=== PATIENT | female | born 1945 | race Caucasian/White ===

== ENCOUNTER 2023-02-03 18:34 | Outpatient (RCR) | payer MEDICARE, SELFPAY | END 2023-02-27 23:59 | disposition home or self-care (01) | LOC: MM 18:34 | PROVIDERS: PCP Internal Medicine; Visit Provider Internal Medicine | DX: Z51.81 Encounter for therapeutic drug level monitoring (principal); Z79.01 Long term (current) use of anticoagulants ==

== ENCOUNTER 2023-02-21 11:47 | Outpatient (OUT) | payer MEDICARE, SELFPAY ==
[2023-02-21 12:21] LABS: Basophils Percent Auto 0.5 % (0.2-2.0); Eosinophils Absolute Auto 0.1 10^3/uL (0.0-0.7); Eosinophils Percent Auto 1.2 % (0.9-7.0); Hematocrit 47.6 % (36.0-48.0); Hemoglobin 15.3 g/dL (12.0-16.0); Immature Granulocytes Abs Auto 0.02 10^3/uL (0.00-0.03); Immature Granulocytes Pct Auto 0.2 % (0.0-0.5); Lymphocytes Absolute Auto 1.7 10^3/uL (1.2-3.8); Lymphocytes Percent Auto 20.4 % (20.5-60.0); Mean Corpuscular HGB Conc 32.1 g/dL (29.9-35.2); Mean Corpuscular Hemoglobin 31.5 pg (26.7-34.0); Mean Corpuscular Volume 98.1 fL (81.0-99.0); Mean Platelet Volume 11.5 fL (9.5-13.5); Monocytes Absolute Auto 0.7 10^3/uL (0.3-0.8); Monocytes Percent Auto 8.2 % (1.7-12.0); Neutrophils Absolute Auto 5.7 10^3/uL (1.4-6.5); Neutrophils Percent Auto 69.5 % (43.0-75.0); Platelet Count 244 10^3/uL (150-450); Red Blood Count 4.85 10^6/uL (4.20-5.40); Red Cell Distribution Width 13.9 % (11.0-15.0); White Blood Count 8.1 10^3/uL (4.0-11.0)
[2023-02-21 12:55] LABS: Bilirubin Urine NEGATIVE (NEGATIVE); Blood Urine TRACE-I (NEGATIVE); Clarity Urine CLEAR (CLEAR); Color Urine LT. YELLOW (YELLOW); Glucose Urine UA >=1000 mg/dL (NEGATIVE); Ketones Urine NEGATIVE (NEGATIVE); Leukocyte Esterase Urine NEGATIVE (NEGATIVE); Nitrite Urine NEGATIVE (NEGATIVE); Protein Urine 100 mg/dL (NEG/TRACE); Specific Gravity Urine 1.025 (1.005-1.025); Urobilinogen Urine 0.2 EU/dL (0.2-1.0)
[2023-02-21 13:03] LABS: Estimated Average Glucose 303 mg/dL; Glycohemoglobin A1C 12.2 % (4.5-6.2)
[2023-02-21 13:08] LABS: Alanine Aminotransferase 28 U/L (14-59); Albumin Globulin Ratio 0.7; Alkaline Phosphatase 140 U/L (46-116); Anion Gap 12.3; Aspartate Amino Transferase 17 U/L (15-37); Bilirubin Total 0.5 mg/dL (0.2-1.0); Calcium 9.5 mg/dL (8.5-10.1); Carbon Dioxide 27.7 mmol/L (21.0-32.0); Chloride 100 mmol/L (98-107); Chol HDL Ratio 3.3; Cholesterol 162 mg/dL (<=200); Estimated GFR (African America 56 (>=60); Estimated GFR (Non-African Ame 46 (>=60); Globulin 4.5 g/dL; Glucose 403 mg/dL (74-106); HDL Cholesterol 49 mg/dL (40-60); LDL Cholesterol Calculated 90.8 mg/dL; Sodium 136 mmol/L (136-145); Total Protein 7.5 g/dL (6.4-8.2); Triglycerides 111 mg/dL (<=150); VLDL CHOLESTEROL 22.2 mg/dL
[2023-02-21 13:45] LABS: Bacteria Urine NONE SEEN #/HPF (NONE SEEN); Cast Seen? NONE SEEN #/LPF (NONE SEEN); Crystals Seen? None Seen #/HPF (None Seen); Mucus Urine NONE SEEN (NONE SEEN); RBC Urine 0-2 #/HPF (0-2); Squamous Epithelial Cell Urine FEW #/LPF (NONE/RARE); Urine Culture Indicated NO; WBC Urine 0-2 #/HPF (NONE SEEN)
[2023-02-23 08:39] LABS: Microalbumin Urine Random 39.4 mg/dL (<=30.0)
== END 2023-02-21 11:48 | disposition home or self-care (01) ==
PROVIDERS: PCP Internal Medicine; Visit Provider Internal Medicine
DX: I10 Essential (primary) hypertension (principal); E11.9 Type 2 diabetes mellitus without complications; E55.9 Vitamin D deficiency, unspecified; L03.90 Cellulitis, unspecified; Z79.4 Long term (current) use of insulin
CPT/HCPCS: 36415; 80053; 80061; 81001; 82043; 82306; 83036; 85025

== ENCOUNTER 2023-03-05 09:51 | Outpatient (RCR) | payer MEDICARE, SELFPAY | END 2023-03-30 17:06 | disposition home or self-care (01) | LOC: MM 09:51 | PROVIDERS: PCP Internal Medicine; Visit Provider Internal Medicine | DX: Z51.81 Encounter for therapeutic drug level monitoring (principal); Z79.01 Long term (current) use of anticoagulants ==

== ENCOUNTER 2023-03-06 11:45 | Outpatient (OUT) | payer MEDICARE, SELFPAY ==
[2023-03-06 12:38] LABS: Chol HDL Ratio 3.1; Cholesterol 150 mg/dL (<=200); HDL Cholesterol 49 mg/dL (40-60); Triglycerides 90 mg/dL (<=150)
== END 2023-03-06 11:46 | disposition home or self-care (01) ==
LOC: LAB 11:48
PROVIDERS: PCP Nurse Practitioner; Visit Provider Internal Medicine Cardiovascular Disease
DX: I25.10 Atherosclerotic heart disease of native coronary artery without angina pectoris (principal); E78.5 Hyperlipidemia, unspecified
CPT/HCPCS: 36415; 80061

== ENCOUNTER 2023-03-31 09:34 | Outpatient (RCR) | payer MEDICARE, SELFPAY | END 2023-04-30 17:40 | disposition home or self-care (01) | LOC: MM 09:34 | PROVIDERS: PCP Nurse Practitioner; Visit Provider Internal Medicine | DX: Z51.81 Encounter for therapeutic drug level monitoring (principal); Z79.01 Long term (current) use of anticoagulants ==

== ENCOUNTER 2023-05-01 10:34 | Outpatient (RCR) | payer MEDICARE, SELFPAY | END 2023-05-29 16:59 | disposition home or self-care (01) | LOC: MM 10:34 | PROVIDERS: PCP Nurse Practitioner; Visit Provider Internal Medicine | DX: Z51.81 Encounter for therapeutic drug level monitoring (principal); Z79.01 Long term (current) use of anticoagulants ==

== ENCOUNTER 2023-06-01 02:04 | Outpatient (RCR) | payer MEDICARE, SELFPAY | END 2023-06-30 17:28 | disposition home or self-care (01) | LOC: MM 02:04 | PROVIDERS: PCP Nurse Practitioner; Visit Provider Internal Medicine | DX: Z51.81 Encounter for therapeutic drug level monitoring (principal); Z79.01 Long term (current) use of anticoagulants ==

== ENCOUNTER 2023-06-24 13:45 | Outpatient (OUT) | payer MEDICARE, SELFPAY ==
[2023-06-24 14:25] LABS: Anion Gap 10.5; BUN Creatinine Ratio 18.6; Calcium 9.1 mg/dL (8.5-10.1); Carbon Dioxide 29.4 mmol/L (21.0-32.0); Chloride 104 mmol/L (98-107); Estimated GFR (African America >60 (>=60); Estimated GFR (Non-African Ame 52 (>=60); Glucose 295 mg/dL (74-106); Potassium 3.9 mmol/L (3.5-5.1); Sodium 140 mmol/L (136-145)
[2023-06-24 14:26] LABS: Estimated Average Glucose 303 mg/dL; Glycohemoglobin A1C 12.2 % (4.5-6.2)
== END 2023-06-24 13:46 | disposition home or self-care (01) ==
LOC: LAB 13:46
PROVIDERS: PCP Nurse Practitioner; Visit Provider Nurse Practitioner
DX: E11.9 Type 2 diabetes mellitus without complications (principal)
CPT/HCPCS: 36415; 80048; 83036

== ENCOUNTER 2023-07-01 00:26 | Outpatient (RCR) | payer MEDICARE, SELFPAY | END 2023-07-30 16:42 | disposition home or self-care (01) | LOC: MM 00:26 | PROVIDERS: PCP Nurse Practitioner; Visit Provider Internal Medicine | DX: Z51.81 Encounter for therapeutic drug level monitoring (principal); Z79.01 Long term (current) use of anticoagulants ==

== ENCOUNTER 2023-08-31 02:03 | Outpatient (RCR) | payer MEDICARE, SELFPAY | END 2023-09-30 17:13 | disposition home or self-care (01) | LOC: MM 02:03 | PROVIDERS: PCP Nurse Practitioner; Visit Provider Internal Medicine | DX: Z51.81 Encounter for therapeutic drug level monitoring (principal); Z79.01 Long term (current) use of anticoagulants ==

== ENCOUNTER 2023-10-01 00:59 | Outpatient (RCR) | payer MEDICARE, SELFPAY | END 2023-10-29 17:32 | disposition home or self-care (01) | LOC: MM 00:59 | PROVIDERS: PCP Nurse Practitioner; Visit Provider Internal Medicine | DX: Z51.81 Encounter for therapeutic drug level monitoring (principal); Z79.01 Long term (current) use of anticoagulants ==

== ENCOUNTER 2023-10-30 03:39 | Outpatient (RCR) | payer MEDICARE, SELFPAY | END 2023-11-27 14:15 | disposition home or self-care (01) | LOC: MM 03:39 | PROVIDERS: PCP Nurse Practitioner; Visit Provider Internal Medicine | DX: Z51.81 Encounter for therapeutic drug level monitoring (principal); Z79.01 Long term (current) use of anticoagulants ==

== ENCOUNTER 2023-11-12 08:05 | Outpatient (OUT) | payer MEDICARE, SELFPAY ==
--- OUTSIDE RECORDS SUMMARY | 2023-11-12 08:08 | XMS_ITS | CCD ---
Author Name Unknown Address [address] [place] [address] Organization [facility] Care Team Providers Care Tool Crib Supervisor Name Role Phone PROVIDER, UNKNOWN Admitting Unavailable PROVIDER, UNKNOWN Attending Unavailable PROVIDER, UNKNOWN Admitting Unavailable PROVIDER, UNKNOWN Attending Unavailable PROVIDER, UNKNOWN Attending Unavailable PROVIDER, UNKNOWN Admitting Unavailable PROVIDER, UNKNOWN Attending Unavailable PROVIDER, UNKNOWN Admitting Unavailable PROVIDER, UNKNOWN Admitting Unavailable PATIENT, SELF Referring Unavailable PROVIDER, UNKNOWN Attending Unavailable PROVIDER, UNKNOWN Admitting Unavailable PATIENT, SELF Referring Unavailable PROVIDER, UNKNOWN Attending Unavailable KAMILLA PHOENIX Attending Unavailable REQUEST, IP PHYSICAL THERAPY SERVICE Consulting Unavailable MIGUEL SAEED Referring Unavailable PRITI, RAKATY Admitting Unavailable REQUEST, IP OCCUPATIONAL THERAPY SERVICE Consult ing Unavailable REQUEST, IP LABORER [employer] Consul ting Unavailable CONSULT, IP ENDOCRINOLOGY Consulting Unavai lable PROVIDER, UNKNOWN Admitting Unavailable KAMILLA PHOENIX Referring Unavailable PROVIDER, UNKNOWN Attending Unavailable PROVIDER, UNKNOWN Admitting Unavailable PROVIDER, UNKNOWN Attending Unavailable KAMILLA PHOENIX Referring Unavailable PROVIDER, UNKNOWN Attending Unavailable PRITI, RAHI Admitting Unavailable KAMILLA PHOENIX Referring Unavailable PROVIDER, UNKNOWN Attending Unavailable MIGUEL SAEED Referring Unavailable PRITI, RAHI Admitting Unavailable Aichholz, Mima Soraya Unavailable Unavailable Unavailable Unavailable Unavailable DR SELWYN PALMER Attending Unavailable DR SELWYN PALMER Consulting Unavailable DR SELWYN PALMER Admitting Unavailable AICHHOLZ, INFUSION PHARMACIST MIMA Primary Care Unavailable AICHHOLZ, INFUSION PHARMACIST MIMA Primary Care Unavailable AICHHOLZ, INFUSION PHARMACIST MIMA Admitting Unavailable AICHHOLZ, INFUSION PHARMACIST MIMA Attending Unavailable AICHHOLZ, INFUSION PHARMACIST MIMA Consulting Unavailable AICHHOLZ, INFUSION PHARMACIST MIMA Primary Care Unavailable AICHHOLZ, INFUSION PHARMACIST MIMA Admitting Unavailable AICHHOLZ, INFUSION PHARMACIST MIMA Attending Unavailable AICHHOLZ, INFUSION PHARMACIST MIMA Consulting Unavailable AICHHOLZ, INFUSION PHARMACIST MIMA Admitting Unavailable AICHHOLZ, INFUSION PHARMACIST MIMA Attending Unavailable AICHHOLZ, INFUSION PHARMACIST MIMA Consulting Unavailable AICHHOLZ, INFUSION PHARMACIST MIMA Primary Care Unavailable AICHHOLZ, INFUSION PHARMACIST MIMA Admitting Unavailable AICHHOLZ, INFUSION PHARMACIST MIMA Attending Unavailable AICHHOLZ, INFUSION PHARMACIST MIMA Consulting Unavailable AICHHOLZ, INFUSION PHARMACIST MIMA Primary Care Unavailable AICHHOLZ, INFUSION PHARMACIST MIMA Primary Care Unavailable FAWWAD, CHAN H Admitting Unavailable FAWWAD, CHAN H Attending Unavailable AICHHOLZ, INFUSION PHARMACIST MIMA Primary Care Unavailable FAWWAD, CHAN H Admitting Unavailable FAWWAD, CHAN H Attending Unavailable AICHHOLZ, INFUSION PHARMACIST MIMA Primary Care Unavailable FAWWAD, CHAN H Attending Unavailable FAWWAD, CHAN H Admitting Unavailable Yulissa Barnhart [facility]available [facility] Mrs[facility] Guillermo Soraya Primary Care Unavailab le Annika, Dr. Rowan Aranda Attending Valeria vailable Yanez, Dr. Rowan Aranda Referring Valeria vailable Aichholmarlen, Mrs. Mima Lira Primary Care Unavailab renetta Yanez, Dr. Rowan Aranda Attending Valeria vailable Yanez, Dr. Rowan Aranda Referring Valeria vailable AICHHOLZ, MIMA Attending Unavailable AICHHOLZ, MIMA Attending Unavailable Medications Current Medications Medication Drug Class(es) Dates Sig (Normalized) Sig (Original) 3 ml insulin isophane, human 70 unt/ml / insulin, regular, human 30 unt/ml pen injector (1 source) Insulin NovoLIN 70/30 Fl exPen (70-30) 100 UNIT/ML as directed Subcutaneous Active Potassium (1 source) Potassium Active Completed/Discontinued Medications Medication Drug Class(es) Dates Sig (Normalized) Sig (Original) apixaban 5 mg oral tablet (3 sources) Factor Xa Inhibitor take 1 tablet by mouth twice daily Eliquis 5 MG Oral Tablet Take 1 tablet twice daily Quantity: 90 Refills: 3 Ordered: 25-Feb-2023 DO Active aspirin 81 mg delayed release oral tablet (3 sources) Platelet Aggregation Inhibitor, Nonsteroidal Anti-inflammatory Drug take 1 tablet by mouth two times weekly Aspirin EC Low Dose 81 MG Oral Tablet Delayed Release 1 tablet twice weekly Quantity: 0 Refills: 0 Ordered: 01-Nov-2021 DO Active atorvastatin 40 mg oral tablet (7 sources) HMG-CoA Reductase Inhibitor Start: 11-01-2021 take 1 tablet by mouth at bedtime Atorvastatin Calcium 40 MG Oral Tablet take 1 tablet by mouth at bedtime Quantity: 90 Refills: 3 Ordered: 15-Oct-2022 Rowan Yanez MD Start : 01-Nov-2021 Active Atorvastatin Will cium Active clopidogrel 75 mg oral tablet (7 sources) P2Y12 Platelet Inhibitor Start: 11-08-2020 take 1 tablet by mouth once daily Clopidogrel Bisulfate 75 MG Oral Tablet take 1 tablet by mouth once daily Quantity: 90 Refills: 0 Ordered: 10-Oct-2021 DO Start : 09-Oct-2021 Active 0.5 ml dulaglutide 3 mg/ml auto-injector (1 source) GLP-1 Receptor Agonist Trulicity 1.5 MG/0.5ML as directed Subcutaneous Not-Taking ergocalciferol 1.25 mg oral capsule (4 sources) Provitamin D2 Compound Start: 08-02-2021 take 1 capsule by mouth every week Vitamin D (Ergocalciferol) 1.25 MG (02074 UT) Oral Capsule take 1 capsule by mouth every week Quantity: 4 Refills: 0 Ordered: 12-Oct-2021 DO Start : 02-Aug-2021 Active formoterol / glycopyrronium (1 source) beta2-Adrenergic Agonist Bevespi Not-Taking furosemide 40 mg oral tablet (7 sources) Loop Diuretic Start: 05-20-2022 take 1 tablet by mouth once daily Furosemide 40 MG Oral Tablet take 1 tablet by mouth once daily Quantity: 90 Refills: 3 Ordered: 28-May-2023 Rowan Yanez MD Start : 20-May-2022 Active Start: 10-23-2021 take 1 tablet by deann th once daily Furosemide 20 MG Oral Tablet TAKE 1 TABLET DAILY DIRECTED. Quantity: 0 Refills: 0 Ordered: 23-Oct-2021 DO Start : 23-Oct-2021 Active Lasix Active 3 ml insulin aspart, human 100 unt/ml pen injector (3 sources) Insulin Analog Start: 05-07-2021 NovoLOG FlexPe n 100 UNIT/ML Subcutaneous Solution Pen-injector INJECT 12 UNITS AT LUCH AND SLIDING SCALE, 14 UNITS FOR DINNER AN... (REFER TO PRESCRIPTION NOTES). Quantity: 15 Refills: 0 Ordered: 12-Oct-2021 DO Start : 07-May-2021 Active 3 ml insulin glargine 100 unt/ml pen injector (4 sources) Insulin Analog Start: 07-29-2021 Lantus SoloSta r 100 UNIT/ML Subcutaneous Solution Pen-injector INJECT 22 UNITS SUBCUTANEOUSLY ONCE DAILY Quantity: 9 Refills: 0 Ordered: 12-Oct-2021 DO Start : 29-Jul-2021 Active Lantus SoloStar 100 UNIT/ML as directed Subcutaneous Not-Taking lisinopril 10 mg oral tablet (7 sources) Angiotensin Converting Enzyme Inhibitor Start: 11-01-2021 take 1 tablet by mouth once daily Lisinopril 10 MG Oral Tablet take 1 tablet by mouth once daily Quantity: 90 Refills: 3 Ordered: 15-Oct-2022 Rowan Yanez MD Start : 01-Nov-2021 Active NovoLIN 70/30 PenFill SUSP (2 sources) NovoLIN 70/30 PenFill SUSP USE DIRECTED. Quantity: 0 Refills: 0 Ordered: 25-Feb-2023 DO Active potassium chloride 20 meq extended release oral tablet (6 sources) Start: 10-23-2021 take 1 tablet by mouth once daily Potassium Chloride ER 20 MEQ Oral Tablet Extended Release Take 1 tablet daily Quantity: 0 Refills: 0 Ordered: 23-Oct-2021 DO Start : 23-Oct-2021 Active simvastatin 20 mg oral tablet (2 sources) HMG-CoA Reductase Inhibitor take 1 tablet by mouth every twenty-four hours Simvastatin 20 MG 1 tablet in the evening Orally Once a day Not-Taking terbinafine hydrochloride 10 mg/ml topical cream (1 source) Allylamine Antifungal Terbinafine HCl 1 % 1 application Externally Once a day Not-Taking warfarin sodium 4 mg oral tablet (4 sources) Vitamin K Antagonist Start: 10-09-2021 Warfarin Sodium 4 MG Oral Tablet warfarin is managed by [facility] . Quantity: 0 Refills: 0 Ordered: 10-Oct-2021 DO Start : 09-Oct-2021 Active Problems Active Problems Problem Classification Problem Date Documented Da te Episodic/Chronic Aortic and peripheral arterial embolism or thrombosis (1 source) Embolism and thrombosis of an arm or leg artery; Translations: [Embolism and thrombosis of arteries of the lower extremities] Chronic Chronic obstructive pulmonary disease and bronchiectasis (6 sources) Chronic obstructive lung disease; Translations: [Chronic airway obstruction, not elsewhere classified] Chronic Coronary atherosclerosis and other heart disease (6 sources) Coronary arteriosclerosis; Translations: [Coronary atherosclerosis of unspecified type of vessel, holy cross or graft] Chronic Diabetes mellitus without complication (11 sources) Diabetes mellitus; Translations: [Diabetes mellitus without mention of complication, type II or unspecified type, not stated as uncontrolled] Onset: 06-03-2022 Chronic Disorders of lipid metabolism (3 sources) Hyperlipidemia; Translations: [Other and unspecified hyperlipidemia] Chronic Essential hypertension (6 sources) Benign essential hypertension; Translations: [Benign essential hypertension] Chronic Occlusion or stenosis of precerebral arteries (3 sources) Bilateral stenosis of carotid arteries; Translations: [Occlusion and stenosis of bilateral carotid arteries] Chronic Other aftercare (6 sources) Drug therapy finding; Translations: [Long-term (current) use of other medications] Episodic Other aftercare (5 sources) penitentiary (current) use of anticoagulants; Translations: [SNF CURRNT USE ANTICOAGULANTS] Onset: 11-11-2022 Episodic Other aftercare (4 sources) Encounter for therapeutic drug level monitoring; Translations: [ENC THERAPEUTC DRUG LEVL MONITORING] Onset: 12-29-2022 Episodic Other injuries and conditions due to external causes (2 sources) At risk for falls ; Translations: [History of fall] Episodic Other nutritional; endocrine; and metabolic disorders (6 sources) Obesity; Translations: [Obesity, unspecified] Chronic Other screening for suspected conditions (not mental disorders or infectious disease) (6 sources) Echocardiogram abnormal; Translations: [Nonspecific (abnormal) findings on radiological and other examination of other intrathoracic organs] Episodic Peripheral and visceral atherosclerosis (8 sources) Peripheral vascular disease; Translations: [Peripheral vascular disease, unspecified] Chronic Phlebitis; thrombophlebitis and thromboembolism (6 sources) Deep venous thrombosis; Translations: [Acute venous embolism and thrombosis of unspecified deep vessels of lower extremity] Episodic Skin and subcutaneous tissue infections (13 sources) Cellulitis of lower limb; Translations: [Cellulitis and abscess of leg, except foot] Onset: 06-03-2022 Episodic Substance-related disorders (9 sources) Smoker; Translations: [Tobacco use disorder] Onset: 06-03-2022 Chronic Comment on above: 1 pack to 1/2 pack d aily; Past or Other Problems Problem Classification Problem Date Documented Da te Episodic/Chronic E Codes: Natural/environment (1 source) Bitten by cat, initial encounter; Translations: [BITTEN BY CAT INITIAL ENCOUNTER] Onset: 06-03-2022 Episodic Open wounds of extremities (8 sources) Open bite of left index finger without damage to nail, initial encounter; Translations: [Unspecified open wound, left lower leg, initial encounter] Onset: 04-22-2022 Episodic Other aftercare (1 source) penitentiary (current) use of insulin; Translations: [OPERATING ROOM COORDINATOR CURRENT USE OF INSULIN] Onset: 06-03-2022 Episodic Other aftercare (1 source) Other ad terminal makeup operator (current) drug therapy; Translations: [OTH SNF CURRENT DRUG THERAPY] Onset: 06-03-2022 Episodic Results Test Name Value Interpretation Reference Range Facility Office Visit (Cardiology)on 02-25-2023 Follow-up visit Diagnoses/Problems Assessed ASHD (arteriosclerotic heart disease) (414.00) (I25.10) History of coronary artery bypass graft (V45.81) (Z95.1) Essential hypertension, benign (401.1) (I10) PVD (peripheral vascular disease) (443.9) (I73.9) Hyperlipidemia (272.4) (E78.5) Diabetes mellitus (250.00) (E11.9) DVT (deep venous thrombosis) (453.40) (I82.409) COPD (chronic obstructive pulmonary disease) (496) (J44.9) High risk medications (not anticoagulants) long-term use (V58.69) (Z79.899) Class 1 obesity with body mass index (BMI) of 31.0 to 31.9 in adult (278.00,V85.31) (E66.9,Z68.31) Current smoker (305.1) (F17.200) 1 pack to 1/2 pack daily At risk for falls (V15.88) (Z91.81) Cellulitis of left lower extremity (682.6) (L03.116) Cellulitis of right lower extremity (682.6) (L03.115) Orders ASHD (arteriosclerotic heart disease), Hyperlipidemia Lipid Panel; Status:Active - Retrospective Authorization; Requested for:25Feb2023; Class 1 obesity with body mass index (BMI) of 31.0 to 31.9 in adult Healthy Weight Tips; Status:Complete - Retrospective Authorization; Done: 25Feb2023 Some eating tips that can help you lose weight.; Status:Complete - Retrospective Authorization; Done: 25Feb2023 SocHx: Current smoker You need to stop smoking. Though it is not easy, more than half of all adult smokers have quit. We encourage you to write down all the reasons you should quit smoking and set a quit date for yourself. Ask us how we can help. You may also call 5-577-EQRXNOW for free resources and assistance.; Status:Complete - Retrospective Authorization; Done: 25Feb2023 Tobacco Use Screening; Status:Complete; Done: 25Feb2023 Patient Instructions Please bring all medicines, vitamins, and herbal supplements with you when you come to the office. Prescriptions will not be filled unless you are compliant with your follow up appointments or have a follow up appointment scheduled as per instruction of your physician. Refills should be requested at the time of your visit. Fall prevention education given Lab work Follow up in 6 months Chief Complaint CHARLES COREAS is being seen for a 6 month follow-up of. Patient is in the office with her daughter for follow-up for the problems noted below. She has not had any cardiac events since her last visit. I did receive lab data on this patient since her last visit which demonstrated uncontrolled diabetes with A1c over 11. She follows with vascular surgery Dr. Blackburn and she saw him this morning. She is scheduled to have carotid scan in his office in in the near future. She reports no angina TIA dyspnea orthopnea PND, she does have cellulitis involving lower extremities and she has started antibiotic by her PCP recently. She continues to smoke and has no desire to quit smoking. She had no anginal symptoms. She does have bilateral carotid bruit. Assessment/recommendatio ns: 1?history of coronary bypass surgery 20 years ago in [place]. Nuclear stress test 2021 was normal, address risk factor for CAD and emphasized need to quit smoking and controlled hypertension diabetes and hyperlipidemia.. Patient remains at very high risk for recurrent cardiovascular disease including morbidity and mortality due to uncontrolled diabetes and active tobacco abuse. 2?cellulitis involving both lower extremities currently on antibiotics. 3?hypertension, currently controlled. Low-salt diet was recommended 4?hyperlipidemia currently lipid profile is ordered. 5?longstanding diabetes managed by PCP. Currently not controlled, PCP is addressing, she is on insulin 6?active tobacco abuse with no desire to quit smoking. She knows the risks and she is willing to take them. 7?history of deep vein thrombosis on Coumadin therapy. Aspirin will be discontinued since patient is on Plavix 8?history of severe PAD with femorofemoral bypass surgery by Dr. Davis, statin and antiplatelet therapy to continue. 9?obesity. Encouraged the patient to cut back on calorie consumption 10?at risk for fall, education to prevent future falls was discussed with the patient Surgical History Problems History of Arterial stent placement History of Bypass History of Complete colonoscopy History of Thrombectomy 3 Current Meds Medication NameInstruction Atorvastatin Calcium 40 MG Oral Tablettake 1 tablet by mouth at bedtime Clopidogrel Bisulfate 75 MG Oral Tablettake 1 tablet by mouth once daily Eliquis 5 MG Oral TabletTake 1 tablet twice daily Furosemide 40 MG Oral TabletTAKE 1 TABLET DAILY. Lisinopril 10 MG Oral Tablettake 1 tablet by mouth once daily NovoLIN 70/30 PenFill SUSPUSE DIRECTED. Potassium Chloride ER 20 MEQ Oral Tablet Extended ReleaseTake 1 tablet daily Allergies NoKnown No Known Allergies Recorded By: Mehnaz Espana; 11/01/2021 9:14:01 AM Social History Problems Current smoker (305.1) (F17.200) 1 pack to 1/2 pack daily Daily caffeine consumption 1 cup of coffee daily No alcoho (more content not included)... Normal [employer] Tobacco Screening.on 023 Adult depression screening assessment No [facility]-Revistronicusk y 250 DO Work Phone: Fall risk assessment b) One or more fall s in the last year [facility] HeartRealeyes 3D y 250 DO Work Phone: Tobacco use status [facility] a) Yes [facility] Triptease y 250 DO Work Phone: Tobacco Screening. Yes [facility] y 250 DO Work Phone: PROTIMEon 11-11-2022 INR Coag (PPP) [Relative time] 1.05 {INR} Normal [facility] Comment on above: Performed By: #### P T #### [facility] [address] [place] [address] Dr. Sadia Toth INR GUIDELINES SEE BELOW Normal [facility] Comment on above: Result Comment: GAMAL RED INR: 2.0 - 3.0 CONDITIONS NOT LISTED BELOW 2.5 - 3.5 FOR PROSTHETIC HEART VALVE REPLACEMENT 2.5 - 3.5 RECURRENT THROMBOSIS Performed By: #### P T #### [facility] [address] [address] [address] Sadia Toth PT Coag (PPP) [Time] 11.1 s Normal 9.0-11.6 [facility] Comment on above: Performed By: #### P T #### [facility] [address] [place] [address] Dr. Sadia Toth GLYCOHEMOGLOBIN A1Con 2021 ADA RECOMMENDATION SEE BELOW Normal [facility] Comment on above: Result Comment: ADA RECOMMENDED LIMIT 4.0 - 6.0 ADA THERAPEUTIC TARGET < 7.0 ACTION SUGGESTED > 7.0 Performed By: #### A 1C #### [facility] [address] [place] [address] Dr. Sadia Toth Glucose [Mass/Vol] 272 mg/dL Normal [facility] Comment on above: Performed By: #### A 1C #### [facility] [address] [place] [address] Dr. Sadia Toth HbA1c (Bld) [Mass fraction] 11.1 % Critically high 4.5-6.2 [facility] Comment on above: Performed By: #### A 1C #### [facility] [address] [place] [address] Dr. Sadia Toth PROF CHEM 8 (BAS METB)on Anion gap [Moles/Vol] 12.4 mmol/L Normal [facility] Comment on above: Performed By: #### B MP #### [facility] [address] [place] [address] Dr. Sadia Toth Calcium [Mass/Vol] 9.5 mg/dL Normal 8.5-10.1 [facility] Comment on above: Performed By: #### B MP #### [facility] [address] [address] [address] Sadia Toth Chloride [Moles/Vol] 105 mmol/L Normal 98-107 [facility] Comment on above: Performed By: #### B MP #### [facility] [address] [address] [address] Sadia Toth CO2 [Moles/Vol] 29.7 mmol/L Normal 21.0-32.0 [facility] Comment on above: Performed By: #### B MP #### [facility] [address] [address] [address] Sadia Toth Creatinine [Mass/Vol] 1.00 mg/dL Normal 0.55-1.02 [facility] Comment on above: Performed By: #### B MP #### [facility] [address] [address] [address] Sadia Toth EGFR-AF KAZAKH >60 Normal >=60 [facility] Comment on above: Performed By: #### B MP #### [facility] [address] [address] [address] Sadia Toth EGFR-NON AF KAZAKH 54 mL/min/1.73m2 Critically low >=60 [facility] Comment on above: Performed By: #### B MP #### [facility] [address] [address] [address] Sadia Toth Glucose [Mass/Vol] 181 mg/dL Critically high 74-106 [facility] Comment on above: Performed By: #### B MP #### [facility] [address] [address] [address] Sadia Toth Potassium [Moles/Vol] 4.1 mmol/L Normal 3.5-5.1 [facility] Comment on above: Performed By: #### B MP #### [facility] [address] [address] [address] Sadia Toth Sodium [Moles/Vol] 143 mmol/L Normal 136-145 [facility] Comment on above: Performed By: #### B MP #### [facility] [address] [place] [address] Dr. Sadia Toth Urea nitrogen [Mass/Vol] 12.0 mg/dL Normal 7.0-18.0 [facility] Comment on above: Performed By: #### B MP #### [facility] [address] [place] [address] Dr. Sadia Toth Urea nitrogen/Creatinine [Mass ratio] 12.0 mg/mg Normal [facility] Comment on above: Performed By: #### B MP #### [facility] [address] [place] [address] Dr. Sadia Toth PROTIMEon 08-11-2022 INR Coag (PPP) [Relative time] 2.05 {INR} Normal [facility] Comment on above: Performed By: #### P T #### [facility] [address] [place] [address] Dr. Sadia Toth INR GUIDELINES SEE BELOW Normal [facility] Comment on above: Result Comment: GAMAL RED INR: 2.0 - 3.0 CONDITIONS NOT LISTED BELOW 2.5 - 3.5 FOR PROSTHETIC HEART VALVE REPLACEMENT 2.5 - 3.5 RECURRENT THROMBOSIS Performed By: #### P T #### [facility] [address] [place] [address] Dr. Sadia Toth PT Coag (PPP) [Time] 21.1 s Critically high 9.0-11.6 [facility] Comment on above: Performed By: #### P T #### [facility] [address] [place] [address] Dr. Sadia Toth PROTIMEon 06-26-2022 INR Coag (PPP) [Relative time] 1.37 {INR} Normal [facility] Comment on above: Performed By: #### P T #### [facility] [address] [place] [address] Dr. Sadia Toth INR GUIDELINES SEE BELOW Normal [facility] Comment on above: Result Comment: GAMAL RED INR: 2.0 - 3.0 CONDITIONS NOT LISTED BELOW 2.5 - 3.5 FOR PROSTHETIC HEART VALVE REPLACEMENT 2.5 - 3.5 RECURRENT THROMBOSIS Performed By: #### P T #### [facility] [address] [place], [place] [address] Dr. Sadia Toth PT Coag (PPP) [Time] 14.5 s Critically high 9.0-11.6 [facility] Comment on above: Performed By: #### P T #### [facility] [address] [place], [place] [address] Dr. Sadia Toth Office Visit (Cardiology)on 05-20-2022 Follow-up visit Diagnoses/Problems Assessed ASHD (arteriosclerotic heart disease) (414.00) (I25.10) History of coronary artery bypass graft (V45.81) (Z95.1) PVD (peripheral vascular disease) (443.9) (I73.9) DVT (deep venous thrombosis) (453.40) (I82.409) Diabetes mellitus (250.00) (E11.9) COPD (chronic obstructive pulmonary disease) (496) (J44.9) Essential hypertension, benign (401.1) (I10) Current smoker (305.1) (F17.200) 1 pack to 1/2 pack daily Class 1 obesity with body mass index (BMI) of 32.0 to 32.9 in adult (278.00,V85.32) (E66.9,Z68.32) Hyperlipidemia (272.4) (E78.5) High risk medications (not anticoagulants) long-term use (V58.69) (Z79.899) Cellulitis of left lower extremity (682.6) (L03.116) Cellulitis of right lower extremity (682.6) (L03.115) Orders ASHD (arteriosclerotic heart disease), Diabetes mellitus, Essential hypertension, benign, History of coronary artery bypass graft, PVD (peripheral vascular disease) Stop: Aspirin EC Low Dose 81 MG Oral Tablet Delayed Release ASHD (arteriosclerotic heart disease), Essential hypertension, benign, PVD (peripheral vascular disease) Start: Furosemide 40 MG Oral Tablet; TAKE 1 TABLET DAILY Class 1 obesity with body mass index (BMI) of 32.0 to 32.9 in adult Healthy Weight Tips; Status:Complete - Retrospective Authorization; Done: [id number] Some eating tips that can help you lose weight.; Status:Complete - Retrospective Authorization; Done: [id number] Essential hypertension, benign, Hyperlipidemia ALT - Alanine Aminotransferase, Serum; Status:Active - Retrospective Authorization; Requested for:10Jun2022; AST; Status:Active - Retrospective Authorization; Requested for:10Jun2022; Basic Metabolic Panel; Status:Active - Retrospective Authorization; Requested for:10Jun2022; Lipid Panel; Status:Active - Retrospective Authorization; Requested for:10Jun2022; SocHx: Current smoker You need to stop smoking. Though it is not easy, more than half of all adult smokers have quit. We encourage you to write down all the reasons you should quit smoking and set a quit date for yourself. Ask us how we can help. You may also call 4-361-CXZWVivactaNOW for free resources and assistance.; Status:Complete - Retrospective Authorization; Done: 20May2022 Tobacco Use Screening; Status:Complete; Done: 20May2022 Unlinked Stop: Furosemide 20 MG Oral Tablet Patient Instructions Please bring all medicines, vitamins, and herbal supplements with you when you come to the office. Prescriptions will not be filled unless you are compliant with your follow up appointments or have a follow up appointment scheduled as per instruction of your physician. Refills should be requested at the time of your visit. Fall prevention education given Stop Aspirin Increase Furosemide to 40 mg daily Verify what statin medication you are taking and contact office Follow up in 6 months Chief Complaint CHARLES COREAS is being seen for a 6 month follow-up of. Patient is in the office for follow-up for the problems noted below. She came with her daughter. Since her last visit we did nuclear stress test which came back normal and revealed return of ejection fraction to normal. She is still actively smoking and again I provide the patient extensive education to quit smoking. She has continued to suffer from bilateral lower extremity cellulitis, this is not medications related. She recently had an infection as well. Her pressure is under control. Her diabetes is not under control lab data from March 2022 was reviewed and discussed with the patient. She did not have any recent lipid profile. Her medications list has both simvastatin and atorvastatin, the patient will clarify that when she goes home. She has been taking very small dose of Lasix at 20 mg daily which will not help significantly with the lower extremity edema. Assessment/recommendatio ns: 1?history of coronary bypass surgery 20 years ago in [place]. Nuclear stress test 2021 was normal, address risk factor for CAD and emphasized need to quit smoking and controlled hypertension diabetes and hyperlipidemia.. 2?cellulitis involving both lower extremities with no medications on board to be the culprit, will increase Lasix up to 40 mg daily and follow basic metabolic profile 3?hypertension, currently controlled. Low-salt diet was recommended 4?hyperlipidemia currently lipid profile is ordered. Patient will clarify whether she is taking simvastatin or atorvastatin. 5?longstanding diabetes managed by PCP. Currently not controlled, PCP is addressing 6?active tobacco abuse with no desire to quit smoking. She knows the risks and she is willing to take them. 7?history of deep vein thrombosis on Coumadin therapy. Aspirin will be discontinued since patient is on Plavix 8?history of severe PAD with femorofemoral bypass surgery by Dr. Davis, statin and antiplatelet therapy to continue. 9?obesity. Encouraged the patient to cut back on calorie consumption Surgical (more content not included)... Normal [facility] WOUND CULTUREon 04-28-2022 Antimicrobial Susceptibility Comment Normal [facility] Comment on above: Result Comment: S = Susceptible; I = Intermediate; R = Resistant P = Positive; N = Negative MICS are expressed in micrograms per mL Antibiotic RSLT#1 RSLT#2 RSLT#3 RSLT#4 Amikacin S Cefepime S Ceftazidime S Ciprofloxacin S S Clindamycin S Erythromycin S Gentamicin S S Imipenem S Levofloxacin S S Linezolid S Meropenem S Moxifloxacin S Oxacillin S Penicillin R Piperacillin S Quinupristin/Dalfopristin S Rifampin S Tetracycline S Ticarcillin S Tobramycin S Trimethoprim/Sulfa S Vancomycin S Performed By: #### C XWND #### [facility] [address] [place] [address] Dr. Sadia Toth Bacteria identified Aer cx Nom (Unsp spec) Final report Abnormal [facility] Comment on above: Performed By: #### C XWND #### [facility] [address] [place] [address] Dr. Sadia Toth Result 1 Comment Abnormal [facility] Comment on above: Result Comment: Pseu domonas aeruginosa Heavy growth Performed By: #### C XWND #### [facility] [address] [place] [address] Dr. Sadia Toth Result 2 Staphylococcus aureus Abnormal [facility] Comment on above: Result Comment: Base d on susceptibility to oxacillin this isolate would be susceptible to: *Penicillinase-stable penicillins, such as: Cloxacillin, Dicloxacillin, Nafcillin *Beta-lactam combination agents, such as: Amoxicillin-clavulanic acid, Ampicillin-sulbactam, Piperacillin-tazobactam *Oral cephems, such as: Cefaclor, Cefdinir, Cefpodoxime, Cefprozil, Cefuroxime, Cephalexin, Loracarbef *Parenteral cephems, such as: Cefazolin, Cefepime, Cefotaxime, Cefotetan, Ceftaroline, Ceftizoxime, Ceftriaxone, Cefuroxime *Carbapenems, such as: Doripenem, Ertapenem, Imipenem, Meropenem Heavy growth Performed By: #### C XWND #### [facility] [address] [place] [address] Dr. Sadia Toth CBC AUTO DIFFon 04-22-2022 BASO # 0.0 103/ul Normal 0.0-0.1 [facility] Comment on above: Performed By: #### C BC #### [facility] [address] [place] [address] Dr. Sadia Toth Basophils/100 WBC (Bld) 0.5 % Normal 0.2-2.0 [facility] Comment on above: Performed By: #### C BC #### [facility] [address] [place] [address] Dr. Sadia Toth EO # 0.2 103/ul Normal 0.0-0.7 [facility] Comment on above: Performed By: #### C BC #### [facility] [address] [place] [address] Dr. Sadia Toth Eosinophils/100 WBC (Bld) 2.0 % Normal 0.9-7.0 [facility] Comment on above: Performed By: #### C BC #### [facility] [address] [place] [address] Dr. Sadia Toth Erythrocyte distribution width (RBC) [Ratio] 14.2 % Normal 11.0-15.0 [facility] Comment on above: Performed By: #### C BC #### [facility] [address] [place] [address] Dr. Sadia Toth Hematocrit (Bld) [Volume fraction] 44.2 % Normal 36.0-48.0 [facility] Comment on above: Performed By: #### C BC #### [facility] [address] [place] [address] Dr. Sadia Toth Hemoglobin (Bld) [Mass/Vol] 14.0 g/dL Normal 12.0-16.0 [facility] Comment on above: Performed By: #### C BC #### [facility] [address] [place] [address] Dr. Sadia Toth IG # 0.03 10e3/ul Normal 0.00-0.03 [facility] Comment on above: Performed By: #### C BC #### [facility] [address] [place] [address] Dr. Sadia Toth IG % 0.4 % Normal 0.0-0.5 [facility] Comment on above: Performed By: #### C BC #### [facility] [address] [place] [address] Dr. Sadia Toth LYMPH # 1.8 103/ul Normal 1.2-3.8 [facility] Comment on above: Performed By: #### C BC #### [facility] [address] [place] [address] Dr. Sadia Toth Lymphocytes/100 WBC (Bld) 21.5 % Normal 20.5-60.0 [facility] Comment on above: Performed By: #### C BC #### [facility] [address] [place] [address] Dr. Sadia Toth MANUAL DIFF REQ NO Normal [facility] Comment on above: Performed By: #### C BC #### [facility] [address] [place] [address] Dr. Sadia Toth MCH (RBC) [Entitic mass] 32.1 pg Normal 26.7-34.0 [facility] Comment on above: Performed By: #### C BC #### [facility] [address] [address] [address] Sadia Toth MCHC (RBC) [Mass/Vol] 31.7 g/dL Normal 29.9-35.2 [facility] Comment on above: Performed By: #### C BC #### [facility] [address] [address] [address] Sadia Toth MCV (RBC) [Entitic vol] 101.4 fL Critically high 81.0-99.0 [facility] Comment on above: Performed By: #### C BC #### [facility] [address] [address] [address] Sadia Toth MONO # 0.6 103/ul Normal 0.3-0.8 [facility] Comment on above: Performed By: #### C BC #### [facility] [address] [place] [address] Dr. Sadia Toth Monocytes/100 WBC (Bld) 6.9 % Normal 1.7-12.0 [facility] Comment on above: Performed By: #### C BC #### [facility] [address] [place] [address] Dr. Sadia Toth NEUT # 5.9 103/ul Normal 1.4-6.5 [facility] Comment on above: Performed By: #### C BC #### [facility] [address] [address] [address] Sadia Toth Neutrophils/100 WBC (Bld) 68.7 % Normal 43.0-75.0 [facility] Comment on above: Performed By: #### C BC #### [facility] [address] [address] [address] Sadia Toth Platelet mean volume (Bld) [Entitic vol] 11.3 fL Normal 9.5-13.5 [facility] Comment on above: Performed By: #### C BC #### [facility] [address] [address] [address] Sadia Toth PLT 187 103/ul Normal 150-450 [facility] Comment on above: Performed By: #### C BC #### [facility] [address] [place] [address] Dr. Sadia Toth RBC 4.36 106/ul Normal 4.20-5.40 [facility] Comment on above: Performed By: #### C BC #### [facility] [address] [place] [address] Dr. Sadia Toth WBC 8.6 103/ul Normal 4.0-11.0 [facility] Comment on above: Performed By: #### C BC #### [facility] [address] [place] [address] Dr. Sadia Toth GLYCOHEMOGLOBIN A1Con 2021 ADA RECOMMENDATION SEE BELOW Normal [facility] Comment on above: Result Comment: ADA RECOMMENDED LIMIT 4.0 - 6.0 ADA THERAPEUTIC TARGET < 7.0 ACTION SUGGESTED > 7.0 Performed By: #### A 1C #### [facility] [address] [place] [address] Dr. Sadia Toth Glucose [Mass/Vol] 252 mg/dL Normal [facility] Comment on above: Performed By: #### A 1C #### [facility] [address] [place] [address] Dr. Sadia Toth HbA1c (Bld) [Mass fraction] 10.4 % Critically high 4.5-6.2 [facility] Comment on above: Performed By: #### A 1C #### [facility] [address] [place] [address] Dr. Sadia Toth PROF CHEM 8 (BAS METB)on Anion gap [Moles/Vol] 12.2 mmol/L Normal [facility] Comment on above: Performed By: #### B MP #### [facility] [address] [place] [address] Dr. Sadia Toth Calcium [Mass/Vol] 9.0 mg/dL Normal 8.5-10.1 [facility] Comment on above: Performed By: #### B MP #### [facility] [address] [place] [address] Dr. Sadia Toth Chloride [Moles/Vol] 103 mmol/L Normal 98-107 [facility] Comment on above: Performed By: #### B MP #### [facility] [address] [address] [address] Sadia Toth CO2 [Moles/Vol] 27.3 mmol/L Normal 21.0-32.0 [facility] Comment on above: Performed By: #### B MP #### [facility] [address] [address] [address] Sadia Toth Creatinine [Mass/Vol] 1.16 mg/dL Critically high 0.55-1.02 [facility] Comment on above: Performed By: #### B MP #### [facility] [address] [place] [address] Dr. Sadia Toth EGFR-AF KAZAKH 55 mL/min/1.73m2 Critically low >=60 [facility] Comment on above: Performed By: #### B MP #### [facility] [address] [place] [address] Dr. Sadia Toth EGFR-NON AF KAZAKH 45 mL/min/1.73m2 Critically low >=60 [facility] Comment on above: Performed By: #### B MP #### [facility] [address] [place] [address] Dr. Sadia Toth Glucose [Mass/Vol] 356 mg/dL Critically high 74-106 [facility] Comment on above: Performed By: #### B MP #### [facility] [address] [address] [address] Sadia Toth Potassium [Moles/Vol] 4.5 mmol/L Normal 3.5-5.1 [facility] Comment on above: Performed By: #### B MP #### [facility] [address] [address] [address] Sadia Toth Sodium [Moles/Vol] 138 mmol/L Normal 136-145 [facility] Comment on above: Performed By: #### B MP #### [facility] [address] [address] [address] Sadia Toth Urea nitrogen [Mass/Vol] 23.0 mg/dL Critically high 7.0-18.0 [facility] Comment on above: Performed By: #### B MP #### [facility] [address] [address] [address] Sadia Toth Urea nitrogen/Creatinine [Mass ratio] 19.8 mg/mg Normal [facility] Comment on above: Performed By: #### B MP #### [facility] [address] [address] [address] Sadia Toth PROTIMEon 04-22-2022 INR Coag (PPP) [Relative time] 2.58 {INR} Normal [facility] Comment on above: Performed By: #### P T #### [facility] [address] [place] [address] Dr. Sadia Toth INR GUIDELINES SEE BELOW Normal [facility] Comment on above: Result Comment: GAMAL RED INR: 2.0 - 3.0 CONDITIONS NOT LISTED BELOW 2.5 - 3.5 FOR PROSTHETIC HEART VALVE REPLACEMENT 2.5 - 3.5 RECURRENT THROMBOSIS Performed By: #### P T #### [facility] [address] [address] [address] Sadia Toth PT Coag (PPP) [Time] 26.2 s Critically high 9.0-11.6 [facility] Comment on above: Performed By: #### P T #### [facility] [address] [place] [address] Dr. Sadia Toth [facility] CARDIAC STRESS/REST INJE CTIONon 11-26-2021 [facility] CARDIAC STRESS/REST INJECTION Patient Name: CHARLES COREAS STUDY: MYOCARDIAL PERFUSION STRESS TEST WITH LEXISCAN Performing facility: [facility], [address] [place] [address], [address], [place] [address] [facility] Provider: Rowan Yanez MD, FACC PCP: Dr. Alonso Mohr Supervising provider: Navneet Carrasquillo MD, FACC INDICATION: CAD; DM HTNM HISTORY: Gender: F; Age: 76 y/o ; Height: 0 cm; Weight: 0 kg. CAD; High Cholesterol; Abnormal EKG; Diabetes; HTN; COPD; Currently smoking. CABG on 20 years ago. COMPARISON: No comparison. ACCESSION NUMBER(S): [id number]; [id number]; [id number] ORDERING CLINICIAN: ROWAN YANEZ TECHNIQUE: ONE DAY protocol. Stress injection: Date:11-26-21, 34.4 mCi of Myoview IV 20 seconds after rapid injection of Lexiscan. Rest injection: Date: 11-26-21, 11.0 mCi of Myoview IV at rest. The patient had a rapid injection of 0.4 mg of Lexiscan IV over 10 seconds. Imaging was performed by gated tomographic technique. Reason for Lexiscan: Wheelchair STRESS TEST DATA: Resting heart rate was 82 BPM. Resting blood pressure was 140/72 mmHg. Peak blood pressure was 104/66 mmHg. Peak heart rate was 92 BPM. TEST TERMINATED DUE TO: Protocol completed FINDINGS: STRESS TEST RESULTS: Resting electrocardiogram revealed normal sinus rhythm with old anterior myocardial infarction. There were no significant ischemic ECG changes or dysrhythmias. The patient did not have chest pains/symptoms during procedure. There was a normal recovery phase. IMAGING RESULTS: Image quality was good. Rest and stress tomographic images were reviewed and revealed normal perfusion without evidence of ischemia, myocardial infarction, or left ventricular dilatation with stress. Overall left ventricular systolic function appeared to be normal without regional wall motion abnormalities. Ejection fraction was 59%. TID is 1.09 and is normal. There was no evidence of attenuation artifact. IMPRESSION: Normal Lexiscan Myoview cardiac perfusion stress test. No evidence of ischemia or myocardial infarction by perfusion imaging. Normal left ventricular systolic function, ejection fraction 59%. No previous studies are available for comparison. Electronically signed by: ROWAN YANEZ MD Normal [facility] No Panel Informationon 11-26 Normal [facility] Work Phone: Tobacco Screening.on 022 Adult depression screening assessment No [facility] [facility] DO Work Phone: Fall risk assessment a) No falls within the last year [facility] [facility] 250 DO Work Phone: Tobacco use status [facility] a) Yes [facility] Work Phone: Tobacco Screening. Yes [facility] 250 DO Work Phone: US carotid doppler BIon 08-2 US carotid doppler BI [facility] Main [place] [address] [place] [id number] Ultrasound Report Signed Patient: Charles Coreas MR#: [id number] 79 : 1945 Acct:[id number] Age/Sex: 76 / F ADM Date: 04/25/21 Loc: [facility] Room: Type: [facility] Attending Dr: Scar Blackburn MD Ordering Provider: Scar Blackburn MD Date of Service: 04/25/21 US/US carotid doppler BI: I65.23 Copies to: Scar Blackburn MD CAROTID DUPLEX INDICATION: Repeat study after conflicting outside duplex PROCEDURE: Color-flow duplex scanning is used to interrogate the extracranial carotid arterial system, as well as both vertebral arteries. The proximal right internal carotid artery shows a highest peak systolic velocity of 93.2 cm/s with an end-diastolic velocity of 19.3 cm/s . The mid internal carotid artery measures 90.3 cm/s peak systolic with an end-diastolic velocity of 19.3 cm/s . The distal segment measures 83.3 cm/s peak systolic with an end diastolic velocity of 22.3 cm/s . The velocities of the right common carotid artery are 96.3 cm/s peak systolic and 15.7 cm/s end- diastolic proximally and 63.3 cm/s peak systolic and 11.7 cm/s end-diastolic distally. The peak systolic velocity ratio of the internal to the common carotid artery is 0.97 . The right external carotid artery measures 141 cm/s peak systolic. The right vertebral artery is patent at 41 cm/s peak systolic and with retrograde flow. The proximal left internal carotid artery shows a highest peak systolic velocity of 111 cm/s with an end-diastolic velocity of 17 cm/s . The mid internal carotid artery measures 108 cm/s peak systolic with an end-diastolic velocity of 24 cm/s . The distal segment measures 91.5 cm/s peak systolic with an end diastolic velocity of 20.5 cm/s . The velocities of the left common carotid artery are 107 cm/s peak systolic and 15.2 cm/s end-diastolic proximally and 64.4 cm/s peak systolic and 11.8 cm/s end-diastolic distally. The peak systolic velocity ratio of the internal to the common carotid artery is 1.04 . The left external carotid artery measures 145 cm/s peak systolic. The left vertebral artery is patent at 70.7 cm/s peak systolic with antegrade flow. US/US carotid doppler BI IMPRESSION: NO HEMODYNAMICALLY SIGNIFICANT STENOSIS OF EITHER EXTRACRANIAL INTERNAL CAROTID ARTERY. Retrograde right vertebral artery blood flow identified Impression dictated by: Scar Blackburn MD04/25/2021 1:14 PM Dictation Location: [place] [address] Tech: Estelle Ford Transcribed By: KINA 04/25/211313 Dictated By: Scar Blackburn MD 04/25/211311 Signed By: 04/25/211313 Normal [facility] Telephone Encounteron 2020 [employer] Authentication Interface Message Text Spoke with Dtr Anni who stated patient is now having INR/Coumadin monitored through [facility]. Discharging pt from INR monitoring clinic d/t patient having different provider outside monitoring INR/Coumadin. Added comment to anticoag track Standing INR order(s), warfarin rx (if pt stopping med) and anticoag episode resolved. If patient switched to DOAC by [facility] FYI sent to pcp Normal [facility] Telephone Encounteron 2020 [employer] Authentication Interface Message Text Patient enrolled in Anticoagulation Clinic for warfarin monitoring and according to our records is past due for repeat INR. Left message and advised of risks of INR not being monitored as recommended and to come for INR MISHA, also advised to please call back with phone number [phone], will also send letter (and my chart message if applicable?) . Patient further warned that if not in by 12 wks will address with on file. Normal [facility] US arterial duplex LE BIon 0 03-20-2021 US arterial duplex LE BI [facility] Main [place] [id number] Ultrasound Report Signed Patient: Charles Coreas MR#: [id number] 79 : 1945 Acct:[id number] Age/Sex: 76 / F ADM Date: 03/19/21 Loc: UL Room: Type: DEP CLI Attending Dr: Scar Blackburn MD Ordering Provider: Scar Blackburn MD Date of Service: 03/19/21 US/US arterial duplex LE BI: I70.213 Copies to: Scar Blackburn MD Graft surveillance study INDICATIONS: Asked by Matt graft. FINDINGS: The axillofemoral portion of the bypass is patent without any significant raised velocities. The average graft velocity is 112 cm/s. The femorofemoral portion of the bypass is also patent without any elevated velocities. The average velocity in the graft is 51 cm/s. US/US arterial duplex LE BI Impression: Patent axillobifemoral bypass graft without any elevated velocities. Impression dictated by: Scar Blackburn MD03/20/2021 3:04 PM Dictation Location: [place] [address] Tech: Megan Smith Transcribed By: KINA 03/20/21 1504 Dictated By: Scar Blackburn MD 03/20/21 1502 Signed By: 03/20/[address] [facility] US ankle/arm indiceson 03-19 US ankle/arm indices [facility] [place] [address] Ultrasound Report Signed Patient: Charles Coreas MR#: [id number] 79 : 1945 Acct:[id number] Age/Sex: 76 / F ADM Date: 03/19/21 Loc: Room: Type: [facility] CLI Attending Dr: Scar Blackburn MD Ordering Provider: Scar Blackburn MD Date of Service: 03/19/21 US/US ankle/arm indices: I70.213 Copies to: Scar Blackburn MD LOWER EXTREMITY SEGMENTAL ARTERIAL DOPSCAN (PVR) INDICATION: Graft surveillance PROCEDURE: Right arm blood pressure is 112 , left is 168 . Pressures of the right leg are 104 at the ankle using the posterior tibial artery and 116 at the ankle using the dorsalis pedis artery with ankle-brachial index of 0.69 0.62 . Pressures of the left leg are 52 at the ankle using the posterior tibial artery and 44 at the ankle using the dorsalis pedis artery with ankle-brachial index of 0.26 0.31 . Wave forms by plethysmography are strongly biphasic in the right lower extremity and monophasic in left lower extremity. 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 THE PATIENT IS MOST LIKELY TO HAVE inflow DISEASE OF THE LEFT LOWER EXTREMITY. Impression dictated by: Scar Blackburn MD03/19/2021 3:50 PM Dictation Location: [place] [address] Tech: Megan Smith Transcribed By: KINA 03/19/21 [id number] Dictated By: Scar Blackburn MD 03/19/21 1544 Signed By: 03/19/21 7187 Normal [facility] Telephone Encounteron 2020 [employer] Authentication Interface Message Text Patient enrolled in Anticoagulation Clinic for warfarin monitoring and according to our records is past due for repeat INR. Left message and advised of risks of INR not being monitored as recommended and to come for INR MISHA and advised to please call back with phone number [phone] 2nd attempt, will send letter (and my chart message if applicable?) . Normal [facility] Telephone Encounteron 2020 [employer] Authentication Interface Message Text Patient enrolled in Anticoagulation Clinic for warfarin monitoring and according to our records is past due for repeat INR. No answer and voicemail is full 1st attempt, will postpone 1 wk and try one more time. Normal [facility] Telephone Encounteron 2020 [employer] Authentication Interface Message Text INR (no units) Date Value 12/18/2020 2.38 (H) 12/10/2020 2.1 Patient enrolled in [facility] for warfarin monitoring and according to our records is past due for repeat INR. Left message for patient and reminded to come for INR MISHA. [facility] phone # [phone] provided for any questions/concerns. Left message for dtr to call back- Please verify with dtr if patient will be going to lab outside of [facility] or if [facility] will come to draw lab. Need to know where to send order- see track for more info. Normal [facility] Progress Noteson 12-25-2020 [employer] Authentication Interface Message Text Documentation: Mode: Telephone Patient Patient Work Phone: Patient Cell Phone: Preferred phone: [phone] Consent: I confirmed patient understanding of the risks and benefits of telehealth visits and obtained consent to proceed with the telehealth visit. Location of Patient: Home of patient No answer Left VM X 2 Normal [facility] Telephone Encounteron 2020 Counsel[employer] Authentication Interface Message Text Contacted daughter on phone regarding warfarin (Coumadin) therapy. Advised of INR results of: INR Date Value Ref Range Status 12/18/2020 2.38 (H) 0.90 - 1.10 Final Confirmed patient has been taking recommended warfarin dosage of 4.5 mg every day Discussed missed/extra doses, significant diet changes, medication changes, or signs/symptoms of bleeding or bruising. Pertinent notes based on discussion: Yes, daughter states pt isn't going to have HC much longer so she doesn't think she will have them check her INR. She will call us back to let us know where to send an order. Assessment: INR is therapeutic If applicable, additional information addressed and updated from [facility] Track : Description HC Newer to warfarin -- Pt will go to outside lab in [facility], dtr will call back with fax number -- use HC or outside lab? Advised plan below: 4.5 mg every day Anticoagulation Episode Summary TTR: -- Next INR check: 01/01/2021 Message CC'd to admin to create telephone appt per protocol Normal The [employer] Interface Message Text Received INR, see new encounter. Normal The [employer] Interface Message Text Attempting to contact patient to discuss INR lab results of: INR Date Value Ref Range Status 12/18/2020 2.38 (H) 0.90 - 1.10 Final Left message with [facility]'s phone number [phone] and advised to please call back. Left message to call back since patient is new. Also need to make sure patient wants HC to draw next INR. Normal The [employer] Authentication Interface Message Text Will route to nurse pool, if we dont receive result by 3pm, will call [facility] services to get result. Normal The [facility] PROTHROMBIN TIME AND INRon 0 12-18-2020 INR Coag (PPP) [Relative time] 2.38 {INR} High 0.90-1.10 [facility] Comment on above: Performed By: #### P T ####[facility] [id number] [place], [place], PT Coag (PPP) [Time] 26.7 s High 9.7-12.9 [facility] Comment on above: Performed By: #### P T ####[facility] [id number] [place], [place], Procedureson 12-18-2020 [employer] Authentication Interface Message Text Vascular Lower Extremities Arterial Duplex [address] [place], [place] [address] Status:Under Revision Rev.1 Demographics Patient name: LYUDMILA Espinosa Gender: Female Date of : 1945 Age: 75 year(s) Procedure Information Procedure date: 12/18/2020 1:00 PM Procedure type: Vascular Proc. sub type: Extremities Arteries, Lower Extremities Arterial Duplex, PERIPHERAL ARTERY SCAN LE Accession no: [id number] Patient status: Routine Study location: Vascular Lab Technical quality: Limited visualization Limitation reason: Poor acoustical window Procedure Staff Referring Physician: LIZETT Aceves MD Interpreting physician: ESTHER TAM MD Credit Clerk: Bianka Marin T Indications Follow-up of surgical procedure. Risk Factors Hypertension, Prior UT and PAD. 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/13/2020, Left superficial thrombectomy/bovine patch repair 11/13/2020, Left superficial artery thrombectomy, Left SFA angiogram and angioplasty 11/13/2020 Page 1/2 LYUDMILA Espinosa 1945 [id number] 12/18/2020 1:00 PM Vascular Lower Extremities Arterial Duplex Grafts Prox Graft Site Dist Graft Site Implantation Date Prox Axillary, Right Prox Femoral, Right 11/13/2020 PSV EDV Stenosis Location (cm/s) (cm/s) Ratio % Inflow artery 175 10.8 Prox anastomosis 199.6 15 1.14 Prox graft 88.4 10.2 0.44 Mid graft 84.8 12.5 0.96 Dist graft 92.1 9.2 1.09 Dist anastomosis 70.1 8.2 0.76 Prox Axillary, Right Prox Femoral, Left 11/13/2020 PSV EDV Stenosis Location (cm/s) (cm/s) Ratio % Inflow artery 146.5 19.1 Prox anastomosis 64.1 7.4 0.44 Prox graft 43.8 8.7 0.68 Mid graft 51.8 12.3 1.18 Dist graft 44.7 7.8 0.86 Dist anastomosis 115 23 2.57 Outflow artery 48 0 0.42 Physician Impressions Right: axillary artery to femoral artery bypass is patent, drop off in velocities in the proximal graft c/w stenosis Left: right to left fem fem is patent, drop off velocities in proximal anastomosis c/w stenosis Physician Conclusions Summary: Simultaneous real time imaging of arterial blood flow using both pulsed and color Doppler, as well as B-mode evaluation of arterial wall characteristics, was used to evaluate the lower extremities . The study demonstrates the following finding axillary artery to femoral artery bypass is patent, drop off in velocities in the proximal graft c/w stenosis right to left fem fem is patent, drop off velocities in proximal anastomosis c/w stenosis Page 2/2 LYUDMILA Espinosa 1945 [id number] 12/18/2020 1:00 PM Normal [facility] [employer] Authentication Interface Message Text Vascular Lower Extremities Doppler Segmental Pressures [facility] [place] [address] Status:Under Revision Rev.1 Demographics Patient name: LYUDMILA Espinosa Gender: Female Date of : 1945 Age: 75 year(s) Procedure Information Procedure date: 12/18/2020 12:59 PM Procedure type: Vascular Proc. sub type: Extremities Arteries, Lower Arterial Plethysmography, DOPPLER SEGMENTAL PRESSURE Accession no: [id number] Patient status: Routine Study location: Vascular Lab Technical quality: Good visualization Procedure Staff Referring Physician: LENNY ANDRADE Credit Clerk: Bianka Marin RVT Interpreting physician: ESTHER TAM MD Indications Claudication and follow up examination. Risk Factors Hypertension, CAD, Prior UT and PAD. 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/13/2020, Left superficial thrombectomy/bovine patch repair 11/13/2020, Left superficial artery thrombectomy, Left SFA angiogram and angioplasty 11/13/2020 Page 1 LYUDMILA Espinosa 1945 [id number] 12/18/2020 12:59 PM Vascular Lower Extremities Doppler Segmental Pressures LE Pressures Right Location Pressure (mmHg) Indices Waveform description Brachial 118 Upper Thigh 137 0.74 Triphasic Lower Thigh 128 0.69 Triphasic Calf 106 0.57 Triphasic THERAPY ASSISTANT 106 0.57 Triphasic DPA 119 0.64 Triphasic Left Location Pressure (mmHg) Indices Waveform description Brachial 185 Upper Thigh 154 0.83 Biphasic Lower Thigh 146 0.79 Biphasic Calf 142 0.77 Triphasic THERAPY ASSISTANT 169 0.91 Triphasic DPA 189 1.02 Triphasic Right VIANCA: 0.64 Left VIANCA: 1.02 Physician Impressions Right: Right VIANCA is 0.64 . This is compatible with: mild to moderate peripheral arterial occlusive disease in the right lower extremity. There is no hemodynamically significant drop in pressure. There are normal triphasic waveforms throughout the entire leg. Overall study suggests mild arterial insufficiency. Left: Left VIANCA is 1.02. This is compatible with: no significant peripheral arterial occlusive disease in the left lower extremity. There is no hemodynamically significant drop in drop in pressure. There are normal triphasic waveforms throughout the entire leg. Overall study suggests no significant arterial insufficiency. Physician Conclusions Summary: Combined Doppler segmental pressures and continuous Doppler waveform analysis was used to study the arterial circulation of the lower extremities . The study demonstrates the following finding Right VIANCA is 0.64 . This is compatible with: mild to moderate peripheral arterial occlusive disease in the right lower extremity. There is no hemodynamically significant drop in pressure. There are normal triphasic waveforms throughout the entire leg. Overall study suggests mild arterial insufficiency. Left VIANCA is 1.02. This is compatible with: no significant peripheral arterial occlusive disease in the left lower extremity. There is no hemodynamically significant drop in drop in pressure. There are normal triphasic waveforms throughout the entire leg. Overall study suggests no significant arterial insufficiency. Page 2 LYUDMILA Espinosa 1945 [id number] 12/18/2020 12:59 PM Normal [facility] Progress Noteson 12-18-2020 [employer] Authentication Interface Message Text Identification was verified by patient verbalizing her name and date of . Pt INR obtained Normal [facility] Telephone Encounteron 2020 Counselor At [employer] Authentication Interface Message Text [facility] Nurse Pedro Pablo [phone] Normal [facility] Counsel[employer] Authentication Interface Message Text Spoke with patients daughter, she is taking the patient to [facility] today to have INR checked. Gave her our fax number to have results sent to us, Normal The [facility] Counsel[employer] Authentication Interface Message Text Spoke to Lab at [facility]. They have no lab results on record for this patient since last years. LM for daughter to please call back to [phone]. Also left message for HC nurse, Pedro Pablo asking for call back. Will see if Pedro Pablo can draw INR for patient while in the home this week. Also send order to [facility] for INR test. Normal [facility] Telephone Encounteron 2020 Counselor At [employer] Authentication Interface Message Text Spoke with daughter and received phone number for Dr office that patient sees in [facility] and they do have a lab there. Printed standing order for patient to go to lab at [facility]. Daughter also mentioned patient has HC. Per daughter it is with [facility] and nurses name is Pedro Pablo. Patient will only have 5 visits. Will hold off on sending order because daughter states that patient has a dr appointment on Thursday at [facility]. Patient will get INR done while at appointment and they will call us with result. Will postpone this note until 12/18 to make sure we get result. Then will print HC order for next INR. Normal [facility] Telephone Encounteron 2020 Counselor At Law Authentication Interface Message Text Kamilla Phoenix MD You 17 minutes ago (10:14 AM) I agree with the coumadin clinic managing this patients' anticoagulation Normal The [facility] Counselor At [employer] Authentication Interface Message Text Patient lives in [facility] but will have [facility] Warfarin for now since seeing vascular here. Daughter Anni will find out fax number for lab in their area and call us back with number so we can fax standing order for INR. Will postpone note for a couple days incase daughter doesn't call back with fax number. Normal [facility] [employer] Authentication Interface Message Text I spoke to patient and discussed the pharmacist consult agreement. Based on our conversation they agree with consult. Answered any questions and gave clinics phone number [phone] to call if any questions/concerns in future. Normal [facility] Counselor At [employer] Authentication Interface Message Text Patient lives in [facility] but will have [facility] monitor Warfarin for now since seeing vascular here. Daughter Anni will find out fax number for lab in their area and call us back with number so we can fax standing order for INR. Will postpone note for a couple days incase daughter doesn't call back with fax number. Normal [facility] Telephone Encounteron 2020 Counselor At Law Authentication Interface Message Text Nursing Facility would like to know when bailee should come off and can it be done in Nursing Facility ? Please call thank you Normal [facility] Telephone Encounteron 2020 Counselor At Law Authentication Interface Message Text Spoke to nurse at SNF pt currently at, per nurse will be there ~2 months, pt on warfarin, they will monitor and call us when d/c Normal The [facility] Care Plan Noteon 11-22-2020 Counsel[employer] Authentication Interface Message Text Problem: Routine Care: Goal: Patient care will be managed and maintained throughout hospital stay per unit specific routine care procedure Outcome: Adequate for Discharge Problem: Alteration in Tissue Perfusion: Peripheral: Goal: Promote adequate perfusion and limit complications for a person experiencing or is at risk for inadequate tissue perfusion in peripheral circulation Outcome: Adequate for Discharge RLE wrapped with DOMINGA Problem: Impaired Skin Integrity: Goal: Acheive wound healing without signs and symptoms of infection Outcome: Adequate for Discharge Problem: Risk for Infection: Goal: Risk for infection will be reduced Outcome: Adequate for Discharge Problem: Impaired Mobility: Goal: Ability to tolerate increased activity will improve and be maintained Outcome: Adequate for Discharge Goal: Ability to maintain or regain baseline function will be acheived Outcome: Adequate for Discharge Goal: Will be free of DVT Outcome: Adequate for Discharge Problem: VTE Prophylaxis: Goal: Will be free of DVT Outcome: Adequate for Discharge Problem: Acute Pain: Goal: Ability to identify pain intensity on a pain scale and rate it consistently will be achieved and maintained Outcome: Adequate for Discharge Goal: Acceptable level of pain which allows the patient to achieve functional outcome goals Outcome: Adequate for Discharge Problem: Safety: Goal: Patient will remain free of falls during hospital stay Outcome: Adequate for Discharge Goal: Free from injury during hospitalization Outcome: Adequate for Discharge Problem: Discharge Planning: Goal: Discharge needs of the adult patient will be met Outcome: Adequate for Discharge Normal [facility] Discharge Planning Noteon Counselor [employer] Authentication Interface Message Text Pt is set to discharge today at 2:00pm via [facility] transportation stretcher to [facility] PRIOR to discharge please ensure: ??? Medications are reconciled AND discharge summary is complete. ??? Paper prescriptions for any narcotics are included in transfer envelope. ??? Once medications are reconciled, [employer] to print Summary of Care AND Melchor Don (staple to signature page). ??? RN call report to: [phone] Maia Silverman, BEAM BUILDER Social Work,[phone] Normal The [facility] GLUCOSE, FINGERSTICK-IN OFFI CEon 11-22-2020 Glucose [Mass/Vol] 227 mg/dL High 80-116 [facility] Comment on above: Performed By: #### C R BGA, CR ICA, LACT, CR COOX, CR GLU, CR LYTES #### S PATHOLOGY LABORATORY [address] [place] [address], Glucose [Mass/Vol] 233 mg/dL High 80-116 [facility] Comment on above: Performed By: #### C R BGA, CR ICA, LACT, CR COOX, CR GLU, CR LYTES #### S [facility] LABORATORY [address] [place] [address], Glucose [Mass/Vol] 239 mg/dL High 80-116 [facility] Comment on above: Performed By: #### C R BGA, CR ICA, LACT, CR COOX, CR GLU, CR LYTES #### S [facility] LABORATORY [address] [place] [address], NOVEL CORONAVIRUS (COVID-19) on 11-22-2020 SARS-CoV-2 (COVID-19) RNA SRINI+probe Ql (Unsp spec) Not detected Normal Not Detected [facility] Comment on above: Order Comment: This test is intended for use only under Emergency Use Authorization (EUA). This test was developed, and its performance characteristics determined by [facility] which is certified under CLIA as qualified to perform high complexity clinical laboratory testing. Result Comment: This assay was performed using [employer] RTPCR technology. Performed By: #### C [id number] ####[facility] PATHOLOGY [id number] [place], [place], PROTHROMBIN TIME AND INRon 0 11-22-2020 INR Coag (PPP) [Relative time] 1.97 {INR} High 0.90-1.10 [facility] Comment on above: Performed By: #### C R BGA, CR ICA, LACT, CR COOX, CR GLU, CR LYTES #### S PATHOLOGY LABORATORY [address] [place], [place], PT Coag (PPP) [Time] 22.1 s High 9.7-12.9 [facility] Comment on above: Performed By: #### C R BGA, CR ICA, LACT, CR COOX, CR GLU, CR LYTES #### S PATHOLOGY LABORATORY [address] [place], [place], Procedureson 11-22-2020 Counsel[employer] Authentication Interface Message Text Vascular Lower Extremities Venous Duplex [address] [place], [place] [address] Status:Open Demographics Patient name: LYUDMILA Espinosa Gender: Female Date of : 1945 Age: 75 year(s) Procedure Information Procedure date: 11/22/2020 9:42 AM Procedure type: Vascular Proc. sub type: Veins, Lower Extremities DVT Study, LIMITED DUPLEX VEIN SCAN LE Accession no: [id number] Patient status: Routine Study location: Portable Technical quality: Adequate visualization Procedure Staff Referring Physician: LIZETT Aceves MD Credit Clerk: Federico Sanchez RVT Interpreting physician: MARLENE MEJIA MD Indications Pain, edema, discoloration. Risk Factors Additional comments: Rt Ax-Bifem, Lt SFA endarterectomy/thrombect dixon and patch angiogram/angioplasty 11/13/2020 Page 1/2 LYUDMILA Espinosa 1945 [id number] 11/22/2020 9:42 AM Vascular Lower Extremities Venous Duplex LE Veins DVT Findings Right Location Visualized Compression Thrombosis Signal Common Femoral Yes Yes None Phasic Left Location Visualized Compression Thrombosis Signal Dist External Iliac Yes None Phasic Common Femoral Yes Yes None Phasic Prox Femoral Yes Yes None Phasic Mid Femoral Yes Yes None Dist Femoral Yes Yes None Deep Femoral Yes Yes None Phasic Popliteal Yes Yes None Phasic PTV Yes Yes None Peroneal Yes Yes None LE Veins Superficial Findings Right Left Location Visualized Compression Thrombosis Visualized Compression Thrombosis Sapheno Femoral Junction Yes Yes None Prox GSV No SSV Yes Yes None Physician Impressions Right: Right -Patent right common femoral vein. Left: Left- Normal venous duplex study of the left lower extremity. There is no evidence of deep or superficial venous thrombosis. Physician Conclusions Summary: Simultaneous real time imaging of venous blood flow using both pulsed and color Doppler, as well as B-mode evaluation of the venous system with compression techniques, was used to evaluate the deep and superficial veins of the left lower extremity and contralateral common femoral vein. The study demonstrates the following finding Left- Normal venous duplex study of the left lower extremity. There is no evidence of deep or superficial venous thrombosis. Right -Patent right common femoral vein. Page 2/ LYUDMILA Espinosa 1945 [id number] 11/22/2020 9:42 AM Normal [facility] Progress Noteson 11-22-2020 Counsel[employer] Authentication Interface Message Text Preliminary Vascular Lab Report Duplex Left Lower Extremity Vein Scan No evidence deep vein thrombus left lower extremity, official report to follow. Marilyn Sanchez Pat Normal The [facility] Counselor [employer] Authentication Interface Message Text SW received call from Kayla at [facility] and was informed Pre-cert has been obtained. Admissions stated they will need a COVID test before pt can Admit. RABIA paged MD to place order. Once COVID results are in pt can transfer. RABIA awaiting call back from . GAVI Moralez [employer] Work,[phone] ADDENDUM 8:24am RABIA received call back from . aware and will place order. GAVI Moralez EVIIVO,[phone] ADDENDUM 12:03pm RABIA faxed COVID results to admissions. SW to complete transport form for [facility]. Once transport is confirmed RABIA will inform pt and confirm report number with admissions. GAVI Moralez EVIIVO,[phone] Normal [facility] Care Plan Noteon 11-21-2020 Counselor At Law Authentication Interface Message Text Problem: Routine Care: Goal: Patient care will be managed and maintained throughout hospital stay per unit specific routine care procedure Outcome: Progressing Problem: Alteration in Tissue Perfusion: Peripheral: Goal: Promote adequate perfusion and limit complications for a person experiencing or is at risk for inadequate tissue perfusion in peripheral circulation Outcome: Progressing Note: Pt out of the bed for meals, promoting adequate tissue perfussion Problem: Impaired Skin Integrity: Goal: Acheive wound healing without signs and symptoms of infection Outcome: Progressing Problem: Risk for Infection: Goal: Risk for infection will be reduced Outcome: Progressing Problem: Impaired Mobility: Goal: Ability to tolerate increased activity will improve and be maintained Outcome: Progressing Goal: Ability to maintain or regain baseline function will be acheived Outcome: Progressing Goal: Will be free of DVT Outcome: Progressing Problem: VTE Prophylaxis: Goal: Will be free of DVT Outcome: Progressing Problem: Acute Pain: Goal: Ability to identify pain intensity on a pain scale and rate it consistently will be achieved and maintained Outcome: Progressing Goal: Acceptable level of pain which allows the patient to achieve functional outcome goals Outcome: Progressing Problem: Safety: Goal: Patient will remain free of falls during hospital stay Outcome: Progressing Goal: Free from injury during hospitalization Outcome: Progressing Problem: Discharge Planning: Goal: Discharge needs of the adult patient will be met Outcome: Progressing Normal The [facility] GLUCOSE, FINGERSTICK-IN OFFI CEon 11-21-2020 Glucose [Mass/Vol] 312 mg/dL High 80-116 [facility] Comment on above: Performed By: #### C R BGA, CR ICA, LACT, CR COOX, CR GLU, CR LYTES #### S PATHOLOGY LABORATORY [address] [place] [address], Glucose [Mass/Vol] 262 mg/dL High 80-116 [facility] Comment on above: Performed By: #### [id number] ####NURSING GLUCOSE [id number] [place], [address] Glucose [Mass/Vol] 350 mg/dL High 80-116 [facility] Comment on above: Performed By: #### C R BGA, CR ICA, LACT, CR COOX, CR GLU, CR LYTES #### S PATHOLOGY LABORATORY [address] [place], [place], Glucose [Mass/Vol] 216 mg/dL High 80-116 [facility] Comment on above: Performed By: #### C R BGA, CR ICA, LACT, CR COOX, CR GLU, CR LYTES #### [facility] [address] [place] [address], Glucose [Mass/Vol] 216 mg/dL High 80-116 [facility] Comment on above: Performed By: #### 8 [id number] #### NURSING GLUCOSE PROGRAM [address] [place], [address] PROTHROMBIN TIME AND INRon 0 11-21-2020 INR Coag (PPP) [Relative time] 2.97 {INR} High 0.90-1.10 [facility] Comment on above: Performed By: #### C R BGA, CR ICA, LACT, CR COOX, CR GLU, CR LYTES #### [facility] [address], [place], PT Coag (PPP) [Time] 33.2 s High 9.7-12.9 [facility] Comment on above: Performed By: #### C R BGA, CR ICA, LACT, CR COOX, CR GLU, CR LYTES #### [facility] [address], [place], Progress Noteson 11-21-2020 Counselor At [employer] Authentication Interface Message Text SW following for DC to SNF. SW received VM from admissions at [facility] stating they are able to accept pt as long as pt is okay with the facility being a non smoking facility. RABIA met with pt at bedside and informed her of above. Pt stated she would like to see if [facility] is able to accept. If they are unable to then she is in agreement to [facility]. SW attempted to reach admissions at [facility]. Shell Assembler stated admissions is not in as of yet and requested SW call back at a later time. SW to call back in an hour. RABIA will continue to follow. GAVI Moralez Social Work,[phone] ADDENDUM 10:10am SW received call from the [facility] admissions. Admissions stated they would like to initiate pre-cert. SW informed Admissions pt is wanting to see if [facility] is able to accept. Admissions questioned who pt's pcp was and if she would be able to contact pt's daughter. RABIA provided contact information. SW spoke with admissions at [facility] and was informed they are able to accept and will initiate pre-cert. SW informed pt. Pt thankful. SW will continue to follow. GAVI Moralez Social Work,[phone] ADDENDUM 11:13am Hens Submitted. Maia Silverman BEAM BUILDER [employer] Work,[phone] ADDENDUM 1:20pm SW received call from [facility] admissions and was informed pt is out of network with [facility]. Admissions stated they tried to do a one time contact but was unable to. SW informed pt. Pt will to have [facility] start pre-cert. RABIA spoke with admissions. Pre-cert initiated. GAVI Moralez [employer] Work,[phone] Normal [facility] Care Plan Noteon 11-20-2020 Counselor At Law Authentication Interface Message Text Problem: Routine Care: Goal: Patient care will be managed and maintained throughout hospital stay per unit specific routine care procedure Outcome: Progressing Note: Hourly rounding performed. Problem: Alteration in Tissue Perfusion: Peripheral: Goal: Promote adequate perfusion and limit complications for a person experiencing or is at risk for inadequate tissue perfusion in peripheral circulation Outcome: Progressing Note: Vascular checks assessed Q4H. Problem: Impaired Skin Integrity: Goal: Acheive wound healing without signs and symptoms of infection Outcome: Progressing Note: Nithin scale interventions in place. Problem: Risk for Infection: Goal: Risk for infection will be reduced Outcome: Progressing Note: Groin wound pack BID. Dressing clean, dry, and intact. Problem: Impaired Mobility: Goal: Ability to tolerate increased activity will improve and be maintained Outcome: Progressing Note: PT/OT ordered. Goal: Ability to maintain or regain baseline function will be acheived Outcome: Progressing Note: Encourage OOB as tolerated. Goal: Will be free of DVT Outcome: Progressing Note: SCDs ordered. Problem: VTE Prophylaxis: Goal: Will be free of DVT Outcome: Progressing Note: SCDs ordered. Problem: Acute Pain: Goal: Ability to identify pain intensity on a pain scale and rate it consistently will be achieved and maintained Outcome: Progressing Note: Numeric pain scale in use. Goal: Acceptable level of pain which allows the patient to achieve functional outcome goals Outcome: Progressing Note: Pre/post pain assessed. Problem: Safety: Goal: Patient will remain free of falls during hospital stay Outcome: Progressing Note: High risk falls interventions in place. Goal: Free from injury during hospitalization Outcome: Progressing Note: Encourage use of call light before getting OOB. Problem: Discharge Planning: Goal: Discharge needs of the adult patient will be met Outcome: Progressing Note: SNF pending placement. Normal [facility] GLUCOSE, FINGERSTICK-IN OFFI CEon 11-20-2020 Glucose [Mass/Vol] 167 mg/dL High 80-116 [facility] Comment on above: Performed By: #### 8 2948 ####NURSING GLUCOSE [id number] [place], [address] Glucose [Mass/Vol] 87 mg/dL Normal 80-116 [facility] Comment on above: Performed By: #### 8 2948 ####NURSING GLUCOSE [id number] [place], [address] Glucose [Mass/Vol] 314 mg/dL High 80-116 [facility] Comment on above: Performed By: #### C R BGA, CR ICA, LACT, CR COOX, CR GLU, CR LYTES #### S [facility] LABORATORY [address] [place] [address], Glucose [Mass/Vol] 266 mg/dL High 80-116 [facility] Comment on above: Performed By: #### 8 2948 ####NURSING GLUCOSE [id number] [place], [address] Glucose [Mass/Vol] 268 mg/dL High 80-116 [facility] Comment on above: Performed By: #### T ROP I #### S PATHOLOGY LABORATORY [address] [place] [address], PROTHROMBIN TIME AND INRon 0 11-20-2020 INR Coag (PPP) [Relative time] 4.22 {INR} High 0.90-1.10 [facility] Comment on above: Performed By: #### C R BGA, CR ICA, LACT, CR COOX, CR GLU, CR LYTES #### S [facility] LAB[facility] [address] [place] [address], PT Coag (PPP) [Time] 47.0 s High 9.7-12.9 [facility] Comment on above: Performed By: #### C R BGA, CR ICA, LACT, CR COOX, CR GLU, CR LYTES #### S PATHOLOGY LABORATORY [address], [place], BASIC METABOLIC PANELon 10-30 Anion gap [Moles/Vol] 10 mmol/L Normal 5-13 [facility] Comment on above: Performed By: #### Tony H8, MG ####S PATHOLOGY [id number] [place], [place], Calcium [Mass/Vol] 7.8 mg/dL Low 8.4-10.4 [facility] Comment on above: Performed By: #### Tony H8, MG ####[facility] PATHOLOGY [id number] [place], [place], Chloride [Moles/Vol] 110 mmol/L Normal 97-111 [facility] Comment on above: Performed By: #### Tony H8, MG ####[facility] PATHOLOGY [id number] [place] [address], CO2 [Moles/Vol] 23 mmol/L Normal 21-30 [facility] Comment on above: Performed By: #### Tony H8, MG ####[facility] PATHOLOGY [id number] [place] [address], Creatinine [Mass/Vol] 0.62 mg/dL Normal 0.50-1.10 [facility] Comment on above: Performed By: #### Tony H8, MG ####S PATHOLOGY [id number] [place], [place], ESTIMATED GFR (CKD-EPI) 88 mL/min/1.73sqm Normal >=60 [facility] Comment on above: Performed By: #### C H8, MG ####S PATHOLOGY [id number] [place], [place], Glucose [Mass/Vol] 103 mg/dL Normal 80-116 [facility] Comment on above: Performed By: #### C H8, MG ####S PATHOLOGY [id number] [place] [address], Potassium [Moles/Vol] 4.0 mmol/L Normal 3.3-5.3 [facility] Comment on above: Result Comment: Hemo lysis present Performed By: #### C H8, MG ####[facility] [id number] [place], [place], Sodium [Moles/Vol] 139 mmol/L Normal 135-148 [facility] Comment on above: Performed By: #### Tony H8, MG ####[facility] [id number] [place], [place], Urea nitrogen [Mass/Vol] 8 mg/dL Normal 8-22 [facility] Comment on above: Performed By: #### Tony H8, MG ####[facility] [id number] [place], [place], COMPLETE BLOOD COUNTon 11-19 Erythrocyte distribution width (RBC) [Ratio] 16.8 % High 11.5-14.5 [facility] Comment on above: Performed By: #### T ROP I #### [facility] [address] [place] [address], Hematocrit (Bld) [Volume fraction] 25.2 % Low 36.0-46.0 [facility] Comment on above: Performed By: #### T ROP I #### [facility] [address] [place] [address], Hemoglobin (Bld) [Mass/Vol] 8.2 g/dL Low 12.0-15.0 [facility] Comment on above: Performed By: #### T ROP I #### [facility] [address] [place] [address], MCH (RBC) [Entitic mass] 31.6 pg Normal 26.0-34.0 [facility] Comment on above: Performed By: #### T ROP I #### [facility] [address] [place] [address], MCHC (RBC) [Mass/Vol] 32.4 g/dL Normal 32.0-35.9 [facility] Comment on above: Performed By: #### T ROP I #### [facility] [address] [place] [address], MCV (RBC) [Entitic vol] 98 fL Normal 80-100 [facility] Comment on above: Performed By: #### T ROP I #### S PATHOLOGY LABORATORY [address], [place], Platelet mean volume (Bld) [Entitic vol] 8.9 fL Normal 7.5-11.2 [facility] Comment on above: Performed By: #### T ROP I #### [facility] [address], [place], Platelets (Bld) [#/Vol] 209 10*3/uL Normal 150-400 [facility] Comment on above: Performed By: #### T ROP I #### [facility] [address], [place], RBC (Bld) [#/Vol] 2.58 10*6/uL Low 4.00-5.20 [facility] Comment on above: Performed By: #### T ROP I #### S PATHOLOGY LABORATORY [address], [place], WBC (Bld) [#/Vol] 7.8 10*3/uL Normal 4.5-11.5 [facility] Comment on above: Performed By: #### T ROP I #### S [facility]Y LABORATORY [address], [place], Care Plan Noteon 11-19-2020 Counselor At Law Authentication Interface Message Text Problem: Routine Care: Goal: Patient care will be managed and maintained throughout hospital stay per unit specific routine care procedure Outcome: Progressing Problem: Alteration in Tissue Perfusion: Peripheral: Goal: Promote adequate perfusion and limit complications for a person experiencing or is at risk for inadequate tissue perfusion in peripheral circulation Outcome: Progressing Problem: Impaired Skin Integrity: Goal: Acheive wound healing without signs and symptoms of infection Outcome: Progressing Problem: Risk for Infection: Goal: Risk for infection will be reduced Outcome: Progressing Problem: Impaired Mobility: Goal: Ability to tolerate increased activity will improve and be maintained Outcome: Progressing Goal: Ability to maintain or regain baseline function will be acheived Outcome: Progressing Goal: Will be free of DVT Outcome: Progressing Problem: VTE Prophylaxis: Goal: Will be free of DVT Outcome: Progressing Problem: Acute Pain: Goal: Ability to identify pain intensity on a pain scale and rate it consistently will be achieved and maintained Outcome: Progressing Goal: Acceptable level of pain which allows the patient to achieve functional outcome goals Outcome: Progressing Problem: Safety: Goal: Patient will remain free of falls during hospital stay Outcome: Progressing Note: Side rails in place call light within reach Goal: Free from injury during hospitalization Outcome: Progressing Problem: Discharge Planning: Goal: Discharge needs of the adult patient will be met Outcome: Progressing Problem: Routine Care: Goal: Patient care will be managed and maintained throughout hospital stay per unit specific routine care procedure Outcome: Progressing Problem: Acute Pain: Goal: Ability to identify pain intensity on a pain scale and rate it consistently will be achieved and maintained Outcome: Progressing Problem: Safety: Goal: Patient will remain free of falls during hospital stay Outcome: Progressing Problem: Discharge Planning: Goal: Discharge needs of the adult patient will be met Outcome: Progressing Normal [facility] GLUCOSE, FINGERSTICK-IN OFFI CEon 11-19-2020 Glucose [Mass/Vol] 202 mg/dL High 80-116 [facility] Comment on above: Performed By: #### 8 2948 ####NURSING GLUCOSE [id number] [place], [address] Glucose [Mass/Vol] 191 mg/dL High 80-116 [facility] Comment on above: Performed By: #### C R BGA, CR ICA, LACT, CR COOX, CR GLU, CR LYTES #### [facility] [address], [place], Glucose [Mass/Vol] 88 mg/dL Normal 80-116 [facility] Comment on above: Performed By: #### 8 2948 ####NURSING GLUCOSE [id number] [place], [address] MAGNESIUMon 11-19-2020 Magnesium [Mass/Vol] 1.9 mg/dL Normal 1.6-2.8 [facility] Comment on above: Result Comment: Hemo lysis present Performed By: #### C H8, MG ####[facility] [id number] [place], [place], PROTHROMBIN TIME AND INRon 0 11-19-2020 INR Coag (PPP) [Relative time] 2.82 {INR} High 0.90-1.10 [facility] Comment on above: Performed By: #### C R BGA, CR ICA, LACT, CR COOX, CR GLU, CR LYTES #### S PATHOLOGY LABORATORY [address], [place], PT Coag (PPP) [Time] 31.5 s High 9.7-12.9 [facility] Comment on above: Performed By: #### C R BGA, CR ICA, LACT, CR COOX, CR GLU, CR LYTES #### S PATHOLOGY LABORATORY [address], [place], Progress Noteson 11-19-2020 Counselor At [employer] Authentication Interface Message Text Patient complaining of tightness and pain/swelling of LLE. She took off the compression stocking and leg is elevated. Great toe is purple and bilateral feet/hands are cold. BLE pulses dopplered. Patient's great toe color has faded to a pink. Patient in chair with legs elevated. Patient has not slept tonight. Normal [facility] BASIC METABOLIC PANELon - Anion gap [Moles/Vol] 12 mmol/L Normal 5-13 [facility] Comment on above: Performed By: #### Tony Pham8, MG ####[facility] PATHOLOGY [id number] [place], [place], Calcium [Mass/Vol] 8.0 mg/dL Low 8.4-10.4 [facility] Comment on above: Performed By: #### Tony Craft, MG ####S PATHOLOGY [id number] [place], [place], Chloride [Moles/Vol] 109 mmol/L Normal 97-111 [facility] Comment on above: Performed By: #### Tony Pham8, MG ####S PATHOLOGY [id number] [place], CO2 [Moles/Vol] 23 mmol/L Normal 21-30 [facility] Comment on above: Performed By: #### Tony H8, MG ####S PATHOLOGY [id number] [place], Creatinine [Mass/Vol] 0.48 mg/dL Low 0.50-1.10 [facility] Comment on above: Performed By: #### Tony Pham8, MG ####[facility] PATHOLOGY [id number] [place], [place], ESTIMATED GFR (CKD-EPI) 96 mL/min/1.73sqm Normal >=60 [facility] Comment on above: Performed By: #### Tony Pham8, MG ####[facility] PATHOLOGY [id number] [place] [address], Glucose [Mass/Vol] 216 mg/dL High 80-116 [facility] Comment on above: Performed By: #### Tony Craft, MG ####[facility] PATHOLOGY [id number] [place] [address], Potassium [Moles/Vol] 3.8 mmol/L Normal 3.3-5.3 [facility] Comment on above: Performed By: #### Tony Craft, MG ####[facility] PATHOLOGY [id number] [place] [address], Sodium [Moles/Vol] 140 mmol/L Normal 135-148 [facility] Comment on above: Performed By: #### Tony Craft, MG ####[facility] PATHOLOGY [id number] [place] [address], Urea nitrogen [Mass/Vol] 8 mg/dL Normal 8-22 [facility] Comment on above: Performed By: #### Tony Pham8, MG ####[facility] PATHOLOGY [id number] [place] [address], COMPLETE BLOOD COUNTon 11-18 Erythrocyte distribution width (RBC) [Ratio] 16.4 % High 11.5-14.5 [facility] Comment on above: Performed By: #### C R BGA, CR ICA, LACT, CR COOX, CR GLU, CR LYTES #### [facility] LABORATORY [address] [place] [address], Hematocrit (Bld) [Volume fraction] 28.7 % Low 36.0-46.0 [facility] Comment on above: Performed By: #### C R BGA, CR ICA, LACT, CR COOX, CR GLU, CR LYTES #### [facility] LABORATORY [address] [place] [address], Hemoglobin (Bld) [Mass/Vol] 9.5 g/dL Low 12.0-15.0 [facility] Comment on above: Performed By: #### C R BGA, CR ICA, LACT, CR COOX, CR GLU, CR LYTES #### [facility]OR[facility]ORY [address] [place] [address], MCH (RBC) [Entitic mass] 32.4 pg Normal 26.0-34.0 [facility] Comment on above: Performed By: #### C R BGA, CR ICA, LACT, CR COOX, CR GLU, CR LYTES #### [facility] LABOR[facility]ORY [address] [place] [address], MCHC (RBC) [Mass/Vol] 33.3 g/dL Normal 32.0-35.9 [facility] Comment on above: Performed By: #### C R BGA, CR ICA, LACT, CR COOX, CR GLU, CR LYTES #### [facility]OR[facility] [address] [place] [address], MCV (RBC) [Entitic vol] 97 fL Normal 80-100 [facility] Comment on above: Performed By: #### C R BGA, CR ICA, LACT, CR COOX, CR GLU, CR LYTES #### [facility] [address] [place] [address], Platelet mean volume (Bld) [Entitic vol] 9.1 fL Normal 7.5-11.2 [facility] Comment on above: Performed By: #### C R BGA, CR ICA, LACT, CR COOX, CR GLU, CR LYTES #### [facility] [address] [place] [address], Platelets (Bld) [#/Vol] 200 10*3/uL Normal 150-400 [facility] Comment on above: Performed By: #### C R BGA, CR ICA, LACT, CR COOX, CR GLU, CR LYTES #### [facility] [address] [place] [address], RBC (Bld) [#/Vol] 2.95 10*6/uL Low 4.00-5.20 [facility] Comment on above: Performed By: #### C R BGA, CR ICA, LACT, CR COOX, CR GLU, CR LYTES #### [facility] [address], [place], WBC (Bld) [#/Vol] 8.5 10*3/uL Normal 4.5-11.5 [facility] Comment on above: Performed By: #### C R BGA, CR ICA, LACT, CR COOX, CR GLU, CR LYTES #### [facility] [address], [place], Care Plan Noteon 11-18-2020 Counselor At Law Authentication Interface Message Text Problem: Routine Care: Goal: Patient care will be managed and maintained throughout hospital stay per unit specific routine care procedure Outcome: Progressing Purposeful rounding and assessment done per protocol Problem: Alteration in Tissue Perfusion: Peripheral: Goal: Promote adequate perfusion and limit complications for a person experiencing or is at risk for inadequate tissue perfusion in peripheral circulation Outcome: Progressing [place] checks Problem: Impaired Skin Integrity: Goal: Acheive wound healing without signs and symptoms of infection Outcome: Progressing Problem: Risk for Infection: Goal: Risk for infection will be reduced Outcome: Progressing Problem: Impaired Mobility: Goal: Ability to tolerate increased activity will improve and be maintained Outcome: Progressing Goal: Ability to maintain or regain baseline function will be acheived Outcome: Progressing Goal: Will be free of DVT Outcome: Progressing Problem: VTE Prophylaxis: Goal: Will be free of DVT Outcome: Progressing PO coumadin; heparin gtt d/c Problem: Acute Pain: Goal: Ability to identify pain intensity on a pain scale and rate it consistently will be achieved and maintained Outcome: Progressing Goal: Acceptable level of pain which allows the patient to achieve functional outcome goals Outcome: Progressing Problem: Safety: Goal: Patient will remain free of falls during hospital stay Outcome: Progressing Goal: Free from injury during hospitalization Outcome: Progressing Problem: Discharge Planning: Goal: Discharge needs of the adult patient will be met Outcome: Progressing D/C planning to SNF when medically clear. Problem: Routine Care: Goal: Patient care will be managed and maintained throughout hospital stay per unit specific routine care procedure Outcome: Progressing Problem: Acute Pain: Goal: Ability to identify pain intensity on a pain scale and rate it consistently will be achieved and maintained Outcome: Progressing Problem: Safety: Goal: Patient will remain free of falls during hospital stay Outcome: Progressing Problem: Discharge Planning: Goal: Discharge needs of the adult patient will be met Outcome: Progressing Normal [facility] GLUCOSE, FINGERSTICK-IN OFFI CEon 11-18-2020 Glucose [Mass/Vol] 195 mg/dL High 80-116 [facility] Comment on above: Performed By: #### 8 2948 ####NURSING GLUCOSE [id number] [place], [address] Glucose [Mass/Vol] 109 mg/dL Normal 80-116 [facility] Comment on above: Performed By: #### C R BGA, CR ICA, LACT, CR COOX, CR GLU, CR LYTES #### [facility] [address] [place] [address], Glucose [Mass/Vol] 187 mg/dL High 80-116 [facility] Comment on above: Result Comment: Shavon collins RN, APN, MD Performed By: #### 8 2948 ####NURSING GLUCOSE [id number] [place], [address] Glucose [Mass/Vol] 218 mg/dL High 80-116 [facility] Comment on above: Result Comment: Shavon collins RN, APN, MD Performed By: #### 8 2948 ####NURSING GLUCOSE [id number] [place], [address] MAGNESIUMon 11-18-2020 Magnesium [Mass/Vol] 2.1 mg/dL Normal 1.6-2.8 [facility] Comment on above: Performed By: #### C H8, MG ####[facility] [id number] [place], [place], PARTIAL THROMBOPLASTIN TIMEo n 11-18-2020 aPTT Coag (Bld) [Time] 66 s High 25-37 [facility] Comment on above: Performed By: #### T ROP I #### [facility] [address] [place] [address], PROTHROMBIN TIME AND INRon 0 3-21-2021 INR Coag (PPP) [Relative time] 2.55 {INR} High 0.90-1.10 [facility] Comment on above: Performed By: #### P T ####[facility] PATH[facility] [id number] [place], [place], PT Coag (PPP) [Time] 28.6 s High 9.7-12.9 [facility] Comment on above: Performed By: #### P T ####[facility] PATH[facility] [id number] [place], [place], Progress Noteson 11-18-2020 Counselor At [employer] Authentication Interface Message Text Harry Pena Normal [facility] Counselor At [employer] Authentication Interface Message Text -------- Attestation signed by Sukhjinder Allen MD at 11/18/2020 10:57 AM Teaching Physician Note: I saw and evaluated the patient. I personally obtained the youngblood and critical portions of the history and physical exam. I reviewed the resident's documentation and discussed the patient with the resident. I agree with the resident's medical decision making as documented in the resident's note. Sukhjinder Allen MD -------- Vascular Surgery Progress Note Charles Coreas [phone] S: Feels well, same as yesterday. Complaining of L thigh and leg pain, weakness in L leg. Having intermittent R arm n/t but improving. Got up to chair once yesterday to eat lunch. Not walking. Vital sign ranges over the past 24 hours (retrieved 11/18/2020 at 7:16 AM): Tmax (24 hours): 99.2 ???F (37.3 ???C) Pulse Av Min: 81 Max: 95 Systolic (24hrs), Av , Min:138 , Max:149 Diastolic (24hrs), Av, Min:45, Max:68 MAP (mmHg) Av.3 mmHg Min: 69 mmHg Max: 78 mmHg Resp Av.3 Min: 16 Max: 18 SpO2 Av % Min: 92 % Max: 100 % Blood pressure 149/68, pulse 88, temperature 97.9 ???F (36.6 ???C), temperature source Oral, resp. rate 18, height 5' (1.524 m), weight 150 lb 5.7 oz (68.2 kg), SpO2 92 %. Intake/Output Summary (Last 24 hours) at 11/18/2020 0716 Last data filed at 11/18/2020 0659 Gross per 24 hour Intake 1809.67 ml Output 800 ml Net 1009.67 ml PE: Gen: NAD, AAOx3 HENT: normocephalic, atraumatic Eyes: EOMI, no scleral icterus Pulm: comfortable on RA CVS: RRR Abd: Non distended, soft, no tender, no rebound, no guarding Psych: appropriate affect and behavior MSK: sacrum mild tenderness to palpation, bilateral gluteal tenderness (both improving) Extrem: Left DP biphasic Left PT triphasic Right DP biphasic Right PT monophasic Right axilla site c/d/i B/l groin sites c/d/i L groin wound with clean wound base, bid packing with gauze CBC (last 3 years, up to 5 values) (Last 5 results in the past 3 years) WBC RBC Hgb Hct MCV RDW Plt 11/18/20 0320 8.5 2.95 9.5 28.7 97 16.4 200 11/17/20 0524 11.1 2.50 8.0 24.3 97 16.5 175 11/16/20 0335 14.8 2.55 8.1 24.6 97 16.5 148 11/15/20 0609 13.7 2.85 8.8 26.9 95 17.0 147 11/14/20 1353 15.6 2.89 9.1 27.0 93 17.8 146 Basic Metabolic Panel (Last 5 results in the past 3 years) Na K Cl CO2 Gap Glu BUN Cr Ca 11/18/20 0320 140 3.8 109 23 12 216 8 0.48 8.0 11/17/20 0524 142 3.0 107 25 13 72 9 0.73 7.9 11/16/20 0334 138 3.4 109 22 10 106 12 0.57 7.9 11/15/20 0609 139 3.4 108 23 11 247 13 0.73 7.8 11/14/20 0425 137 4.0 106 20 15 311 13 1.00 7.9 INR (no units) Date Value 11/18/2020 2.55 (H) 11/17/2020 2.04 (H) 11/16/2020 1.54 (H) 11/12/2020 1.12 (H) LFT's (last 3 years, up to 5 values) None Fingerstick Glucose (last 72 hours) (Last 10 results in the past 72 hours) Glucose 11/17/20 2135 202 11/17/20 1156 110 11/17/20 0730 102 11/16/20 2117 250 11/16/20 1653 182 11/16/20 1207 233 11/16/20 0833 143 11/15/20 2133 195 11/15/20 1702 245 11/15/20 1156 261 Assessment/Plan: 75F who presented with Sosa IIb limb ischemia POD#5 Axillary-bifemoral bypass graft (right to left) SFA endarterectomy SFA bovine patch angioplasty thrombectomy Angiogram? Neurovascular exam: Right: monophasic PT, biphasic DP Left: triphasic PT, biphasic DP Motor and sensation intact on b/l LE Warm ??? Neuro: - Tylenol q6h - Oxycodone PRN 5 and 10 mg - dilaudid PRN for breakthrough ??? CV: troponin plateaud/downtrending, EKG without acute findings, tachycardia resolved, likely from pain - continue home statin, ASA 81 mg - continue plavix Pulm: - wean supplemental O2 as able - encourage IS - RT ??? GI: - regular diet Renal: - mIVF - strict I AND Os ??? Endo: - Endo c/s for poorly controlled DM - 20u lantus at bedtime - 7u lispro ACHS - corrective mealtime lispro ???ID: - no indication for abx ??? Heme: - transfuse to goal > 8 given cardiac history - d/c heparin gtt - continue warfarin 1mg daily Ppx: - therapeutic on warfarin ??? MSK: chronic back pain, sacral pain may be from positioning in OR - PT/OT - bilateral L5 spondylolysis with grade 1-2 anterolisthesis of L5 on S1??? - padding underneath buttocks - patient must at least sit in chair for all 3 meals. Wounds: - left lower quadrant previous I AND D site with WTD kerlix bid - incisions c/d/i Dispo: pending SNF precert. Medically ready for discharge Patient discussed with attending Dr. Alejandro Connor MD General Surgery PGY-1 Vascular Surgery #[id number] [place] pager #[phone] (Weekdays 6pm-6am, and Weekends) Normal [facility] [employer] Authentication Interface Message Text Patient reporting some discomfort in right arm where IV Potassium 20 mEq is being infused. IVK being run with NS @ 70 mL/HR (increased from 45 mL/HR) for comfort. Patient took PO liquid Potassium 20 mEq, reports some nausea. Patient states she is agreeable to finish remainder of IV Potassium, however, will refuse it ongoing, as well as refuse PO liquid Potassium. She states she will only take med in pill form. Normal [facility] BASIC METABOLIC PANELon 03-2 -2020 Anion gap [Moles/Vol] 13 mmol/L Normal 5-13 [facility] Comment on above: Performed By: #### C R BGA, CR ICA, LACT, CR COOX, CR GLU, CR LYTES #### [facility] [address] [place], [address] Calcium [Mass/Vol] 7.9 mg/dL Low 8.4-10.4 [facility] Comment on above: Performed By: #### C R BGA, CR ICA, LACT, CR COOX, CR GLU, CR LYTES #### [facility] [address] [place], [address] Chloride [Moles/Vol] 107 mmol/L Normal 97-111 [facility] Comment on above: Performed By: #### C R BGA, CR ICA, LACT, CR COOX, CR GLU, CR LYTES #### [facility] [address] [place] [address], CO2 [Moles/Vol] 25 mmol/L Normal 21-30 [facility] Comment on above: Performed By: #### C R BGA, CR ICA, LACT, CR COOX, CR GLU, CR LYTES #### [facility] [address] [place] [address], Creatinine [Mass/Vol] 0.73 mg/dL Normal 0.50-1.10 [facility] Comment on above: Performed By: #### C R BGA, CR ICA, LACT, CR COOX, CR GLU, CR LYTES #### [facility] [address] [place] [address], ESTIMATED GFR (CKD-EPI) 81 mL/min/1.73sqm Normal >=60 [facility] Comment on above: Performed By: #### C R BGA, CR ICA, LACT, CR COOX, CR GLU, CR LYTES #### [facility] [address] [place] [address], Glucose [Mass/Vol] 72 mg/dL Low 80-116 [facility] Comment on above: Performed By: #### C R BGA, CR ICA, LACT, CR COOX, CR GLU, CR LYTES #### [facility] [address] [place] [address], Potassium [Moles/Vol] 3.0 mmol/L Low 3.3-5.3 [facility] Comment on above: Performed By: #### C R BGA, CR ICA, LACT, CR COOX, CR GLU, CR LYTES #### [facility] [address] [place] [address], Sodium [Moles/Vol] 142 mmol/L Normal 135-148 [facility] Comment on above: Performed By: #### C R BGA, CR ICA, LACT, CR COOX, CR GLU, CR LYTES #### [facility] [address], [place], Urea nitrogen [Mass/Vol] 9 mg/dL Normal 8-22 [facility] Comment on above: Performed By: #### C R BGA, CR ICA, LACT, CR COOX, CR GLU, CR LYTES #### [facility] [address], [place], COMPLETE BLOOD COUNTon 11-17 Erythrocyte distribution width (RBC) [Ratio] 16.5 % High 11.5-14.5 [facility] Comment on above: Performed By: #### C BC ####[facility] [id number] [place], [place], Hematocrit (Bld) [Volume fraction] 24.3 % Low 36.0-46.0 [facility] Comment on above: Performed By: #### C BC ####[facility] [id number] [place], [place], Hemoglobin (Bld) [Mass/Vol] 8.0 g/dL Low 12.0-15.0 [facility] Comment on above: Performed By: #### C BC ####[facility] [id number] [place], [place], MCH (RBC) [Entitic mass] 31.8 pg Normal 26.0-34.0 [facility] Comment on above: Performed By: #### C BC ####[facility] [id number] [place], [place], MCHC (RBC) [Mass/Vol] 32.8 g/dL Normal 32.0-35.9 [facility] Comment on above: Performed By: #### C BC ####[facility] [id number] [place], [place], MCV (RBC) [Entitic vol] 97 fL Normal 80-100 [facility] Comment on above: Performed By: #### C BC ####[facility] [id number] [place], [place], Platelet mean volume (Bld) [Entitic vol] 9.2 fL Normal 7.5-11.2 [facility] Comment on above: Performed By: #### C BC ####S PATHOLOGY [id number] [place], [place], Platelets (Bld) [#/Vol] 175 10*3/uL Normal 150-400 [facility] Comment on above: Performed By: #### C BC ####S PATHOLOGY [id number] [place], [place], RBC (Bld) [#/Vol] 2.50 10*6/uL Low 4.00-5.20 [facility] Comment on above: Performed By: #### C BC ####S PATHOLOGY [id number] [place], [place], WBC (Bld) [#/Vol] 11.1 10*3/uL Normal 4.5-11.5 [facility] Comment on above: Performed By: #### C BC ####[facility] [id number] [place], [place], Care Plan Noteon 11-17-2020 [employer] Authentication Interface Message Text Problem: Routine Care: Goal: Patient care will be managed and maintained throughout hospital stay per unit specific routine care procedure Outcome: Progressing Purposeful rounding and assessment done per protocol Problem: Alteration in Tissue Perfusion: Peripheral: Goal: Promote adequate perfusion and limit complications for a person experiencing or is at risk for inadequate tissue perfusion in peripheral circulation Outcome: Progressing DP pulses dopplerable Problem: Impaired Skin Integrity: Goal: Acheive wound healing without signs and symptoms of infection Outcome: Progressing No s/s infection Problem: Risk for Infection: Goal: Risk for infection will be reduced Outcome: Progressing Problem: Impaired Mobility: Goal: Ability to tolerate increased activity will improve and be maintained Outcome: Progressing Goal: Ability to maintain or regain baseline function will be acheived Outcome: Progressing Goal: Will be free of DVT Outcome: Progressing Problem: VTE Prophylaxis: Goal: Will be free of DVT Outcome: Progressing Problem: Acute Pain: Goal: Ability to identify pain intensity on a pain scale and rate it consistently will be achieved and maintained Outcome: Progressing Goal: Acceptable level of pain which allows the patient to achieve functional outcome goals Outcome: Progressing Pt reports pain relief with current pain regimen Problem: Safety: Goal: Patient will remain free of falls during hospital stay Outcome: Progressing Goal: Free from injury during hospitalization Outcome: Progressing Problem: Discharge Planning: Goal: Discharge needs of the adult patient will be met Outcome: Progressing D/C plan in evolution Problem: Routine Care: Goal: Patient care will be managed and maintained throughout hospital stay per unit specific routine care procedure Outcome: Progressing Problem: Acute Pain: Goal: Ability to identify pain intensity on a pain scale and rate it consistently will be achieved and maintained Outcome: Progressing Problem: Safety: Goal: Patient will remain free of falls during hospital stay Outcome: Progressing Problem: Discharge Planning: Goal: Discharge needs of the adult patient will be met Outcome: Progressing Normal [facility] GLUCOSE, FINGERSTICK-IN OFFI CEon 11-17-2020 Glucose [Mass/Vol] 202 mg/dL High 80-116 [facility] Comment on above: Performed By: #### C R BGA, CR ICA, LACT, CR COOX, CR GLU, CR LYTES #### [facility] [address] [place] [address], Glucose [Mass/Vol] 257 mg/dL High 80-116 [facility] Comment on above: Performed By: #### T ROP I #### [facility] [address] [place] [address], Glucose [Mass/Vol] 110 mg/dL Normal 80-116 [facility] Comment on above: Performed By: #### 8 [id number] ####NURSING GLUCOSE [id number] [place], [address] Glucose [Mass/Vol] 102 mg/dL Normal 80-116 [facility] Comment on above: Performed By: #### C R BGA, CR ICA, LACT, CR COOX, CR GLU, CR LYTES #### [facility] [address], [place], MAGNESIUMon 11-17-2020 Magnesium [Mass/Vol] 1.9 mg/dL Normal 1.6-2.8 [facility] Comment on above: Performed By: #### C R BGA, CR ICA, LACT, CR COOX, CR GLU, CR LYTES #### [facility] [address] [place] [address], PARTIAL THROMBOPLASTIN TIMEo n 11-17-2020 aPTT Coag (Bld) [Time] 50 s High 25-37 [facility] Comment on above: Performed By: #### C R BGA, CR ICA, LACT, CR COOX, CR GLU, CR LYTES #### [facility] [address], [place], aPTT Coag (Bld) [Time] 87 s High 25-37 [facility] Comment on above: Performed By: #### A PTT ####[facility] [id number] [place], [place], PROTHROMBIN TIME AND INRon 0 11-17-2020 INR Coag (PPP) [Relative time] 2.04 {INR} High 0.90-1.10 [facility] Comment on above: Performed By: #### P T ####[facility] [id number] [place], [place], PT Coag (PPP) [Time] 22.9 s High 9.7-12.9 [facility] Comment on above: Performed By: #### P T ####[facility] [id number] [place], [place], Progress Noteson 11-17-2020 [employer] Authentication Interface Message Text -------- Attestation signed by Sukhjinder Allen MD at 11/17/2020 9:26 PM Teaching Physician Note: I saw and evaluated the patient. I personally obtained the youngblood and critical portions of the history and physical exam. I reviewed the resident's documentation and discussed the patient with the resident. I agree with the resident's medical decision making as documented in the resident's note. Sukhjinder Allen MD -------- Vascular Surgery Progress Note Charles Coreas [id number] S: Feels well this morning, significantly better than previous few days. Still having some backside pain, but improved from before. Did not get out of bed yesterday. Reporting some intermittent R arm n/t since her operation. No weakness. Motivated to get out of bed to chair today Vital sign ranges over the past 24 hours (retrieved 11/17/2020 at 10:10 AM): Tmax (24 hours): 98.9 ???F (37.2 ???C) Pulse Av.8 Min: 76 Max: 94 Systolic (24hrs), Av , Min:126 , Max:133 Diastolic (24hrs), Av, Min:47, Max:50 MAP (mmHg) Av.5 mmHg Min: 61 mmHg Max: 68 mmHg Resp Av Min: 16 Max: 18 SpO2 Av.5 % Min: 94 % Max: 96 % Blood pressure 126/49, pulse 76, temperature 98.2 ???F (36.8 ???C), temperature source Oral, resp. rate 16, height 5' (1.524 m), weight 150 lb 5.7 oz (68.2 kg), SpO2 96 %. Intake/Output Summary (Last 24 hours) at 11/17/2020 1010 Last data filed at 11/17/2020 0916 Gross per 24 hour Intake 1460 ml Output 900 ml Net 560 ml PE: Gen: NAD, AAOx3 HENT: normocephalic, atraumatic Eyes: EOMI, no scleral icterus Pulm: comfortable on RA CVS: RRR Abd: Non distended, soft, no tender, no rebound, no guarding Psych: appropriate affect and behavior MSK: sacrum tenderness to palpation, bilateral gluteal tenderness Extrem: Left DP biphasic Left PT triphasic Right DP biphasic Right PT monophasic Right axilla site c/d/i B/l groin sites c/d/i L groin wound with clean wound base, bid packing with gauze CBC (last 3 years, up to 5 values) (Last 5 results in the past 3 years) WBC RBC Hgb Hct MCV RDW Plt 11/17/20 0524 11.1 2.50 8.0 24.3 97 16.5 175 11/16/20 0335 14.8 2.55 8.1 24.6 97 16.5 148 11/15/20 0609 13.7 2.85 8.8 26.9 95 17.0 147 11/14/20 1353 15.6 2.89 9.1 27.0 93 17.8 146 11/14/20 0825 7.5 Basic Metabolic Panel (Last 5 results in the past 3 years) Na K Cl CO2 Gap Glu BUN Cr Ca 11/17/20 0524 142 3.0 107 25 13 72 9 0.73 7.9 11/16/20 0334 138 3.4 109 22 10 106 12 0.57 7.9 11/15/20 0609 139 3.4 108 23 11 247 13 0.73 7.8 11/14/20 0425 137 4.0 106 20 15 311 13 1.00 7.9 11/13/20 1713 135 INR (no units) Date Value 11/17/2020 2.04 (H) 11/16/2020 1.54 (H) 11/12/2020 1.12 (H) LFT's (last 3 years, up to 5 values) None Fingerstick Glucose (last 72 hours) (Last 10 results in the past 72 hours) Glucose 11/17/20 0730 102 11/16/20 2117 250 11/16/20 1653 182 11/16/20 1207 233 11/16/20 0833 143 11/15/20 2133 195 11/15/20 1702 245 11/15/20 1156 261 11/15/20 0801 292 11/14/20 2247 233 Assessment/Plan: 75F who presented with Roscoe IIb limb ischemia POD#4 Axillary-bifemoral bypass graft (right to left) SFA endarterectomy SFA bovine patch angioplasty thrombectomy Angiogram? Neurovascular exam: Right: monophasic PT, biphasic DP Left: triphasic PT, biphasic DP Motor and sensation intact on b/l LE Warm ??? Neuro: - Tylenol q6h - Oxycodone PRN 5 and 10 mg - dilaudid PRN for breakthrough ??? CV: troponin plateaud/downtrending, EKG without acute findings, tachycardia resolved, likely from pain - continue home statin, ASA 81 mg - continue plavix Pulm: - wean supplemental O2 as able - encourage IS - RT ??? GI: - regular diet Renal: - mIVF - strict I AND Os ??? Endo: - Endo c/s for poorly controlled DM - 20u lantus at bedtime - 7u lispro ACHS - corrective mealtime lispro ???ID: - no indication for abx ??? Heme: - transfuse to goal > 8 given cardiac history - continue heparin gtt - continue warfarin 1mg daily Ppx: - SCDs ??? MSK: chronic back pain, sacral pain may be from positioning in OR - PT/OT - bilateral L5 spondylolysis with grade 1-2 anterolisthesis of L5 on S1??? - padding underneath buttocks Wounds: - left lower quadrant previous I AND D site with WTD kerlix bid - incisions c/d/i Dispo: pending SNF precert Patient discussed with attending Dr. Alejandro Connor MD General Surgery PGY-1 Vascular Surgery #[id number] [place] pager #[phone] (Weekdays 6pm-6am, and Weekends) Normal [facility] BASIC METABOLIC PANELon 10-29 Anion gap [Moles/Vol] 10 mmol/L Normal 5-13 [facility] Comment on above: Performed By: #### T ROP I #### [facility] [address] [place] [address], Calcium [Mass/Vol] 7.9 mg/dL Low 8.4-10.4 [facility] Comment on above: Performed By: #### T ROP I #### [facility] [address], [place], Chloride [Moles/Vol] 109 mmol/L Normal 97-111 [facility] Comment on above: Performed By: #### T ROP I #### [facility] [address] [place], [place], CO2 [Moles/Vol] 22 mmol/L Normal 21-30 [facility] Comment on above: Performed By: #### T ROP I #### [facility] [address] [place] [address], Creatinine [Mass/Vol] 0.57 mg/dL Normal 0.50-1.10 [facility] Comment on above: Performed By: #### T ROP I #### [facility] [address] [place] [address], ESTIMATED GFR (CKD-EPI) 91 mL/min/1.73sqm Normal >=60 [facility] Comment on above: Performed By: #### T ROP I #### [facility] [address] [place] [address], Glucose [Mass/Vol] 106 mg/dL Normal 80-116 [facility] Comment on above: Performed By: #### T ROP I #### [facility] [address] [place] [address], Potassium [Moles/Vol] 3.4 mmol/L Normal 3.3-5.3 [facility] Comment on above: Performed By: #### T ROP I #### [facility] [address] [place] [address], Sodium [Moles/Vol] 138 mmol/L Normal 135-148 [facility] Comment on above: Performed By: #### T ROP I #### [facility] [address] [place] [address], Urea nitrogen [Mass/Vol] 12 mg/dL Normal 8-22 [facility] Comment on above: Performed By: #### T ROP I #### [facility] [address] [place] [address], C-PEPTIDE, SERUMon CPEP 0.48 ng/mL Low 0.81-3.85 [facility] Comment on above: Performed By: #### C R BGA, CR ICA, LACT, CR COOX, CR GLU, CR LYTES #### [facility] [address] [place] [address], COMPLETE BLOOD COUNTon 11-16 Erythrocyte distribution width (RBC) [Ratio] 16.5 % High 11.5-14.5 [facility] Comment on above: Performed By: #### C R BGA, CR ICA, LACT, CR COOX, CR GLU, CR LYTES #### [facility] [address] [place] [address], Hematocrit (Bld) [Volume fraction] 24.6 % Low 36.0-46.0 [facility] Comment on above: Performed By: #### C R BGA, CR ICA, LACT, CR COOX, CR GLU, CR LYTES #### [facility] [address] [place] [address], Hemoglobin (Bld) [Mass/Vol] 8.1 g/dL Low 12.0-15.0 [facility] Comment on above: Performed By: #### C R BGA, CR ICA, LACT, CR COOX, CR GLU, CR LYTES #### [facility] [address] [place] [address], MCH (RBC) [Entitic mass] 31.8 pg Normal 26.0-34.0 [facility] Comment on above: Performed By: #### C R BGA, CR ICA, LACT, CR COOX, CR GLU, CR LYTES #### [facility] [address] [place] [address], MCHC (RBC) [Mass/Vol] 32.9 g/dL Normal 32.0-35.9 [facility] Comment on above: Performed By: #### C R BGA, CR ICA, LACT, CR COOX, CR GLU, CR LYTES #### [facility] [address] [place] [address], MCV (RBC) [Entitic vol] 97 fL Normal 80-100 [facility] Comment on above: Performed By: #### C R BGA, CR ICA, LACT, CR COOX, CR GLU, CR LYTES #### [facility] [address] [place] [address], Platelet mean volume (Bld) [Entitic vol] 9.1 fL Normal 7.5-11.2 [facility] Comment on above: Performed By: #### C R BGA, CR ICA, LACT, CR COOX, CR GLU, CR LYTES #### [facility] [address] [place] [address], Platelets (Bld) [#/Vol] 148 10*3/uL Low 150-400 [facility] Comment on above: Performed By: #### C R BGA, CR ICA, LACT, CR COOX, CR GLU, CR LYTES #### [facility] [address] [place] [address], RBC (Bld) [#/Vol] 2.55 10*6/uL Low 4.00-5.20 [facility] Comment on above: Performed By: #### C R BGA, CR ICA, LACT, CR COOX, CR GLU, CR LYTES #### [facility] [address], [place], WBC (Bld) [#/Vol] 14.8 10*3/uL High 4.5-11.5 [facility] Comment on above: Performed By: #### C R BGA, CR ICA, LACT, CR COOX, CR GLU, CR LYTES #### [facility] [address] [place] [address], Care Plan Noteon 11-16-2020 [employer] Authentication Interface Message Text Problem: Routine Care: Goal: Patient care will be managed and maintained throughout hospital stay per unit specific routine care procedure Outcome: Progressing Problem: Alteration in Tissue Perfusion: Peripheral: Goal: Promote adequate perfusion and limit complications for a person experiencing or is at risk for inadequate tissue perfusion in peripheral circulation Outcome: Progressing Problem: Impaired Skin Integrity: Goal: Acheive wound healing without signs and symptoms of infection Outcome: Progressing Problem: Risk for Infection: Goal: Risk for infection will be reduced Outcome: Progressing Problem: Impaired Mobility: Goal: Ability to tolerate increased activity will improve and be maintained Outcome: Progressing Goal: Ability to maintain or regain baseline function will be acheived Outcome: Progressing Goal: Will be free of DVT Outcome: Progressing Patient is on heparin gtt, SCD's in place Problem: VTE Prophylaxis: Goal: Will be free of DVT Outcome: Progressing Problem: Acute Pain: Goal: Ability to identify pain intensity on a pain scale and rate it consistently will be achieved and maintained Outcome: Progressing Goal: Acceptable level of pain which allows the patient to achieve functional outcome goals Outcome: Progressing Problem: Safety: Goal: Patient will remain free of falls during hospital stay Outcome: Progressing Goal: Free from injury during hospitalization Outcome: Progressing Problem: Discharge Planning: Goal: Discharge needs of the adult patient will be met Outcome: Progressing Problem: Routine Care: Goal: Patient care will be managed and maintained throughout hospital stay per unit specific routine care procedure Outcome: Progressing Problem: Acute Pain: Goal: Ability to identify pain intensity on a pain scale and rate it consistently will be achieved and maintained Outcome: Progressing Problem: Safety: Goal: Patient will remain free of falls during hospital stay Outcome: Progressing Problem: Discharge Planning: Goal: Discharge needs of the adult patient will be met Outcome: Progressing Normal [facility] [employer] Authentication Interface Message Text Problem: Alteration in Tissue Perfusion: Peripheral: Goal: Promote adequate perfusion and limit complications for a person experiencing or is at risk for inadequate tissue perfusion in peripheral circulation Outcome: Progressing Problem: Routine Care: Goal: Patient care will be managed and maintained throughout hospital stay per unit specific routine care procedure Outcome: Progressing Problem: Impaired Skin Integrity: Goal: Acheive wound healing without signs and symptoms of infection Outcome: Progressing Problem: Risk for Infection: Goal: Risk for infection will be reduced Outcome: Progressing Problem: Impaired Mobility: Goal: Ability to tolerate increased activity will improve and be maintained Outcome: Progressing Goal: Ability to maintain or regain baseline function will be acheived Outcome: Progressing Goal: Will be free of DVT Outcome: Progressing Problem: VTE Prophylaxis: Goal: Will be free of DVT Outcome: Progressing Problem: Acute Pain: Goal: Ability to identify pain intensity on a pain scale and rate it consistently will be achieved and maintained Outcome: Progressing Goal: Acceptable level of pain which allows the patient to achieve functional outcome goals Outcome: Progressing Problem: Safety: Goal: Patient will remain free of falls during hospital stay Outcome: Progressing Goal: Free from injury during hospitalization Outcome: Progressing Problem: Discharge Planning: Goal: Discharge needs of the adult patient will be met Outcome: Progressing Problem: Routine Care: Goal: Patient care will be managed and maintained throughout hospital stay per unit specific routine care procedure Outcome: Progressing Problem: Acute Pain: Goal: Ability to identify pain intensity on a pain scale and rate it consistently will be achieved and maintained Outcome: Progressing Problem: Safety: Goal: Patient will remain free of falls during hospital stay Outcome: Progressing Problem: Discharge Planning: Goal: Discharge needs of the adult patient will be met Outcome: Progressing Normal [facility] Consultson 11-16-2020 Counsel[employer] At [employer] Authentication Interface Message Text Diet Quality Assurance Supervisor Nutrition Screening Reason for visit: LOS 5 or more days Assessment Admitting Diagnosis: Pain in left leg [M79.605] Other disorder of circulatory system [I99.8] High risk nutrition diagnosis: No - no points Past Medical History: History reviewed. No pertinent past medical history. Food Allergies: NKFA Nutrition related Medications: Lipitor, ancef ivpb, lantus, humulin R, miralax, coumadin Labs: LFT's (last 3 years, up to 5 values) None Albumin: n/a - no points Skin Integrity: No pressure ulcers at this time - no points; surgical incision- 0 points Fluid Accumulation: +1 - +2 Pitting edema - 2 points Diet Order: Regular % PO Intake: Less than 50% for greater than and equal to 5 days - 4 points Intake Difficulties: Decreased appetite - 0 points 5' 0 150.87803 lbs BODY MASS INDEX 11/12/2020 11/15/2020 Kg 68.2 kg Lbs 150 lb 5.7 oz BODY MASS INDEX 29.36 BMI: 29.36 BMI Screening value: 21 or greater - 0 points % Weight Loss: Not significant Weight Loss Screening Value: Not significant - 0 points Education: Comments: Patient reports a low appetite, but is tolerating food. Taking less than 50% at most meals. Willing to drink one Marne Boost Plus at lunchtime for added nutrition. Seen by wound care 11/14 - sacrum intact. Will monitor need for further interventions. Number of Points: 6 Nutritional Plan of Care: Less than or equal to 6 points: At this time, patient is at low nutrition risk. DTR to provide routine follow up. Will continue to follow, Ann Mohan, Diet Quality Assurance Supervisor Pager [phone] Normal [facility] GLUCOSE, FINGERSTICK-IN OFFI CEon 11-16-2020 Glucose [Mass/Vol] 250 mg/dL High 80-116 [facility] Comment on above: Performed By: #### C R BGA, CR ICA, LACT, CR COOX, CR GLU, CR LYTES #### [facility] [address] [place] [address], [id number] Glucose [Mass/Vol] 182 mg/dL High 80-116 [facility] Comment on above: Performed By: #### C R BGA, CR ICA, LACT, CR COOX, CR GLU, CR LYTES #### [facility] [address] [place] [address], Glucose [Mass/Vol] 233 mg/dL High 80-116 [facility] Comment on above: Performed By: #### T ROP I #### [facility] [address], [place], Glucose [Mass/Vol] 143 mg/dL High 80-116 [facility] Comment on above: Performed By: #### C R BGA, CR ICA, LACT, CR COOX, CR GLU, CR LYTES #### [facility] [address] [place] [address], MAGNESIUMon 11-16-2020 Magnesium [Mass/Vol] 1.8 mg/dL Normal 1.6-2.8 [facility] Comment on above: Performed By: #### T ROP I #### [facility] [address], [place], PARTIAL THROMBOPLASTIN TIMEo n 11-16-2020 aPTT Coag (Bld) [Time] 84 s High 25-37 [facility] Comment on above: Performed By: #### C R BGA, CR ICA, LACT, CR COOX, CR GLU, CR LYTES #### [facility] [address] [place] [address], PROTHROMBIN TIME AND INRon 0 11-16-2020 INR Coag (PPP) [Relative time] 1.54 {INR} High 0.90-1.10 [facility] Comment on above: Performed By: #### P T ####[facility] [id number] [place], [place], PT Coag (PPP) [Time] 17.3 s High 9.7-12.9 [facility] Comment on above: Performed By: #### P T ####[facility] [id number] [place] [address], Progress Noteson 11-16-2020 Counselor At Law Authentication Interface Message Text SW following for DC to SNF. Per PT note is confused. SW left message for pt's daughter Anni [phone] requesting a return call. SW will continue to follow. GAVI Moralez [employer] Work,[phone] ADDENDUM 2:19pm SW received call back from pt's daughter Anni and was informed she has the facility list at home and plans to review it later tonight. Anni requested SW reach back out Thursday morning for facility options. SW to put pt on the PT/OT list. Pt will need a pre-cert. GAVI oMralez [employer] Work,[phone] Normal [facility] Counselor At Law Authentication Interface Message Text Lab called to report aptt lab levels from 42 at 1300 to 70 at 2130 physician updated no new orders Normal [facility] BASIC METABOLIC PANELon 10-29 Anion gap [Moles/Vol] 11 mmol/L Normal 5-13 [facility] Comment on above: Performed By: #### C R BGA, CR ICA, LACT, CR COOX, CR GLU, CR LYTES #### [facility] [address] [place] [address], Calcium [Mass/Vol] 7.8 mg/dL Low 8.4-10.4 [facility] Comment on above: Performed By: #### C R BGA, CR ICA, LACT, CR COOX, CR GLU, CR LYTES #### [facility] [address] [place] [address], Chloride [Moles/Vol] 108 mmol/L Normal 97-111 [facility] Comment on above: Performed By: #### C R BGA, CR ICA, LACT, CR COOX, CR GLU, CR LYTES #### [facility] [address] [place] [address], CO2 [Moles/Vol] 23 mmol/L Normal 21-30 [facility] Comment on above: Performed By: #### C R BGA, CR ICA, LACT, CR COOX, CR GLU, CR LYTES #### [facility] [address] [place] [address], Creatinine [Mass/Vol] 0.73 mg/dL Normal 0.50-1.10 [facility] Comment on above: Performed By: #### C R BGA, CR ICA, LACT, CR COOX, CR GLU, CR LYTES #### [facility] [address] [place] [address], ESTIMATED GFR (CKD-EPI) 81 mL/min/1.73sqm Normal >=60 [facility] Comment on above: Performed By: #### C R BGA, CR ICA, LACT, CR COOX, CR GLU, CR LYTES #### [facility] [address] [place] [address], Glucose [Mass/Vol] 247 mg/dL High 80-116 [facility] Comment on above: Performed By: #### C R BGA, CR ICA, LACT, CR COOX, CR GLU, CR LYTES #### [facility] [address] [place] [address], Potassium [Moles/Vol] 3.4 mmol/L Normal 3.3-5.3 [facility] Comment on above: Performed By: #### C R BGA, CR ICA, LACT, CR COOX, CR GLU, CR LYTES #### [facility] [address] [place] [address], Sodium [Moles/Vol] 139 mmol/L Normal 135-148 [facility] Comment on above: Performed By: #### C R BGA, CR ICA, LACT, CR COOX, CR GLU, CR LYTES #### [facility] [address] [place] [address], Urea nitrogen [Mass/Vol] 13 mg/dL Normal 8-22 [facility] Comment on above: Performed By: #### C R BGA, CR ICA, LACT, CR COOX, CR GLU, CR LYTES #### [facility] [address] [place] [address], COMPLETE BLOOD COUNTon 11-15 Erythrocyte distribution width (RBC) [Ratio] 17.0 % High 11.5-14.5 [facility] Comment on above: Performed By: #### H B A1C ####[facility] [address] [place], [place], #### CBC ####[facility] [id number] [place], [place], Hematocrit (Bld) [Volume fraction] 26.9 % Low 36.0-46.0 [facility] Comment on above: Performed By: #### H B A1C ####[facility] [address], [place], #### CBC ####[facility] [id number] [place] [address], Hemoglobin (Bld) [Mass/Vol] 8.8 g/dL Low 12.0-15.0 [facility] Comment on above: Performed By: #### H B A1C ####[facility] [address] [place] [address], #### CBC ####[facility] [id number] [place] [address], MCH (RBC) [Entitic mass] 31.0 pg Normal 26.0-34.0 [facility] Comment on above: Performed By: #### H B A1C ####[facility] [address] [place] [address], #### CBC ####[facility] [id number] [place] [address], MCHC (RBC) [Mass/Vol] 32.8 g/dL Normal 32.0-35.9 [facility] Comment on above: Performed By: #### H B A1C ####[facility] [address], [place], #### CBC ####[facility] [id number] [place] [address], MCV (RBC) [Entitic vol] 95 fL Normal 80-100 [facility] Comment on above: Performed By: #### H B A1C ####[facility] [address] [place] [address], #### CBC ####[facility] [id number] [place] [address], Platelet mean volume (Bld) [Entitic vol] 9.2 fL Normal 7.5-11.2 [facility] Comment on above: Performed By: #### H B A1C ####[facility] [address] [place], [address]#### CBC ####[facility] [id number] [place], [place], Platelets (Bld) [#/Vol] 147 10*3/uL Low 150-400 [facility] Comment on above: Performed By: #### H B A1C ####[facility] [address], [place], #### CBC ####[facility] [id number] [place], [place], RBC (Bld) [#/Vol] 2.85 10*6/uL Low 4.00-5.20 [facility] Comment on above: Performed By: #### H B A1C ####[facility] [address], [place], #### CBC ####[facility] [id number] [place], [place], WBC (Bld) [#/Vol] 13.7 10*3/uL High 4.5-11.5 [facility] Comment on above: Performed By: #### H B A1C ####[facility] [address] [place], [address]#### CBC ####[facility] [id number] [place], [place], Care Plan Noteon 11-15-2020 Counselor At Law Authentication Interface Message Text Problem: Routine Care: Goal: Patient care will be managed and maintained throughout hospital stay per unit specific routine care procedure 11/15/2020 1538 by Mehnaz Matias, RN Outcome: Progressing 11/15/2020 1049 by Mehnaz Matias, RN Outcome: Progressing Problem: Alteration in Tissue Perfusion: Peripheral: Goal: Promote adequate perfusion and limit complications for a person experiencing or is at risk for inadequate tissue perfusion in peripheral circulation 11/15/2020 1538 by Mehnaz Matias, RN Outcome: Progressing 11/15/2020 1049 by Mehnaz Matias RN Outcome: Progressing Problem: Impaired Skin Integrity: Goal: Acheive wound healing without signs and symptoms of infection 11/15/2020 1538 by Mehnaz Matias RN Outcome: Progressing 11/15/2020 1049 by Mehnaz Matias RN Outcome: Progressing Problem: Risk for Infection: Goal: Risk for infection will be reduced 11/15/2020 1538 by Mehnaz Matias RN Outcome: Progressing 11/15/2020 1049 by Mehnaz Matias RN Outcome: Progressing Problem: Impaired Mobility: Goal: Ability to tolerate increased activity will improve and be maintained 11/15/2020 1538 by Mehnaz Matias RN Outcome: Progressing 11/15/2020 1049 by Mehnaz Matias RN Outcome: Progressing Goal: Ability to maintain or regain baseline function will be acheived 11/15/2020 1538 by Mehnaz Matias RN Outcome: Progressing 11/15/2020 1049 by Mehnaz Matias RN Outcome: Progressing Goal: Will be free of DVT 11/15/2020 1538 by Mehnaz Matias RN Outcome: Progressing 11/15/2020 1049 by Mehnaz Matias RN Outcome: Progressing Problem: Impaired Mobility: Goal: Ability to maintain or regain baseline function will be acheived 11/15/2020 1538 by Mehnaz Matias RN Outcome: Progressing 11/15/2020 1049 by Mehnaz Matias RN Outcome: Progressing Problem: VTE Prophylaxis: Goal: Will be free of DVT 11/15/2020 1538 by Mehnaz Matias RN Outcome: Progressing 11/15/2020 1049 by Mehnaz Matias RN Outcome: Progressing Problem: Acute Pain: Goal: Ability to identify pain intensity on a pain scale and rate it consistently will be achieved and maintained 11/15/2020 1538 by Mehnaz Matias RN Outcome: Progressing 11/15/2020 1049 by Mehnaz Matias RN Outcome: Progressing Goal: Acceptable level of pain which allows the patient to achieve functional outcome goals 11/15/2020 1538 by Mehnaz Matias RN Outcome: Progressing 11/15/2020 1049 by Mehnaz Matias RN Outcome: Progressing Problem: Safety: Goal: Patient will remain free of falls during hospital stay 11/15/2020 1538 by Mehnaz Matias RN Outcome: Progressing 11/15/2020 1049 by Mehnaz Matias RN Outcome: Progressing Goal: Free from injury during hospitalization 11/15/2020 1538 by Mehnaz Matias RN Outcome: Progressing 11/15/2020 1049 by Mehnaz Matias RN Outcome: Progressing Problem: Discharge Planning: Goal: Discharge needs of the adult patient will be met 11/15/2020 1538 by Mehnaz Matias RN Outcome: Progressing 11/15/2020 1049 by Mehnaz Matias RN Outcome: Progressing Problem: Routine Care: Goal: Patient care will be managed and maintained throughout hospital stay per unit specific routine care procedure 11/15/2020 1538 by Mehnaz Matias RN Outcome: Progressing 11/15/2020 1049 by Mehnaz Matias RN Outcome: Progressing Problem: Acute Pain: Goal: Ability to identify pain intensity on a pain scale and rate it consistently will be achieved and maintained 11/15/2020 1538 by Mehnaz Matias RN Outcome: Progressing 11/15/2020 1049 by Mehnaz Matias RN Outcome: Progressing Problem: Safety: Goal: Patient will remain free of falls during hospital stay 11/15/2020 1538 by Mehnaz Matias RN Outcome: Progressing 11/15/2020 1049 by Mehnaz Matias RN Outcome: Progressing Problem: Discharge Planning: Goal: Discharge needs of the adult patient will be met 11/15/2020 1538 by Mehnaz Matias RN Outcome: Progressing 11/15/2020 1049 by Mehnaz Matias RN Outcome: Progressing Normal [facility] GLUCOSE, FINGERSTICK-IN OFFI CEon 11-15-2020 Glucose [Mass/Vol] 195 mg/dL High 80-116 [facility] Comment on above: Performed By: #### 8 1248 ####NURSING GLUCOSE [id number] [facility] [place], [address] Glucose [Mass/Vol] 245 mg/dL High 80-116 [facility] Comment on above: Performed By: #### 8 7808 ####NURSING GLUCOSE [id number] [place], [address] Glucose [Mass/Vol] 261 mg/dL High 80-116 [facility] Comment on above: Performed By: #### C R BGA, CR ICA, LACT, CR COOX, CR GLU, CR LYTES #### [facility] [address] [place], [place], Glucose [Mass/Vol] 292 mg/dL High 80-116 [facility] Comment on above: Performed By: #### 8 2948 #### NURSING GLUCOSE PROGRAM [address] [place], [address] Glucose [Mass/Vol] 233 mg/dL High 80-116 [facility] Comment on above: Performed By: #### C R BGA, CR ICA, LACT, CR COOX, CR GLU, CR LYTES #### [facility] [address] [place], [place], [place] 11-15-2020 Counselor At Law Authentication Interface Message Text Social Work/Case Management: Reason for placement: PT/OT Therapies Patient level of care required : Skilled Applicant's potential for returning to community: Convalescent stay:<30 days Prognosis: Good Rehab Potential: Improve Mental/Behavioral status:Alert, Oriented, Cooperative Affect: Calm Social Work Assessment Functional status prior to admission: ambulatory, lives with daughter Community agencies active with patient: n/a Support system: Daughter Capacity for independent living/fpc plan: return home with family support Other hospital admissions within the past 60 days: No Other pertinent problems: Lilo An [facility] P: [phone] Normal [facility] HEMOGLOBIN A1Con 11-15-2020 Glucose [Mass/Vol] 217 mg/dL Normal [facility] Comment on above: Order Comment: HbA1c of 5.7-6.4% have increased risk for diabetes and CV(Source :ADA 2014 Standard of Medical Care in Diabetes) Performed By: #### H B A1C ####[facility] [address] [place], [address]#### CBC ####[facility] [id number] [place], [place], HbA1c (Bld) [Mass fraction] 9.2 % High 4.0-5.6 [facility] Comment on above: Order Comment: HbA1c of 5.7-6.4% have increased risk for diabetes and CV(Source :ADA 2014 Standard of Medical Care in Diabetes) Performed By: #### H B A1C ####[facility] [address] [place], [address]#### CBC ####[facility] [id number] [place], [place], MAGNESIUMon 11-15-2020 Magnesium [Mass/Vol] 1.9 mg/dL Normal 1.6-2.8 [facility] Comment on above: Performed By: #### C R BGA, CR ICA, LACT, CR COOX, CR GLU, CR LYTES #### [facility] [address] [place], [place], PARTIAL THROMBOPLASTIN TIMEo n 11-15-2020 aPTT Coag (Bld) [Time] 70 s High 25-37 [facility] Comment on above: Performed By: #### A PTT ####[facility] [id number] [place], [place], aPTT Coag (Bld) [Time] 42 s High 25-37 [facility] Comment on above: Performed By: #### A PTT ####[facility] [id number] [place], [place], aPTT Coag (Bld) [Time] 48 s High 25-37 [facility] Comment on above: Performed By: #### A PTT ####[facility] [id number] [place], aPTT Coag (Bld) [Time] 96 s High 25-37 [facility] Comment on above: Performed By: #### A PTT ####[facility] [id number] [place], [place], Progress Noteson 11-15-2020 Counselor At Law Authentication Interface Message Text Social Work Step Down Note Pt briefly discussed PT/OT reccs for SNF with pt, pt with eyes closed though nodded 'yes'. Pt agreeable for SW to speak with her daughter Anni regarding DC planning for SNF. SW discussed PT/OT SNF reccs with pt's daughter, Anni ([phone]). Pt normally home 23/03 with a family member, when Anni is working pt's [id number]-[id number] is home. Anni confirms pt currently below baseline. Anni receptive to SNF planning at this time. RABIA left SNF list at pt's bedside. Pt/pt's family to review and select top choices. For SNF: -Pt will require a pre-cert. -RN to complete [employer]. -MD to sign signature pg/GR. -MD to reconcile meds. [id number] initiated. Signature pg and facesheet on pt's physical chart. Lilo Nolan [facility] P: [phone] Normal [facility] Authentication Interface Message Text ------ GENERAL INFORMATION ----- SURGICAL ICU - STAFF NOTE Patient seen and examined on 11/15/2020 Patient Name: Charles Coreas Admission Date: 11/12/2020 ---- INTERVAL HISTORY/EVENTS -- Background: ???75 year old???female???PMHx of HTN, DM, COPD, CAD. Transferred to [facility]. Now???presenting to SICU POD #0???s/p axillo femoral, femoral femoral bypass graft. ??? Hospital Course: 11/13/2020: s/p axillo femoral, femoral femoral bypass graft, transferred to SICU post-op 24 Hour Events: No acute events overnight Saturating at 100% 2L NC * heparin (porcine) 1,050 Units/hr (11/15/20 0729) * lactated ringers 75 mL/hr at 11/15/20 0700 UOP 840 cc ----- VITALS AND INPUT/OUTPUT ------ Vital Signs: Vital sign ranges over the past 24 hours (retrieved 11/15/2020 at 8:17 AM): Tmax (24 hours): 99.3 ???F (37.4 ???C) Pulse Av.1 Min: 83 Max: 102 Systolic (24hrs), Av , Min:72 , Max:130 Diastolic (24hrs), Av, Min:35, Max:78 MAP (mmHg) Av mmHg Min: 46 mmHg Max: 86 mmHg Resp Av.7 Min: 15 Max: 28 SpO2 Av.5 % Min: 91 % Max: 100 % 24 Hour Input/Output In: 3025.5 (44.4 mL/kg) [P.O.:450; I.V.:2250.5 (1.4 mL/kg/hr)] Out: 840 (12.3 mL/kg) [Urine:840 (0.5 mL/kg/hr)] Net: 2185.5 Weight: 68.2 kg PHYSICAL EXAM Constitutional: Resting comfortably. No acute address HEENT: NC/AT. PEERLA. Throat clear. Cardiovascular: Regular rate and rhythm. No murmurs Pulmonary/Chest: Clear b/l, R axillary wound c/d/i with surgical glue. On 2L NC Abdominal: soft, non tender, non distended. Surgical dressings in place, c/d/i, left groin c/d/i covered with surgical dressing. RIght axillary incision dressed with surgical glue, c/d/i. Renal: cohen in place draining clear yellow urine Musculoskeletal: Motor and sensation intact bilateral upper and lower extremities, compartments soft. DP and TP pulses full and symmetric. All extremities warm and well perfused. Neurological: GCS 15, no growth neurological deficits LABORATORY RESULTS (LAST 24 HOURS) CBC/PT/INR WBC RBC Hgb Hct MCV RDW Plt PT aPTT INR 11/15/20 0614 48 11/15/20 0609 13.7 2.85 8.8 26.9 95 17.0 147 11/14/20 2250 96 11/14/20 1457 59 11/14/20 1353 15.6 2.89 9.1 27.0 93 17.8 146 11/14/20 0825 7.5 Basic Metabolic Panel Na K Cl CO2 Gap Glu BUN Cr Ca Mg PO4 11/15/20 0609 139 3.4 108 23 11 247 13 0.73 7.8 Arterial Blood Gases None IMAGING RESULTS (PERSONALLY REVIEWED) CXR: No acute imaging ------ ASSESSMENT AND PLAN ??? Diagnosis s/p:axillo femoral, femoral femoral bypass graft 11/13/2020 ??? PMHx HTN, DM, COPD, CAD ??? Plan: Neurological: postop pain(well controlled) - Pain control with PO oxycodone 5-10, PO tylenol 650mg q6 - Q2h vascular checks ??? Cardiovascular: Hx of CABG, Severe PAD - s/p right ax-fem and fem-fem bypass on 11/13 - HDS - EKG and troponin obtained ytd for acute hypotension, EKG WNL, Troponins mildly elevated, have since peaked, will stop trending - Echo reviewed 11/13/2020: EF 55% - Continue home statin and ASA. Patient on Plavix at home, will discuss restarting with Vascular - Okay to restart Hold home lisinopril, hydrochlorothiazide??? - Continue Heparin gtt, will discuss transitioning to oral AC today with Vascular ? Respiratory: Hx COPD- not on home O2, no home medications noted - Q1H IS while awake - Wean O2 as able ??? GI/Diet: -Continue general diet -Start bowel regimen Merelex/senna ??? Renal: - UOP appropriate, Cr within normal limits - d/c radha today - Daily BMP ??? Heme:Acute post op blood loss anemia - Daily CBC - Continue Low intensity heparin drip per vascular, PTT goal for 60-70 ? ID: - No indication for abx ??? Endocrine: Hx IDDM - Hx of DM, on 15u Lantus, Novolin 70/30, and Dulaglutide at home - Currently on 15u Lantus at night, will increase Lantus to 20u nightly and start 5u regular insulin with meals, continue SSI ??? MSK: -???PT/OT??? - OOB as Tolerated ??? FEN: - SLIV - replete lytes prn ??? Prophylaxis: - SCDs, low intensity heparin gtt - No indication for GI ppx ??? Lines:??? - PIV x3, A line, radha - d/c a-line today ??? Dispo: - Stable in Step Down, transfer to floor today. SCRIBE ATTESTATION 11/15/2020, 8:17 AM. This note is prepared by Nelida Mckenzie acting as Scribe for Trevin Cheung MD. All medical record entries made by the Scribe were at my direction and personally dictated by me. I have reviewed the record and confirm that the note above a (more content not included)... Normal [facility] TROPONIN Ion 11-15-2020 TROP I 0.191 ng/mL Critically high <0.120 [facility] Comment on above: Result Comment: Rang e <=0.04 ng/mL: Negative Interpretation: Repeat testing in four to six hours if clinically indicated. Range 0.04-0.11 ng/mL: Suspected for acute myocardial injury. Interpretation: Serial measurements may be necessary to confirm or exclude the diagnosis of acute coronary syndrome. Repeat testing in four to six hours if clinically indicated. Range >=0.12 ng/mL: Results consistent with myocardial injury. Interpretation: Clinical and laboratory correlation recommended. Performed By: #### T ROP I #### [facility] [address], [place], TROP I 0.243 ng/mL Critically high <0.120 [facility] Comment on above: Result Comment: Rang e <=0.04 ng/mL: Negative Interpretation: Repeat testing in four to six hours if clinically indicated. Range 0.04-0.11 ng/mL: Suspected for acute myocardial injury. Interpretation: Serial measurements may be necessary to confirm or exclude the diagnosis of acute coronary syndrome. Repeat testing in four to six hours if clinically indicated. Range >=0.12 ng/mL: Results consistent with myocardial injury. Interpretation: Clinical and laboratory correlation recommended. Performed By: #### T ROP I ####[facility] [id number] [place], [place], Transfer Noteon 11-15-2020 Counsel[employer] Authentication Interface Message Text SICU Transfer Note Background:?75 year old???female???PMHx of HTN, DM, COPD, CAD. PAD s/p failed vascular procedures presented to OSH with leg pain and found to have absent doppler signals. Transferred to [facility]. Admitted to SICU now POD #2???s/p axillo femoral, femoral femoral bypass graft. ??? Hospital Course:??? 11/13/2020:???s/p axillo femoral, femoral femoral bypass graft, transferred to SICU post-op. Overnight and into morning 11/14 patient hypotensive which was transiently responsive to fluids. Hb trended down to 7.5. Given hx of CAD and hypotension we obtained EKG which did not show ischemic changes and troponins which elevated to max 0.2 then downtrended x2. Patient was transfused 1 unit PRBC with appropriate increase in Hb and improved blood pressure. Patient was stable overnight and diet progressed to regular on am of 11/15. She has no signs of bleeding or hematoma. Her pain is controlled on oral analgesics. Warfarin 2.5mg daily was started on 11/15 per vascular surgery recommendations. She was continued on her heparin drip. Her course has been complicated by hyperglycemia. We restarted her home dose of Lantus 15U and started regular insulin 5U qAC and SSI. A1C is pending. To do: [ ] follow up A1C [ ] patient needs a proper med rec (no outside health info available on admit) [ ] have not restarted home Plavix [ ] PT/OT recommending SNF, SW on board Luis Martinez MD PGY1 P [phone] ??? Normal [facility] BASIC METABOLIC PANELon - Anion gap [Moles/Vol] 15 mmol/L High 5-13 [facility] Comment on above: Performed By: #### C R BGA, CR ICA, LACT, CR COOX, CR GLU, CR LYTES #### [facility] [address] [place] [address], Calcium [Mass/Vol] 7.9 mg/dL Low 8.4-10.4 [facility] Comment on above: Performed By: #### C R BGA, CR ICA, LACT, CR COOX, CR GLU, CR LYTES #### [facility] [address] [place] [address], Chloride [Moles/Vol] 106 mmol/L Normal 97-111 [facility] Comment on above: Performed By: #### C R BGA, CR ICA, LACT, CR COOX, CR GLU, CR LYTES #### [facility] [address] [place] [address], CO2 [Moles/Vol] 20 mmol/L Low 21-30 [facility] Comment on above: Performed By: #### C R BGA, CR ICA, LACT, CR COOX, CR GLU, CR LYTES #### [facility] [address] [place] [address], Creatinine [Mass/Vol] 1.00 mg/dL Normal 0.50-1.10 [facility] Comment on above: Performed By: #### C R BGA, CR ICA, LACT, CR COOX, CR GLU, CR LYTES #### [facility] [address] [place] [address], ESTIMATED GFR (CKD-EPI) 55 mL/min/1.73sqm Low >=60 [facility] Comment on above: Performed By: #### C R BGA, CR ICA, LACT, CR COOX, CR GLU, CR LYTES #### [facility] [address] [place] [address], Glucose [Mass/Vol] 311 mg/dL High 80-116 [facility] Comment on above: Performed By: #### C R BGA, CR ICA, LACT, CR COOX, CR GLU, CR LYTES #### [facility] [address] [place] [address], Potassium [Moles/Vol] 4.0 mmol/L Normal 3.3-5.3 [facility] Comment on above: Performed By: #### C R BGA, CR ICA, LACT, CR COOX, CR GLU, CR LYTES #### [facility] [address] [place] [address], Sodium [Moles/Vol] 137 mmol/L Normal 135-148 [facility] Comment on above: Performed By: #### C R BGA, CR ICA, LACT, CR COOX, CR GLU, CR LYTES #### [facility] [address] [place] [address], Urea nitrogen [Mass/Vol] 13 mg/dL Normal 8-22 [facility] Comment on above: Performed By: #### C R BGA, CR ICA, LACT, CR COOX, CR GLU, CR LYTES #### [facility] [address] [place] [address], COMPLETE BLOOD COUNTon 11-14 Erythrocyte distribution width (RBC) [Ratio] 17.8 % High 11.5-14.5 [facility] Comment on above: Performed By: #### C R BGA, CR ICA, LACT, CR COOX, CR GLU, CR LYTES #### [facility] [address] [place] [address], Hematocrit (Bld) [Volume fraction] 27.0 % Low 36.0-46.0 [facility] Comment on above: Performed By: #### C R BGA, CR ICA, LACT, CR COOX, CR GLU, CR LYTES #### [facility] [address] [place] [address], Hemoglobin (Bld) [Mass/Vol] 9.1 g/dL Low 12.0-15.0 [facility] Comment on above: Performed By: #### C R BGA, CR ICA, LACT, CR COOX, CR GLU, CR LYTES #### [facility] [address] [place] [address], MCH (RBC) [Entitic mass] 31.5 pg Normal 26.0-34.0 [facility] Comment on above: Performed By: #### C R BGA, CR ICA, LACT, CR COOX, CR GLU, CR LYTES #### [facility] [address] [place] [address], MCHC (RBC) [Mass/Vol] 33.7 g/dL Normal 32.0-35.9 [facility] Comment on above: Performed By: #### C R BGA, CR ICA, LACT, CR COOX, CR GLU, CR LYTES #### [facility] [address] [place] [address], MCV (RBC) [Entitic vol] 93 fL Normal 80-100 [facility] Comment on above: Performed By: #### C R BGA, CR ICA, LACT, CR COOX, CR GLU, CR LYTES #### [facility] [address] [place] [address], Platelet mean volume (Bld) [Entitic vol] 9.1 fL Normal 7.5-11.2 [facility] Comment on above: Performed By: #### C R BGA, CR ICA, LACT, CR COOX, CR GLU, CR LYTES #### [facility] [address] [place] [address], Platelets (Bld) [#/Vol] 146 10*3/uL Low 150-400 [facility] Comment on above: Performed By: #### C R BGA, CR ICA, LACT, CR COOX, CR GLU, CR LYTES #### [facility] [address], [place], RBC (Bld) [#/Vol] 2.89 10*6/uL Low 4.00-5.20 [facility] Comment on above: Performed By: #### C R BGA, CR ICA, LACT, CR COOX, CR GLU, CR LYTES #### [facility] [address], [place], WBC (Bld) [#/Vol] 15.6 10*3/uL High 4.5-11.5 [facility] Comment on above: Performed By: #### C R BGA, CR ICA, LACT, CR COOX, CR GLU, CR LYTES #### [facility] [address], [place], Erythrocyte distribution width (RBC) [Ratio] 13.9 % Normal 11.5-14.5 [facility] Comment on above: Performed By: #### C BC ####[facility] [id number] [place] [address], Hematocrit (Bld) [Volume fraction] 24.2 % Low 36.0-46.0 [facility] Comment on above: Performed By: #### C BC ####[facility] [id number] [place], [place], Hemoglobin (Bld) [Mass/Vol] 7.9 g/dL Low 12.0-15.0 [facility] Comment on above: Performed By: #### C BC ####[facility] [id number] [place], [place], MCH (RBC) [Entitic mass] 31.9 pg Normal 26.0-34.0 [facility] Comment on above: Performed By: #### C BC ####[facility] [id number] [place], [place], MCHC (RBC) [Mass/Vol] 32.5 g/dL Normal 32.0-35.9 [facility] Comment on above: Performed By: #### C BC ####[facility] [id number] [place], [place], MCV (RBC) [Entitic vol] 98 fL Normal 80-100 [facility] Comment on above: Performed By: #### C BC ####[facility] [id number] [place], [place], Platelet mean volume (Bld) [Entitic vol] 9.3 fL Normal 7.5-11.2 [facility] Comment on above: Performed By: #### C BC ####[facility] [id number] [place], [place], Platelets (Bld) [#/Vol] 147 10*3/uL Low 150-400 [facility] Comment on above: Performed By: #### C BC ####[facility] [id number] [place], [place], RBC (Bld) [#/Vol] 2.47 10*6/uL Low 4.00-5.20 [facility] Comment on above: Performed By: #### C BC ####[facility] [id number] [place], [place], WBC (Bld) [#/Vol] 13.3 10*3/uL High 4.5-11.5 [facility] Comment on above: Performed By: #### C BC ####[facility] [id number] [place], [place], Care Plan Noteon 11-14-2020 [employer] Authentication Interface Message Text Care plans updated Normal [facility] [employer] Authentication Interface Message Text Care plans reviewed Normal [facility] Consultson 11-14-2020 [employer] Authentication Interface Message Text Wound Ostomy Continence (WOC) Nursing Consult Reason for Exam: consult order placed with a reason of pressure injury RN Assigned to Patient During Consult: CovertJr RN. This RN was not available during the assessment; findings were discussed with them following the assessment. Assessment/Findings: Patient expresses significant pain during exam. All skin to sacrum is blanching and intact, but painful upon removal of protective dressing and palpation. No pressure injury noted at this time. Skin Rounds: Occiput, ears, elbows, sacrum, and heels inspected. Patient is on a [employer]vanta 2 with Versacare mattress. Patient has Mepilex heel borders. Turning wedges/pillows in place with Shukri system in place. Care Provided to Patient Included: turned and reposition, wedge/pillow in place and call adams in reach [facility] Nurse Recommendation: Sacrum: Offload area at all times, as able. Keep Mepilex Sacral Border in place for protective measures, change every 5 days or more often if soiled. Lift daily to assess skin underneath. Re-consult for skin changes. Additional Interventions for Skin Integrity: Shukri system glide sheet to prevent friction and shear ([place] sheet #[id number]) Mepilex heel borders off load heels use pH-balanced cleanser for skin care moisture barrier turning wedges or pillows turn/reposition every 2 hours keep HOB lower than 30 degrees if not contraindicated Lilly CHENN, RN, CWON Normal [facility] GLUCOSE, FINGERSTICK-IN OFFI CEon 11-14-2020 Glucose [Mass/Vol] 209 mg/dL High 80-116 [facility] Comment on above: Performed By: #### T ROP I #### [facility] [address] [place] [address], Glucose [Mass/Vol] 141 mg/dL High 80-116 [facility] Comment on above: Performed By: #### C R BGA, CR ICA, LACT, CR COOX, CR GLU, CR LYTES #### [facility] [address] [place] [address], Glucose [Mass/Vol] 251 mg/dL High 80-116 [facility] Comment on above: Performed By: #### C R BGA, CR ICA, LACT, CR COOX, CR GLU, CR LYTES #### [facility] [address] [place] [address], Glucose [Mass/Vol] 335 mg/dL High 80-116 [facility] Comment on above: Performed By: #### C R BGA, CR ICA, LACT, CR COOX, CR GLU, CR LYTES #### [facility] [address] [place] [address], Performed By: #### [id number] ####NURSING GLUCOSE [id number] [place], [address] Glucose [Mass/Vol] 368 mg/dL High 80-116 [facility] Comment on above: Performed By: #### C R BGA, CR ICA, LACT, CR COOX, CR GLU, CR LYTES #### [facility] [address] [place] [address], HEMOGLOBIN ONLYon 11-14-2020 Hemoglobin (Bld) [Mass/Vol] 7.5 g/dL Low 12.0-15.0 [facility] Comment on above: Performed By: #### C R BGA, CR ICA, LACT, CR COOX, CR GLU, CR LYTES #### [facility] [address], [place], MAGNESIUMon 11-14-2020 Magnesium [Mass/Vol] 1.4 mg/dL Low 1.6-2.8 [facility] Comment on above: Performed By: #### C R BGA, CR ICA, LACT, CR COOX, CR GLU, CR LYTES #### [facility] [address] [place] [address], PARTIAL THROMBOPLASTIN TIMEo n 11-14-2020 aPTT Coag (Bld) [Time] 59 s High 25-37 [facility] Comment on above: Performed By: #### C R BGA, CR ICA, LACT, CR COOX, CR GLU, CR LYTES #### [facility] [address] [place] [address], aPTT Coag (Bld) [Time] 52 s High 25-37 [facility] Comment on above: Performed By: #### C R BGA, CR ICA, LACT, CR COOX, CR GLU, CR LYTES #### [facility] [address], [place], aPTT Coag (Bld) [Time] 67 s High 25-37 [facility] Comment on above: Performed By: #### C R BGA, CR ICA, LACT, CR COOX, CR GLU, CR LYTES #### [facility] [address] [place] [address], PHOSPHORUSon 11-14-2020 Phosphate [Mass/Vol] 2.9 mg/dL Normal 2.3-4.2 [facility] Comment on above: Performed By: #### C R BGA, CR ICA, LACT, CR COOX, CR GLU, CR LYTES #### [facility] [address] [facility] [place], [address] Procedureson 11-14-2020 Counsel[employer] Authentication Interface Message Text Vascular Lower Extremities Doppler Segmental Pressures [address] [facility] [place], [place] [address] Status:Open Demographics Patient name: LYUDMILA Espinosa Gender: Female Date of : 1945 Age: 75 year(s) Procedure Information Procedure date: 11/14/2020 3:30 PM Procedure type: Vascular Proc. sub type: Extremities Arteries, Lower Arterial Plethysmography, DOPPLER SEGMENTAL PRESSURE Accession no: [id number] Patient status: Routine Study location: Portable Technical quality: Limited visualization Limitation reason: dressings Procedure Inventory Analyst: Bianka Marin RVT Referring Physician: LIZETT Aceves MD Interpreting physician: ESTHER TAM MD Indications Follow-up of arterial bypass graft. Risk Factors PAD. Additional comments: RIGHT-Axillary bifemoral bypass graft 11/13/2020, Left SFA endarterectomy 11/13/2020, Left SFA thrombectomy, LEFT SFA patch angiogram and angioplasty 11/13/2020 Page 1/2 LYUDMILA Espinosa 1945 [id number] 11/14/2020 3:30 PM Vascular Lower Extremities Doppler Segmental Pressures LE Pressures Right Location Pressure (mmHg) Indices Waveform description Brachial 113 THERAPY ASSISTANT 98 0.75 Biphasic DPA 106 0.82 Biphasic Left Location Pressure (mmHg) Indices Waveform description Brachial 130 THERAPY ASSISTANT 86 0.66 Biphasic DPA 116 0.89 Biphasic Right VIANCA: 0.82 Left VIANCA: 0.89 Physician Impressions Right: Right vianca is 0.82 with biphasic waveforms, c/w mild ischemia Left: left Vianca is 0.89 with biphasic waveforms c/w mild ischemia Physician Conclusions Summary: Combined Doppler segmental pressures and continuous Doppler waveform analysis was used to study the arterial circulation of the ankles. The study demonstrates the following finding Right vianca is 0.82 with biphasic waveforms, c/w mild ischemia left Vianca is 0.89 with biphasic waveforms c/w mild ischemia Page 2/2 LYUDMILA SOTO Jesús 1945 [id number] 11/14/2020 3:30 PM Normal [facility] Progress Noteson 11-14-2020 Counsel[employer] At [employer] Authentication Interface Message Text 1520: Received SBAR report from off going RN. 1515: Vascular lab at bedside. 1525: Heparin gtt and AIRPLANE CAPTAIN verified with off going RN. See MAR documentation. 1600: Full assessment completed. All gtts and monitor alarms verified for accuracy. Vital signs stable. Will continue to monitor. 1919: SBAR report given to oncoming RN. 1923: Heparin gtt and AIRPLANE CAPTAIN verified with on coming RN. See MAR documentation. Normal The [facility] Interface Message Text Social Work Step Down Note Pt transfer from [facility]. SW aware of consult per editor & co founder screen for paper copy not with pt regarding Health Care ADs. SW also aware of PT reccs for SNF SW met with pt at bedside. Pt oriented to herself and the month/year, pt requires prompting to say correct day (), pt could not state correct hospital name. Pt reporting she was uncomfortable and RN was notified for assistance. SW called pt's daughter, Anni ([phone]), no answer, SW left VM asking for call-back. SW will follow-up as able. Lilo Nolan [facility], [employer] P: [phone] Normal The [facility] Counselor At [employer] Authentication Interface Message Text Patient received the Sacrament of the ANOINTING OF THE SICK from Fr. Trevin Childress ([phone]). Normal The [facility] Interface Message Text Given persistent hypotension despite IVF, repeat Hemoglobin, troponin and EKG were obtained. Hb 7.5 from 7.9. Troponin elevated at 0.13. EKG without ischemic changes. Concern for ongoing blood loss and demand ischemia. Will give 1 unit PRBC, trend troponin and repeat Hb this afternoon. Luis Martinez MD PGY1 P [phone] Normal The [facility] Authentication Interface Message Text Critical Troponin called in by lab, result 0.131, made TICU Resident Luis Martinez aware, awaiting orders, Pt's VSS. Ongoing monitoring. Normal [facility] Counselor At [employer] Authentication Interface Message Text ------ GENERAL INFORMATION ----- SURGICAL ICU - STAFF NOTE Patient seen and examined on 11/14/2020 Patient Name: Charles Coreas Admission Date: 11/12/2020 ---- INTERVAL HISTORY/EVENTS -- Background: 75 year old female PMHx of HTN, DM, COPD, CAD. Transferred to [facility]. Now presenting to SICU POD #0 s/p axillo femoral, femoral femoral bypass graft. Hospital Course: 11/13/2020: s/p axillo femoral, femoral femoral bypass graft. 24 Hour Events: Pt admitted post OP yesterday, s/p axilary bypass, fem-fem bypass, 2L of LR overnight for hypotension, transiently responsive, dropped 3 grams of Hgb since OR Saturating at 97% on NC 2L * heparin (porcine) 800 Units/hr (11/14/20 0700) * HYDROmorphone * lactated ringers 75 mL/hr at 11/14/20 0700 UOP: 1,480cc Blood: 550cc ----- VITALS AND INPUT/OUTPUT ------ Vital Signs: Vital sign ranges over the past 24 hours (retrieved 11/14/2020 at 6:54 AM): Tmax (24 hours): 99.2 ???F (37.3 ???C) Pulse Av.1 Min: 86 Max: 116 Systolic (24hrs), Av , Min:85 , Max:157 Diastolic (24hrs), Av, Min:40, Max:83 MAP (mmHg) Av.5 mmHg Min: 57 mmHg Max: 95 mmHg Resp Av.9 Min: 11 Max: 28 SpO2 Av.8 % Min: 88 % Max: 100 % 24 Hour Input/Output In: 3402.8 (50.7 mL/kg) [I.V.:3402.8 (2.1 mL/kg/hr)] Out: 2655 (39.5 mL/kg) [Urine:2105 (1.3 mL/kg/hr)] Net: 747.8 Weight: 67.1 kg PHYSICAL EXAM Constitutional: Awake but sleepy, Easily arousable HEENT: NC/AT Cardiovascular: Regular rate and rhythm Pulmonary/Chest: Clear b/l, R axillary wound c/d/i with surgical glue Abdominal: soft, non tender, non disteded, surgical dressings in place, c/d/i, left groin based with some slough, clean edges, groin c/d/i covered with surgical dressing doppler L AT and R DP Renal: cohen in place draining clear yellow urine Musculoskeletal:Motor and sensation intact bilateral upper and lower extremities, compartments soft Neurological: GCS 15, no growth neurological deficits LABORATORY RESULTS (LAST 24 HOURS) CBC/PT/INR WBC RBC Hgb Hct MCV RDW Plt PT aPTT INR 11/14/20 0415 13.3 2.47 7.9 24.2 98 13.9 147 11/14/20 0011 67 11/13/20 2047 18.8 2.80 9.0 27.7 99 13.9 188 11/13/20 1713 9.8 30.3 11/13/20 1435 11.0 34.1 11/13/20 1414 11.0 33.8 Basic Metabolic Panel Na K Cl CO2 Gap Glu BUN Cr Ca Mg PO4 11/14/20 0425 2.9 11/14/20 0425 1.4 11/14/20 0425 137 4.0 106 20 15 311 13 1.00 7.9 11/13/20 1713 135 11/13/20 1435 134 11/13/20 1414 139 Arterial Blood Gases T Site Mode LPM FIO2 pH pCO2 pO2 Sat Base Ex HCO3- A-a 11/13/20 1713 18 11/13/20 1713 7.368 32.7 245 99.3 -5.7 18 11/13/20 1435 23 11/13/20 1435 7.354 42.5 180 99.0 -1.8 23 11/13/20 1414 22 11/13/20 1414 7.355 39.9 177 99.2 -3.0 22 IMAGING RESULTS (PERSONALLY REVIEWED) CXR: None ------ ASSESSMENT AND PLAN Diagnosis s/p:axillo femoral, femoral femoral bypass graft 11/13/2020 PMHx HTN, DM, COPD, CAD Plan: Neurological: postop pain(well controlled) - AIRPLANE CAPTAIN- diludid - Continue Scheduled tylenol - Q2h vascular checks Cardiovascular: Hx of CABG, Severe PA, s/p multiple, transient hypoglemic hypotensive - intermittent hypotensive episodes overnight, transiently responsive to volume expansion, will obtain EKG and trops this a.m. as well a s repeat stat HGB for eval of continued labile pressures, if both WNL, will give further volume expansion - Echo reviewed 11/13/2020: EF 55% - Continue home statin and ASA - Hold home lisinopril, hydrochlorothiazide, home plevix while in acute recovering phase Respiratory: Hx COPD- not on home O2, no home medications noted - Q1H IS while awake - Wean O2 as able GI/Diet: -CLD advance as tolerated -Start bowel regimen Merelex/senna Renal: - UOP appropriate, Cr within normal limits - Cohen in place f or Accurate I/O during acute post op period - Daily BMP Heme:Acute post op blood loss anemia - Repeat Hgb this a.m. - Daily CBC - Continue Low intensity heparin drip per vascular, PTT goal for 60-70 ID: - No indication for abx Endocrine: Hx IDDM - Half dose lantus tonight (7u) -Give 7u Lantus this morning, Home dose lantus at night time 15 (home dose) - Start ACAS ISS MSK: - PT/OT - OOB as Tolerated FEN: - Continue LR 75 cc/hr -Mg replaced 4mg Prophylaxis: - SCDs, low intensity heparin gtt - No indication for GI ppx Lines: - PIV x3, A line, cohen Dispo: - Stable in Step Down SCRIBE ATTESTATION 11/14/2020, 6:54 AM. This note is prepared by Low Knight acting as Scribe for Trevin Clarke (more content not included)... Normal [facility] Counselor At Law Authentication Interface Message Text Assessment/Plan: Charles Coreas is a 75 year old female hx severe PAD, CAD, DM, smoker POD #0 s/p right ax-bifemoral bypass, SFA endarterectomy, SFA bovine patch angioplasty, thombectomy, completion angiogram. Overnight received 2L LR for SBP 30s (SBP 80-90) on top of 75cc/hr LR infusion Mg 1.4 this am- repleted ??? Assessment/Plan: 75 year old female PMHx of HTN, DM, COPD, CAD s/p CABG x 4, PAD s/p L stenting, fem-fem bypass admitted to SICU POD #0 s/p axillo femoral, femoral femoral bypass graft. ??? Neuro/psych/pain: Post op pain - AIRPLANE CAPTAIN - Scheduled tylenol - 1Q2 Neurovascular checks ??? CVS: Hx of CABG, Severe PAD, hypotension - fluids? Blood? - Telemetry - Maintain normotension - Continue home statin, ASA ??? Pulmonary: Hx COPD - Q1H IS while awake - Wean O2 as able ??? GI: - NPO overnight - Colace/senna ??? Renal/: - LR 75 cc/hr - Maintain cohen for strict I/O - Daily BMP ??? ID: - No indication for abx ??? Heme: - Post CBC - Hgb 7.9: goal >8 given CAD? - Daily CBC - Low intensity heparin drip ??? Endocrine: Hx Diabetes glucose range 205-368 got 7 lantus at 0052 + 18 regular SSI Home meds Home Medications: Lantus 15u at bedtime Novolin 70-30 sliding scale Lisinopril-hydrochloroth iazide (unknown dose) Simvastatin 20mg daily plavix 75mg daily dulaglutide 1.5 (unknown schedule) - restart home lantus - ISS ??? MSK: - PT/OT - OOB as Tolerated ??? Prophylaxis: - SCDs ??? Lines: - PIV x3, A line, cohen ??? Disposition: Remain in step down Normal [facility] Counselor At Law Authentication Interface Message Text VASCULAR SURGERY Post Operative Check Note Subjective: Pain controlled with AIRPLANE CAPTAIN. No nausea/vomiting. No new numbness or tingling. No CP or SOB Objective: Physical Exam: BP 92/41 (BP Location: left arm) Pulse 107 Temp 98.6 ???F (37 ???C) (Oral) Resp 19 Ht 5' (1.524 m) Wt 148 lb (67.1 kg) SpO2 97% BMI 28.90 kg/m??? Gen: No acute distress, resting in bed comfortably Neuro: Aox3, grossly intact Psych: appropriate mood HEENT: NCAT, moist mucous membranes CV: No tachycardia Pulm: Non labored on nasal canula, saturating well ABD: Soft, non-tender, non-distended : cohen in place Ext: No edema, warm and dry, sensory and motor in b/l LE at baseline Pulses:biphasic R DP, monophasic R PT, multiphasic R PT/DP Incisions: Right axillary c/d/i, bilateral groin incisions covered with dressing with minimal saturaton Ins and Outs: In: 3402.8 (50.7 mL/kg) [I.V.:3402.8 (2.1 mL/kg/hr)] Out: 2655 (39.5 mL/kg) [Urine:2105 (1.3 mL/kg/hr)] Net: 747.8 Weight: 67.1 kg Assessment/Plan: Charles Coreas is a 75 year old female POD #0 s/p right ax-bifemoral bypass, SFA endarterectomy, SFA bovine patch angioplasty, thombectomy, completion angiogram. Continue AIRPLANE CAPTAIN for pain control NPO for tonight Continue vascular checks Estefania Leong MD Vascular Surgery PGY1 Vascular Surgery Pager: [phone] Weekdays 6am-6pm [place] Pager: [phone] Weekdays 6pm-6am, Weekends Normal [facility] Counselor At [employer] Authentication Interface Message Text 2257: Notified Dr. Perez that pt is hypotensive 90/36 MAP 55. New order for fluids received. 0210: Notified Dr. Perez that pt is hypotensive again with MAPs ranging 55-63, pt is reporting absent sensation in BLE (previously decreased sensation), and BLE now warm. 0310: Notified Dr. Perez that pt remains hypotensive. New order for LR bolus received. 0700: Notified two SICU residents that pt remains hypotensive average MAPs of 55-60 (SBP 80s). No new orders at this time. Normal [facility] RED BLOOD CELL COMPONENTon 0 11-14-2020 BB ORDER ITEM Product status info to follow Normal [facility] Comment on above: Performed By: #### C R BGA, CR ICA, LACT, CR COOX, CR GLU, CR LYTES #### [facility] [address] [place] [address], RED BLOOD CELL UNIT STATUSon 11-14-2020 BLOOD PRODUCT CODE [id number] Normal [facility] Comment on above: Performed By: #### C R BGA, CR ICA, LACT, CR COOX, CR GLU, CR LYTES #### [facility] [address] [place] [address], BLOOD PRODUCT DESCRIPTION Red Blood Cells Normal [facility] Comment on above: Performed By: #### C R BGA, CR ICA, LACT, CR COOX, CR GLU, CR LYTES #### [facility] [address] [place] [address], BLOOD PRODUCT STATUS Transfused Normal [facility] Comment on above: Performed By: #### C R BGA, CR ICA, LACT, CR COOX, CR GLU, CR LYTES #### [facility] [address] [place] [address], BLOOD PRODUCT UNIT INFO [id number] Normal [facility] Comment on above: Performed By: #### C R BGA, CR ICA, LACT, CR COOX, CR GLU, CR LYTES #### [facility] [address] [place] [address], BLOOD PRODUCT UNIT TYPE 9500 Normal [facility] Comment on above: Result Comment: O Ne g Performed By: #### C R BGA, CR ICA, LACT, CR COOX, CR GLU, CR LYTES #### [facility] [address] [place] [address], CROSSMATCH INTERPRETATION Compatible (E) Normal [facility] Comment on above: Performed By: #### C R BGA, CR ICA, LACT, CR COOX, CR GLU, CR LYTES #### [facility] [address] [place] [address], TROPONIN Ion 11-14-2020 TROP I 0.268 ng/mL Critically high <0.120 [facility] Comment on above: Result Comment: Rang e <=0.04 ng/mL: Negative Interpretation: Repeat testing in four to six hours if clinically indicated. Range 0.04-0.11 ng/mL: Suspected for acute myocardial injury. Interpretation: Serial measurements may be necessary to confirm or exclude the diagnosis of acute coronary syndrome. Repeat testing in four to six hours if clinically indicated. Range >=0.12 ng/mL: Results consistent with myocardial injury. Interpretation: Clinical and laboratory correlation recommended. Performed By: #### T ROP I #### [facility] [address] [place] [address], TROP I 0.131 ng/mL Critically high <0.120 [facility] Comment on above: Result Comment: Rang e <=0.04 ng/mL: Negative Interpretation: Repeat testing in four to six hours if clinically indicated. Range 0.04-0.11 ng/mL: Suspected for acute myocardial injury. Interpretation: Serial measurements may be necessary to confirm or exclude the diagnosis of acute coronary syndrome. Repeat testing in four to six hours if clinically indicated. Range >=0.12 ng/mL: Results consistent with myocardial injury. Interpretation: Clinical and laboratory correlation recommended. Performed By: #### T ROP I #### [facility] [address] [place] [address], [id number] Anesthesia Arrivalon 021 Counselor At [employer] Authentication Interface Message Text Patient taken to PACU. Patient was drowsy, comfortable and stable on arrival. Anesthesia Transfer of Care Note Past Medical History: History reviewed. No pertinent past medical history. Sleep Apnea/Positive STOP-BANG: No Problem List: Patient Active Problem List: Pain of left lower extremity due to ischemia [M79.605, I99.8] Past Surgical History: @SURGICALHX@ Allergies: Patient has no known allergies. Basic Operating Room Facts: Surgeon(s): Kamilla Phoenix MD Anesthesiologist: Sukhjinder Mccurdy MD; Rubens White MD CAA: Emeli Márquez CAA TREE DOCTOR: Dasia Anderson APRN-TREE DOCTOR; Rikki Lee APRN-CRNA Laborer Concrete Plant: Annika Galvez MD axillary-bifemoral bypass, SFA endarterectomy, thrombectomy, SFA patch angioplasty, angiogram (Bilateral Groin) Intraoperative Events: No acute event ASA: 4 EBL: 550 mL Urine 715 mL Lactated Ringers and NaCl 0.9%: Fluid Totals (Filter: LR and NaCl 0.9% Medications Shown) Medication Calculated Total lactated ringers iv infusion 500 mL / bags NaCl 0.9% 1,800 mL / 1 bag Cell Saver: Not documented Blood Volume Values: Blood Products None MTP Blood: MTP PRBC: Not documented MTP FFP: Not documented MTP PLT: Not documented MTP Cryo: Not documented MTP Whole Blood: Not documented Current Vasoactive Medications: {Vasoactive Medications: None Lines, Drains, Airways Peripheral IV Access: 11/12/20 1728 20 gauge Left Antecubital (Active) Site Assessment WNL;Dressing intact 11/13/20 1216 Infusion Status Port #1 Infusing 11/13/20 1216 Peripheral IV Access: 11/12/20 2313 20 gauge Anterior;Proximal;Right Forearm (Active) $ Lines: $ IV Start (procedure) 11/12/20 2246 Site Assessment WNL;Dressing intact 11/13/20 1216 Infusion Status Port #1 Infusing 11/13/20 1216 Peripheral IV Access: 11/13/20 1327 18 gauge Left Hand (Active) Site Assessment WN 11/13/20 1327 Peripheral IV Access: 11/13/20 1340 16 gauge Left Arm (Active) Site Assessment WN 11/13/20 1340 Airway Adjunct: Nasal Cannula (Active) Arterial Line: 11/13/20 Left (Active) Site Assessment WNL;Dressing intact 11/13/20 1330 Line Status WN 11/13/20 1330 Airway Insertion Details [REMOVED] Advanced Airway: ETT, Oral #7 (Removed) 11/13/20 1324 Pre-Oxygenation/ Induction: Mask Rapid Sequence Induction?: Mask Ventilation: Easy Blade size: Visualization: Grade 1 Airway Type: ETT, Oral Airway Size: #7 Post Insertion Assessment: Confirmation: Equal bilateral breath sounds, CO2 confirmed # Attempts >1: Special Equipment: Glidescope Present on Admission?: Previously Removed / Not Present: Removal Reason: Not Removed at Discharge: Removed 11/13/20 1801 Location (cm) 21 11/13/20 1324 Measured from: Lips 11/13/20 1324 Secured via: Taped 11/13/20 1324 Site Assessment WN 11/13/20 1324 All non-working IVs have been removed: N/A Laboratory Data: CBC (last 3 years, up to 5 values) (Last 5 results in the past 3 years) WBC RBC Hgb Hct MCV RDW Plt 11/13/20 1713 9.8 30.3 11/13/20 1435 11.0 34.1 11/13/20 1414 11.0 33.8 11/13/20 0238 10.7 3.79 12.4 36.9 98 14.2 182 11/12/20 1652 10.0 3.80 12.1 36.9 97 13.8 190 Basic Metabolic Panel Na K Cl CO2 Gap Glu BUN Cr Ca 11/13/20 1713 135 11/13/20 1435 134 11/13/20 1414 139 11/12/20 1652 137 3.7 101 22 18 183 14 0.68 9.2 Basic Metabolic Panel Na K Cl CO2 Gap Glu BUN Cr Ca Mg PO4 11/13/20 1713 135 11/13/20 1435 134 11/13/20 1414 139 11/12/20 1652 137 3.7 101 22 18 183 14 0.68 9.2 11/12/20 1652 1.8 INR (no units) Date Value 11/12/2020 1.12 (H) B Type Natriuretic Peptide on 11/12/2020: 111.0 LFT's (last 3 years, up to 5 values) None Arterial Blood Gases T Site Mode LPM FIO2 pH pCO2 pO2 Sat Base Ex HCO3- A-a 11/13/20 1713 18 11/13/20 1713 7.368 32.7 245 99.3 -5.7 18 11/13/20 1435 23 11/13/20 1435 7.354 42.5 180 99.0 -1.8 23 11/13/20 1414 22 11/13/20 1414 7.355 39.9 177 99.2 -3.0 22 Hand off Completed: Yes 1. The patient was identified. 2. Pertinent medical history was relayed. 3. A brief discussion was had about any pertinent surgical/ procedural issues. 4. Intraoperative/ anesthetic management issue and concerns were discussed. 5. Plans for the early post-operative period relayed. 6. An opportunity for questions and acknowledgment of understanding of the report was received. SALLY Keita Normal [facility] Anesthesia Attestationon Counselor At Law Authentication Interface Message Text Anesthesia Attestation ATTESTATION OF INFORMED CONSENT FOR ANESTHESIA Anesthesia options were discussed with the patient and/or legal financial foundations representative. The risks, benefits and alternatives were reviewed. Questions regarding anesthesia were answered. Patient and/or legal financial foundations representative knows such anesthetics and procedures may be performed by Resident physicians, Certified Anesthesiologist Assistants, or Certified Nurse Anesthetists under the supervision of a physician. The patient /or the patient's legal financial foundations representative agree with the plan for anesthesia. Normal [facility] Anesthesia Postprocedure Dianelys luationon 11-13-2020 Counselor At Law Authentication Interface Message Text Anesthesia Postoperative Assessment: Vital Signs (most recent): BP 103/62 Pulse 104 Temp 36.6 ???C (97.8 ???F) (Oral) Resp 20 Ht 5' (1.524 m) Wt 148 lb (67.1 kg) SpO2 100% BMI 28.90 kg/m??? Anesthesia Post Evaluation Patient location during evaluation: PACU Patient participation: complete - patient participated Level of consciousness: awake and alert Pain score: 3 Pain management: satisfactory to patient Airway patency: patent Cardiovascular status: acceptable, blood pressure returned to baseline, stable and hemodynamically stable Respiratory status: Patient breathing comfortably on room air and acceptable Hydration status: normal PONV: No nausea/vomiting reported I was personally responsible for performing the postop evaluation. ANESTHESIA COMPLICATIONS: No complications documented. 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 Focally abnormal LV systolic function. The left ventricular ejection fraction (LVEF) is 55%. Focal LV systolic dysfunction consists of akinesia of the basal inferolateral, basal inferior wall. Normal RV systolic function. Dilated ascending aorta. Concentric left ventricular hypertrophy is present. Fibrocalcific changes are seen in the aortic valve, mitral annulus. Noninvasive hemodynamic assessment is consistent with a low CVP. The pulmonary artery systolic pressure could not be estimated. GI/Hepatic/Renal Heme/Other Other ROS: 75 year old year old female with h/o HTN, DM, COPD, and PAD s/p fem-fem bypass (09/26) who presents to the ED as a transfer from [facility] with LLE pain and no pedal signals. Physical Exam Airway Mallampati: IV TM distance: Adequate Micrognathia: Not present Jaw opening: Adequate Neck flexion: Adequate Dental PE (+) edentulous Pulmonary - pulmonary exam normal Comment: Chest clear to auscultation bilaterally Cardiovascular - cardiovascular exam normal Comment: RRR with S1S2; no murmurs, gallops, or rubs Neuro Abnormal sensation Plan Anesthesia plan: general (ETT) Medications may include (but not limited to): anxiolytics, narcotic analgesics, IV hypnotics, neuromuscular blockers and inhalational analgesics Pain management: May include (but not limited to): IV, anxiolytics and narcotic analgesics Anesthesia risks / alternatives discussed pre-op Questions answered / anesthesia plan accepted Past medical history, surgical history, allergies, and medications reviewed. Pertinent laboratory tests, EKG, imaging, and consults reviewed and I have personally seen and evaluated the patient, repeating youngblood portions of the history and physical examination. Normal [facility] BLOOD GAS, ARTERIALon 2020 CR ARSEN -5.7 mmol/L Low -2.0-2.0 [facility] Comment on above: Performed By: #### C R BGA, CR ICA, LACT, CR COOX, CR GLU, CR LYTES #### [facility] [address] [place] [address], CR PCO2 32.7 mm Hg Low 35.0-45.0 [facility] Comment on above: Performed By: #### C R BGA, CR ICA, LACT, CR COOX, CR GLU, CR LYTES #### [facility] [address] [place] [address], CR PHA 7.368 Normal 7.35-7.45 [facility] Comment on above: Performed By: #### C R BGA, CR ICA, LACT, CR COOX, CR GLU, CR LYTES #### [facility] [address] [place] [address], CR PO2 245 mm Hg High 80-100 mm Hg [facility] Comment on above: Performed By: #### C R BGA, CR ICA, LACT, CR COOX, CR GLU, CR LYTES #### [facility] [address] [place] [address], HCO3 (Bld) [Moles/Vol] 18 mmol/L Low 22-28 [facility] Comment on above: Performed By: #### C R BGA, CR ICA, LACT, CR COOX, CR GLU, CR LYTES #### [facility] [address] [place] [address], Oxygen saturation in Blood 99.3 % Normal >=95.1 [facility] Comment on above: Performed By: #### C R BGA, CR ICA, LACT, CR COOX, CR GLU, CR LYTES #### [facility] [address] [place] [address], CR ARSEN -1.8 mmol/L Normal -2.0-2.0 [facility] Comment on above: Performed By: #### C R BGA, CR ICA, LACT, CR COOX, CR GLU, CR LYTES #### [facility] [address] [place] [address], CR PCO2 42.5 mm Hg Normal 35.0-45.0 [facility] Comment on above: Performed By: #### C R BGA, CR ICA, LACT, CR COOX, CR GLU, CR LYTES #### [facility] [address] [place] [address], CR PHA 7.354 Normal 7.35-7.45 [facility] Comment on above: Performed By: #### C R BGA, CR ICA, LACT, CR COOX, CR GLU, CR LYTES #### [facility] [address] [place] [address], CR PO2 180 mm Hg High 80-100 mm Hg [facility] Comment on above: Performed By: #### C R BGA, CR ICA, LACT, CR COOX, CR GLU, CR LYTES #### [facility] [address] [place] [address], HCO3 (Bld) [Moles/Vol] 23 mmol/L Normal 22-28 [facility] Comment on above: Performed By: #### C R BGA, CR ICA, LACT, CR COOX, CR GLU, CR LYTES #### [facility] [address] [place] [address], Oxygen saturation in Blood 99.0 % Normal >=95.1 [facility] Comment on above: Performed By: #### C R BGA, CR ICA, LACT, CR COOX, CR GLU, CR LYTES #### [facility] [address] [place] [address], CR ARSEN -3.0 mmol/L Low -2.0-2.0 [facility] Comment on above: Performed By: #### C R LYTES, CR COOX, CR BGA, CR GLU, CR ICA, LACT ####[facility] [id number] [place] [address], CR PCO2 39.9 mm Hg Normal 35.0-45.0 [facility] Comment on above: Performed By: #### C R LYTES, CR COOX, CR BGA, CR GLU, CR ICA, LACT ####[facility] [id number] [place] [address], CR PHA 7.355 Normal 7.35-7.45 [facility] Comment on above: Performed By: #### C R LYTES, CR COOX, CR BGA, CR GLU, CR ICA, LACT ####[facility] [id number] [place] [address], CR PO2 177 mm Hg High 80-100 mm Hg [facility] Comment on above: Performed By: #### C R LYTES, CR COOX, CR BGA, CR GLU, CR ICA, LACT ####[facility] [id number] [place] [address], HCO3 (Bld) [Moles/Vol] 22 mmol/L Normal 22-28 [facility] Comment on above: Performed By: #### C R LYTES, CR COOX, CR BGA, CR GLU, CR ICA, LACT ####[facility] [id number] [place] [address], Oxygen saturation in Blood 99.2 % Normal >=95.1 [facility] Comment on above: Performed By: #### C R LYTES, CR COOX, CR BGA, CR GLU, CR ICA, LACT ####[facility] [id number] [place] [address], Blood Attestationon 11-14-19 21 Counselor At Law Authentication Interface Message Text Blood Attestation ATTESTATION OF INFORMED CONSENT FOR BLOOD The transfusion of blood and/or blood components were discussed with the patient and/or legal financial foundations representative. The risks, benefits and alternatives were reviewed. Questions regarding blood transfusions were answered. The patient /or the patient's legal financial foundations representative agree with the plan for transfusion of blood and/or blood components. Normal [facility] Brief Operative Noteon 11-13 Counselor At Law Authentication Interface Message Text Brief Operative Note MAIN OR 08 Charles Coreas 75 year old female Surgical Contact Serial Number: [id number] Preoperative Diagnosis: Pain of left lower extremity due to ischemia [M79.605, I99.8] Postoperative Diagnosis: * Pain of left lower extremity due to ischemia [M79.605, I99.8] Procedures: (R) Axillary-bifemoral bypass graft (L) SFA thrombectomy (L) SFA endarterectomy/ bovine patch repair Angiogram (L) leg Surgeon(s): Surgeon(s): Kamilla Phoenix MD Staff: Scrub: Duane Mason RN; Jael Mckeon RN Chemical Treatment Operator Nurse: Shruthi Echols RN; Yvette Parr RN; Eri Camejo Wardrobe Technician: Viktoria Guerrero MD Anesthesia: General Anesthesiologist: Sukhjinder Mccurdy MD; Rubens White MD CAA: Emeli Márquez CAA TREE DOCTOR: Dasia Anderson APRN-TREE DOCTOR; Rikki Lee APRN-CRNA Laborer Concrete Plant: Annika Galvez MD Specimen(s): * No specimens in log * Estimated Blood Loss: 500 cc Lines/Drains: Peripheral IV Access: 11/12/20 1728 20 gauge Left Antecubital (Active) Site Assessment WNL;Dressing intact 11/13/20 1216 Infusion Status Port #1 Infusing 11/13/20 1216 Peripheral IV Access: 11/12/20 2313 20 gauge Anterior;Proximal;Right Forearm (Active) $ Lines: $ IV Start (procedure) 11/12/20 2246 Site Assessment WNL;Dressing intact 11/13/20 1216 Infusion Status Port #1 Infusing 11/13/20 1216 Peripheral IV Access: 11/13/20 1327 18 gauge Left Hand (Active) Site Assessment WNL 11/13/20 1327 Peripheral IV Access: 11/13/20 1340 16 gauge Left Arm (Active) Site Assessment WNL 11/13/20 1340 Temporarily Retained Foreign Object: No Findings: Thrombosed fem-fem bypass Intimal flap in distal SFA Complications: None Status at end of surgery: Stable Activity: Ad Leta Surgical wound class: Yes, wound was clean. Patient Class: Inpatient. Is this a patient scheduled as an outpatient that needs to be admitted as an inpatient? No Dr. Phoenix was present in the OR for the critical portion of the procedure and procedure sign-out. Signed by Viktoria Guerrero MD 11/13/2020 6:01 PM Normal [facility] CALCIUM, IONIZEDon CR ICA 1.12 mmol/L Normal 1.10-1.40 [facility] Comment on above: Performed By: #### C R BGA, CR ICA, LACT, CR COOX, CR GLU, CR LYTES #### [facility] [address] [place] [address], CR ICA 1.14 mmol/L Normal 1.10-1.40 [facility] Comment on above: Performed By: #### C R BGA, CR ICA, LACT, CR COOX, CR GLU, CR LYTES #### [facility] [address] [place] [address], CR ICA 1.14 mmol/L Normal 1.10-1.40 [facility] Comment on above: Performed By: #### C R BGA, CR ICA, LACT, CR COOX, CR GLU, CR LYTES #### [facility] [address] [place] [address], CR ICA 1.22 mmol/L Normal 1.10-1.40 [facility] Comment on above: Performed By: #### [id number] #### NURSING GLUCOSE PROGRAM [address] [place] [address], CO-OXIMETERon 11-13-2020 CARBOXYHEMOGLOBIN 1.1 % Normal <3.0 [facility] Comment on above: Performed By: #### C R BGA, CR ICA, LACT, CR COOX, CR GLU, CR LYTES #### [facility] [address] [place] [address], CR HBMET 1.2 % Normal <3.0 [facility] Comment on above: Performed By: #### C R BGA, CR ICA, LACT, CR COOX, CR GLU, CR LYTES #### [facility] [address] [place] [address], Hematocrit (Bld) [Volume fraction] 30.3 % Low 36.0-46.0 [facility] Comment on above: Performed By: #### C R BGA, CR ICA, LACT, CR COOX, CR GLU, CR LYTES #### [facility] [address] [place] [address], Hemoglobin (Bld) [Mass/Vol] 9.8 g/dL Low 12.0-16.0 [facility] Comment on above: Performed By: #### C R BGA, CR ICA, LACT, CR COOX, CR GLU, CR LYTES #### [facility] [address] [place] [address], OXYHEMOGLOBIN 97.0 % Normal 95.0-100.0 [facility] Comment on above: Performed By: #### C R BGA, CR ICA, LACT, CR COOX, CR GLU, CR LYTES #### [facility] [address] [place] [address], CARBOXYHEMOGLOBIN 1.2 % Normal <3.0 [facility] Comment on above: Performed By: #### C R BGA, CR ICA, LACT, CR COOX, CR GLU, CR LYTES #### [facility] [address] [place] [address], CR HBMET 1.2 % Normal <3.0 [facility] Comment on above: Performed By: #### C R BGA, CR ICA, LACT, CR COOX, CR GLU, CR LYTES #### [facility] [address] [place] [address], Hematocrit (Bld) [Volume fraction] 34.1 % Low 36.0-46.0 [facility] Comment on above: Performed By: #### C R BGA, CR ICA, LACT, CR COOX, CR GLU, CR LYTES #### [facility] [address] [place] [address], Hemoglobin (Bld) [Mass/Vol] 11.0 g/dL Low 12.0-16.0 [facility] Comment on above: Performed By: #### C R BGA, CR ICA, LACT, CR COOX, CR GLU, CR LYTES #### [facility] [address] [place] [address], OXYHEMOGLOBIN 96.6 % Normal 95.0-100.0 [facility] Comment on above: Performed By: #### C R BGA, CR ICA, LACT, CR COOX, CR GLU, CR LYTES #### [facility] [address] [place] [address], CARBOXYHEMOGLOBIN 1.0 % Normal <3.0 [facility] Comment on above: Performed By: #### C R LYTES, CR COOX, CR BGA, CR GLU, CR ICA, LACT ####[facility] [id number] [place] [address], CR HBMET 0.8 % Normal <3.0 [facility] Comment on above: Performed By: #### C R LYTES, CR COOX, CR BGA, CR GLU, CR ICA, LACT ####[facility] [id number] [place] [address], Hematocrit (Bld) [Volume fraction] 33.8 % Low 36.0-46.0 [facility] Comment on above: Performed By: #### C R LYTES, CR COOX, CR BGA, CR GLU, CR ICA, LACT ####[facility] [id number] [place] [address], Hemoglobin (Bld) [Mass/Vol] 11.0 g/dL Low 12.0-16.0 [facility] Comment on above: Performed By: #### C R LYTES, CR COOX, CR BGA, CR GLU, CR ICA, LACT ####[facility] [id number] [place] [address], OXYHEMOGLOBIN 97.4 % Normal 95.0-100.0 [facility] Comment on above: Performed By: #### C R LYTES, CR COOX, CR BGA, CR GLU, CR ICA, LACT ####[facility] [id number] [place], [place], COMPLETE BLOOD COUNTon 11-13 Erythrocyte distribution width (RBC) [Ratio] 13.9 % Normal 11.5-14.5 [facility] Comment on above: Performed By: #### C BC ####[facility] [id number] [place], [place], Hematocrit (Bld) [Volume fraction] 27.7 % Low 36.0-46.0 [facility] Comment on above: Performed By: #### C BC ####[facility] [id number] [place], [place], Hemoglobin (Bld) [Mass/Vol] 9.0 g/dL Low 12.0-15.0 [facility] Comment on above: Performed By: #### C BC ####[facility] [id number] [place], [place], MCH (RBC) [Entitic mass] 32.2 pg Normal 26.0-34.0 [facility] Comment on above: Performed By: #### C BC ####[facility] [id number] [place], [place], MCHC (RBC) [Mass/Vol] 32.6 g/dL Normal 32.0-35.9 [facility] Comment on above: Performed By: #### C BC ####[facility] [id number] [place], [place], MCV (RBC) [Entitic vol] 99 fL Normal 80-100 [facility] Comment on above: Performed By: #### C BC ####[facility] [id number] [place], [place], Platelet mean volume (Bld) [Entitic vol] 9.3 fL Normal 7.5-11.2 [facility] Comment on above: Performed By: #### C BC ####[facility] [id number] [place], [place], Platelets (Bld) [#/Vol] 188 10*3/uL Normal 150-400 [facility] Comment on above: Performed By: #### C BC ####[facility] [id number] [place], [place], RBC (Bld) [#/Vol] 2.80 10*6/uL Low 4.00-5.20 [facility] Comment on above: Performed By: #### C BC ####[facility] [id number] [place] [address], WBC (Bld) [#/Vol] 18.8 10*3/uL High 4.5-11.5 [facility] Comment on above: Performed By: #### C BC ####[facility] [id number] [place], [place], Erythrocyte distribution width (RBC) [Ratio] 14.2 % Normal 11.5-14.5 [facility] Comment on above: Performed By: #### C R BGA, CR ICA, LACT, CR COOX, CR GLU, CR LYTES #### [facility] [address] [place] [address], Hematocrit (Bld) [Volume fraction] 36.9 % Normal 36.0-46.0 [facility] Comment on above: Performed By: #### C R BGA, CR ICA, LACT, CR COOX, CR GLU, CR LYTES #### [facility] [address] [place] [address], Hemoglobin (Bld) [Mass/Vol] 12.4 g/dL Normal 12.0-15.0 [facility] Comment on above: Performed By: #### C R BGA, CR ICA, LACT, CR COOX, CR GLU, CR LYTES #### [facility] [address] [place] [address], MCH (RBC) [Entitic mass] 32.8 pg Normal 26.0-34.0 [facility] Comment on above: Performed By: #### C R BGA, CR ICA, LACT, CR COOX, CR GLU, CR LYTES #### [facility] [address] [place] [address], MCHC (RBC) [Mass/Vol] 33.7 g/dL Normal 32.0-35.9 [facility] Comment on above: Performed By: #### C R BGA, CR ICA, LACT, CR COOX, CR GLU, CR LYTES #### [facility] [address] [place] [address], MCV (RBC) [Entitic vol] 98 fL Normal 80-100 [facility] Comment on above: Performed By: #### C R BGA, CR ICA, LACT, CR COOX, CR GLU, CR LYTES #### [facility] [address] [place] [address], Platelet mean volume (Bld) [Entitic vol] 9.5 fL Normal 7.5-11.2 [facility] Comment on above: Performed By: #### C R BGA, CR ICA, LACT, CR COOX, CR GLU, CR LYTES #### [facility] [address] [place] [address], Platelets (Bld) [#/Vol] 182 10*3/uL Normal 150-400 [facility] Comment on above: Performed By: #### C R BGA, CR ICA, LACT, CR COOX, CR GLU, CR LYTES #### [facility] [address] [place] [address], RBC (Bld) [#/Vol] 3.79 10*6/uL Low 4.00-5.20 [facility] Comment on above: Performed By: #### C R BGA, CR ICA, LACT, CR COOX, CR GLU, CR LYTES #### [facility] [address] [place] [address], WBC (Bld) [#/Vol] 10.7 10*3/uL Normal 4.5-11.5 [facility] Comment on above: Performed By: #### C R BGA, CR ICA, LACT, CR COOX, CR GLU, CR LYTES #### [facility] [address] [place] [address], Care Plan Noteon 11-13-2020 [employer] Authentication Interface Message Text Problem: Routine Care: Goal: Patient care will be managed and maintained throughout hospital stay per unit specific routine care procedure Outcome: Progressing Problem: Alteration in Tissue Perfusion: Peripheral: Goal: Promote adequate perfusion and limit complications for a person experiencing or is at risk for inadequate tissue perfusion in peripheral circulation Outcome: Progressing Problem: Impaired Skin Integrity: Goal: Acheive wound healing without signs and symptoms of infection Outcome: Progressing Problem: Risk for Infection: Goal: Risk for infection will be reduced Outcome: Progressing Problem: Impaired Mobility: Goal: Ability to tolerate increased activity will improve and be maintained Outcome: Progressing Goal: Ability to maintain or regain baseline function will be acheived Outcome: Progressing Goal: Will be free of DVT Outcome: Progressing Problem: VTE Prophylaxis: Goal: Will be free of DVT Outcome: Progressing Problem: Acute Pain: Goal: Ability to identify pain intensity on a pain scale and rate it consistently will be achieved and maintained Outcome: Progressing Goal: Acceptable level of pain which allows the patient to achieve functional outcome goals Outcome: Progressing Problem: Safety: Goal: Patient will remain free of falls during hospital stay Outcome: Progressing Goal: Free from injury during hospitalization Outcome: Progressing Problem: Discharge Planning: Goal: Discharge needs of the adult patient will be met Outcome: Progressing Normal [facility] ELECTROLYTESon 11-13-2020 Chloride [Moles/Vol] 110 mmol/L Normal 97-111 [facility] Comment on above: Performed By: #### C R BGA, CR ICA, LACT, CR COOX, CR GLU, CR LYTES #### S [facility]ORAT[facility] [address] [place] [address], Potassium [Moles/Vol] 4.0 mmol/L Normal 3.3-5.3 [facility] Comment on above: Performed By: #### C R BGA, CR ICA, LACT, CR COOX, CR GLU, CR LYTES #### S [facility] [address] [place] [address], Sodium [Moles/Vol] 135 mmol/L Normal 135-148 [facility] Comment on above: Performed By: #### C R BGA, CR ICA, LACT, CR COOX, CR GLU, CR LYTES #### S [facility] [address] [place] [address], Chloride [Moles/Vol] 109 mmol/L Normal 97-111 [facility] Comment on above: Performed By: #### C R BGA, CR ICA, LACT, CR COOX, CR GLU, CR LYTES #### [facility] [address] [place] [address], Potassium [Moles/Vol] 3.1 mmol/L Low 3.3-5.3 [facility] Comment on above: Performed By: #### C R BGA, CR ICA, LACT, CR COOX, CR GLU, CR LYTES #### [facility] [address] [place] [address], Sodium [Moles/Vol] 134 mmol/L Low 135-148 [facility] Comment on above: Performed By: #### C R BGA, CR ICA, LACT, CR COOX, CR GLU, CR LYTES #### [facility] [address] [place] [address], Chloride [Moles/Vol] 107 mmol/L Normal 97-111 [facility] Comment on above: Performed By: #### C R LYTES, CR COOX, CR BGA, CR GLU, CR ICA, LACT ####[facility] [id number] [place] [address], Potassium [Moles/Vol] 2.8 mmol/L Low 3.3-5.3 [facility] Comment on above: Performed By: #### C R LYTES, CR COOX, CR BGA, CR GLU, CR ICA, LACT ####[facility] [id number] [place] [address], Sodium [Moles/Vol] 139 mmol/L Normal 135-148 [facility] Comment on above: Performed By: #### C R LYTES, CR COOX, CR BGA, CR GLU, CR ICA, LACT ####[facility] [id number] [place] [address], GLUCOSE, FINGERSTICK-IN OFFI CEon 11-13-2020 Glucose [Mass/Vol] 282 mg/dL High 80-116 [facility] Comment on above: Performed By: #### 8 2948 ####NURSING GLUCOSE [id number] [place] [address], [id number] Glucose [Mass/Vol] 205 mg/dL High 80-116 [facility] Comment on above: Result Comment: Shavon collins RN, APN, MD Performed By: #### 8 2948 ####NURSING GLUCOSE [id number] [place], [address] Glucose [Mass/Vol] 287 mg/dL High 80-116 [facility] Comment on above: Performed By: #### 8 2948 #### NURSING GLUCOSE PROGRAM [address] [place], [address] Glucose [Mass/Vol] 339 mg/dL High 80-116 [facility] Comment on above: Performed By: #### 8 2948 #### NURSING GLUCOSE PROGRAM [address] [place], [address] Glucose [Mass/Vol] 295 mg/dL High 80-116 [facility] Comment on above: Result Comment: Shavon collins RN, APN, MD Performed By: #### C R BGA, CR ICA, LACT, CR COOX, CR GLU, CR LYTES #### S [facility] LAB[facility]ATORY [address] [place] [address], GLUCOSE, WHOLE BLOODon 11-13 CR GLU 301 mg/dL High 68-98 [facility] Comment on above: Performed By: #### C R BGA, CR ICA, LACT, CR COOX, CR GLU, CR LYTES #### S [facility] [address] [place] [address], CR GLU 228 mg/dL High 68-98 [facility] Comment on above: Performed By: #### C R BGA, CR ICA, LACT, CR COOX, CR GLU, CR LYTES #### [facility] [address] [place] [address], CR GLU 222 mg/dL High 68-98 [facility] Comment on above: Performed By: #### 8 2948 #### NURSING GLUCOSE PROGRAM [address] [place] [address], [id number] LACTIC ACIDon 11-13-2020 CR LACT 1.3 mmol/L Normal 0.5-2.0 [facility] Comment on above: Performed By: #### C R BGA, CR ICA, LACT, CR COOX, CR GLU, CR LYTES #### [facility] [address] [place], [place], CR LACT 0.9 mmol/L Normal 0.5-2.0 [facility] Comment on above: Performed By: #### C R BGA, CR ICA, LACT, CR COOX, CR GLU, CR LYTES #### [facility] [address] [place], [place], CR LACT 0.7 mmol/L Normal 0.5-2.0 [facility] Comment on above: Performed By: #### 8 2948 #### NURSING GLUCOSE PROGRAM [address] [place], [place], OP Noteon 11-13-2020 [employer] Authentication Interface Message Text Name: CHARLES COREAS MR#: [id number] ENC#: [id number] Date of Procedure: [facility]/13/2020 [facility] [id number] [address]Negntqmqt Number #: [id number]: [id number] of Surgery: 11/13/2020 Room Number: SAME DAY SRG:/SRGService: SGO OPERATIVE REPORT '3 ' ATTENDING SURGEON: Kamilla Phoenix MD PREOPERATIVE DIAGNOSIS: Bilateral common iliac artery occlusions. POSTOPERATIVE DIAGNOSIS: Bilateral common iliac artery occlusions. PROCEDURE: 1. Ax-fem-fem bypass. 2. On-table angiogram left leg. 3. Left superficial femoral artery thrombectomy. 4. Left superficial femoral artery thromboendarterectomy with prosthetic patch. ANESTHESIA: General. NOTE: The patient is 75 years old, who was transferred in from an [facility] with severe lower extremity ischemia, left greater than right. She was neuromotor intact, but had significant pain. Evaluation demonstrated a left common iliac stent, which was thrombosed, and a chronic occlusion of the right common iliac artery and a thrombosed (L) to (R) fem fem bypass. Additionally, the patient had an open wound in the left groin. It was felt an extra-anatomic bypass would potentially address her situation. DESCRIPTION OF PROCEDURE: The patient was prepped and draped after appropriate time-out and induction of general anesthesia. Two surgical teams worked synchronously. The first surgical team dissected free the right axillary artery through an infraclavicular approach. The artery was soft with a bounding pulse. Second surgical team made two proximal thigh incisions just in the groove of the sartorius and the vastus medialis. Dissection was deepened to find the patent and soft superficial femoral arteries bilaterally, which were controlled between vessel loops. An axillary to right groin tunnel was created with a long tunneling instrument and the [place] [id number] bypass graft was tunneled from the right groin into the right axilla. We then passed a large curved clamp from the left groin into the right groin and the crossover limb was pulled over to the left groin subcutaneous tissue. The patient was then heparinized with 7000 units of heparin. The axillary anastomosis was done in end-to-side fashion using spatulated technique and 5-0 Prolene. The graft was flushed with heparin then clamped adjacent to the axillary artery. This wound was packed off with Surgicel and dry sponges. We then turned our attention to the right femoral anastomosis. This was done in end-to-side fashion with 5-0 Prolene. Flow was restored. There was some suture line bleeding. Three additional suture line 5-0 Prolene repair stitches were placed and this wound was packed off. We restored flow into the right groin. The left crossover limb was flushed with heparin. We then did an end-to-side anastomosis with 5-0 Prolene in the left superficial femoral artery. The flow was restored down both legs. All anastomoses appeared dry. Doppler evaluation demonstrated that there was excellent signals in the right leg with a pink foot. However, in the left leg, we did not appreciate any signals. At this point, the surgical field was broken down and the left leg was re-prepped and redraped. The incision was reopened. There was an excellent pulse in the crossover limb, but there was no pulse in the superficial femoral artery distal to our anastomosis. The patient was reheparinized. The anastomosis was inspected. It appeared technically okay. Using Seldinger technique, we accessed the frias of the anastomosis and an on-table angiogram was performed. We identified flow into the foot, but there was clearly a technical defect distal to our anastomosis by 2 cm. At this point, the anastomosis was taken down. The arteriotomy was extended past the area of abnormality on the angiogram. We identified there was an intimal flap pair that was preocclusive. Endarterectomy was performed. We tacked down the distal end of the flap with 2 interrupted sutures of 6-0 Prolene.A3 Bar was used to thrombectomize the SFA until we had a negative pass (2nd pass) A bovinepatch angioplasty of the entire arteriotomy was performed with 6-0 Prolene. We then re-did the SFA crossover graft anastomosis using spatulated technique and 6-0 Prolene. Flow was restored. The anastomoses of both the patch and the graft patch anastomosis appeared hemostatic. We had an excellent anterior tibial signal and posterior tibial signal in the left foot. We were satisfied with this. The wound and the groin were irrigated out, was closed in layers with 3-0 Vicryl x2 and skin bailee. The patient's feet were inspected at case's end and had signals in each foot. Kamilla Phoenix MD SUNDAY/MedQ/ Dict: 11/13/2020 17:59:41 TRANS: 11/13/2020 19:37:03 JOB: [id number] DictJob#: [id number] Normal [facility] PARTIAL THROMBOPLASTIN TIMEo n 11-13-2020 aPTT Coag (Bld) [Time] 75 s High 25-37 [facility] Comment on above: Performed By: #### C R BGA, CR ICA, LACT, CR COOX, CR GLU, CR LYTES #### [facility] [address] [place] [address], [id number] Procedureson 11-13-2020 [employer] Authentication Interface Message Text Transthoracic Echocardiographic Report Name: LYUDMILA Espinosa Physician: : 1945 Referring PRITI LI MD Physician: Age: 75 Credit Clerk: Beena Gtz RDCS Exam Date: 11/13/2020 Fellow: Rafael Fernando 09:31 AM CVT: PCP: Gender: Female Height 154.94 cm Weight 67.1328 kg Encounter #: BSA 1.66 m2 Study IP Non-Unit BMI 27.96 kg/m2 Location: Technical Fair-Poor Quality: Type of Study: TTE procedure: 2D echocardiogram, M-Mode, Doppler , Color Doppler. Indications for Study:Pre-operative evaluation. Tech. Comments Patient's preferred language is [place] . Patient identified by name and date of . Doctor's order(s) verified. Supine BP: 150/72 mmHg Patient Status: Routine Left Ventricle Value Normal Value Normal LVIDd: 4.2 cm <5.7 cm Post. Wall 1.3 cm <1.2 cm Thickness: Septum 1.5 cm <1.2 cm LV FS: 27.62 % 30-40% Diastolic: Systolic 3.04 <4 cm LV Mass 266.07g Dimension: cm LV Mass Index: 160 <110 Women<120 g/m2 Men Left Atrium LA Dimension: 2.6 cm <3.92cm Right Cavities Ventricle Atrium RV (apical 4): 3.01 <4.3 cm RA (apical 4): 3.4 cm <4.6 cm cm Vessels Sinus of 2.5cm Valsalva: Findings/Conclusions Chambers LV Left ventricular systolic function is focally abnormal. The left ventricular ejection fraction (LVEF) is 55% +/- 5%by the biplane summation of discs (Mendosa's rule) method. Left ventricular size is normal. Left ventricular hypertrophy is present. The hypertrophy is concentric. Focal LV systolic dysfunction consists of akinesia of the basal inferolateral, basal inferior wall. LA Normal left atrium. The left atrial volume index is 25 mL/m2 (normal: <35 mL/m2, mild: 35-41 mL/m2, moderate: 42-48 mL/m2, severe: >48 mL/m2). RV Normal right ventricular size and function. The tricuspid annular plane systolic excursion (TAPSE, a marker of RV systolic function) is normal at 25 mm (normal >16 mm). RA Normal right atrium. 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 TV Normal tricuspid valve. PV Normal pulmonic valve. Great Vessels Normal sinus of Valsalva. The ascending aorta is dilated. Pericardium/Pleura No evidence of a pericardial effusion. Hemodynamics Estimated RA pressure is <5 mmHg. The pulmonary artery systolic pressure could not be estimated (inadequate tricuspid regurgitation). The left ventricular filling pattern is abnormal. This is of the abnormal relaxation type (as seen with hypertrophy, ischemia, hypovolemia and intraventricular conduction disturbances, a.k.a. Type I diastolic dysfunction). Summary Focally abnormal LV systolic function. The left ventricular ejection fraction (LVEF) is 55%. Focal LV systolic dysfunction consists of akinesia of the basal inferolateral, basal inferior wall. Normal RV systolic function. Dilated ascending aorta. Concentric left ventricular hypertrophy is present. Fibrocalcific changes are seen in the aortic valve, mitral annulus. Noninvasive hemodynamic assessment is consistent with a low CVP. The pulmonary artery systolic pressure could not be estimated. See above for further details. Authenticated by: Electronically signed and authenticated by MORALES MANNING MD(Interpreting physician) on 11/13/2020 11:11 AM Normal [facility] Progress Noteson 11-13-2020 [employer] Authentication Interface Message Text 181- Pt arrived to PACU. Per Dr. Guerrero pt needs heparin gtt started. No baseline PTT and no extended PACU stay. Normal [facility] [employer] Interface Message Text SW aware of editor & co founder screen consult for AD - Not with pt . Attempted to meet with pt, but pt current with MD and nursing at bedside. SW to f/u with pt as able. Eleanor Ferreira, FISCAL AGENT, BEAM BUILDER P: [phone] Normal The [employer] Interface Message Text I have reviewed and agree with Ingrid Hooker's (Student Nurse) documentation for [id number] shift. Normal The [employer] Interface Message Text 11/13/20 0142 Vital Signs Heart Rate 111 Respiratory Rate 20 BP 161/90 MAP (mmHg) 91 mmHg MD notified of BP and HR. No new orders at this time. Will continue to monitor pt. Normal [facility] [employer] Interface Message Text 11/12/20 2239 Neurovascular LLE LLE Neurovascular X LLE Skin Color Pale LLE Skin Temperature Cool LLE Edema Non-pitting LLE Pulse Location Popliteal LLE Pulse Quality Dopplered LLE Capillary Refill Delayed LLE Pain Present LLE Movement Decreased LLE Sensation Decreased MD notified of vascular check upon admission. No new orders at this time will continue to Q4H Vascular checks and update the team with new findings. 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 The graft appears to be occluded with no discernible color flow. The inflow velocity in the right common femoral artery is 55 cm/s. Velocity in the left common femoral artery is 40 cm/s. Markedly diminished velocities are present throughout the left femoral-popliteal segment. There is no detectable left dorsalis pedis or posterior tibial signal. In the patient's right foot the posterior tibial pressure is 34 and dorsalis pedis pressure 35 giving a ankle-brachial index of 0.2. US/US arterial duplex LE BI IMPRESSION: Occluded femoral-femoral bypass graft. Severe ischemia is noted bilaterally with a markedly decreased ankle-brachial index and in no obtainable signal in the left foot. Impression dictated by: Zacarias Chambers M.D.11/13/2020 4:24 PM Dictation Location: [place] [address] Tech: Megan Luis Transcribed By: KINA 11/13/20 162 Dictated By: Zacarias Chambers MD 11/13/201621 Signed By: 11/13/[address] [facility] XR ANGIO INTRAOPERATIVEon XR ANGIO INTRAOPERATIVE EXAMINATION: XR ANGIO INTRAOPERATIVEORM/TAMARA CLINICAL HISTORY: angio TECHNOLOGISTS NOTE: 4.1250 MGY FLUOROSCOPIST: ESTELLE DOYLE RAD TECH FLUORO TIME: 0:20 COMPARISON: None FINDINGS: Intraoperative fluoroscopic imaging was obtained for vascular surgery. Refer to the intraoperative report for details. IMPRESSION: Fluoroscopy was provided to vascular surgery for intraoperative guidance. Please see EPIC surgical note for further details MACRO: None Normal [facility] ABO RH TYPEon 11-12-2020 ABO and Rh group Nom (Bld) Blood group O Rh(D) positive Normal [facility] Comment on above: Performed By: #### C R BGA, CR ICA, LACT, CR COOX, CR GLU, CR LYTES #### [facility] [address] [place] [address], B TYPE NATRIURETIC PEPTIDEon 11-12-2020 Natriuretic peptide B (Bld) [Mass/Vol] 111.0 pg/mL High <100.0 [facility] Comment on above: Performed By: #### C R BGA, CR ICA, LACT, CR COOX, CR GLU, CR LYTES #### [facility] [address] [place] [address], BASIC METABOLIC PANELon 10-29 Anion gap [Moles/Vol] 18 mmol/L High 5-13 [facility] Comment on above: Performed By: #### 8 2948 #### NURSING GLUCOSE PROGRAM [address] [place] [address], [address] Calcium [Mass/Vol] 9.2 mg/dL Normal 8.4-10.4 [facility] Comment on above: Performed By: #### 8 2948 #### NURSING GLUCOSE PROGRAM [address] [place] [address], [address] Chloride [Moles/Vol] 101 mmol/L Normal 97-111 [facility] Comment on above: Performed By: #### 8 2948 #### NURSING GLUCOSE PROGRAM [address] [place] [address], [address] CO2 [Moles/Vol] 22 mmol/L Normal 21-30 [facility] Comment on above: Performed By: #### 8 2948 #### NURSING GLUCOSE PROGRAM [address] [place] [address], [address] Creatinine [Mass/Vol] 0.68 mg/dL Normal 0.50-1.10 [facility] Comment on above: Performed By: #### 8 2948 #### NURSING GLUCOSE PROGRAM [address] [place] [address], [address] ESTIMATED GFR (CKD-EPI) 86 mL/min/1.73sqm Normal >=60 [facility] Comment on above: Performed By: #### 8 2948 #### NURSING GLUCOSE PROGRAM [address] [place], [address] Glucose [Mass/Vol] 183 mg/dL High 80-116 [facility] Comment on above: Performed By: #### 8 2948 #### NURSING GLUCOSE PROGRAM [address] [place], [address] Potassium [Moles/Vol] 3.7 mmol/L Normal 3.3-5.3 [facility] Comment on above: Performed By: #### 8 2948 #### NURSING GLUCOSE PROGRAM [address] [place], [address] Sodium [Moles/Vol] 137 mmol/L Normal 135-148 [facility] Comment on above: Performed By: #### 8 2948 #### NURSING GLUCOSE PROGRAM [address] [place], [address] Urea nitrogen [Mass/Vol] 14 mg/dL Normal 8-22 [facility] Comment on above: Performed By: #### 8 2948 #### NURSING GLUCOSE PROGRAM [address] [place], [address] Basic Metabolic Panelon 10-29 Calcium [Mass/Vol] 10.0 mg/dL Normal 8.2-10.2 [facility] Comment on above: Performed By: #### M G, CBC, BMP, PTT, PT #### [facility] [address] [place] [id number] [place] Chloride [Moles/Vol] 94 mmol/L Low 95-114 [facility] Comment on above: Performed By: #### M G, CBC, BMP, PTT, PT #### [facility] [address] [place] [id number] [place] CO2 [Moles/Vol] 22.9 mmol/L Normal 22.0-30.0 [facility] Comment on above: Performed By: #### M G, CBC, BMP, PTT, PT #### [facility] [address] [place] [id number] [place] Creatinine [Mass/Vol] 0.92 mg/dL Normal 0.44-1.03 [facility] Comment on above: Performed By: #### M G, CBC, BMP, PTT, PT #### [facility] [address] [place] [address] [place] Creatinine Clr Calc Pharmacy 44.71 [facility] Comment on above: Performed By: #### M G, CBC, BMP, PTT, PT #### [facility] [address] [place] [address] [place] Estimated GFR ( Eliza > 60 [facility] Comment on above: Result Comment: GFR estimated reference range: According to KDOQI guidelines, <60 ml/min/1.73m2 is sufficient to diagnose a patient with chronic kidney disease. Performed By: #### M G, CBC, BMP, PTT, PT #### [facility] [address] [place] [address] [place] Estimated GFR (Non- Am 60 [facility] Comment on above: Performed By: #### M G, CBC, BMP, PTT, PT #### [address] Glucose [Mass/Vol] 197 mg/dL High 70-100 [facility] Comment on above: Result Comment: [place] om Glucose Reference Range is dependent on time and content of last meal. Glucose of more than 200 mg/dL in a nonstressed, ambulatory subject supports the diagnosis of Diabetes Mellitus. ADA recommended reference range Performed By: #### M G, CBC, BMP, PTT, PT #### [facility] [address] Potassium [Moles/Vol] 3.2 mmol/L Low 3.5-5.1 [facility] Comment on above: Performed By: #### M G, CBC, BMP, PTT, PT #### [facility] [address] [place] [address] [place] Sodium [Moles/Vol] 131 mmol/L Low 136-146 [facility] Comment on above: Performed By: #### M G, CBC, BMP, PTT, PT #### [facility] [address] Urea nitrogen [Mass/Vol] 19 mg/dL Normal 9-23 [facility] Comment on above: Performed By: #### M G, CBC, BMP, PTT, PT #### [facility] [address] CBC WITH DIFFERENTIALon 10-29 Basophils (Bld) [#/Vol] 0.08 10*3/uL Normal 0.00-0.20 [facility] Comment on above: Performed By: #### C BCDSAT ####S PATHOLOGY [id number] [place], [place], Basophils/100 WBC (Bld) 0.9 % Normal <=1.9 [facility] Comment on above: Performed By: #### C BCDSAT ####[facility] PATHOLOGY [id number] [place], [place], Eosinophils (Bld) [#/Vol] 0.09 10*3/uL Normal 0.00-0.70 [facility] Comment on above: Performed By: #### C BCDSAT ####[facility] PATHOLOGY [id number] [place], [place], Eosinophils/100 WBC (Bld) 0.9 % Normal 0.1-4.0 [facility] Comment on above: Performed By: #### C BCDSAT ####[facility] PATHOLOGY [id number] [place], [place], Erythrocyte distribution width (RBC) [Ratio] 13.8 % Normal 11.5-14.5 [facility] Comment on above: Performed By: #### C BCDSAT ####[facility] PATHOLOGY [id number] [place], [place], Hematocrit (Bld) [Volume fraction] 36.9 % Normal 36.0-46.0 [facility] Comment on above: Performed By: #### C BCDSAT ####S PATHOLOGY [id number] [place], [place], Hemoglobin (Bld) [Mass/Vol] 12.1 g/dL Normal 12.0-15.0 [facility] Comment on above: Performed By: #### C BCDSAT ####[facility] PATHOLOGY [id number] [place], [place], Lymphocytes (Bld) [#/Vol] 2.25 10*3/uL Normal 1.00-4.80 [facility] Comment on above: Performed By: #### C BCDSAT ####[facility] PATHOLOGY [id number] [place], [place], Lymphocytes/100 WBC (Bld) 22.6 % Low 24.0-44.0 [facility] Comment on above: Performed By: #### C BCDSAT ####[facility] PATHOLOGY [id number] [place], [place], MCH (RBC) [Entitic mass] 31.9 pg Normal 26.0-34.0 [facility] Comment on above: Performed By: #### C BCDSAT ####[facility] PATHOLOGY [id number] [place] [address], MCHC (RBC) [Mass/Vol] 32.9 g/dL Normal 32.0-35.9 [facility] Comment on above: Performed By: #### C BCDSAT ####[facility] PATHOLOGY [id number] [place] [address], MCV (RBC) [Entitic vol] 97 fL Normal 80-100 [facility] Comment on above: Performed By: #### C BCDSAT ####[facility] PATHOLOGY [id number] [place] [address], MONOCYTE DISTRIBUTION WIDTH 20 Normal <=20 [facility] Comment on above: Performed By: #### C BCDSAT ####[facility] PATHOLOGY [id number] [place], [place], Monocytes (Bld) [#/Vol] 0.58 10*3/uL Normal 0.20-1.00 [facility] Comment on above: Performed By: #### C BCDSAT ####[facility] PATHOLOGY [id number] [place] [address], Monocytes/100 WBC (Bld) 5.8 % Normal 2.0-11.0 [facility] Comment on above: Performed By: #### C BCDSAT ####[facility] PATHOLOGY [id number] [place] [address], Neutrophils (Bld) [#/Vol] 6.95 10*3/uL Normal 1.50-8.00 [facility] Comment on above: Performed By: #### Tony ARAUJOAT ####[facility] PATHOLOGY [id number] [place], [place], Neutrophils/100 WBC (Bld) 69.8 % Normal 31.0-76.0 [facility] Comment on above: Performed By: #### Tony ARAUJOAT ####[facility] PATHOLOGY [id number] [place] [address], Platelet mean volume (Bld) [Entitic vol] 9.5 fL Normal 7.5-11.2 [facility] Comment on above: Performed By: #### Tony ARAUJOAT ####[facility] PATHOLOGY [id number] [place] [address], Platelets (Bld) [#/Vol] 190 10*3/uL Normal 150-400 [facility] Comment on above: Performed By: #### Tony ARAUJOAT ####[facility] PATHOLOGY [id number] [place] [address], RBC (Bld) [#/Vol] 3.80 10*6/uL Low 4.00-5.20 [facility] Comment on above: Performed By: #### Tony ARAUJOAT ####[facility] PATHOLOGY [id number] [place], [place], WBC (Bld) [#/Vol] 10.0 10*3/uL Normal 4.5-11.5 [facility] Comment on above: Performed By: #### Tony ARAUJOAT ####[facility] PATHOLOGY [id number] [place] [address], COVID-19 Antigenon 1 COVID-19 Antigen Healthcare Worker?: N Katrina Reference Katrina Reference Negative SARS-CoV+SARS-CoV-2 (COVID-19) Ag [Presence] in Respiratory specimen by Rapid immunoassay Negative for SARS Antigen by SHAYLA COVID19 Blank Space ------ Katrina Disclaimer Negative results, from patients with symptom Katrina Disclaimer onset beyond five days, should be treated as Katrina Disclaimer presumptive and confirmation with a molecular Katrina Disclaimer assay, if necessary, for patient management, Katrina Disclaimer may be performed. Negative results do not rule Katrina Disclaimer out COVID-19 and should not be used as the sole Katirna Disclaimer basis for treatment or patient management Katrina Disclaimer decisions, including infection control decisions. Katrina Disclaimer Negative results should be considered in the Katrina Disclaimer context of a patient's recent exposures, history Katrina Disclaimer and the presence of clinical signs and symptoms Katrina Disclaimer consistent with COVID-19. COVID19 Blank Space ------ Katrina Disclaimer The Katrina SARS Antigen SHAYLA does not differentiate Katrina Disclaimer between SARS-CoV and SARS-CoV-2. COVID19 Blank Space ------ Katrina Disclaimer This test was developed and its performance Katrina Disclaimer characteristic determined by [employer] and Katrina Disclaimer validated at [facility]. This Katrina Disclaimer test has not been FDA cleared or approved. This Katrina Disclaimer test has been authorized by FDA under an Emergency Use Katrina Disclaimer Authorization (EUA). This test has been validated Katrina Disclaimer in accordance with the FDA's Guidance Document (Policy Katrina Disclaimer for Diagnostics Testing in Laboratories Certified to Katrina Disclaimer Perform High Complexity Testing under CLIA prior to Katrina Disclaimer Emergency Use Authorization for Coronavirus Katrina Disclaimer iseas during the Public Health Emergency) Katrina Disclaimer issued on December 01, 2019. This test is only authorized Katrina Disclaimer for the duration of time the declaration that Katrina Disclaimer circumstances exist justifying the authorization of Katrina Disclaimer the emergency use of in vitro diagnostic tests for Katrina Disclaimer detection of SARS-CoV-2 virus and/or diagnosis of Katrina Disclaimer COVID-19 infection under section 564(b)(1) of the Katrina Disclaimer Act, 21 U.S.C. 360bbb-3(b)(1), unless the Katrina Disclaimer authorization is terminated or revoked sooner. PERFORMED BY: [place] [address] PATHOLOGIST TRIAGE ASSISTANT ATA CHEUNG M.D. [facility] Comment on above: Performed By: #### C OVID-19 KATRINA, SOFIANEG #### [address] CTA ABDOMINAL AORTA RUNOFF W / CONTRASTon 11-12-2020 CTA ABDOMINAL AORTA RUNOFF W/ CONTRAST EXAMINATION: CTA ABDOMINAL AORTA RUNOFF W/ED CLINICAL HISTORY: concern for LLE ischemia TECHNOLOGISTS NOTE: COMPARISON: Outside imaging dated September 25, 2020 TECHNIQUE: CT Angiogram of the abdomen, pelvis and bilateral lower extremities with contrast. Contiguous axial collimated imaging was performed of the abdomen, pelvis and bilateral lower extremities from the xyphoid process through the feet following bolus administration of intravenous contrast. Sagittal and coronal 3D maximum intensity projections were reconstructed of the abdomen, pelvis, upper legs and lower legs from the axial data. Additional sagittal and coronal multiplanar reconstructions through the abdomen and pelvis were performed using the axial data. Before infusion of intravenous contrast, radiology personnel investigated the possibility of an allergic history and of any history of reaction to iodinated contrast material. Contrast Protocol: Omnipaque 350 [>or =100lb] 100 ml [<100 lb] 1 ml per 1 lb. INTRA-PROCEDURE MEDS: Contrast Agent [id number] 100ml Bottle 100 milliliter 11/12/2020 INTRAVENOUS FINDINGS: CTA ABDOMEN VESSELS Celiac axis: No significant stenosis. SMA: No significant stenosis. ARJUN: Contains partially calcified disease at its origin resulting in mild stenosis. Right renal vessels: Contains partially calcified atherosclerotic disease resulting in mild to moderate stenosis. Left renal vessels: Contains partially calcified atherosclerotic disease resulting in moderate to severe stenosis. Infrarenal aorta: Contains diffuse partially calcified atherosclerotic disease resulting in mild to moderate stenosis, without aneurysmal dilation. There is a significant degree of noncalcified disease with mural extension. CTA PELVIC VESSELS R. Common iliac artery: Contains partially calcified atherosclerotic disease resulting in mild to moderate stenosis. R. External iliac artery: Occluded shortly beyond its origin. R. Internal iliac artery: Contains heavily calcified disease resulting in moderate to severe stenosis. L. Common iliac artery: Occluded at its origin. L. External iliac artery: Occluded. L. Internal iliac artery: Occluded. CTA RIGHT LOWER EXTREMITY R. Common femoral artery: Small in caliber with only short segment opacifying. There is an occluded femoral to femoral bypass graft. R. Profunda femoris artery: No significant stenosis. R. SFA: Small in caliber and contains diffuse partially calcified disease resulting in varying degrees of moderate to severe stenosis throughout its course. R. Popliteal artery: No significant stenosis. R. Anterior tibial artery: No significant stenosis, terminates abruptly at the level of the ankle joint. R. Tibioperoneal trunk: Contains calcific disease resulting in mild stenosis. R. Posterior tibial artery: Small in caliber and contains scattered calcific disease resulting in mild stenosis across its middle third. This vessel crosses the ankle joint and supplies the plantar artery. R. Peroneal artery: Small in caliber and contains a scattered calcific disease in its distal third resulting in mild stenosis. R. Dorsalis pedis artery: Not visualized. R. Plantar artery: No significant stenosis. CTA LEFT LOWER EXTREMITY L. Common femoral artery: Only short segment of this vessel opacifies and contains partially calcified disease resulting in mild to moderate stenosis. There is an occluded femoral to femoral bypass graft present. L. Profunda femoris artery: Contains minor calcific disease without significant stenosis. L. SFA: Contains diffuse partially calcified atherosclerotic disease resulting in varying degrees of mild to moderate stenosis throughout its course. L. Popliteal artery: No significant stenosis. L. Anterior tibial artery: No significant stenosis of its proximal and middle third, this vessel abruptly terminates several centimeters above the ankle joint. L. Tibioperoneal trunk: No significant stenosis. L. Posterior tibial artery: Contains minor calcific disease of its middle third resulting in at least mild stenosis. The remainder of this vessel is patent. L. Peroneal artery: No significant stenosis. L. Dorsalis pedis artery: Not visualized. L. Plantar artery: Not visualized. NON-VASCULAR FINDINGS Evaluation is limited due to motion artifact. Included images of the lower thorax: Visualized portions of the heart demonstrate coronary artery calcifications. The included lung bases contain minor atelectasis. Hepatobiliary: Unremarkable liver without biliary dilation evident. The gallbladder contains numerous calcified gallstones without evidence of cholecystitis. Pancreas: Unremarkable Spleen: Unremarkable Adrenal Glands: Unremarkable Kidneys, ureters, and bladder: No calculi or hydroureteronephrosis GI tract: No evidence of obstruct (more content not included)... Normal [facility] Complete Blood Count Auto Di ffon 11-12-2020 Basophils (Bld) [#/Vol] 0.1 10*3/uL Normal 0.0-0.2 [facility] Comment on above: Result Comment: PERF ORMED BY: [place] [address] PATHOLOGIST TRIAGE ASSISTANT ATA CHEUNG M.D. Performed By: #### M G, CBC, BMP, PTT, PT #### [address] Basophils/100 WBC (Bld) 0.6 % Normal . [facility] Comment on above: Performed By: #### M G, CBC, BMP, PTT, PT #### [address] Eosinophils (Bld) [#/Vol] 0.1 10*3/uL Normal 0.0-0.45 [facility] Comment on above: Performed By: #### M G, CBC, BMP, PTT, PT #### [place] [address] [place] Eosinophils/100 WBC (Bld) 1.2 % Normal . [facility] Comment on above: Performed By: #### M G, CBC, BMP, PTT, PT #### [facility] [address] [place] [address] Erythrocyte distribution width (RBC) [Ratio] 14.1 % Normal 11.9-15.3 [facility] Comment on above: Performed By: #### M G, CBC, BMP, PTT, PT #### [address] Hematocrit (Bld) [Volume fraction] 37.7 % Normal 34.0-46.4 [facility] Comment on above: Performed By: #### M G, CBC, BMP, PTT, PT #### [address] Hemoglobin (Bld) [Mass/Vol] 12.8 g/dL Normal 11.8-15.4 [facility] Comment on above: Performed By: #### M G, CBC, BMP, PTT, PT #### [address] Lymphocytes (Bld) [#/Vol] 1.5 10*3/uL Normal 1.00-4.8 [facility] Comment on above: Performed By: #### M G, CBC, BMP, PTT, PT #### [address] Lymphocytes/100 WBC (Bld) 16.4 % Normal . [facility] Comment on above: Performed By: #### M G, CBC, BMP, PTT, PT #### [address] MCH (RBC) [Entitic mass] 33.0 pg Normal 24.7-34.3 [facility] Comment on above: Performed By: #### M G, CBC, BMP, PTT, PT #### [address] MCV (RBC) [Entitic vol] 97.4 fL Normal 80-100 [facility] Comment on above: Performed By: #### M G, CBC, BMP, PTT, PT #### [address] Mean Corpuscular HGB Conc 33.8 g/dL Normal 32.0-35.0 [facility] Comment on above: Performed By: #### M G, CBC, BMP, PTT, PT #### [address] Monocytes (Bld) [#/Vol] 0.7 10*3/uL Normal 0.0-0.8 [facility] Comment on above: Performed By: #### M G, CBC, BMP, PTT, PT #### [facility] [address] Monocytes/100 WBC (Bld) 7.5 % Normal . [facility] Comment on above: Performed By: #### M G, CBC, BMP, PTT, PT #### [facility] [address] Neutrophils (Bld) [#/Vol] 6.6 10*3/uL Normal 1.8-7.7 [facility] Comment on above: Performed By: #### M G, CBC, BMP, PTT, PT #### [address] Neutrophils/100 WBC (Bld) 74.3 % Normal . [facility] Comment on above: Performed By: #### M G, CBC, BMP, PTT, PT #### [facility] [address] [place] [address] [place] Nucleated RBC/100 WBC (Bld) [Ratio] 0.1 % Normal 0-0.5 [facility] Comment on above: Performed By: #### M G, CBC, BMP, PTT, PT #### [facility] [address] Platelet mean volume (Bld) [Entitic vol] 9.2 fL Normal 6.3-10.7 [facility] Comment on above: Performed By: #### M G, CBC, BMP, PTT, PT #### [facility] [address] [place] [address] [place] Platelets (Bld) [#/Vol] 196 10*3/uL Normal 150-450 [facility] Comment on above: Performed By: #### M G, CBC, BMP, PTT, PT #### [facility] [address] [place] [address] [place] RBC (Bld) [#/Vol] 3.87 10*6/uL Normal 3.60-5.00 [facility] Comment on above: Performed By: #### M G, CBC, BMP, PTT, PT #### [facility] [address] WBC (Bld) [#/Vol] 8.9 10*3/uL Normal 4.5-11.0 [facility] Comment on above: Performed By: #### M G, CBC, BMP, PTT, PT #### [facility] [address] ED Noteson 11-12-2020 [employer] Authentication Interface Message Text notified of critical PTT value of 110. Hard copy of results given to . Normal [facility] Counselor At Law Authentication Interface Message Text Vascular aware of absent pulses - currently in room assessing pt Normal [facility] ED Provider Noteson 11-13-19 Counselor At Law Join The Wellness Teamation Interface Message Text -------- Attestation signed by Fabiano Butt MD at 11/14/2020 3:31 PM ATTENDING NOTE I saw and evaluated the patient. I personally obtained the youngblood and critical portions of the history and physical exam. I reviewed the resident's documentation and discussed the patient with the resident. I agree with the resident's medical decision making as documented in the resident's note. Exam concerning for arterial insufficiency, pt transferred in for same. On heparin gtt. Vascular consulted immediately following resident evaluation of the patient. They will admit to floor for further management. Fabiano Butt MD -------- EMERGENCY DEPARTMENT - VISIT NOTE ------ HISTORY OF PRESENT ILLNESS -- Chief Complaint Patient presents with * Chart DVT to Right leg, wound vac to left leg Digital Media Intern: not needed - patient preferred language is S[place]. The history is provided by the Patient. Charles Coreas is a 75 year old female with past medical history significant for COPD HTN Diabetes PAD recent arterial occlusions fem fem bypass presenting to the ED for LLE pain. Patient states she has had a history of multiple DVTs with significant history of PAD, currently on xarelto and eliquis. States she had the acute onset of LLE pain yesterday around her left groin wound vac. She was seen at [facility] ED who was concerned for ischemic leg. Underwent duplex study that showed decreased flow to LLE, she was started on heparin gtt, given 1mg morphine for pain and was transferred for vascular surgery consult. She is complaining ofsevere LLE pain, worse in groin and worse with palpation. Denies fevers, chills, nausea or vomiting. NO other complaints a this time. Significant Chart Review: COPD HTN Diabetes PAD recent arterial occlusions fem fem bypass, stopped taking zorallto Bilateral extremities cool to touch toes are purple, RLE (+) pedal pulse LLE no pedal pulse ??? 137/63 92 r18 98.2 98% RA Hep, Fluids No COVID concerns test pending REVIEW OF SYSTEMS Review of Systems Constitutional: Negative for chills and fever. HENT: Negative for congestion. Respiratory: Negative for cough and shortness of breath. Cardiovascular: Negative for chest pain. Gastrointestinal: Negative for abdominal pain, diarrhea, nausea and vomiting. Genitourinary: Negative for dysuria. Musculoskeletal: Negative for back pain. LLE pain Skin: Positive for color change. Negative for wound. Neurological: Negative for weakness and headaches. Psychiatric/Behavioral: Negative for confusion. PAST HISTORY Pertinent Past History: No past medical history on file. Pertinent Family History: No family history on file. Pertinent Social History: Social History Occupational History * Not on file Tobacco Use * Smoking status: Not on file Substance and Sexual Activity * Alcohol use: Not on file * Drug use: Not on file * Sexual activity: Not on file PHYSICAL EXAM BP 150/72 Pulse 80 Temp 97.9 ???F (36.6 ???C) (Oral) Resp 18 Wt 144 lb 13.5 oz (65.7 kg) SpO2 91% General- well-appearing, well-developed, no acute distress Skin- warm, non-diaphoretic, no rashes appreciated Head- normocephalic, atraumatic Eyes- extraocular movements intact Mouth- good hygiene, moist mucous membranes Neck- supple, normal ROM Cardiovascular- regular rate and rhythm, no murmurs, radial pulses 2+ and symmetric bilaterally Respiratory- clear to auscultation bilaterally anterior and posterior, normal work of breathing Abdomen- soft, nontender, nondistended, normoactive bowel sounds , no rebound or guarding MSK- normal ROM, no edema, faint right DP pulse on RLE with doppler, no doppler LLE DP pulse present. LLE is cool to touch up to mid calf, blue discoloration to left toes, intact sensation to light touch Neuro- Alert and oriented to person, place and time, Pupils equal round and reactive to light at 4mm bilaterally, bilateral upper and lower extremity strength 5/5, intact sensation to light touch bilaterally upper and lower extremities Psych- appropriate affect, normal behavior MEDICAL DECISION MAKING and ED COURSE Nursing triage and assessment notes reviewed and incorporated Interpretation of Results: Please see ED course for interpretation of labs Imaging: CTA run off pending Course: ED Course as of Nov 12 2216ThuNov 12, 2020 1653 Vascular surgery paged [GP] 1752 CBC without leukocytosis, no anemia, no thrombocytopenia COMPLETE BLOOD COUNT W/DIFF (R (more content not included)... Normal [facility] MAGNESIUMon 11-12-2020 Magnesium [Mass/Vol] 1.8 mg/dL Normal 1.6-2.8 [facility] Comment on above: Performed By: #### [id number] #### NURSING GLUCOSE PROGRAM [address] [place] [address], [id number] Magnesiumon 11-12-2020 Magnesium [Mass/Vol] 1.8 mg/dL Normal 1.6-2.6 [facility] Comment on above: Result Comment: PERF ORMED BY: [place] [address] PATHOLOGIST TRIAGE ASSISTANT ATA CHEUNG M.D. Performed By: #### M G, CBC, BMP, PTT, PT #### [place] [address] [place] PARTIAL THROMBOPLASTIN TIMEo n 11-12-2020 aPTT Coag (Bld) [Time] 110 s Critically high 25-37 [facility] Comment on above: Performed By: #### C R BGA, CR ICA, LACT, CR COOX, CR GLU, CR LYTES #### [facility] [address] [place] [address], PROTHROMBIN TIME AND INRon 0 11-12-2020 INR Coag (PPP) [Relative time] 1.12 {INR} High 0.90-1.10 [facility] Comment on above: Performed By: #### C R BGA, CR ICA, LACT, CR COOX, CR GLU, CR LYTES #### [facility] [address] [place] [address], PT Coag (PPP) [Time] 12.6 s Normal 9.7-12.9 [facility] Comment on above: Performed By: #### C R BGA, CR ICA, LACT, CR COOX, CR GLU, CR LYTES #### [facility] [address] [place], [place], Partial Thromboplastin Timeo n 11-12-2020 aPTT Coag (Bld) [Time] 28.8 s Normal 25.1-36.5 [facility] Comment on above: Result Comment: PERF ORMED BY: [place] [address] PATHOLOGIST TRIAGE ASSISTANT ATA CHEUNG M.D. Performed By: #### M G, CBC, BMP, PTT, PT #### [address] Prothrombin Time INRon 11-12 INR Coag (PPP) [Relative time] 1.1 {INR} Normal [facility] Comment on above: Result Comment: INR Therapeutic Range A) Pre- and Peroperative OAT started two weeks before surgery. NOT HIP SURGERY: 1.5 - 2.5 HIP SURGERY: 2 - 3 B) Primary and secondary prevention of venous THROMBOSIS: 2 - 3 C) Active venous thrombosis, pulmonary embolism and prevention of recurrent venous thrombosis: 2 - 3 D) Prevention of arterial thromboembolism including patients with mechanical heart valves: 3 - 4.5 Performed By: #### M G, CBC, BMP, PTT, PT #### [facility] [address] [place] [address] PT Coag (PPP) [Time] 11.7 s Normal 9.0-12.9 [facility] Comment on above: Performed By: #### M G, CBC, BMP, PTT, PT #### [facility] [address] [place] [address] RED BLOOD CELL COMPONENTon 0 11-12-2020 BB ORDER ITEM Product status info to follow Normal [facility] Comment on above: Performed By: #### C R BGA, CR ICA, LACT, CR COOX, CR GLU, CR LYTES #### [facility] [address] [facility] [place], RED BLOOD CELL UNIT STATUSon 11-12-2020 BLOOD PRODUCT CODE [id number] Normal [facility] Comment on above: Performed By: #### [id number] #### NURSING GLUCOSE PROGRAM [address] [place] [address], Performed By: #### C R BGA, CR ICA, LACT, CR COOX, CR GLU, CR LYTES #### [facility] [address] [place] [address], BLOOD PRODUCT DESCRIPTION Red Blood Cells Normal [facility] Comment on above: Performed By: #### [id number] #### NURSING GLUCOSE PROGRAM [address] [place] [address], Performed By: #### C R BGA, CR ICA, LACT, CR COOX, CR GLU, CR LYTES #### [facility] [address] [place] [address], BLOOD PRODUCT STATUS Released to avail Normal [facility] Comment on above: Performed By: #### [id number] #### NURSING GLUCOSE PROGRAM [address] [place] [address], Performed By: #### C R BGA, CR ICA, LACT, CR COOX, CR GLU, CR LYTES #### [facility] [address] [place] [address], BLOOD PRODUCT UNIT INFO [id number] Normal [facility] Comment on above: Performed By: #### 8 [id number] #### NURSING GLUCOSE PROGRAM [address] [place] [address], BLOOD PRODUCT UNIT INFO [id number] Normal [facility] Comment on above: Performed By: #### C R BGA, CR ICA, LACT, CR COOX, CR GLU, CR LYTES #### [facility] [address] [place] [address], BLOOD PRODUCT UNIT TYPE 5100 Normal [facility] Comment on above: Result Comment: O Po s Performed By: #### [id number] #### NURSING GLUCOSE PROGRAM [address] [place] [address], Performed By: #### C R BGA, CR ICA, LACT, CR COOX, CR GLU, CR LYTES #### [facility] [address] [place] [address], CROSSMATCH INTERPRETATION Compatible (E) Normal [facility] Comment on above: Performed By: #### 8 [id number] #### NURSING GLUCOSE PROGRAM [address] [place] [address], Performed By: #### C R BGA, CR ICA, LACT, CR COOX, CR GLU, CR LYTES #### [facility] [address] [place] [address], Katrina Ag Negativeon 11-13-19 21 Katrina Ag Negative Negative Normal Negative [facility] Comment on above: Result Comment: This is a duplicate Katrina SARS Antigen (SHAYLA) result to be used for statistical tracking purpose only. PERFORMED BY: [place] [address] PATHOLOGIST TRIAGE ASSISTANT ATA CHEUNG M.D. Performed By: #### C OVID-19 KATRINA, SOFIANEG #### [place] [address] [place] TROPONIN Ion 11-12-2020 TROP I < 0.030 Normal <0.120 [facility] Comment on above: Result Comment: Rang e <=0.04 ng/mL: Negative Interpretation: Repeat testing in four to six hours if clinically indicated. Range 0.04-0.11 ng/mL: Suspected for acute myocardial injury. Interpretation: Serial measurements may be necessary to confirm or exclude the diagnosis of acute coronary syndrome. Repeat testing in four to six hours if clinically indicated. Range >=0.12 ng/mL: Results consistent with myocardial injury. Interpretation: Clinical and laboratory correlation recommended. Performed By: #### [id number] #### NURSING GLUCOSE PROGRAM [address] [place] [address], TYPE AND SCREENon 11-12-2020 ABO and Rh group Nom (Bld) Blood group O Rh(D) positive Normal [facility] Comment on above: Performed By: #### C R BGA, CR ICA, LACT, CR COOX, CR GLU, CR LYTES #### [facility] [address] [place] [address], ABO and Rh group Nom (Bld) No Previous Results Normal [facility] Comment on above: Performed By: #### C R BGA, CR ICA, LACT, CR COOX, CR GLU, CR LYTES #### [facility] [address] [place], [place], ABSC INT Negative Normal [facility] Comment on above: Performed By: #### C R BGA, CR ICA, LACT, CR COOX, CR GLU, CR LYTES #### [facility] [address] [place], [place], Vital Signs Date Time Vital Sign Value Performing Clinician Facility 02-25-2023 10:12-0400 Body height 149.86 cm Mima Mohr Work Phone: [facility] [employer] 250 DO Work Phone: 02-25-2023 10:12-0400 Body mass index (BMI) [Ratio] 31.71 kg/m2 Mima oLck3G [employer] Work Phone: [facility] [employer] 250 DO Work Phone: 02-25-2023 10:12-0400 Body surface area Derived from formula 1.66 m2 Mima Lock3G [employer] Work Phone: [facility] 250 DO Work Phone: 02-25-2023 10:12-0400 Body weight 71.22 kg Mima Mohr Work Phone: [facility] 250 DO Work Phone: 02-25-2023 10:12-0400 Diastolic blood pressure 62 mm[Hg] Mima Mohr Work Phone: [facility] 250 DO Work Phone: 02-25-2023 10:12-0400 Heart rate 74 /min Mima Lock3G [employer] Work Phone: [facility] [employer] 250 DO Work Phone: 02-25-2023 10:12-0400 Systolic blood pressure 130 mm[Hg] Mima Mohr Work Phone: [facility] [employer] 250 DO Work Phone: 02-25-2023 09:15-0400 Body height 152.4 cm Yulissa Goodmansujey Other [employer] Other 02-25-2023 09:15-0400 Body mass index (BMI) [Ratio] 30.27 kg/m2 Yulissa Goodmansujey Other [employer] Other 02-25-2023 09:15-0400 Body temperature 96.4 [degF] Yulissa Goodmansujey Other [employer] Other 02-25-2023 09:15-0400 Body weight 70.31 kg Yulissa Goodmanleenapuja Other [employer] Other 02-25-2023 09:15-0400 Diastolic blood pressure 60 mm[Hg] Yulissa Goodmansujey Other [employer] Other 02-25-2023 09:15-0400 SaO2% (BldA) [Mass fraction] 97 % Yulissa Goodmansujey Other [employer] Other 02-25-2023 09:15-0400 Systolic blood pressure 130 mm[Hg] Yulissa Goodmansujey Other [employer] Other 11-26-2021 11:47-0400 Body height 152.4 cm Mima Mohr Work Phone: [facility] [employer] 250 DO Work Phone: 03-29-2022 11:47-0400 Body mass index (BMI) [Ratio] 31.44 kg/m2 Mima Lira Aichholz Work Phone: [facility] 250 DO Work Phone: 11-26-2021 11:47-0400 Body surface area Derived from formula 1.7 m2 Mima Lira Aichholz Work Phone: [facility] 250 DO Work Phone: 11-26-2021 11:47-0400 Body weight 73.03 kg Mima Lira Aichholz Work Phone: [facility] 250 DO Work Phone: 11-26-2021 11:47-0400 Diastolic blood pressure 64 mm[Hg] Mima Lira Aichholz Work Phone: [facility] 250 DO Work Phone: 11-26-2021 11:47-0400 Heart rate 88 /min Mima Lira Aichholz Work Phone: [facility] 250 DO Work Phone: 11-26-2021 11:47-0400 Systolic blood pressure 118 mm[Hg] Mima Lira Aichholz Work Phone: [facility] 250 DO Work Phone: 11-26-2021 08:00-0400 59 1 Mima Lira Aichholz Work Phone: [facility] Work Phone: Comment on above: [id number] 11-01-2021 09:35-0500 Diastolic blood pressure 78 mm[Hg] Mima Lira Aichholz Work Phone: [facility] 250 DO Work Phone: 11-01-2021 09:35-0500 Systolic blood pressure 158 mm[Hg] Mima Soraya Juan Carloshholz Work Phone: [facility] 250 DO Work Phone: 11-01-2021 09:25-0500 Body height 152.4 cm Mima Lira Juan Carloshholz Work Phone: [facility] 250 DO Work Phone: 11-01-2021 09:25-0500 Body mass index (BMI) [Ratio] 31.25 kg/m2 Mima Lira Aichholz Work Phone: [facility] 250 DO Work Phone: 11-01-2021 09:25-0500 Body surface area Derived from formula 1.7 m2 Mima Soraya Rangelhholmarlen Work Phone: [facility] 250 DO Work Phone: 11-01-2021 09:25-0500 Body weight 72.58 kg Mima Lira Juan Carloshholz Work Phone: [facility] 250 DO Work Phone: 11-01-2021 09:25-0500 Diastolic blood pressure 84 mm[Hg] Mima Soraya Mohr Work Phone: [facility] 250 DO Work Phone: 11-01-2021 09:25-0500 Heart rate 76 /min Mima Lira Juan Carloshholz Work Phone: [facility] 250 DO Work Phone: 11-01-2021 09:25-0500 Systolic blood pressure 133 mm[Hg] Mima Lira Juan Carloshholz Work Phone: [facility] 250 DO Work Phone: Encounters Encounter Date Encounter Type Care Provider Facility Start: 10-19-2023 End: 10-19-2023 ambulatory MIMA AICHHOLZ Not Available Start: 08-03-2023 End: 08-03-2023 ambulatory MIMA AICHHOLZ Not Available Start: 05-28-2023 Rx Renewal Miam Lira Aichho lz Work Phone: [facility] 250 DO Work Phone: Start: 02-25-2023 Patient encounter procedure Yulissa Goodmansujey [facility] Start: 02-25-2023 Office outpatient vi sit 25 minutes Mima Lira Aichholz Work Phone: [facility] 250 DO Work Phone: Start: 02-25-2023 End: 02-25-2023 ambulatory Mrs. Mima Lira Aichholmarlen [facility] [employer] Other Start: 12-29-2022 End: 01-28-2023 ambulatory INFUSION PHARMACIST MIMA AICHHOLZ Facility:[facility] Start: 12-01-2022 End: 12-26-2022 ambulatory INFUSION PHARMACIST MIMA AICHHOLZ Facility:[facility] Start: 11-11-2022 End: 11-11-2022 ambulatory INFUSION PHARMACIST MIMA AICHHOLZ Facility:[facility] Start: 11-06-2022 End: 11-28-2022 ambulatory INFUSION PHARMACIST MIMA AICHHOLZ Facility:[facility] Start: 10-15-2022 Rx Renewal Mima Lira Aichho lz Work Phone: [facility] 250 DO Work Phone: Start: 08-11-2022 End: 08-12-2022 ambulatory INFUSION PHARMACIST MIMA AICHHOLZ Facility:[facility] Start: 06-26-2022 End: 06-27-2022 ambulatory INFUSION PHARMACIST MIMA AICHHOLZ Facility:[facility] Start: 06-02-2022 End: 06-02-[address] SELWYN WING . Facility:[facility] Start: 05-20-2022 ambulatory Mrs. Mima Lira Aichholz Facility: Start: 04-22-2022 End: 04-23-2022 ambulatory INFUSION PHARMACIST MIMA AICHHOLZ Facility:[facility] Start: 11-26-2021 Office outpatient vi sit 5 minutes Mima Lira Aichholz Work Phone: [facility] 250 DO Work Phone: Start: 11-26-2021 Patient encounter procedure Mima Lockgustabo Work Phone: [facility] Work Phone: Start: 11-01-2021 Office consultation new/estab patient 80 min Mima Soraya Rangelaugustogustabo Work Phone: [facility] 250 DO Work Phone: Start: 12-25-2020 ambulatory UNKNOWN PROVIDER Facili ty:[facility] Start: 12-18-2020 ambulatory UNKNOWN PROVIDER Facili ty:[facility] Start: 12-18-2020 End: 12-18-2020 ambulatory UNKNOWN PROVIDER Facility:[facility] Start: 11-22-2020 End: 11-22-2020 ambulatory UNKNOWN PROVIDER Facility:[facility] Start: 11-14-2020 End: 11-14-2020 ambulatory UNKNOWN PROVIDER Facility:[facility] Start: 11-13-2020 End: 11-14-2020 ambulatory UNKNOWN PROVIDER Facility:[facility] Start: 11-13-2020 End: 11-22-2020 Evaluation and management of inpatient KMAILLA PHOENIX Facility:[facility] Start: 11-12-2020 ambulatory UNKNOWN PROVIDER Facili ty:[facility] Procedures Date Procedure Procedure Detail Performing Clinician Construction of shunt Mima Rangelgustabo Work Phone: History of coronary artery bypass grafting History of coronary artery bypass graft Mima Lira Juan Carlosholmarlen Work Phone: Insertion of arteria l stent Mima Lira Juan Carlosholz Work Phone: Removal of thrombus Mima Lira Juan Carlosholmarlen Work Phone: Comment on above: 3; Total colonoscopy Mima Corona gustabo Work Phone: Plan of Treatment Date Care Activity Detail Author Start: 08-19-2023 FUV, Provider: Rowan Yanez, Status: Pen, Time: 9:10 AM [facility]UV, Provider: Rowan Yanez, Status: Pen, Time: 9:10 AM [facility] 250 DO Work Phone: Start: 11-26-2022 FUV, Provider: Rowan Yanez, Status: Pen, Time: 9:50 AM [facility]UV, Provider: Rowan Yanez, Status: Pen, Time: 9:50 AM [facility] 250 DO Work Phone: Start: 05-20-2022 FUV, Provider: Rowan Yanez, Status: Pen, Time: 9:10 AM [facility]UV, Provider: Rowan Yanez, Status: Pen, Time: 9:10 AM [facility] 250 DO Work Phone: Start: 11-26-2021 NURSEVST, Provider: AARON SEXTON CLOTH LAYER 1,[id number], Status: Pen, Time: 9:00 AM NURSEVST, Provider: AARON SEXTON CLOTH LAYER 1,[id number], Status: Pen, Time: 9:00 AM [facility] 250 DO Work Phone: Start: 11-26-2021 STRESS NUC, Provider : ALVARO HHVI NUCLEAR 01,[id number], Status: Pen, Time: 8:00 AM STRESS NUC, Provider: ALVARO HHVI NUCLEAR 01,[id number], Status: Pen, Time: 8:00 AM [facility] 250 DO Work Phone: Immunizations Immunization Date Immunization Notes Care Provider Fa cilirobert 11-08-2018 pneumococcal polysaccharide vaccine, 23 valent Mima Rangelmilog Work Phone: [facility] 250 DO Work Phone: 05-14-2017 influenza, high dose seasonal, preservative-free Mima RangelThe Butlermarlen Work Phone: [place] [address] DO Work Phone: 01-15-2015 pneumococcal conjuga te vaccine, 13 valent Mima Rangelhholz Work Phone: [place] [address] DO Work Phone: 06-12-2013 influenza virus vacc ine, whole virus Mima Rangelhholz Work Phone: [place] [address] DO Work Phone: 09-11-2011 tetanus toxoid, redu fide diphtheria toxoid, and acellular pertussis vaccine, adsorbed Mima Rangelhholz Work Phone: [place] [address] DO Work Phone: Payers Date Payer Category Payer Private Health Insurance [id number] 1945 Unknown [id number] 2.0.1.626066.3.579.2 1945 Unknown [id number] 2.0.1.831553.3.579.2 1945 Unknown [id number] 2.0.1.088361.3.579.2 1945 Unknown [id number] 2.0.1.427694.3.579.2 1945 Unknown [id number] 2.0.1.197652.3.579.2 1945 Unknown [id number] 2.840.1.493515.3.579.2 1945 Unknown [id number] 2.840.1.298829.3.579.2 1945 Unknown [id number] 2.840.1.167936.3.579.2 1945 Unknown [id number] 2.840.1.733527.3.579.2 1945 Unknown [id number] 2.16.840.1.929548.3.579.2.732 1945 Unknown [id number] 2.16.840.1.512384.3.579.2.732 1945 Unknown [id number] 2.16.840.1.444940.3.579.2.593 1945 Unknown [id number] 2.16.840.1.239834.3.579.2.593 1945 Unknown [id number] 2.16.840.1.055163.3.579.2.593 1945 Unknown [id number] 2.16.840.1.671664.3.579.2.593 1945 Unknown [id number] 2.16.840.1.487597.3.579.2.593 1945 Unknown [id number] 2.16.840.1.979021.3.579.2.593 1945 Unknown [id number] 2.16.840.1.094454.3.579.2.593 1945 Unknown [id number] 2.16.840.1.344366.3.579.2.593 1945 Unknown [id number] 2.16.840.1.358189.3.579.2.356 1945 Unknown [id number] 2.16.840.1.595270.3.579.2.356 1945 Unknown [id number] 2.16.840.1.296639.3.579.2.1259 1945 Unknown [id number] 2.16.840.1.563214.3.579.2.1259 Unknown [employer] Social History Date Type Detail Facility No alcohol use No alcohol use [facility] 250 DO Work Phone: Comment on above: 1 cup of coffee danielle y; 1 pack to 1/2 pack d aily; Sex Assigned At Sex Assigned At Bir th [facility] Other Clinical Notes 11-01-2001 to 02-25-2023 Note Date & Type Note Facility 02-25-2023 Evaluation note Encounter Date Diagnosis Assessment Notes Jan, Carotid stenosis, bilateral (ICD-10 - I65.23) Patient has a history of carotid stenosis. She remains asymptomatic of her carotid occlusive disease and on good medical therapy with use of Plavix and statin medication daily. We will continue to follow her along on a routine basis and have her back in next year with repeat studies. We reviewed signs and symptoms of carotid occlusive disease and when would be appropriate to return for further evaluation prior to next scheduled appointment. Jan, PAD (peripheral artery disease) (ICD-10 - I73.9) Patient has known history of PAD. We did not get any new arterial studies obtained this year. However by physical exam, she is stable. She does have mild symptoms of claudication but she does not consider it to be lifestyle limiting as she is really not all that active per her reports. She has no rest pain and has no tissue loss.She is an everyday smoker and knows health risks associated with tobacco smoking. She has no interest in smoking cessation. She understands her risks and accepts that. We will continue to follow her along and see her again next year with repeat noninvasive studies. She knows that if she were to deteriorate in any way or develop a wound on her foot she would have some trouble healing that wound. She will call us with any issues or concerns prior to next year. Jan, Current every day smoker (ICD-10 - F17.200) ForwardPatient was educated once again on the health risks associated with tobacco smoking. She understands these health risks and accepts. She has no interest in smoking cessation and would rather not talk about it anymore. [facility] Other 08-05-2021 NoteNoted, thank you. [facility] NoteMedication Management Clinic [phone] - Warfarin monitoring past due 12 wks Pt identified as past due for INR test. Please review and address as appropriate. Description HC Newer to warfarin -- Pt will go to outside lab in [facility], dtr will call back with fax number -- use HC or outside lab?will let us know where to send order, isn't sure right now Anticoagulation Episode Summary TTR: -- Next INR check: 01/01/2021 Of note as part of the past due protocol this patient has already been contacted approximately as follows (see Epic notes for exact dates and notes for details)... ??? 1 wk past due DANNY message sent ??? 2 wk call from anticoagulation clinic staff ??? 3 wk past due DANNY message sent ??? 4 wk call from anticoagulation clinic staff ??? 6 wk past due letter sent ??? 8 wk call from anticoagulation clinic staff ??? 12 wks will address with on fileThe [facility] HospitalHobby [id number] Note Medication Management Clinic [phone] - Warfarin monitoring past due 8 wks Pt identified as past due for INR test. Please review and address as appropriate. Description HC Newer to warfarin -- Pt will go to outside lab in [facility], dtr will call back with fax number -- use HC or outside lab?will let us know where to send order, isn't sure right now Anticoagulation Episode Summary TTR: -- Next INR check: 01/01/2021 Of note as part of the past due protocol this patient has already been contacted approximately as follows (see Epic notes for exact dates and notes for details)... ??? 1 wk past due DANNY message sent ??? 2 wk call from anticoagulation clinic admin staff ??? 3 wk past due DANNY message sent ??? 4 wk call from anticoagulation clinic nurse staff ??? 6 wk past due letter sentThe [facility] HospitalHobby [phone] NoteFirelands Regional Medical Centercation Management [facility] [phone] - Warfarin monitoring past due 4 wks Pt identified as past due for INR test. Msg routed to nurse to address. See info below from last encounter. Description HC Newer to warfarin -- Pt will go to outside lab in [facility], dtr will call back with fax number -- use HC or outside lab?will let us know where to send order, isn't sure right now Anticoagulation Episode Summary TTR: -- Next INR check: 01/01/2021 Of note as part of the past due protocol this patient has already been contacted approximately as follows (see Epic notes for exact dates and notes for details)... ??? 1 wk past due DANNY message sent ??? 2 wk call from anticoagulation clinic admin staff ??? 3 wk past due DANNY message sentThe Dapt [phone] Note Medication Management Clinic [phone] - Warfarin monitoring past due 2 wks Pt identified as past due for INR test. Msg routed to admin to address. See info below from last encounter. Description HC Newer to warfarin -- Pt will go to outside lab in [facility], dtr will call back with fax number -- use HC or outside lab?will let us know where to send order, isn't sure right now Anticoagulation Episode Summary TTR: -- Next INR check: 01/01/2021 Of note as part of the past due protocol this patient has already been contacted approximately as follows (see [facility] notes for exact dates and notes for details)... ??? 1 wk past due DANNY message sentThe Dapt [id number] Note Medication Management Clinic [phone] - Warfarin monitoring Reviewed records and warfarin plan created. Staff to call with plan. If applicable, additional information from [employer] : Description HC Newer to warfarin -- Pt will go to outside lab in [facility], dtr will call back with fax number.The [employer]04-15-2021 NoteMedication Management Clinic [phone] - Anticoagulation clinic consult agreement Charles Coreas [phone] Dr Phoenix, Please review below consult agreement regarding our Anticoagulation Clinic managing this patient's anticoagulation therapy. If you agree to the terms (physicians, clerical associate, and PAs can sign per [facility]), please state so and route message back to sender. As laid out in [facility] policy, patients requiring anticoagulation therapy may be referred to the Anticoagulation Clinic for management of this drug therapy. This agreement states that as part of the [facility] physician group this physician agrees to this patient's anticoagulation being managed by any and all qualified pharmacist staff for the prevention of thromboembolism. This agreement includes the pharmacist staff managing all anticoagulants used in an outpatient setting as well as oral phytonadione (Vitamin K) as deemed appropriate by the pharmacist staff and as included in [facility] policy. The procedure for managing these medications is included in [facility] policy but is driven by the most current guidelines and ever-changing new literature. In order to manage these medications the pharmacist staff will order labs as appropriate based on [facility] policy. Communication will be relayed via EMR or other appropriate modality to referring doctor as necessary based on the judgment of the pharmacist. Pursuant to existing law the referring physician can override a decision made by the pharmacist when appropriate. A quality technician fiberglass measure is in place which can be found in [facility] policy. The qualifications required of the pharmacist meet the standards laid out in [facility] and can be found in the [facility] policy. This agreement will be renewed approximately every 2 years from its issue date. [facility]04-15-2021 NoteMedication Management Clinic [phone] - Warfarin monitoring new referral Closest facility(ies): All facilities are an hour away or more Standing INR order placed, Appropriate DANNY education ordered, Consult sent to physician (if not already agreed to at referral) Per brief chart review: Patient was in the hospital 11/12-11/22 for Roscoe IIb LLE ischemia. The patient underwent Right ax-fem-fem bypass, LLE angiogram, L SFA thrombectomy, L SFA thromboendarterectomy with prosthetic patch on 11/13. Patient was in the SNF and discharged recently. Unclear of dose. Will assume indefinite duration due to complexity of thrombus Pt on enoxaparin? no Staff to call patient to review enrollment and: 1. Warfarin dose AND INR f/u as per Anticoag Track, Newer to warfarin -- unclear of dose -- [facility] NoteMedication Management Clinic [phone] - New enrollment discussion Contacted daughter regarding warfarin management and enrollment into the Anticoagulation Clinic. Discussed Anticoagulation services and confirm pt wants to go to lab in [facility] (will fax order) for INR testing. Reviewed warfarin indication and monitoring requirements including importance of close adherence to dosing/INRs. Also advised need to call if new medications/OTC products/herbal products/diet changes/signs and symptoms of bleeding or bruising. Advised of DANNY education already placed and also will be mailed warfarin educational materials and to review carefully and call back if any questions. If pt female and of child bearing age counseled regarding risk of defects to unborn child and to contact appropriate provider regarding appropriate contraception or change in anticoagulant therapy. Primary contact: Verified when calling with follow-up, the primary person to contact should be daughter # (H)JEANNIE ok Also verified that we may discuss patients care with no other in the future if member is not available Verified that we may mail a letter to the address on file when INR is stable. Verified warfarin dose of 4.5mg daily, using 4 and 1 mg tablets. Advised to call us directly for refills/new prescriptions of anticoagulants we are prescribing them. Advised to tale 4.5mg of warfarin daily and have INR drawn on 12/14/20. Episode comments updated with information above. New patient letter printed. Patient verbalized willingness to learn and understands instructions. Patient verbalized understanding and willingness to comply with above, call transferred to Pharmacist to discuss Pharmacist consult agreement and answer any questions/concerns. Message CC'd to admin to create telephone appt per protocol Note postponed 2 business days after the INR due date to follow upThe Dapt [id number] NoteVascular Surgery Progress Note Charles Coreas [id number] S: No issues overnight. Pain controlled. Getting out of bed. Leg still swollen. Toe discoloration resolved. Vital sign ranges over the past 24 hours (retrieved 11/21/2020 at 8:57 AM): Tmax (24 hours): 99.2 ???F (37.3 ???C) Pulse Av.5 Min: 84 Max: 93 Systolic (24hrs), Av , Min:123 , Max:150 Diastolic (24hrs), Av, Min:45, Max:65 MAP (mmHg) Av mmHg Min: 65 mmHg Max: 84 mmHg Resp Av Min: 16 Max: 16 SpO2 Av.3 % Min: 95 % Max: 100 % Blood pressure 123/61, pulse 85, temperature 98.6 ???F (37 ???C), temperature source Oral, resp. rate 16, height 5' (1.524 m), weight 150 lb 5.7 oz (68.2 kg), SpO2 95 %. Intake/Output Summary (Last 24 hours) at 11/21/2020 0857 Last data filed at 11/21/2020 0802 Gross per 24 hour Intake 1440 ml Output 1500 ml Net -60 ml PE: Gen: NAD, AAOx3 HENT: normocephalic, atraumatic Eyes: EOMI, no scleral icterus Pulm: comfortable on RA CVS: RRR Abd: Non distended, soft, no tender, no rebound, no guarding Psych: appropriate affect and behavior MSK: minimal back tenderness Extrem: LLE with 2+ edema, L great toe without blue discoloration, LLE wrapped in dominga wrap Pulse: Left DP biphasic Left PT triphasic Right DP biphasic Right PT monophasic Right axilla site c/d/i B/l groin sites c/d/i L groin wound with clean wound base, bid packing with gauze CBC (last 3 years, up to 5 values) (Last 5 results in the past 3 years) WBC RBC Hgb Hct MCV RDW Plt 11/19/20 0136 7.8 2.58 8.2 25.2 98 16.8 209 11/18/20 0320 8.5 2.95 9.5 28.7 97 16.4 200 11/17/20 0524 11.1 2.50 8.0 24.3 97 16.5 175 11/16/20 0335 14.8 2.55 8.1 24.6 97 16.5 148 11/15/20 0609 13.7 2.85 8.8 26.9 95 17.0 147 Basic Metabolic Panel (Last 5 results in the past 3 years) Na K Cl CO2 Gap Glu BUN Cr Ca 11/19/20 0136 139 4.0 Comment: Hemolysis present 110 23 10 103 8 0.62 7.8 11/18/20 0320 140 3.8 109 23 12 216 8 0.48 8.0 11/17/20 0524 142 3.0 107 25 13 72 9 0.73 7.9 11/16/20 0334 138 3.4 109 22 10 106 12 0.57 7.9 11/15/20 0609 139 3.4 108 23 11 247 13 0.73 7.8 INR (no units) Date Value 11/21/2020 2.97 (H) 11/20/2020 4.22 (H) 11/19/2020 2.82 (H) 11/18/2020 2.55 (H) 11/17/2020 2.04 (H) LFT's (last 3 years, up to 5 values) None Fingerstick Glucose (last 72 hours) (Last 10 results in the past 72 hours) Glucose 11/21/20 0747 216 11/21/20 0233 216 11/20/20 2152 167 11/20/20 1638 87 11/20/20 1155 314 11/20/20 0754 266 11/19/20 2247 268 11/19/20 1639 202 11/19/20 1130 191 11/19/20 0739 88 Assessment/Plan: 75F who presented with Sosa IIb limb ischemia POD#8 Axillary-bifemoral bypass graft (right to left) SFA endarterectomy SFA bovine patch angioplasty thrombectomy Angiogram? Neurovascular exam: Right: monophasic PT, biphasic DP Left: triphasic PT, biphasic DP Motor and sensation intact on b/l LE Warm ??? Neuro: - Tylenol q6h - Oxycodone PRN 5 and 10 mg - dilaudid PRN for breakthrough ??? CV: troponin plateaud/downtrending, EKG without acute findings, tachycardia resolved, likely from pain - continue home statin, ASA 81 mg - continue plavix Pulm: - encourage IS - RT ??? GI: - regular diet - bowel regimen: colace/senna/miralax Renal: - mIVF - strict I AND Os - remove external catheter ??? Endo: - Endo c/s for poorly controlled DM - 16u lantus at bedtime - 6u lispro ACHS - corrective mealtime lispro ???ID: - no indication for abx ??? Heme: - transfuse to goal > 8 given cardiac history - INR 2.97 today - Resume Warfarin at 2mg qhs Ppx: - therapeutic on warfarin ??? MSK: chronic back pain, sacral pain may be from positioning in OR - PT/OT - bilateral L5 spondylolysis with grade 1-2 anterolisthesis of L5 on S1??? - padding underneath buttocks - patient must at least sit in chair for all 3 meals. - wrap LLE from mid-foot to mid thigh, elevate at all times in dominga wrap instead of compression stocking Wounds: - left lower quadrant previous I AND D site with WTD kerlix bid - incisions c/d/i Dispo: pending SNF precert. Medically ready for discharge Patient discussed with attending Dr. Lizett Connor MD General Surgery PGY-1 Vascular Surgery #[id number] [place] pager #[phone] (Weekdays 6pm-6am, and Weekends)The [facility] 11-21-2020 NotePHYSICAL THERAPY PROGRESS SUMMARY Patient seen from 824 to 08 on 7C unit for 23 minute treatment. SUBJECTIVE: Patient Subjective/Goals: This leg doesn't want to move today. I'm just weak. OBJECTIVE: Appearance: Pt seated in bedside chair upon entering room. LLE w/ dominga wrap from foot to thigh. +edema LLE Behavior: alert, painful, cooperative Pain: Site/Location: LLE/L hip; Pain Scale: 9/10 Pain Relief Interventions Implemented: Positioning, Notified Nurse and Relaxation Training therex-Toe wiggles,AP and QS x 1 minute each Mobility NA Dep Max Mod Min CG CS DS UT I Comment Sit to/from stand x From bedside chair x 2 Walking on level surface x 5 feet fwd and retro with rolling walker Gait Analysis: slow antalgic gait,flexed posture, decrease step length, further distance limited by pain. Stairs x Not appropriate at this time Stand to sit X Chair and EOB Sit to Supine x Returned to bed d/t pt w/ increase pain at this time Pt positioned sideling R w/ pillow prop for comfort Functional Endurance: fair Sitting Balance: Static:good Dynamic:good Standing Balance: Static: fair with assistive device rolling walker Dynamic:fair with assistive device rolling walker Patient/Family Education: Patient instructed in calling for nursing assist for any additional needs . Patient up in bed with call light in reach. ???bed alarm on. Notified RN of pt increase pain 6 Clicks Basic Mobility PT 11/21/2020 Difficulty turning over in bed 3 Difficulty sitting down and standing up from a chair with arms 3 Difficulty moving from lying on back to sitting on the side of the bed 3 Help from another person moving to and from bed to a chair 3 Help from another person to walk in hospital room 3 Help from another person climbing 3-5 steps with a railing 2 PT 6 Clicks Score 17 6 Click Score Guidelines: 1 - Total = Requires total assistance, or cannot do at all. 2 - A lot = Requires a lot of help (maximun to moderate assistance) Can use assistive devices. 3 - A little = Requires a little help (supervision, minimal assistance) Can use assistive devices. 4 - None = Does not require any help and does the activity independently. Can use assistive devices. ??? ASSESSMENT: Pt w/ increase pain this session which is limiting mobility at this time. Nursing staff is aware. Pt is below functional baseline and would benefit from further inpt therapies in a skilled setting when medically ready. Goals (to be achieved by???14???days or by discharge from acute care):???ongoing???unless indicated.??? Patient will achieve acceptable level of pain control to allow participation in therapy. Patient will increase bed mobility to???contact guard assistance Patient will perform???sit to/from stand???with rolling walker???with contact guard assistance Patient will ambulate???50???feet with rolling walker???with contact guard assistance Patient will increase ROM/Strength/Endurance/Balance to allow for above goals. Patient/Family independent with exercise program/precautions. PLAN: Continue with plan per Initial Evaluation Marni Schultzves WESTON Beeper #[phone] NA = Not Assessed, I = Independent, UT = Modified Independent, Sup = Supervised, Set up = Physical Assistance for Set-up Only, Min = Minimal Assistance, Mod = Moderate Assistance, Max = Maximal assistance; Dep = Dependent; AROM = Active Range of Motion; PROM = Passive Range of Motion; MMT = Manual Muscle TestThe [facility] HospitalHobby [id number] NoteENDOCRINOLOGY INPATIENT CONSULTATION Charles Coreas 75 year old female 3:47 PM 11/20/2020 Admitting physician: Dr. Phoenix Reason for consultation: Diabetes management S: Doing well overall. Asking about when bailee be removed. DOMINGA wrap uncomfortable O: BP 143/57 (BP Location: left arm) Pulse 84 Temp 98.5 ???F (36.9 ???C) (Oral) Resp 16 Ht 5' (1.524 m) Wt 150 lb 5.7 oz (68.2 kg) SpO2 100% BMI 29.36 kg/m??? Gen: NAD, resting in bed comfortably HEENT: normocephalic, no scleral icterus Heart: RRR Lungs: no resp distress Abd: nontender, nondistended, soft Ext: warm, wiggles toes, +1 edema, L leg dominga wrapped Basic Metabolic Panel (Last 5 results in the past 365 days) Na K Cl CO2 Gap Glu BUN Cr Ca Mg PO4 11/19/20 0136 1.9 Comment: Hemolysis present 11/19/20 0136 139 4.0 Comment: Hemolysis present 110 23 10 103 8 0.62 7.8 11/18/20 0320 2.1 11/18/20 0320 140 3.8 109 23 12 216 8 0.48 8.0 11/17/20 0524 1.9 11/17/20 0524 142 3.0 107 25 13 72 9 0.73 7.9 11/16/20 0334 1.8 11/16/20 0334 138 3.4 109 22 10 106 12 0.57 7.9 11/15/20 0609 1.9 11/15/20 0609 139 3.4 108 23 11 247 13 0.73 7.8 ASSESSMENT: T2DM, insulin dependent Recommendations: For patient tolerating diet: Insulin therapy: - Continue Lantus = 16 units units at bedtime -Increase mealtime Humalog: Breakfast: 7 units Lunch: 7 units Supper: 7 units -Corrective mealtime Humalog (only before meals): 0-150 = Add 0 units of Humalog to the scheduled mealtime dose. 151-200 = Add 1 units 201-250 = Add 2 units 251-300 = Add 3 units 301-350 = Add 4 units 351-400 = Add 5 units 401 or more = Add 6 units - Accuchecks before meals and at bed time - Accuchecks Q 6hrs Alex Contreras DO IM PGY-2 Endo Pager [phone] Teaching Physician Note: I saw and evaluated the patient. I personally obtained the youngblood and critical portions of the history and physical exam. I reviewed Dr. Contreras's documentation, discussed the patient with him, and edited the note above. After seeing the BG before dinner time at 87, I recommend decreasing again the prandial insulin, which was recommended before having the last BG result. New recommendations: - Continue Lantus = 16 units units at bedtime -Mealtime Humalog: Breakfast: 6 units Lunch: 6 units Supper: 6 units -Corrective mealtime Humalog (only before meals): 0-150 = Add 0 units of Humalog to the scheduled mealtime dose. 151-200 = Add 1 units 201-250 = Add 2 units 251-300 = Add 3 units 301-350 = Add 4 units 351-400 = Add 5 units 401 or more = Add 6 units - Accuchecks before meals, bed time, and 2 AM Rebecca Garzon M.D. Division of EndocrinologyProMedica [facility]iance [facility]03-23-2021 NotePHYSICAL THERAPY PROGRESS SUMMARY Patient seen from 1429 to 1507 on 7C unit for 38 minute treatment. SUBJECTIVE: Patient Subjective/Goals: This leg is all wrapped up and then they want me to move it. OBJECTIVE: Appearance: pt in bed w/ LLE dominga wrapped from foot to mid thigh and female external catheter intact Behavior: alert, cooperative, oriented x 3 Pain: Site/Location: LLE; Pain Scale: 7/10 Pain Relief Interventions Implemented: Positioning and Relaxation Training therex-AP,QS, assisted HS, assisted hip abd, and sAQ 1x10 Mobility NA Dep Max Mod Min CG CS DS UT I Comment Supine to sit x HOB elevated use of side rail increase time and effort to complete Sit to/from stand x x From EOB CGA From bedside chair Haley Walking on level surface x 10 feet x 2 with rolling walker Gait Analysis: flexed posture, slow pace, antalgic gait +fatigue Stand to sit x vc's for hand placement Functional Endurance: impaired Pt performed 10 reps of IS Sitting Balance: Static:good Dynamic:good Standing Balance: Static: fair with assistive device rolling walker Dynamic:fair with assistive device rolling walker Pt incontinent of urine upon sitting prior to female external catheter being reconnected. Pt static stands and completes hygiene w/ CGA for stability. Donned clean depends and new female external catheter and provided pt w/ new gown. Patient/Family Education: Patient instructed in calling for nursing assist when ready to return to bed. . Patient up in chair with call light in reach. ???Chair alarm intact. 6 Clicks Basic Mobility PT 11/20/2020 Difficulty turning over in bed 3 Difficulty sitting down and standing up from a chair with arms 3 Difficulty moving from lying on back to sitting on the side of the bed 3 Help from another person moving to and from bed to a chair 3 Help from another person to walk in hospital room 3 Help from another person climbing 3-5 steps with a railing 2 PT 6 Clicks Score 17 6 Click Score Guidelines: 1 - Total = Requires total assistance, or cannot do at all. 2 - A lot = Requires a lot of help (maximun to moderate assistance) Can use assistive devices. 3 - A little = Requires a little help (supervision, minimal assistance) Can use assistive devices. 4 - None = Does not require any help and does the activity independently. Can use assistive devices. ??? ASSESSMENT: Pt puts forth good effort and tolerates PT tx well. Pt is below functional baseline and would benefit from further inpt therapies in a skilled setting when medically ready. Goals (to be achieved by???14???days or by discharge from acute care):???ongoing unless indicated.??? Patient will achieve acceptable level of pain control to allow participation in therapy. Patient will increase bed mobility to???contact guard assistance Patient will perform???sit to/from stand???with rolling walker???with contact guard assistance Patient will ambulate???50???feet with rolling walker???with contact guard assistance Patient will increase ROM/Strength/Endurance/Balance to allow for above goals. Patient/Family independent with exercise program/precautions. PLAN: Continue with plan per Initial Evaluation Marni Rodney [place] Beeper #[phone] NA = Not Assessed, I = Independent, UT = Modified Independent, Sup = Supervised, Set up = Physical Assistance for Set-up Only, Min = Minimal Assistance, Mod = Moderate Assistance, Max = Maximal assistance; Dep = Dependent; AROM = Active Range of Motion; PROM = Passive Range of Motion; MMT = Manual Muscle TestThe [facility]03-23-2021 NoteOCCUPATIONAL THERAPY PROGRESS SUMMARY Patient seen from 1:49 to 1:53 and 1:56 to 2:08 on 7C unit for 16 minute treatment. SUBJECTIVE: Patient Subjective/Goals Yes, I want more therapy. OBJECTIVE: Pain:5/10 L leg and right thigh. Pain Relief Interventions Implemented: Positioning, RN aware. Appearance/Behavior: In bed, placed in bed following a shower. L, R LE supported on pillows. Cognition: A AND Ox3 UE Status: WFL Endurance/AROM exercises: shoulder shrugs and rolls 1 set of 10. R,L UE 2 sets of 10 [place] Self Care: Assistance Level NA Dep Max Mod Min CG CS DS UT I Set-Up Cues Comment Feeding x Grooming/ Hygiene x Wash hands and face Bathing: Upper Body x Bathing: Lower Body x Dressing: Upper Body x Dressing: Lower Body x Toileting x Toilet Transfers x Bed Transfer x Bed Mobility Patient adjusted in bed. In bed, call light in place. Endurance for Self Care: Impaired Patient/Family Education: AROM exercises and it's benefits. DME: With Patients permission ordered no equipment via [employer] Order. If any questions contact [facility] D[facility] Provider at [phone]. 6 Clicks Daily Activity OT 11/20/2020 Help from another person Eating meals 4 Help from another person taking care of personal grooming 3 Help from another person bathing 2 Help from another person putting on and taking off regular upper body clothing 3 Help from another person putting on and taking off regular lower body clothing 1 Help from another person toileting 1 OT 6 Clicks Score 14 6 Click Score Guidelines: 1 - Unable = Total/Dependent Assist 2 - A lot = Max/Moderate Assist 3 - A little = Minimum/Contact Guard Assist/Supervision 4 - Non = Modified [place]/Independent ASSESSMENT: Recommend therapy Alf when medically clear. ??? Revised LTG: Patient will dress upper body with???CS Patient will dress lower body with???Minimal assistance Patient will perform bed mobility with???Minimal assistance Patient will perform bed transfers with???Minimal assistance Patient will perform commode transfers with???Minimal assistance Patient will increase endurance sufficient to perform???5 min ADL Patient will demonstrate safety awareness as evidenced by???compliance with safe transfers and mobility??? Report reduced pain level to allow for participation in ADL/IADL ??? PLAN: Continue with Plan as per Initial Evaluation. CAROL Smith/Ra NA = Not Assessed, I = Independent, UT = Modified Independent, Sup = Supervised, Set up = Physical Assistance for Set-up Only, Min = Minimal Assistance, Mod = Moderate Assistance, Max = Max assistance; Dep = Dependent; AROM = Active Range of Motion;PROM=Passive Range of Motion; MMT = Manual Muscle Test; Shld= Shoulder; Add = Adduction; Abd = AbductionThe Metropolitan HospitalHobby [id number] NoteSW spoke with pt's daughter Anni over the phone. Anni informed SW she would like a referral placed to [facility] in [place]. SW placed referral. Anni stated she works nights and normally gets up around 4pm if anything else is needed. SW will reach out around that time if [facility] is unable to accept. SW will continue to follow. GAVI Moralez [employer] Work,[phone] ADDENDUM 12:26pm SW left message with admissions at [facility] requesting a return call. SW informed by pt had concerns regarding transport. SW to meet with pt at bedside once able. GAVI Moralez Social Work,[phone] ADDENDUM 2:17pm SW received call from admissions ar [facility] ([place]). Admissions stated they did not receive the referral. The fax number is [phone]. Admissions informed SW they are out of network with [employer] but may be able to do a 1 time contract. Admissions requesting H AND P and face sheet in order to run pt's benefits to see if a 1 time contact is a possibility. SW faxed documents. If unable to do 1 time contact SW will contact pt's daughter Anni for additional choices. GAVI Moralez [employer] Work,[phone] ADDENDUM 3:25pm SW met with pt at bedside. Pt informed transport would be covered by her insurance. Pt questioned if there is an issue if her daughter would be able to transport her. SW explained that would be a liability and the safest plan would be medical transport. SW informed pt a referral was placed to [facility]. Pt stated she is not familiar with that one but she is familiar [facility]. SW placed referrals. Pt requesting updates once known if a facility is able to accept. SW received call from [facility] and was informed they are unable to do a 1 time agreement. SW will follow up with [facility]. GAVI Moralez [employer] Work,[phone]03-23-2021 NoteDISCHARGE SUMMARY [address] [address] LyudmilaCharles Date of : 1945 75 year old female Attending Kamilla Phoenix MD Date of Admission 11/12/2020 Date of Discharge 11/22/2020 [Principal Hospital Problem (Final Diagnosis)] Pain of left lower extremity due to ischemia No discharge procedures on file. Future Appointments Date Time Provider Department Center 12/18/2020 1:00 PM MAIN VASC LAB 1 [facility] 12/18/2020 2:00 PM MAIN VASC LAB 2 [facility] Condition at Discharge Improved Activity No strenuous activity Diet No restrictions Disposition senior living facility Functional Status Ambulatory with assistance Reason for Hospitalization Sosa IIb left limb ischemia Significant Findings OR 11/13 - Dr. Phoenix - Right ax-fem-fem bypass, LLE angiogram, L SFA thrombectomy, L SFA thromboendarterectomy with prosthetic patch. Hospital Course Charles Coreas is a 75 year old female with a history of HTN, DM, COPD, CAD s/p CABG x 4, PAD s/p L iliac angioplasty and stenting 09/18 , found to have R iliac occlusion on angio 09/25, underwent L CFAe, L->R fem-fem bypass and L iliac angio/stent 09/26. I AND D L groin wound and vac placement, presented to [facility] ED with LLE pain, no pedal signals appreciated 10/11. Transferred to [facility] with Roscoe IIb LLE ischemia. The patient underwent Right ax-fem-fem bypass, LLE angiogram, L SFA thrombectomy, L SFA thromboendarterectomy with prosthetic patch on 11/13. The patient was transferred to the SICU postoperatively for monitoring. Patient had a troponin leak postoperatively most likely 2/2 demand ischemia. Postoperative course otherwise uncomplicated and she was transferred to the floor POD#2. Pain was initially controlled with IV pain medication and was later transitioned to oral pain medication, and diet was advanced as tolerated. She had left lower extremity edema that was persistent. DVT US negative. On day of discharge, the patient was afebrile and hemodynamically stable, tolerating a regular diet with pain controlled on oral pain medication, ambulating with assistance, and voiding spontaneously. Per physical and occupational therapy recommendations, she was discharged to a residential facility. Her INR was subtherapeutic at discharge, so she was discharged with a plan to follow up withanticoagulation clinic for control of her new warfarin regimen.[facility] [id number] NoteVascular Surgery Progress Note Charles Coreas [id number] S: NAEON. Feels good. Back pain improving, L leg pain improving. Sitting in chair this morning. Ready to leave to SNF. Left toe more blue after wearing compression stocking so it was removed. Vital sign ranges over the past 24 hours (retrieved 11/20/2020 at 7:52 AM): Tmax (24 hours): 98.5 ???F (36.9 ???C) Pulse Av Min: 85 Max: 96 Systolic (24hrs), Av , Min:122 , Max:171 Diastolic (24hrs), Av, Min:57, Max:74 MAP (mmHg) Av.5 mmHg Min: 75 mmHg Max: 100 mmHg Resp Av.5 Min: 16 Max: 18 SpO2 Av.8 % Min: 99 % Max: 100 % Blood pressure 137/57, pulse 96, temperature 98.2 ???F (36.8 ???C), temperature source Oral, resp. rate 16, height 5' (1.524 m), weight 150 lb 5.7 oz (68.2 kg), SpO2 99 %. Intake/Output Summary (Last 24 hours) at 11/20/2020 0752 Last data filed at 11/20/2020 0626 Gross per 24 hour Intake 960 ml Output 2200 ml Net -1240 ml PE: Gen: NAD, AAOx3 HENT: normocephalic, atraumatic Eyes: EOMI, no scleral icterus Pulm: comfortable on RA CVS: RRR Abd: Non distended, soft, no tender, no rebound, no guarding Psych: appropriate affect and behavior MSK: sacrum mild tenderness to palpation, bilateral gluteal tenderness (both improving) Extrem: LLE with 2+ edema, L great toe with blue discoloration Pulse: Left DP biphasic Left PT triphasic Right DP biphasic Right PT monophasic Right axilla site c/d/i B/l groin sites c/d/i L groin wound with clean wound base, bid packing with gauze CBC (last 3 years, up to 5 values) (Last 5 results in the past 3 years) WBC RBC Hgb Hct MCV RDW Plt 11/19/20 0136 7.8 2.58 8.2 25.2 98 16.8 209 11/18/20 0320 8.5 2.95 9.5 28.7 97 16.4 200 11/17/20 0524 11.1 2.50 8.0 24.3 97 16.5 175 11/16/20 0335 14.8 2.55 8.1 24.6 97 16.5 148 11/15/20 0609 13.7 2.85 8.8 26.9 95 17.0 147 Basic Metabolic Panel (Last 5 results in the past 3 years) Na K Cl CO2 Gap Glu BUN Cr Ca 11/19/20 0136 139 4.0 Comment: Hemolysis present 110 23 10 103 8 0.62 7.8 11/18/20 0320 140 3.8 109 23 12 216 8 0.48 8.0 11/17/20 0524 142 3.0 107 25 13 72 9 0.73 7.9 11/16/20 0334 138 3.4 109 22 10 106 12 0.57 7.9 11/15/20 0609 139 3.4 108 23 11 247 13 0.73 7.8 INR (no units) Date Value 11/20/2020 4.22 (H) 11/19/2020 2.82 (H) 11/18/2020 2.55 (H) 11/17/2020 2.04 (H) 11/16/2020 1.54 (H) LFT's (last 3 years, up to 5 values) None Fingerstick Glucose (last 72 hours) (Last 10 results in the past 72 hours) Glucose 11/19/20 2247 268 11/19/20 1639 202 11/19/20 1130 191 11/19/20 0739 88 11/18/20 2110 195 11/18/20 1653 109 11/18/20 1235 187 Comment: Notified JUANJOSE DOMINGUEZ MD 11/18/20 0746 218 Comment: Notified JUANJOSE DOMINGUEZ MD 11/17/20 2135 202 11/17/20 1721 257 Assessment/Plan: 75F who presented with Roscoe IIb limb ischemia POD#7 Axillary-bifemoral bypass graft (right to left) SFA endarterectomy SFA bovine patch angioplasty thrombectomy Angiogram? Neurovascular exam: Right: monophasic PT, biphasic DP Left: triphasic PT, biphasic DP Motor and sensation intact on b/l LE Warm ??? Neuro: - Tylenol q6h - Oxycodone PRN 5 and 10 mg - dilaudid PRN for breakthrough ??? CV: troponin plateaud/downtrending, EKG without acute findings, tachycardia resolved, likely from pain - continue home statin, ASA 81 mg - continue plavix Pulm: - encourage IS - RT ??? GI: - regular diet - bowel regimen: colace/senna/miralax Renal: - mIVF - strict I AND Os ??? Endo: - Endo c/s for poorly controlled DM - 16u lantus at bedtime - 6u lispro ACHS - corrective mealtime lispro ???ID: - no indication for abx ??? Heme: - transfuse to goal > 8 given cardiac history - supratherapeutic INR today. Hold dose tonight - Warfarin 2mg starting tomorrow Ppx: - therapeutic on warfarin ??? MSK: chronic back pain, sacral pain may be from positioning in OR - PT/OT - bilateral L5 spondylolysis with grade 1-2 anterolisthesis of L5 on S1??? - padding underneath buttocks - patient must at least sit in chair for all 3 meals. - wrap LLE from mid-foot to mid thigh, elevate at all times in dominga wrap instead of compression stocking Wounds: - left lower quadrant previous I AND D site with WTD kerlix bid - incisions c/d/i Dispo: pending SNF precert. Medically ready for discharge Patient discussed with attending Dr. Lizett Connor MD General Surgery PGY-1 Vascular Surgery #[id number] [place] pager #[phone] (Weekdays 6pm-6am, and Weekends)[facility] 11-19-2020 NoteENDOCRINOLOGY INPATIENT CONSULTATION Charles Coreas 75 year old female 3:56 PM 11/19/2020 Admitting physician: Dr. Phoenix Reason for consultation: Diabetes management S: Doing well, feels ready to leave the hospital. Think her blood sugar is well controlled O: BP 158/85 (BP Location: left arm) Pulse 96 Temp 97.9 ???F (36.6 ???C) (Oral) Resp 18 Ht 5' (1.524 m) Wt 150 lb 5.7 oz (68.2 kg) SpO2 100% BMI 29.36 kg/m??? Gen: NAD, resting in bed comfortably HEENT: normocephalic, no scleral icterus Heart: RRR Lungs: no resp distress Abd: nontender, nondistended, soft Ext: warm, wiggles toes, +1 edema, compression stocking on L ASSESSMENT: T2DM, insulin dependent Recommendations: For patient tolerating diet: Insulin therapy: - Decrease Lantus = 16 units units at bedtime -Decrease mealtime Humalog: Breakfast: 6 units Lunch: 6 units Supper: 6 units -Corrective mealtime Humalog (only before meals): 0-150 = Add 0 units of Humalog to the scheduled mealtime dose. 151-200 = Add 1 units 201-250 = Add 2 units 251-300 = Add 3 units 301-350 = Add 4 units 351-400 = Add 5 units 401 or more = Add 6 units - Accuchecks before meals and at bed time - Accuchecks Q 6hrs Alex Contreras, DO IM PGY-2 Endo Pager [phone] Teaching Physician Note: I saw and evaluated the patient. I personally obtained the youngblood and critical portions of the history and physical exam. I reviewed Dr. Contreras's documentation, discussed the patient with him, and edited the note above. Rebecca Garzon M.D. Division of EndocrinologyProMedica Defiance [facility]03-22-2021 NoteVascular Surgery Progress Note Charles Coreas [id number] S: NAEON. Feels good. Back pain improving, L leg pain improving. Sat in chair with meals yesterday. Motivated to move more. Vital sign ranges over the past 24 hours (retrieved 11/19/2020 at 7:22 AM): Tmax (24 hours): 97.9 ???F (36.6 ???C) Pulse Av Min: 83 Max: 96 Systolic (24hrs), Av , Min:147 , Max:158 Diastolic (24hrs), Av, Min:56, Max:85 MAP (mmHg) Av mmHg Min: 80 mmHg Max: 90 mmHg Resp Av Min: 18 Max: 18 SpO2 Av % Min: 100 % Max: 100 % Blood pressure 158/85, pulse 96, temperature 97.9 ???F (36.6 ???C), temperature source Oral, resp. rate 18, height 5' (1.524 m), weight 150 lb 5.7 oz (68.2 kg), SpO2 100 %. Intake/Output Summary (Last 24 hours) at 11/19/2020 0722 Last data filed at 11/19/2020 0136 Gross per 24 hour Intake 940 ml Output 900 ml Net 40 ml PE: Gen: NAD, AAOx3 HENT: normocephalic, atraumatic Eyes: EOMI, no scleral icterus Pulm: comfortable on RA CVS: RRR Abd: Non distended, soft, no tender, no rebound, no guarding Psych: appropriate affect and behavior MSK: sacrum mild tenderness to palpation, bilateral gluteal tenderness (both improving) Extrem: LLE with 2+ edema Pulse: Left DP biphasic Left PT triphasic Right DP biphasic Right PT monophasic Right axilla site c/d/i B/l groin sites c/d/i L groin wound with clean wound base, bid packing with gauze CBC (last 3 years, up to 5 values) (Last 5 results in the past 3 years) WBC RBC Hgb Hct MCV RDW Plt 11/19/20 0136 7.8 2.58 8.2 25.2 98 16.8 209 11/18/20 0320 8.5 2.95 9.5 28.7 97 16.4 200 11/17/20 0524 11.1 2.50 8.0 24.3 97 16.5 175 11/16/20 0335 14.8 2.55 8.1 24.6 97 16.5 148 11/15/20 0609 13.7 2.85 8.8 26.9 95 17.0 147 Basic Metabolic Panel (Last 5 results in the past 3 years) Na K Cl CO2 Gap Glu BUN Cr Ca 11/19/20 013 139 4.0 Comment: Hemolysis present 110 23 10 103 8 0.62 7.8 11/18/20 0320 140 3.8 109 23 12 216 8 0.48 8.0 11/17/20 0524 142 3.0 107 25 13 72 9 0.73 7.9 11/16/20 0334 138 3.4 109 22 10 106 12 0.57 7.9 11/15/20 0609 139 3.4 108 23 11 247 13 0.73 7.8 INR (no units) Date Value 11/19/2020 2.82 (H) 11/18/2020 2.55 (H) 11/17/2020 2.04 (H) 11/16/2020 1.54 (H) 11/12/2020 1.12 (H) LFT's (last 3 years, up to 5 values) None Fingerstick Glucose (last 72 hours) (Last 10 results in the past 72 hours) Glucose 11/18/20 2110 195 11/18/20 1653 109 11/18/20 1235 187 Comment: Notified JUANJOSE DOMINGUEZ MD 11/18/20 0746 218 Comment: Notified JUANJOSE DOMINGUEZ MD 11/17/20 2135 202 11/17/20 1721 257 11/17/20 1156 110 11/17/20 0730 102 11/16/20 2117 250 11/16/20 1653 182 Assessment/Plan: 75F who presented with Sosa IIb limb ischemia POD#6 Axillary-bifemoral bypass graft (right to left) SFA endarterectomy SFA bovine patch angioplasty thrombectomy Angiogram? Neurovascular exam: Right: monophasic PT, biphasic DP Left: triphasic PT, biphasic DP Motor and sensation intact on b/l LE Warm ??? Neuro: - Tylenol q6h - Oxycodone PRN 5 and 10 mg - dilaudid PRN for breakthrough ??? CV: troponin plateaud/downtrending, EKG without acute findings, tachycardia resolved, likely from pain - continue home statin, ASA 81 mg - continue plavix Pulm: - encourage IS - RT ??? GI: - regular diet - bowel regimen: colace/senna/miralax Renal: - mIVF - strict I AND Os ??? Endo: - Endo c/s for poorly controlled DM - 20u lantus at bedtime - 7u lispro ACHS - corrective mealtime lispro ???ID: - no indication for abx ??? Heme: - transfuse to goal > 8 given cardiac history - continue warfarin 2.5mg daily Ppx: - therapeutic on warfarin ??? MSK: chronic back pain, sacral pain may be from positioning in OR - PT/OT - bilateral L5 spondylolysis with grade 1-2 anterolisthesis of L5 on S1??? - padding underneath buttocks - patient must at least sit in chair for all 3 meals. - wrap LLE from mid-foot to mid thigh, elevate at all times Wounds: - left lower quadrant previous I AND D site with WTD kerlix bid - incisions c/d/i Dispo: pending SNF precert. Medically ready for discharge Patient discussed with attending Dr. Lizett Connor MD General Surgery PGY-1 Vascular Surgery #[id number] [place] pager #[phone] (Weekdays 6pm-6am, and Weekends)[facility] 11-18-2020 NotePHYSICAL THERAPY PROGRESS SUMMARY Patient seen from 10:46am to 11:09am on 7C unit for 23 minute treatment. Co-Treatment with OT due to safety concerns x 2 assist previously. SUBJECTIVE: Patient Subjective/Goals: I would like to get to the chair . OBJECTIVE: Appearance: Supine in bed at onset, hep-locked IV, external cohen, B thigh incisions intact, chest incision intact, L LE swelling/edema. Behavior: Alert, motivated, pleasant, cooperative and agreeable to treatment. Oriented x 3. Pain: Site/Location: L LE; Pain Scale: Did not rate. Pain Relief Interventions Implemented: Positioning and Rest Mobility NA Dep Max Mod Min CG CS DS UT I Comment Supine to sit x2 For trunk and B LE. Cueing for technique. Sit to/from stand x2 To wheel walker; cues for technique. Walking on level surface x2 Pt was able to take a few small shuffled steps from bed to chair with wheel walker and Min A x 2. Cueing for technique. Stairs x Not attempted. Stand to sit x2 Good technique and eccentric control. Sitting Balance x With B UE support on bed. Pt sat EOB ~5 minutes. Cues for posture. Functional Endurance: Impaired. Patient/Family Education: Roles of PT. Importance of daily mobilization and participation with therapy. Patient sitting in bedside chair after session with call light in reach and chair alarm on. Pt instructed to call nursing for assist with pt verbalizing understanding. DME: With Patients permission ordered no equipment via [employer]. If any questions contact [facility] at [phone]. 6 Clicks Basic Mobility PT 11/18/2020 Difficulty turning over in bed 3 Difficulty sitting down and standing up from a chair with arms 3 Difficulty moving from lying on back to sitting on the side of the bed 3 Help from another person moving to and from bed to a chair 3 Help from another person to walk in hospital room 3 Help from another person climbing 3-5 steps with a railing 1 PT 6 Clicks Score 16 6 Click Score Guidelines: 1 - Total = Requires total assistance, or cannot do at all. 2 - A lot = Requires a lot of help (maximun to moderate assistance) Can use assistive devices. 3 - A little = Requires a little help (supervision, minimal assistance) Can use assistive devices. 4 - None = Does not require any help and does the activity independently. Can use assistive devices. ??? ASSESSMENT: Pt demonstrated an improvement in overall functional mobility this session compared to previous. However, pt continues to be functioning below baseline level and continues to demonstrate impaired strength, endurance, and overall mobility. Continue to recommend further therapies in a Skilled Setting to maximize functional outcomes when medically clear. Goals (to be achieved by???14???days or by discharge from acute care): ongoing unless indicated. Patient will achieve acceptable level of pain control to allow participation in therapy. Patient will increase bed mobility to???contact guard assistance Patient will perform???sit to/from stand???with rolling walker???with contact guard assistance Patient will ambulate???50???feet with rolling walker???with contact guard assistance Patient will increase ROM/Strength/Endurance/Balance to allow for above goals. Patient/Family independent with exercise program/precautions. PLAN: Continue with plan per Initial Evaluation Lucius Ambriz, [facility] #[phone] NA = Not Assessed, I = Independent, UT = Modified Independent, Sup = Supervised, Set up = Physical Assistance for Set-up Only, Min = Minimal Assistance, Mod = Moderate Assistance, Max = Maximal assistance; Dep = Dependent; AROM = Active Range of Motion; PROM = Passive Range of Motion; MMT = Manual Muscle TestThe SyscorHobby [id number] NoteOCCUPATIONAL THERAPY PROGRESS SUMMARY Patient seen from 10:46AM to 11:09AM on unit for 23 minute treatment. (co-tx with PT for safety concerns/previously required increased assist from x2 skilled therapists) SUBJECTIVE: It doesn't help I haven't brushed my hair in a while . OBJECTIVE: Pain: BLEs; unrated Appearance/Behavior: Upon arrival, pt was supine in bed. Female external. Pleasant and cooperative. Cognition: A AND O x3 UE Status: WFL; pt with out (R) sided precautions anymore Self Care: Assistance Level NA Dep Max Mod Min CG CS DS UT I Set-Up Cues Comment Feeding x x Grooming/ Hygiene x x Brushed hair and used shower cap Bathing: Upper Body x x Anticipates Bathing: Lower Body x x Anticipates Dressing: Upper Body x x To don gown around backside Dressing: Lower Body x x To don socks at bed level Toileting x Female external + adult brief; pt reported incontinence of bladder Toilet Transfers x Bed Transfer x2 x Sit EOB to stand via RW; cues for correct hand placement. Approached few steps to bedside chair; cues for upright posture and to reach back for chair Bed Mobility x2 x Supine to sit EOB; cues for correct technique. Good sitting balance Patient was left seated in bedside chair with call light in reach. Chair alarm activated. Instructed pt to call nursing for assist; pt verbalized understanding. Endurance for Self Care: Impaired Patient/Family Education: Educated pt on safe transfer techniques and for OOBTC for all meals; pt verbalized understanding. 6 Clicks Daily Activity OT 11/18/2020 Help from another person Eating meals 4 Help from another person taking care of personal grooming 3 Help from another person bathing 2 Help from another person putting on and taking off regular upper body clothing 3 Help from another person putting on and taking off regular lower body clothing 1 Help from another person toileting 1 OT 6 Clicks Score 14 6 Click Score Guidelines: 1 - Unable = Total/Dependent Assist 2 - A lot = Max/Moderate Assist 3 - A little = Minimum/Contact Guard Assist/Supervision 4 - Non = Modified [place]/Independent ASSESSMENT: Recommend further therapy services in a Skilled Rehab Setting once medically cleared. Will continue to follow patient while in hospital as appropriate. ? Goals (to be achieved by discharge from acute care): Pt is progressing towards goals unless indicated. Patient will dress upper body with???Contact Guard MET Patient will dress lower body with???Minimal assistance Patient will perform bed mobility with???Minimal assistance Patient will perform bed transfers with???Minimal assistance Patient will perform commode transfers with???Minimal assistance Patient will increase endurance sufficient to perform???5 min ADL Patient will demonstrate safety awareness as evidenced by???compliance with safe transfers and mobility??? Report reduced pain level to allow for participation in ADL/IADL Revised LTG: Patient will dress upper body with???CS Patient will dress lower body with???Minimal assistance Patient will perform bed mobility with???Minimal assistance Patient will perform bed transfers with???Minimal assistance Patient will perform commode transfers with???Minimal assistance Patient will increase endurance sufficient to perform???5 min ADL Patient will demonstrate safety awareness as evidenced by???compliance with safe transfers and mobility??? Report reduced pain level to allow for participation in ADL/IADL PLAN: Continue with Plan as per Initial Evaluation. Abena MEDINA/Ra #[phone] NA = Not Assessed, I = Independent, UT = Modified Independent, Sup = Supervised, Set up = Physical Assistance for Set-up Only, Min = Minimal Assistance, Mod = Moderate Assistance, Max = Max assistance; Dep = Dependent; AROM = Active Range of Motion;PROM=Passive Range of Motion; MMT = Manual Muscle Test; Shld= Shoulder; Add = Adduction; Abd = AbductionThe [employer] [id number] Note OCCUPATIONAL THERAPY PROGRESS SUMMARY Patient seen from 1:10 to 1:37 on unit for 27 minute treatment. SUBJECTIVE: Patient Subjective/Goals I don't remember if I washed today or not. OBJECTIVE: Pain: 2/10 buttocks Pain Relief Interventions Implemented: Positioning Appearance/Behavior: In bed, female external catheter, O2, left foot swelling, heels suspended from pillows, IV x2, Cognition: A AND O to person and year. UE Status: WFL for self care. AROM Left and right shoulder flexion 1 set of 10 performed Self Care: Assistance Level NA Dep Max Mod Min CG CS DS UT I Set-Up Cues Comment Feeding x Grooming/ Hygiene x Wash hands and face, brush hair Bathing: Upper Body x SOB noted Bathing: Lower Body x SOB noted Lydia: mod a Buttocks: dep Thighs: mod a Legs/ feet: dep Dressing: Upper Body x Gown mod cues Dressing: Lower Body x socks Toileting x External catheter Toilet Transfers x Bed Transfer x Bed Mobility In bed, female external catheter, O2,heels suspended from pillows, IV x2, call light and phone within reach. Endurance for Self Care: Impaired Patient/Family Education: Purse lip breathing , role of therapy. Reality orientation. DME: With Patients permission ordered no equipment via [employer] Order. If any questions contact [facility] DME Provider at [phone]. 6 Clicks Daily Activity OT 11/16/2020 Help from another person Eating meals 4 Help from another person taking care of personal grooming 3 Help from another person bathing 2 Help from another person putting on and taking off regular upper body clothing 2 Help from another person putting on and taking off regular lower body clothing 1 Help from another person toileting 1 OT 6 Clicks Score 13 6 Click Score Guidelines: 1 - Unable = Total/Dependent Assist 2 - A lot = Max/Moderate Assist 3 - A little = Minimum/Contact Guard Assist/Supervision 4 - Non = Modified [place]/Independent ??? ASSESSMENT: Recommend further therapy services in a Skilled Rehab Setting once medically cleared. Will continue to follow patient while in hospital as appropriate. ??? Goals (to be achieved by discharge from acute care): Patient will dress upper body with Contact Guard Patient will dress lower body with Minimal assistance Patient will perform bed mobility with Minimal assistance Patient will perform bed transfers with Minimal assistance Patient will perform commode transfers with Minimal assistance Patient will increase endurance sufficient to perform 5 min ADL Patient will demonstrate safety awareness as evidenced by compliance with safe transfers and mobility Report reduced pain level to allow for participation in ADL/IADL PLAN: Continue with Plan as per Initial Evaluation. CAROL Smith/Ra NA = Not Assessed, I = Independent, UT = Modified Independent, Sup = Supervised, Set up = Physical Assistance for Set-up Only, Min = Minimal Assistance, Mod = Moderate Assistance, Max = Max assistance; Dep = Dependent; AROM = Active Range of Motion;PROM=Passive Range of Motion; MMT = Manual Muscle Test; Shld= Shoulder; Add = Adduction; Abd = AbductionThe [facility] [id number] NotePHYSICAL THERAPY PROGRESS SUMMARY Patient seen from 10:20 AM to 10:50 AM on 7C unit for 30 minute treatment. SUBJECTIVE: Patient Subjective/Goals: Are you sure about that? (Patients response in regards to mobility) OBJECTIVE: Appearance: Supine in bed Hospital gown 2 IVs (B) SCDs Female external catheter (B) thigh and (R) chest incisions intact (L) foot significant swelling is noted Behavior: Awake Alert Cooperative Painful Oriented x 3 (Cues for location) Confusion (Patient asks if it is 10 at night and if there are birds in the room) Pain: Site/Location: (L) LE Pain Scale: ~6/10 Pain Relief Interventions Implemented: Positioning Relaxation Training RN aware and reports patient received medication according to time schedule Mobility Exercises: (B) UE AROM with deep breathing x 5 (B) ankle pumps AAROM x 10 (B) Hip and knee flexion AAROM x 5 Mobility NA Dep Max Mod Min CG CS DS UT I Comment Supine to sit X2 Max assist x 1 for trunk and max assist x 1 for positioning Transfers X1 X1 EOB to chair with rolling walker; verbal cues required, max assist x 1 for support and direction and CGA x1; slow parveen, short shuffled steps, forward flexed posture; difficulty clearing (R) foot Sit to/from stand X1 X1 EOB to rolling walker; max assist x 1 and min assist x 1 for boosts; verbal cues for hand placement required Stand to sit X1 X1 Rolling walker to chair; max assist x 1 for eccentric control and CGA x 1; verbal cues required Functional Endurance: Impaired; SOB with exertion is noted Transfer OOB to chair O2 at 98% and HR at 109 bpm Sitting Balance: Static/Dynamic: Fair; CGA x 1 Standing Balance: Static/Dynamic: Poor; max assist required with rolling walker Patient Education: Instructed Patient in roles, goals, treatment plan: demonstrated good verbal understanding. Educated patient NOT to stand or mobilize without staff assist to minimize fall risk and improve safety Encouraged patient to sit in chair x 1 hr Encouraged AROM while sitting in chair Patient up in chair with call light in reach. ???Chair alarm intact. 6 Clicks Basic Mobility PT 11/16/2020 Difficulty turning over in bed 2 Difficulty sitting down and standing up from a chair with arms 2 Difficulty moving from lying on back to sitting on the side of the bed 2 Help from another person moving to and from bed to a chair 2 Help from another person to walk in hospital room 2 Help from another person climbing 3-5 steps with a railing 1 PT 6 Clicks Score 11 6 Click Score Guidelines: 1 - Total = Requires total assistance, or cannot do at all. 2 - A lot = Requires a lot of help (maximun to moderate assistance) Can use assistive devices. 3 - A little = Requires a little help (supervision, minimal assistance) Can use assistive devices. 4 - None = Does not require any help and does the activity independently. Can use assistive devices. ??? Progressive Mobility Protocol Score: Level 3 ASSESSMENT: Patient tolerated treatment session well. Improvements in mobility are noted. Patient able to mobilize and transfer OOB to chair with assist. Patients overall mobility is decreased secondary to pain, generalized deconditioning, and weakness. Recommend further therapy services in a Alf Setting once medically cleared. Will continue to follow patient while in hospital as appropriate. Goals (to be achieved by 14 days or by discharge from acute care): ongoing Patient will achieve acceptable level of pain control to allow participation in therapy. Patient will increase bed mobility to contact guard assistance Patient will perform sit to/from stand with rolling walker with contact guard assistance Patient will ambulate 50 feet with rolling walker with contact guard assistance Patient will increase ROM/Strength/Endurance/Balance to allow for above goals. Patient/Family independent with exercise program/precautions. PLAN: Continue with plan per Initial Evaluation ROBBIN Huffman Agree with above Student documentation. Triny Jackson, PT, MPT (B) [phone] NA = Not Assessed, I = Independent, UT = Modified Independent, Sup = Supervised, Set up = Physical Assistance for Set-up Only, Min = Minimal Assistance, Mod = Moderate Assistance, Max = Maximal assistance; Dep = Dependent; AROM = Active Range of Motion; PROM = Passive Range of Motion; MMT = Manual Muscle TestThe [employer] [id number] NoteENDOCRINOLOGY INPATIENT CONSULTATION Charles Coreas 75 year old female DOA:11/12/2020 4:02 PM Admitting physician: Dr. Phoenix Reason for consultation: Diabetes management HPI: Charles Coreas is a 75 year old female with PMHx of HTN, DM, COPD, CAD, PAD who is currently admitted with for acute on chronic limb ischemia with absent doppler signals now s/p axillo femoral and fem-fem bypass graft on 11/13. We have been consulted for management of management of poorly controlled diabetes. Admitted SICU Post-op, course complicated by type II UT and low Hb requiring 1 U PRBCs. Now transferred to floor for heparin bridge to warfarin and BG glucose control. 15 units Lantus, Humalog 12 units before lunchg and 14 units before dinner + SS?, and dulaglutide (1.5 mg/week) at home Current regimen here: 20 units lantus at bedtime 5 units Humulin qac and whs 2-12 units SSI Humulin REVIEW OF SYSTEMS: Skin: Negative Eyes: Negative Ears/Nose/Throat: Negative Respiratory: Negative Cardiovascular: Negative Gastrointestinal: Denies heartburn, constipation, or frequent bowel movements Genitourinary: Negative Neurologic: Negative Musculoskeletal: Negative Psychiatric: Denies frequent feelings of depression or anxiety Hematologic/Lymphatic/Immunologic: Negative Endocrine: Per HPI History reviewed. No pertinent past medical history. Past Surgical History: Procedure Laterality Date * BYPASS GRAFT, AXILLO FEMORAL FEMORAL Bilateral 11/13/2020 Procedure: axillary-bifemoral bypass, SFA endarterectomy, thrombectomy, SFA patch angioplasty, angiogram; Surgeon: Kamilla Phoenix MD; Location: PERIOPERATIVE SERVICES; Service: Vascular No Known Allergies Current Facility-Administered Medications Medication Dose Route Frequency Last Rate Last Admin * lactated ringers iv infusion Intravenous Continuous 30 mL/hr at 11/16/20 0830 New Bag at 11/16/20 0830 * ceFAZolin (ANCEF) 2,000 mg in dextrose 50 mL ivpb 2 g Intravenous Q8H Antibiotic 50 mL/hr at 11/16/20 0830 2,000 mg at 11/16/20 0830 * HYDROmorphone (DILAUDID) 1 mg/mL injection 0.2 mg Intravenous Push Q4H PRN 0.2 mg at 11/16/20 0312 * warfarin (COUMADIN) 1 MG tablet 2.5 mg Oral Daily Warfarin 2.5 mg at 11/15/20 1733 * insulin glargine (LANTUS) 100 UNIT/ML injection 20 Units Subcutaneous At Bedtime 20 Units at 11/15/20 2213 * insulin regular (HumuLIN R) 100 UNIT/ML injection 5 Units Subcutaneous 4x Daily AC AND HS 5 Units at 11/16/20 0830 * oxyCODONE 5 MG immediate release tablet 5 mg Oral Q4H PRN 5 mg at 11/15/20 1428 * oxyCODONE 5 MG immediate release tablet 10 mg Oral Q4H PRN 10 mg at 11/16/20 0630 * [MAR Hold] albuterol (PROVENTIL) (2.5 MG/3ML) 0.083% nebulizer solution 2.5 mg Nebulization Q4H RT * albuterol (PROVENTIL) (2.5 MG/3ML) 0.083% nebulizer solution 2.5 mg Nebulization Q4H PRN * [MAR Hold] ipratropium (ATROVENT) 0.02 % nebulizer solution 0.5 mg Nebulization Q4H RT * [MAR Hold] iprotropium-albuterol (DUO-NEB) 0.5-2.5 (3) MG/3ML nebulizer solution 3 mL Nebulization Q4H RT * insulin regular (HumuLIN R) 100 UNIT/ML injection 2-12 Units Subcutaneous 4x Daily AC AND HS 2 Units at 11/15/207 * polyethylene glycol (MIRALAX) 17 g packet 17 g Oral Daily 17 g at 11/16/20 0830 * atorvastatin (LIPITOR) 20 mg tablet 20 mg Oral At Bedtime 20 mg at 11/15/20 2200 * aspirin 81 MG chewable tablet 81 mg Oral Daily 81 mg at 11/16/20 0830 * heparin (porcine) 25,000 Units in dextrose 5% 500 mL iv infusion LOW INTENSITY 50-2,500 Units/hr Intravenous Continuous 24 mL/hr at 11/16/20 0356 1,200 Units/hr at 11/16/20 0356 And * heparin (porcine) 1000 unit/mL injection 30-60 Units/kg Intravenous Push Q6H PRN 2,000 Units at 11/15/20 0732 Review of patient's family history indicates: Problem: Diabetes Mellitus Relation: Sister Age of Onset: (Not Specified) Social History Socioeconomic History * Marital status: Spouse name: Not on file * Number of children: Not on file * Years of education: Not on file * Highest education level: Not on file Tobacco Use * Smoking status: Current Every Day Smoker Packs/day: 1.00 Years: 30.00 Pack years: 30.00 Types: Cigarettes * Smokeless tobacco: Never Used * Tobacco comment: pt refused counseling Social Determinants of Health Financial Resource Strain: * Difficulty of Paying Living Expenses: Not on file Food Insecurity: * Worried About Running Out of Food in the Last Year: Not on file * Ran Out of Food in the Last Year: Not on file Transportation Needs: * Lack of Transportation (Medical): Not on file * Lack of Transportation (Non-Medical): Not on file Physical Activity: * Days of Exercise per Week: Not on file * Minutes of Exercise per Session: Not on file Stress: * Feeling of Stress : Not on file Social Connections: * Frequency of Communication with Friends and Family: Not on file * Frequency of Social Gatherings with Friends and Family: (more content not included)...[employer] [facility] [id number] NoteNew OT orders addressed. Pt currently on OT caseload, please see Evaluation from 11/14. Thank [facility] [employer]03-19-2021 NoteVascular Surgery Progress Note Charles Espinosa Lyudmila [id number] S: Transferred to floor yesterday. Feeling better this morning, but still having buttocks pain. Has not gotten out of bed. Eating well. Vital sign ranges over the past 24 hours (retrieved 11/16/2020 at 8:16 AM): Tmax (24 hours): 99.6 ???F (37.6 ???C) Pulse Av.3 Min: 91 Max: 105 Systolic (24hrs), Av , Min:104 , Max:131 Diastolic (24hrs), Av, Min:50, Max:80 MAP (mmHg) Av mmHg Min: 69 mmHg Max: 77 mmHg Resp Av.7 Min: 16 Max: 29 SpO2 Av.4 % Min: 92 % Max: 100 % Blood pressure 131/50, pulse 91, temperature 99.6 ???F (37.6 ???C), temperature source Oral, resp. rate 18, height 5' (1.524 m), weight 150 lb 5.7 oz (68.2 kg), SpO2 93 %. Intake/Output Summary (Last 24 hours) at 11/16/2020 0816 Last data filed at 11/15/2020 2136 Gross per 24 hour Intake 242.15 ml Output 445 ml Net -202.85 ml PE: Gen: NAD, AAOx3 HENT: normocephalic, atraumatic Eyes: EOMI, no scleral icterus Pulm: 2L NC CVS: RRR Abd: Non distended, soft, no tender, no rebound, no guarding Psych: appropriate affect and behavior MSK: sacrum tenderness to palpation, bilateral gluteal tenderness Extrem: Left DP biphasic Left PT triphasic Right DP biphasic Right PT monophasic Left axilla site c/d/i B/l groin sites c/d/i CBC (last 3 years, up to 5 values) (Last 5 results in the past 3 years) WBC RBC Hgb Hct MCV RDW Plt 11/16/20 0335 14.8 2.55 8.1 24.6 97 16.5 148 11/15/20 0609 13.7 2.85 8.8 26.9 95 17.0 147 11/14/20 1353 15.6 2.89 9.1 27.0 93 17.8 146 11/14/20 0825 7.5 11/14/20 0415 13.3 2.47 7.9 24.2 98 13.9 147 Basic Metabolic Panel (Last 5 results in the past 3 years) Na K Cl CO2 Gap Glu BUN Cr Ca 11/16/20 0334 138 3.4 109 22 10 106 12 0.57 7.9 11/15/20 0609 139 3.4 108 23 11 247 13 0.73 7.8 11/14/20 0425 137 4.0 106 20 15 311 13 1.00 7.9 11/13/20 1713 135 11/13/20 1435 134 INR (no units) Date Value 11/16/2020 1.54 (H) 11/12/2020 1.12 (H) LFT's (last 3 years, up to 5 values) None Fingerstick Glucose (last 72 hours) (Last 10 results in the past 72 hours) Glucose 11/15/20 2133 195 11/15/20 1702 245 11/15/20 1156 261 11/15/20 0801 292 11/14/20 2247 233 11/14/20 1708 209 11/14/20 1218 141 11/14/20 0827 251 11/14/20 0414 335 11/14/20 0414 335 11/13/20 2318 368 Assessment/Plan: 75F who presented with Sosa IIb limb ischemia POD#3 Axillary-bifemoral bypass graft (right to left) SFA endarterectomy SFA bovine patch angioplasty thrombectomy Angiogram? Neurovascular exam: Right: monophasic PT, biphasic DP Left: triphasic PT, biphasic DP Motor and sensation intact on b/l LE Warm ??? Neuro: - Tylenol q6h - Oxycodone PRN 5 and 10 mg - dilaudid PRN for breakthrough ??? CV: troponin plateaud/downtrending, EKG without acute findings, tachycardia improving, likely from pain - continue home statin, ASA 81 mg - restart plavix Pulm: - wean supplemental O2 as able - encourage IS - RT ??? GI: - regular diet Renal: - mIVF - strict I AND Os ??? Endo: - SSI - home lantus ?ID: - no indication for abx ??? Heme: - transfuse to goal > 8 given cardiac history - continue heparin gtt - continue warfarin 3mg daily Ppx: - SCDs ??? MSK: chronic back pain, sacral pain may be from positioning in OR - PT/OT - bilateral L5 spondylolysis with grade 1-2 anterolisthesis of L5 on S1??? - padding underneath buttocks Wounds: - left lower quadrant previous I AND D site with WTD kerlix bid - incisions c/d/i Dispo: SNF pending therapeutic INR Patient discussed with attending Dr. Lizett Connor MD General Surgery PGY-1 Vascular Surgery #[id number] [place] pager #[phone] (Weekdays 6pm-6am, and Weekends)[employer] [facility] 11-15-2020 NoteSurgery Progress Note Charles Coreas [id number] S: Received 1u pRBC yesterday. Troponin downtrending now. Continues to have low back pain. Otherwise no complaints. Continues to be on 2L NC. Vital sign ranges over the past 24 hours (retrieved 11/15/2020 at 8:22 AM): Tmax (24 hours): 99.3 ???F (37.4 ???C) Pulse Av.1 Min: 83 Max: 102 Systolic (24hrs), Av , Min:72 , Max:130 Diastolic (24hrs), Av, Min:35, Max:78 MAP (mmHg) Av mmHg Min: 46 mmHg Max: 86 mmHg Resp Av.7 Min: 15 Max: 28 SpO2 Av.5 % Min: 91 % Max: 100 % Blood pressure 130/49, pulse 102, temperature 98.7 ???F (37.1 ???C), temperature source Oral, resp. rate 23, height 5' (1.524 m), weight 150 lb 5.7 oz (68.2 kg), SpO2 100 %. Intake/Output Summary (Last 24 hours) at 11/15/2020 0822 Last data filed at 11/15/2020 0800 Gross per 24 hour Intake 2934.45 ml Output 835 ml Net 2099.45 ml PE: Gen: NAD, AAOx3 Pulm: 2L NC CVS: RRR Abd: Non distended, soft, no tender, no rebound, no guarding Extrem: Left DP biphasic Left PT triphasic Right DP biphasic Right PT monophasic Left axilla site c/d/i B/l groin sites c/d/i CBC (last 3 years, up to 5 values) (Last 5 results in the past 3 years) WBC RBC Hgb Hct MCV RDW Plt 11/15/20 0609 13.7 2.85 8.8 26.9 95 17.0 147 11/14/20 1353 15.6 2.89 9.1 27.0 93 17.8 146 11/14/20 0825 7.5 11/14/20 0415 13.3 2.47 7.9 24.2 98 13.9 147 11/13/20 2047 18.8 2.80 9.0 27.7 99 13.9 188 Basic Metabolic Panel (Last 5 results in the past 3 years) Na K Cl CO2 Gap Glu BUN Cr Ca 11/15/20 0609 139 3.4 108 23 11 247 13 0.73 7.8 11/14/20 0425 137 4.0 106 20 15 311 13 1.00 7.9 11/13/20 1713 135 11/13/20 1435 134 11/13/20 1414 139 INR (no units) Date Value 11/12/2020 1.12 (H) LFT's (last 3 years, up to 5 values) None Fingerstick Glucose (last 72 hours) (Last 10 results in the past 72 hours) Glucose 11/15/20 0801 292 11/14/20 2247 233 11/14/20 1708 209 11/14/20 1218 141 11/14/20 0827 251 11/14/20 0414 335 11/14/20 0414 335 11/13/20 2318 368 11/13/20 1808 282 11/13/20 1200 205 Comment: Notified JUANJOSE DOMINGUEZ MD 11/13/20 3972 287 Assessment/Plan: 75F who presented with [place] IIb limb ischemia POD#2 Axillary-bifemoral bypass graft (right to left) SFA endarterectomy SFA bovine patch angioplasty thrombectomy Angiogram? Neurovascular exam: Right: monophasic PT, biphasic DP Left: triphasic PT, biphasic DP Motor and sensation intact on b/l LE Warm ??? Neuro: - Tylenol q6h - Oxycodone PRN 5 and 10 mg - dilaudid PRN for breakthrough ??? CV: troponin plateaud/downtrending, EKG without acute findings, continues to be tachycardic, likely from pain - continue home statin, ASA 81 mg Pulm: - wean supplemental O2 as able - encourage IS - RT ??? GI: - regular diet Renal: - mIVF - strict I AND Os ??? Endo: - SSI - home lantus ?ID: - periop antibioitics ??? Heme: - transfuse to goal > 8 given cardiac history - continue heparin gtt - start warfarin today??? Ppx: - SCDs ??? MSK: chronic back pain. - PT/OT - bilateral L5 spondylolysis with grade 1-2 anterolisthesis of L5 on S1??? Wounds: - left lower quadrant previous I AND D site with WTD kerlix bid - island dressings removed, incisions c/d/i Others: VIANCA/PVR performed, pending read. Patient discussed with attending Dr. Lizett Connor MD General Surgery PGY-1 Vascular Surgery #[id number] [place] pager #[phone] (Weekdays 6pm-6am, and Weekends)[employer] [facility] [facility] 11-14-2020 NoteSurgery Progress Note Charles Coreas [id number] S: Complaining only of lower back pain this morning Reports pain in LLE much improved Denies CP or SOB Vital sign ranges over the past 24 hours (retrieved 11/14/2020 at 1:21 PM): Tmax (24 hours): 99.2 ???F (37.3 ???C) Pulse Av.6 Min: 83 Max: 116 Systolic (24hrs), Av , Min:72 , Max:128 Diastolic (24hrs), Av, Min:35, Max:83 MAP (mmHg) Av.4 mmHg Min: 46 mmHg Max: 95 mmHg Resp Av.9 Min: 11 Max: 28 SpO2 Av.1 % Min: 91 % Max: 100 % Blood pressure 128/44, pulse 92, temperature 98.7 ???F (37.1 ???C), temperature source Oral, resp. rate 15, height 5' (1.524 m), weight 148 lb (67.1 kg), SpO2 98 %. Intake/Output Summary (Last 24 hours) at 11/14/2020 1321 Last data filed at 11/14/2020 1300 Gross per 24 hour Intake 5029.48 ml Output 2225 ml Net 2804.48 ml PE: Gen: NAD, AAOx3 Pulm: no increased work of breathing on room air CVS: RRR Abd: Non distended, soft, no tender, no rebound, no guarding Extrem: Left DP biphasic Left PT triphasic Right DP biphasic Left axilla site c/d/i B/l groin sites c/d/i CBC (last 3 years, up to 5 values) (Last 5 results in the past 3 years) WBC RBC Hgb Hct MCV RDW Plt 11/14/20 0825 7.5 11/14/20 0415 13.3 2.47 7.9 24.2 98 13.9 147 11/13/20 2047 18.8 2.80 9.0 27.7 99 13.9 188 11/13/20 1713 9.8 30.3 11/13/20 1435 11.0 34.1 Basic Metabolic Panel (Last 5 results in the past 3 years) Na K Cl CO2 Gap Glu BUN Cr Ca 11/14/20 0425 137 4.0 106 20 15 311 13 1.00 7.9 11/13/20 1713 135 11/13/20 1435 134 11/13/20 1414 139 11/12/20 1652 137 3.7 101 22 18 183 14 0.68 9.2 INR (no units) Date Value 11/12/2020 1.12 (H) LFT's (last 3 years, up to 5 values) None Fingerstick Glucose (last 72 hours) Glucose 11/14/20 0827 251 11/14/20 0414 335 11/14/20 0414 335 11/13/20 2318 368 11/13/20 1808 282 11/13/20 1200 205 Comment: Notified JUANJOSE DOMINGUEZ MD 11/13/20 0714 287 11/13/20 0358 339 11/12/20 2344 295 Comment: Notified JUANJOSE DOMINGUEZ MD Follow Protocol Assessment/Plan: 75F who presented with Sosa IIb limb ischemia POD#1 from Axillary-bifemoral bypass graft (right to left) SFA endarterectomy SFA bovine patch angioplasty thrombectomy Angiogram? Neurovascular exam: Right: biphasic DP Left: triphasic PT, biphasic DP Motor and sensation intact on b/l LE Warm ??? Neuro: - Tylenol q6h - Oxycodone PRN 5 and 10 mg - dilaudid PRN for breakthrough ??? CV: - continue home statin, ASA 81 mg - Troponin, EKG today given hypotension, major vascular intervention, and hypotension o/n ??? Pulm: - encourage IS - RT ??? GI: - regular diet today Renal: - mIVF - strict I AND Os ??? Endo: - SSI - resume home meds tomorrow ?ID: - periop antibioitics ??? Heme: - transfuse to goal > 8 given cardiac history ??? Ppx: - must remain on Heparin drip at all times, with plan to bridge to Coumadin on the floor - SCDs ??? MSK: - PT/OT ??? Wounds: - left lower quadrant previous I AND D site with WTD NS - island dressing to remain 48h Others: VIANCA/PVR (ordered) - tomorrow/after transfer floor Patient seen and discussed with Dr. Lizett Guerrero PGY4 [facility] SurgeryThe [facility] NotePHYSICAL THERAPY ACUTE EVALUATION Referral received, chart reviewed. Patient seen from 950 to 1010 on [facility] 3W unit for 20 minutes. Admit date/time: 11/12/2020 4:02 PM Eval + treat Reason for Admit: LE pain Diagnosis: Sosa llb ischemic limb, L LE no pulse, L LE cold and mottled Precautions: Falls Full Code CLD NPO WBAT Progressive mobility Procedures this admit: 11.13.20: axillo femoral, femoral femoral bypass graft. SFA endarterectomy SFA bovine patch angioplasty thrombectomy Angiogram??? Past Medical and Surgical History: COPD HTN Diabetes PAD recent arterial occlusions fem fem bypass Identification was verified by patient verbalizing his/her name and date of . and patient's id band and date of . Risks and Benefits of physical therapy: Patient informed of risks and benefits of treatment SUBJECTIVE: Patient Subjective: Oh deer Re: therapy is here Patient Identified Goal(s):to walk THERAPY ASSISTANT Status: amb without device, independent living Home: 3 steps to enter with rails. 0 steps to bedroom/bathroom rails. Assistance available: lives with daughter whom works nights. 24 hr assist available if ndded Equipment available: rolling walker, wheelchair, bedside commode and shower chair OBJECTIVE: Appearance: Impaired, Obese, video specialist, Pulse Oximeter, 2L Oxygen, IV, Cohen, Sequential Compression Devices (SCDs) and A line Behavior: Drowsy, pleasant AND cooperative Oriented x 3 Follows 1 step commands consistently and with cues Pain: Site/Location: my rump ; Pain Scale: moderate/10 Pain Relief Interventions Implemented: Positioning, Rest and Notified Nurse Passive ROM: Not formally tested however observed WFL for basic level of mobility Strength/Active ROM: Grossly at least 3-/5 throughout Mobility: Rolling to left: maximum assistance x2 Sidelying to sit: maximum assistance x2 Sitting balance: Fair Sit to stand: maximum assistance x2, VC to push B UE into bed, VC to lean anteriorly, VC to push through B LE Bed to chair stand pivot transfer: maximum assistance x2, flexed posture, VC for sequencing Ambulation/Gait: Patient walked 3 ft with RW maxAX2, flexed posture, decreased B LE step lengths, patient with difficulty picking up feet to take steps. Assist for weight shifting. Endurance: Impaired Patient/Family Education: Instructed Patient in roles of therapy. Instructed Patient in roles, goals, treatment plan: demonstrated good verbal understanding. Instructed patient in Exercise Program for Ankle pumps x10 reps B LE Patient up in chair with call light in reach. ???Chair alarm intact. 6 Clicks Basic Mobility PT 11/14/2020 Difficulty turning over in bed 2 Difficulty sitting down and standing up from a chair with arms 2 Difficulty moving from lying on back to sitting on the side of the bed 2 Help from another person moving to and from bed to a chair 1 Help from another person to walk in hospital room 1 Help from another person climbing 3-5 steps with a railing 1 PT 6 Clicks Score 9 6 Click Score Guidelines: 1 - Total = Requires total assistance, or cannot do at all. 2 - A lot = Requires a lot of help (maximun to moderate assistance) Can use assistive devices. 3 - A little = Requires a little help (supervision, minimal assistance) Can use assistive devices. 4 - None = Does not require any help and does the activity independently. Can use assistive devices. ??? ASSESSMENT: Charles Coreas is a 75 year old female s/p Axillary-bifemoral bypass graft???(right to left),SFA endarterectomy, SFA bovine patch angioplasty???, thrombectomy, Angiogram???presents with decreased B LE strength and endurance, causing patient difficulty with bed mobility and transfers. Patient is functioning below baseline of independent. Recommend further therapy services in a Alf Setting once medically cleared. Will continue to follow patient while in hospital as appropriate. Problems: Pain Decreased ROM/strength Decreased functional mobility Decreased endurance Decreased balance Rehabilitation Potential: Fair Goals (to be achieved by 14 days or by discharge from acute care): Patient will achieve acceptable level of pain control to allow participation in therapy. Patient will increase bed mobility to contact guard assistance Patient will perform sit to/from stand with rolling walker with contact guard assistance Patient will ambulate 50 feet with rolling walker with contact guard assistance Patient will increase ROM/Strength/Endurance/Balance to allow for above goals. Patient/Family independent with exercise program/precautions. PLAN OF CARE: Frequency: Patient to be seen 3-5 times a week Interventions: Functional mobility ROM/Strengthening Home exercise program Discharge planning and equipment ordering as needed Patient /Family education The evaluation findings and treatment plan were discussed with the (more content not included)...[facility] [id number] NoteOCCUPATIONAL THERAPY INITIAL EVALUATION Patient seen from 0950 to 1010 on CCP3W unit for 20 minutes. Reason for Admit: 75 y/o F admitted with LLE pain, no pedal signals at OSH Diagnosis: LLE ischemia Precautions/Activity Order: Fall, full code, progressive mobility Procedures this admit: 11/13/2020 R axillary-bifemoral bypass graft, L SFA thrombectomy, L SFA endarterectomy/bovine patch repair, LLE angio Past Medical and Surgical History: HTN, DM, COPD, CAD s/p CABG, PAD SUBJECTIVE: Patient Subjective: Oh boy now. re: getting out of bed Patient Identified Goal(s): none stated Home Living Situation- Lives at home with her daughter Prior Functional Status: independent ADLs, ambulates without device Assistance Available at Home: PRN assist from daughters and grand kids Patient lives in a 2 story home 3 stairs to enter with rail Full Bathroom on 1st level Bedroom on 1st level. Equipment available at home: Wheeled walker, cane, wheelchair, shower chair, BSC OBJECTIVE: Patient Identification: patient verbalizing his/her name and date of . Risks and benefits of occupational therapy: Patient informed of risks and benefits of treatment Appearance: IV, L radial A-line, O2, tele, BP cuff, pulse ox, cohen, groin incisions, SCD Alertness: Drowsy Affect: flat, anxious Cooperation/Behavior: Appropriate dialogue with therapist, cooperative Communication: WFL Pain: Pain ratin-5/10, Location: groin, LE's Pain Relief Interventions Implemented: RN aware and reports patient received medication according to time schedule Self Care: Assistance Level Dep Max Mod Min CG CS DS UT I Set-Up Comment Feeding NPO Grooming/Hygiene x Mouth swabs Bathing:UB x Anticipated Bathing:LB x Anticipated Dressing:UB x Don gown Dressing: LB x Don socks Toileting x Cohen/ bed oquendo Transfers/Bed Mobility: Assistance Level Dep Max Mod Min CG CS DS UT I Set-Up Comment Toilet Transfers x2 Anticipated Bed Transfers x2 Sit to stand from EOB Stand to sit in chair Bed Mobility x2 Supine to sit EOB Assist with BLE Assist with trunk Assist to scoot to EOB Ambulation x2 Few steps between bed and chair using walker Forward flexed posture Cues to keep hands on walker Assist to maneuver walker decreased RLE WB'ing Patient remained seated in bedside chair end of session with chair alarm in place due to falls risk. Call adams and telephone within reach. Patient instructed to call for staff assist when ready to return to bed and for all mobility. RN aware of patient location and mobility status. Endurance for Self Care: Impaired Static Sitting Balance: Impaired Dynamic Sitting Balance: Impaired UE Motor: Not formally tested but observed to be WFL for ADL Vision/Perception: WFL Cognition: Orientation: Oriented to person, place and time Follows Commands: WFL Attention: WNL Memory: WFL Problem Solving: Needs further assessment Safety/Judgement: insight beginning to develop Sequencing: WFL Other Specialized Tests: None Patient/Family Education: Instructed patient in roles of therapy, post-op precautions /restrictions, importance of OOB activity during hospitalization, incentive spirometry, safe transfers and mobility, discharge planning. ??? 6 Clicks Daily Activity OT 11/14/2020 Help from another person Eating meals 4 Help from another person taking care of personal grooming 3 Help from another person bathing 2 Help from another person putting on and taking off regular upper body clothing 2 Help from another person putting on and taking off regular lower body clothing 1 Help from another person toileting 1 OT 6 Clicks Score 13 6 Click Score Guidelines: 1 - Unable = Total/Dependent Assist 2 - A lot = Max/Moderate Assist 3 - A little = Minimum/Contact Guard Assist/Supervision 4 - Non = Modified [place]/Independent ASSESSMENT: Recommend further therapy services in a Skilled Rehab Setting once medically cleared. Will continue to follow patient while in hospital as appropriate. Rehabilitation Potential: Good Problem List: decreased ADLs, decreased endurance, decreased functional transfers/mobility and increased pain Goals (to be achieved by discharge from acute care): Patient will dress upper body with Contact Guard Patient will dress lower body with Minimal assistance Patient will perform bed mobility with Minimal assistance Patient will perform bed transfers with Minimal assistance Patient will perform commode transfers with Minimal assistance Patient will increase endurance sufficient to perform 5 min ADL Patient will demonstrate safety awareness as evidenced by compliance with safe transfers and mobility Report reduced pain level to allow for participation in ADL/IADL PLAN: Charles Coreas will be seen 2 times a week. Treatment to include: functional mobility training and ADL retraining able to discuss the evaluation findings and treatment poli (more content not included)...[facility] [id number] NoteVascular surgery plan of care note: POD#0 from Axillary-bifemoral bypass graft (right to left) SFA endarterectomy SFA bovine patch angioplasty thrombectomy Angiogram Neurovascular exam: Right: biphasic DP Left: triphasic PT, biphasic DP Motor and sensation intact on b/l LE Neuro: - Tylenol q6h - Oxycodone PRN 5 and 10 mg CV: - continue home statin, ASA 81 mg Pulm: - encourage IS - RT GI: - NPO tonight - can advance to regular diet tomorrow Renal: - mIVF - cohen out tomorrow - strict I AND Os Endo: - SSI - resume home meds tomorrow ???ID: - periop antibioitics Heme: - CBC now Ppx: - must remain on Heparin drip at all times, with plan to transition to Coumadin - SCDs MSK: - PT/OT Wounds: - left lower quadrant previous I AND D site with WTD NS - island dressing to remain 48h Please notify vascular surgery if: change in pulse, tight compartments, paresthesias, loss of motor or sensation in lower extremities Patient seen and discussed with Dr. Lizett Guerrero PGY4 Vascular Surgery [phone] HospitalH[facility] [id number] NoteSICU History and Physical Charles Coreas [id number] LOS: Length of stay: 1 day(s) POD: # 0 1' Service: Vascular surgery Subjective: 75 year old female PMHx of HTN, DM, COPD, CAD s/p CABG x 4, PAD s/p L iliac angioplasty and stenting 09/18 , found to have R iliac occlusion on angio 09/25, underwent L CFAe, L->R fem-fem bypass and L iliac angio/stent 09/26. I AND D L groin wound and vac placement, presented to [facility] ED with LLE pain, no pedal signals appreciated 10/11. Transferred to [facility]. Now presenting to SICU POD #0 s/p axillo femoral, femoral femoral bypass graft. Arrived in SICU awake and alert, HDS. Intra Operative Data: EBL: 500 ml Crystalloid: 2.5L Blood Products: None UO: 130 ml Lines: PIV, cohen, A line Past Medical History: HTN, DM, COPD, CAD Past Surgical History: CABG L iliac angioplasty and stenting 09/18 L CFAe, L->R fem-fem bypass Family History: No history of clotting or bleeding disorders Home Medications: Lantus 15u at bedtime Novolin 70-30 sliding scale Lisinopril-hydrochlorothiazide (unknown dose) Simvastatin 20mg daily plavix 75mg daily dulaglutide 1.5 (unknown schedule) Allergies: No Known Allergies Social History: Social History Socioeconomic History * Marital status: Spouse name: Not on file * Number of children: Not on file * Years of education: Not on file * Highest education level: Not on file Tobacco Use * Smoking status: Current Every Day Smoker Packs/day: 1.00 Years: 30.00 Pack years: 30.00 Types: Cigarettes * Smokeless tobacco: Never Used * Tobacco comment: pt refused counseling Social Determinants of Health Financial Resource Strain: * Difficulty of Paying Living Expenses: Not on file Food Insecurity: * Worried About Running Out of Food in the Last Year: Not on file * Ran Out of Food in the Last Year: Not on file Transportation Needs: * Lack of Transportation (Medical): Not on file * Lack of Transportation (Non-Medical): Not on file Physical Activity: * Days of Exercise per Week: Not on file * Minutes of Exercise per Session: Not on file Stress: * Feeling of Stress : Not on file Social Connections: * Frequency of Communication with Friends and Family: Not on file * Frequency of Social Gatherings with Friends and Family: Not on file * Attends Christian Services: Not on file * Active Member of Clubs or Organizations: Not on file * Attends Club or Organization Meetings: Not on file * Marital Status: Not on file Intimate Partner Violence: * Fear of Current or Ex-Partner: Not on file * Emotionally Abused: Not on file * Physically Abused: Not on file * Sexually Abused: Not on file Medications: Scheduled Medications * [OCT Hold] acetaminophen 650 mg Every 6 hours PRN Medications * [OCT Hold] .NO ORAL PAIN MEDS WHILE ON AIRPLANE CAPTAIN/EPIDURAL 1 Each PRN * [OCT Hold] naloxone 0.4 mg PRN * [OCT Hold] dextrose 12.5 g PRN Or * [OCT Hold] glucagon 1 mg PRN Or * [OCT Hold] dextrose 15 g of glucose PRN Or * [OCT Hold] dextrose 30 g of glucose PRN * [OCT Hold] insulin lispro 2-9 Units 3x Daily PRN * [OCT Hold] oxyCODONE 5 mg Q4H PRN * heparin (porcine) 40-80 Units/kg Q6H PRN IV Medications: * [OCT Hold] HYDROmorphone * [OCT Hold] lactated ringers 75 mL/hr at 11/13/20 1028 * heparin (porcine) 1,000 Units/hr (11/12/202049) Physical Exam Vital sign ranges over the past 24 hours (retrieved 11/13/2020 at 2:49 PM): Tmax (24 hours): 99.2 ???F (37.3 ???C) Pulse Av.9 Min: 80 Max: 111 Systolic (24hrs), Av , Min:135 , Max:163 Diastolic (24hrs), Av, Min:37, Max:90 MAP (mmHg) Av.8 mmHg Min: 63 mmHg Max: 93 mmHg Resp Av.6 Min: 14 Max: 22 SpO2 Av.2 % Min: 88 % Max: 97 % BP 157/56 (BP Location: left arm) Pulse 94 Temp 97.8 ???F (36.6 ???C) (Oral) Resp 14 Ht 5' (1.524 m) Wt 148 lb (67.1 kg) SpO2 92% BMI 28.90 kg/m??? Neuro: NAD, awake and alert Pulm: Non labored respirations on 3lNC, Left chest incision c.d.i with dermabond CV: Regular rate and rhythm Abdomen: soft, non tender, non disteded, bilateral groins with dressings in place, c/d/i, left groin with packing in superior aspect : cohen in place draining clear yellow urine Extremities: Left DP/PT biphasic, right DP biphasic, motor and sensation intact bilateral upper and lower extremities, compartments soft Labs: Basic Metabolic Panel Na K Cl CO2 Gap Glu BUN Cr Ca Mg PO4 11/13/20 1435 134 11/13/20 1414 139 11/12/20 1652 137 3.7 101 22 18 183 14 0.68 9.2 11/12/20 1652 1.8 CBC/PT/INR WBC RBC Hgb Hct MCV RDW Plt PT aPTT INR 11/13/20 1435 11.0 34.1 11/13/20 1414 11.0 33.8 11/13/20 0238 75 11/13/20 0238 10.7 3.79 12.4 36.9 98 14.2 182 11/12/20 1652 110 11/12/20 1652 1.12 11/12/20 1652 10.0 3.80 12.1 36.9 97 13.8 190 WBC/Diff Neutro% Segs% Bands% Lymphs% Monos% Eos% Basos% 11/12/20 1652 69.8 22.6 5.8 0.9 0.9 Cardiac Troponin I CK total CK-MB BNP 11/12/202006 111. (more content not included)...[facility] System 11-13-2020 NoteI have reviewed the patient's History and Physical Examination. I have personally seen and evaluated the patient, repeating youngblood portions. There is no significant interval change. Surgery is still indicated. Yes Consent reviewed and signed by patient/family: Yes Operative site verified and marked: Yes Lam Connor MD General Surgery PGY-1The [facility]apt [id number] NoteVASCULAR SURGERY CONSULT Reason for Consultation LLE ischemia History (HPI) Charles Coreas is a 75 year old year old female with h/o HTN, DM, COPD, and PAD s/p fem-fem bypass (09/26) who presents to the ED as a transfer from [facility] with LLE pain and no pedal signals. Patient poor historian, most history taken from chart review. 09/18 L iliac angioplasty and stenting, 09/25 found to have R iliac occlusion on angio, 09/26 underwent L CFAe, L->R fem-fem bypass and L iliac angio/stent. 10/11 I AND D L groin wound and vac placement. Patient reports that yesterday morning she had sudden onset of LLE pain that goes from her hips to her foot that has been worsening since it started. Doesn't walk much at baseline, but has been walking less with this new pain. Reports her left foot feels cold and a little different, but no definite numbness/tingling. L groin wound vac last changed 2-3d ago. Was supposed to be on Xarelto, but patient unable to afford medication, never took it after discharge. PMH: HTN, DM, COPD, CAD s/p CABG x4, PAD PSH: CABG x4 ~40y ago, L iliac angioplasty and stenting, L CFAe with L->R fem-fem and L iliac angioplasty and stent, I AND D L groin wound, partial hysterectomy, bladder sling SH: current 1.5ppd smoker (90 pack-year) FH: no FH blood clots or bleeding Allergies: NKDA Meds: Lantus 15u at bedtime Novolin 70-30 sliding scale Lisinopril-hydrochlorothiazide (unknown dose) Simvastatin 20mg daily plavix 75mg daily dulaglutide 1.5 (unknown schedule) Review of Systems: Review of Systems Constitutional: Negative for chills and fever. HENT: Negative for sore throat. Eyes: Negative for blurred vision. Respiratory: Positive for shortness of breath. Cardiovascular: Negative for chest pain. Gastrointestinal: Positive for vomiting. Negative for abdominal pain and blood in stool. Genitourinary: Negative for dysuria. Musculoskeletal: Positive for joint pain. Skin: Negative for rash. Neurological: Positive for weakness. Negative for headaches. All other systems reviewed and are negative. PHYSICAL EXAMINATION BP 150/72 Pulse 88 Temp 97.9 ???F (36.6 ???C) (Oral) Resp (!) 22 Wt 144 lb 13.5 oz (65.7 kg) SpO2 97% Gen: A AND O, visibly uncomfortable HENT: Normocephalic, MMM Eyes: Nonicteric sclera, EOMI CV: RRR Pulm: Normal respiratory effort, equal chest rise bilaterally ABD: Soft, nondistended, nontender. No rebound tenderness or guarding. Neuro: L foot weaker than R dorsiflexion and plantarflexion. Able to wiggle toes. Sensation to light touch diffusely intact Extremities: Left foot cool to mid calf. No wounds to b/l LE. Left groin tender to palpation, wound vac in place holding suction, no fluid in canister Pulses: L monophasic fem, no pop/DP/PT. R: biphasic fem, biphasic DP, no pop/PT Psych: Appropriate affect and behavior BMI: Data Unavailable Laboratory Values and Test Results Basic Metabolic Panel None CBC/PT/INR WBC RBC Hgb Hct MCV RDW Plt PT aPTT INR 11/12/20 1652 110 11/12/20 1652 1.12 11/12/20 1652 10.0 3.80 12.1 36.9 97 13.8 190 Studies: 09/25/20 TTE: EF 50-55%, mild septal hypokinesis 11/12/20 LE arterial duplex: Occluded fem-fem R PREMISES TECHNICIAN patent, PT/DP VIANCA 0.2 L monophasic SFA, pop. Undetectable pedal signals 11/12/20 CTA: Recommendations Impression Charles Coreas is a 75 year old year old female with h/o HTN, DM, COPD, and PAD s/p fem-fem bypass (09/26) who presents to the ED as a transfer from [facility] with LLE pain and no pedal signals. Plan - continue high intensity heparin gtt - further plan pending CTA Patient discussed with attending Dr. Lizett Connor MD General Surgery PGY-1 Vascular Surgery #[id number] [place] pager #[phone] (Weekdays 6pm-6am, and Weekends) Addendum: CTA reviewed; Plan for ax-bifem tomorrow. Should patient experience loss of motor/sensation, please notify vascular surgery immediately Continue Heparin drip NPO after midnight ECHO first thing tomorrow T AND C 2u pRBC Trop/BNP EKG Pain control Patient seen and discussed with Dr. Lizett Guerrero [id number] HospitalHobby [id number] Chief complaint Narrative - Reported* CHARLES COREAS is being seen for a consultation for [facility]- ABN/ECHO. * 76-year-old white female who was referred to me for evaluation and management of cardiovascular disease. 20 years ago she had coronary bypass surgery I believe and treated with no recurrent. She has not had any cardiac investigations since. She has longstanding diabetes with severe PAD with historyof thrombectomy and femorofemoral bypass surgery and I have no details of that either. She has beenon chronic Coumadin therapy. The patient has hypertension and hyperlipidemia. She has no known history of atrial fibrillation or stroke. 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 She is lifelong smoker more than a pack daily and has no desire to quit smoking. She reports no angina orthopnea PND but has bilateral lower extremity edema with cellulitis. Her examination was remarkable for right carotid bruit and cellulitis involving the lower extremities. Her EKG revealed sinus rhythm with no significant abnormalities. She had an echocardiogram done several months ago in May 2021 at [facility] ejection fraction 45% withno valvular disease of significance. * Assessment/recommendations: * 1 history of coronary bypass surgery 20 years ago in [place]. Details are lacking. There has been nocardiac investigations since her bypass surgery. Given her risk factors profile the patient will beadvised to have Lexiscan Cardiolite stress test. Based on results further advice to be provided. Risk factor modification was emphasized specially tobacco cessation. * 2 mild left ventricular systolic dysfunction by echocardiogram May. DOMINGA inhibitor will be added and based on the results of the stress test further advice to be provided * 3 hypertension, currently uncontrolled. Lisinopril 10 mg daily will be added and will check her blood pressure when she comes to the office for stress test * 4 hyperlipidemia currently not on statin. Will provide patient with high intensity statin with atorvastatin 40 mg daily. We will follow her labs. * 5 longstanding diabetes managed by PCP. * 6 active tobacco abuse with no desire to quit smoking. She knows the risks and she is willing to take them. * 7 history of deep vein thrombosis on Coumadin therapy. * 8 history of severe PAD with femorofemoral bypass surgery by Dr. Davis, statin and antiplatelet therapy to continue. * 9 cellulitis involving lower extremities managed by PCP she is currently on diuretic therapy. * 10 obesity. 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 Phone: History general Narrative - Reported* Type Description Date Medical History COPD Medical History HTN Medical History CAD Medical History PAD Medical History osteoporosis Medical History DM Medical History hyperlipidemia Surgical History CABG Surgical History partial hysterectomy Surgical History bladder suspension Surgical History left external iliac angioplasty and stent 09/18/20 Surgical History left common femoral endarterectomy; left to right fem-fem bypass with left common iliac angioplasty/stent; left external iliac artery angioplasty/stent 09/26/20 Surgical History I & D of left groin incision 07/21 Hospitalization History see surgical history [place] Other Summary Purpose Family History No Family History Records FoundUnknown Family Member Name Dates Details Adopted: Other(V68.89, Z02.8 2) Status:Active Unknown Family Member Name Dates Details Adopted: Other(., Z02.8 2) Status:Active Unknown Family Member Name Dates Details Adopted: Other(V68.89, Z02.8 2) Status:Active Unknown Family Member Name Dates Details Adopted: Other(8, Z02.8 2) Status:Active Unknown Family Member Name Dates Details Adopted: Other(V68.89, Z02.8 2) Status:Active Unknown Family Member Name Dates Details Adopted: Other(V68.89, Z02.8 2) Status:Active Advance Directives No Advanced Directives Records FoundNo Advanced Directives Records FoundNo Advanced Directives Records FoundNo Advanced Directives Records FoundNo Advanced Directives Records FoundNo Advanced Directives Records FoundNo Advanced Directives Records Found Chief Complaint Patient is here for a BP check while here for her stress test after starting Lisinopril at her lastoffice visit. She denies any issues at this time and states that she is taking her medications as directed. Reviewed with Darlene Telles RN* CHARLES COREAS is being seen for a 6 month follow-up of. * Patient is in the office with her daughter for follow-up for the problems noted below. She has not had any cardiac events since her last visit. I did receive lab data on this patient since her last visit which demonstrated uncontrolled diabetes with A1c over 11. She follows with vascular surgery Dr. Blackburn and she saw him this morning. She is scheduled to have carotid scan in his office in inthe near future. She reports no angina TIA dyspnea orthopnea PND, she does have cellulitis involving lower extremities and she has started antibiotic by her PCP recently. She continues to smoke and has no desire to quit smoking. She had no anginal symptoms. She does have bilateral carotid bruit. * Assessment/recommendations: * 1 history of coronary bypass surgery 20 years ago in [place]. Nuclear stress test 2021 was normal, address risk factor for CAD and emphasized need to quit smoking and controlled hypertension diabetes and hyperlipidemia.. Patient remains at very high risk for recurrent cardiovascular disease including morbidity and mortality due to uncontrolled diabetes and active tobacco abuse. * 2 cellulitis involving both lower extremities currently on antibiotics. * 3 hypertension, currently controlled. Low-salt diet was recommended * 4 hyperlipidemia currently lipid profile is ordered. * 5 longstanding diabetes managed by PCP. Currently not controlled, PCP is addressing, she is on insulin * 6 active tobacco abuse with no desire to quit smoking. She knows the risks and she is willing to take them. * 7 history of deep vein thrombosis on Coumadin therapy. Aspirin will be discontinued since patient is on Plavix * 8 history of severe PAD with femorofemoral bypass surgery by Dr. Davis, statin and antiplatelet therapy to continue. * 9 obesity. Encouraged the patient to cut back on calorie consumption * 10 at risk for fall, education to prevent future falls was discussed with the patient Additional Source Comments INFORMATION SOURCE (unrecogn ized section and content) DATE CREATED AUTHOR 10/05/2021 [facility] DATE CREATED AUTHOR AUTHOR'S ORGANIZ ATION 10/24/2021 [facility] DATE CREATED AUTHOR AUTHOR'S ORGANIZ ATION 11/30/2021 [facility] DATE CREATED AUTHOR AUTHOR'S ORGANIZ ATION 02/06/2023 [facility] DATE CREATED AUTHOR AUTHOR'S ORGANIZ ATION 02/26/2023 [facility] ical Center DATE CREATED AUTHOR AUTHOR'S ORGANIZ ATION 02/26/2023 [employer] DATE CREATED AUTHOR AUTHOR'S ORGANIZ ATION 10/20/2023 [facility] EPIC REASON FOR VISIT (unrecogniz ed section and content) F/U PAD FOR RECORDS PERTAINING TO PATIENTS WHO ARE OR HAVE BEEN ENROLLED IN A CHEMICAL DEPENDENCY/SUBSTANCEABUSE PROGRAM, SOME INFORMATION MAY BE OMITTED. This clinical summary was aggregated from multiple sources. Caution should be exercised in using it in the provision of clinical care. This summary normalizes information from multiple sources, and as a consequence, information in this document may materially change the coding, format and clinical context of patient data. In addition, data may be omitted in some cases. CLINICAL DECISIONS SHOULD BE BASED ON THE PRIMARY CLINICAL RECORDS. [facility] [employer] [facility]. provides no warranty or guarantee of the accuracy or completeness of information in this document.
[2023-11-12 08:42] LABS: Basophils Absolute Auto 0.1 10^3/uL (0.0-0.1); Basophils Percent Auto 0.6 % (0.2-2.0); Eosinophils Absolute Auto 0.2 10^3/uL (0.0-0.7); Eosinophils Percent Auto 1.5 % (0.9-7.0); Hemoglobin 14.6 g/dL (12.0-16.0); Immature Granulocytes Abs Auto 0.03 10^3/uL (0.00-0.03); Immature Granulocytes Pct Auto 0.3 % (0.0-0.5); Lymphocytes Absolute Auto 2.5 10^3/uL (1.2-3.8); Lymphocytes Percent Auto 25.1 % (20.5-60.0); Mean Corpuscular HGB Conc 32.4 g/dL (29.9-35.2); Mean Corpuscular Hemoglobin 32.2 pg (26.7-34.0); Mean Corpuscular Volume 99.3 fL (81.0-99.0); Mean Platelet Volume 11.2 fL (9.5-13.5); Monocytes Absolute Auto 0.7 10^3/uL (0.3-0.8); Neutrophils Absolute Auto 6.5 10^3/uL (1.4-6.5); Neutrophils Percent Auto 65.5 % (43.0-75.0); Platelet Count 200 10^3/uL (150-450); Red Blood Count 4.53 10^6/uL (4.20-5.40)
[2023-11-12 09:31] LABS: Estimated Average Glucose 341 mg/dL; Glycohemoglobin A1C 13.5 % (4.5-6.2)
[2023-11-12 10:31] LABS: Anion Gap 13.3; BUN Creatinine Ratio 18.1; Calcium 9.3 mg/dL (8.5-10.1); Carbon Dioxide 27.7 mmol/L (21.0-32.0); Chloride 100 mmol/L (98-107); Estimated GFR (African America >60 (>=60); Estimated GFR (Non-African Ame 51 (>=60); Glucose 160 mg/dL (74-106); Sodium 138 mmol/L (136-145)
== END 2023-11-12 08:06 | disposition home or self-care (01) ==
LOC: LAB 08:06
PROVIDERS: PCP Nurse Practitioner; Visit Provider Nurse Practitioner
DX: E11.42 Type 2 diabetes mellitus with diabetic polyneuropathy (principal); Z79.4 Long term (current) use of insulin
CPT/HCPCS: 36415; 80048; 83036; 85025

== ENCOUNTER 2023-11-16 18:19 | Emergency (ER) | payer MEDICARE, SELFPAY ==
[2023-11-16] VITALS (32 sets, daily range): BP systolic 119–192; BP diastolic 73–100; PULSE 70–93; RESP 5–31; TEMP 36.4; O2SAT 91–100; BMI 29.3
--- NOTE | 2023-11-16 | CT_ITS ---
The [address] [address] Patient Name: CHARLES COREAS MRN: [id number] date: 1945 Sex: F Assigned Patient Location: ER Current Patient Location: Accession/Order Number: [id number] Exam Date: 11/16/2023 19:00 Report Date: 11/16/2023 20:28 At the request of: ZORAIDA LOYA Procedure: CT chest wo con EXAM: CT chest wo con HISTORY: extremityu pain, cold extremties COMPARISON: None. TECHNIQUE: Unenhanced CT imaging of the chest. This CT exam was performed using one or more of the following dose reduction techniques: Automated exposure control, adjustment of the mA and/or KV according to patient size, or use of iterative reconstruction technique. Unless otherwise stated, incidental findings do not require dedicated follow-up imaging. FINDINGS: The central airway is midline and patent. There are emphysematous changes of the lungs bilaterally. There is a right upper lobe pulmonary nodule measuring 9 mm. There is no pleural effusion or pneumothorax. The heart size is normal. There is no pericardial effusion. A dominant precarinal lymph node measures 15 mm in long axis. There is a right axillary femoral bypass graft. Limited imaging through the upper abdomen reveals no acute abnormality. There are gallstones in the gallbladder. There is degenerative disc disease of the thoracic spine. CT/CT chest wo con IMPRESSION: 1. 9 mm right upper lobe pulmonary nodule. Recommend correlation with PET/CT imaging. 2. Cholelithiasis. Electronically authenticated by: FABIEN MONDRAGON Date: 11/16/2023 20:28
--- OUTSIDE RECORDS SUMMARY | 2023-11-16 18:27 | XMS_ITS | CCD ---
Author Name Unknown Address [address] [place] [address] Organization [facility] Care Team Providers Care Correction Officer [facility] Name Role Phone PROVIDER, UNKNOWN Admitting Unavailable [...] THERAPY SERVICE Consult ing Unavailable REQUEST, IP ENRICHMENT ASSISTANT SERVICE Consul ting Unavailable CONSULT, IP ENDOCRINOLOGY [...] Unavailable DR SELWYN PALMER Admitting Unavailable AICHHOLZ, DRIER HELPER MIMA Primary Care Unavailable AICHHOLZ, DRIER HELPER MIMA Primary Care Unavailable AICHHOLZ, DRIER HELPER MIMA Admitting Unavailable AICHHOLZ, DRIER HELPER MIMA Attending Unavailable AICHHOLZ, DRIER HELPER MIMA Consulting Unavailable AICHHOLZ, DRIER HELPER MIMA Primary Care Unavailable AICHHOLZ, DRIER HELPER MIMA Admitting Unavailable AICHHOLZ, DRIER HELPER MIMA Attending Unavailable AICHHOLZ, DRIER HELPER MIMA Consulting Unavailable AICHHOLZ, DRIER HELPER MIMA Admitting Unavailable AICHHOLZ, DRIER HELPER MIMA Attending Unavailable AICHHOLZ, DRIER HELPER MIMA Consulting Unavailable AICHHOLZ, DRIER HELPER MIMA Primary Care Unavailable AICHHOLZ, DRIER HELPER MIMA Admitting Unavailable AICHHOLZ, DRIER HELPER MIMA Attending Unavailable AICHHOLZ, DRIER HELPER MIMA Consulting Unavailable AICHHOLZ, DRIER HELPER MIMA Primary Care Unavailable AICHHOLZ, DRIER HELPER MIMA Primary Care Unavailable FAWWAD, CHAN H Admitting Unavailable FAWWAD, CHAN H Attending Unavailable AICHHOLZ, DRIER HELPER MIMA Primary Care Unavailable FAWWAD, CHAN H Admitting Unavailable FAWWAD, CHAN H Attending Unavailable AICHHOLZ, DRIER HELPER MIMA Primary Care Unavailable FAWWAD, CHAN H Attending Unavailable FAWWAD, CHAN H Admitting Unavailable Yulissa Barnhart Unavailable [facility], Mrs. Guillermo Soraya Primary Care Unavailab le Annika, Dr. Rowan Aranda Attending Valeria vailable Yanez, Dr. Rowan Aranda Referring Valeria vailable Aichholmarlen, Mrs. Mima Lira Primary Care Unavailab renetta Yanez, Dr. Rowan Aranda Attending Valerai vailable Yanez, Dr. Rowan Aranda Referring Valeria [...] every week Vitamin D (Ergocalciferol) 1.25 MG (28927 UT) Oral Capsule take 1 capsule by [...] MG Oral Tablet warfarin is managed by [facility] . Quantity: 0 Refills: 0 [...] [Coronary atherosclerosis of unspecified type of vessel, ho-chunk or graft] Chronic Diabetes mellitus without complication [...] other medications] Episodic Other aftercare (5 sources) senior living (current) use of anticoagulants; Translations: [SENIOR CARE CURRNT USE ANTICOAGULANTS] Onset: 11-11-2022 Episodic Other [...] Onset: 04-22-2022 Episodic Other aftercare (1 source) senior living (current) use of insulin; Translations: [PHYSICIAN RELATIONS REPRESENTATIVE CURRENT USE OF INSULIN] Onset: 06-03-2022 Episodic Other aftercare (1 source) Other terminal block assembler (current) drug therapy; Translations: [OTH SENIOR CARE CURRENT DRUG THERAPY] Onset: 06-03-2022 Episodic Results [...] we can help. You may also call 7-165-DNTMNOW for free resources and assistance.; Status:Complete - [...] coronary bypass surgery 20 years ago in [place]. Nuclear stress test 2021 was normal, address [...] No alcoho (more content not included)... Normal [facility] Tobacco Screening.on 023 Adult depression screening assessment No [facility] y 250 DO Work Phone: Fall risk assessment b) One or more fall s in the last year [facility] y 250 DO Work Phone: Tobacco use status CPHS a) Yes [facility] y 250 DO Work Phone: Tobacco Screening. Yes [facility] y 250 DO Work Phone: PROTIMEon 11-11-2022 INR Coag (PPP) [Relative time] 1.05 {INR} Normal [facility] Comment on above: Performed By: #### P T #### [facility] [address] [place] [address] Dr. Sadia Toth INR GUIDELINES SEE BELOW Normal [facility] Comment on above: Result Comment: GAMAL RED INR: 2.0 - 3.0 CONDITIONS NOT LISTED BELOW 2.5 - 3.5 FOR PROSTHETIC HEART VALVE REPLACEMENT 2.5 - 3.5 RECURRENT THROMBOSIS Performed By: #### P T #### [facility] [address] [address] [address] Sadia Toth PT Coag (PPP) [Time] 11.1 s Normal 9.0-11.6 [facility] Comment on above: Performed By: #### P T #### [facility] [address] [place] [address] Dr. Sadia Toth GLYCOHEMOGLOBIN A1Con 2021 ADA RECOMMENDATION SEE BELOW Normal [facility] Comment on above: Result Comment: ADA RECOMMENDED LIMIT 4.0 - 6.0 ADA THERAPEUTIC TARGET < 7.0 ACTION SUGGESTED > 7.0 Performed By: #### A 1C #### [facility] [address] [place] [address] Dr. Sadia Toth Glucose [Mass/Vol] 272 mg/dL Normal [facility] Comment on above: Performed By: #### A 1C #### [facility] [address] [place] [address] Dr. Sadia Toth HbA1c (Bld) [Mass fraction] 11.1 % Critically high 4.5-6.2 [facility] Comment on above: Performed By: #### A 1C #### [facility] [address] [place] [address] Dr. Sadia Toth PROF CHEM 8 (BAS METB)on Anion gap [Moles/Vol] 12.4 mmol/L Normal [facility] Comment on above: Performed By: #### B MP #### [facility] [address] [place] [address] Dr. Sadia Toth Calcium [Mass/Vol] 9.5 mg/dL Normal 8.5-10.1 [facility] Comment on above: Performed By: #### B MP #### [facility] [address] [address] [address] Sadia Toth Chloride [Moles/Vol] 105 mmol/L Normal 98-107 [facility] Comment on above: Performed By: #### B MP #### [facility] [address] [address] [address] Sadia Toth CO2 [Moles/Vol] 29.7 mmol/L Normal 21.0-32.0 [facility] Comment on above: Performed By: #### B MP #### [facility] [address] [address] [address] Sadia Toth Creatinine [Mass/Vol] 1.00 mg/dL Normal 0.55-1.02 [facility] Comment on above: Performed By: #### B MP #### [facility] [address] [address] [address] Sadia Toth EGFR-AF ARMENIAN >60 Normal >=60 [facility] Comment on above: Performed By: #### B MP #### [facility] [address] [address] [address] Sadia Toth EGFR-NON AF ARMENIAN 54 mL/min/1.73m2 Critically low >=60 [facility] Comment on above: Performed By: #### B MP #### [facility] [address] [address] [address] Sadia Toth Glucose [Mass/Vol] 181 mg/dL Critically high 74-106 [facility] Comment on above: Performed By: #### B MP #### [facility] [address] [address] [address] Sadia Toth Potassium [Moles/Vol] 4.1 mmol/L Normal 3.5-5.1 [facility] Comment on above: Performed By: #### B MP #### [facility] [address] [address] [address] Sadia Toth Sodium [Moles/Vol] 143 mmol/L Normal 136-145 [facility] Comment on above: Performed By: #### B MP #### [facility] [address] [place] [address] Dr. Sadia Toth Urea nitrogen [Mass/Vol] 12.0 mg/dL Normal 7.0-18.0 [facility] Comment on above: Performed By: #### B MP #### [facility] [address] [place] [address] Dr. Sadia Toth Urea nitrogen/Creatinine [Mass ratio] 12.0 mg/mg Normal [facility] Comment on above: Performed By: #### B MP #### [facility] [address] [place] [address] Dr. Sadia Toth PROTIMEon 08-11-2022 INR Coag (PPP) [Relative time] 2.05 {INR} Normal [facility] Comment on above: Performed By: #### P T #### [facility] [address] [place] [address] Dr. Sadia Toth INR GUIDELINES SEE BELOW Normal [facility] Comment on above: Result Comment: GAMAL RED INR: 2.0 - 3.0 CONDITIONS NOT LISTED BELOW 2.5 - 3.5 FOR PROSTHETIC HEART VALVE REPLACEMENT 2.5 - 3.5 RECURRENT THROMBOSIS Performed By: #### P T #### [facility] [address] [place] [address] Dr. Sadia Toth PT Coag (PPP) [Time] 21.1 s Critically high 9.0-11.6 [facility] Comment on above: Performed By: #### P T #### [facility] [address] [place] [address] Dr. Sadia Toth PROTIMEon 06-26-2022 INR Coag (PPP) [Relative time] 1.37 {INR} Normal [facility] Comment on above: Performed By: #### P T #### [facility] [address] [place] [address] Dr. Sadia Toth INR GUIDELINES SEE BELOW Normal [facility] Comment on above: Result Comment: GAMAL RED INR: 2.0 - 3.0 CONDITIONS NOT LISTED BELOW 2.5 - 3.5 FOR PROSTHETIC HEART VALVE REPLACEMENT 2.5 - 3.5 RECURRENT THROMBOSIS Performed By: #### P T #### [facility] [address] [place], [place] [address] Dr. Sadia Toth PT Coag (PPP) [Time] 14.5 s Critically high 9.0-11.6 [facility] Comment on above: Performed By: #### P T #### [facility] [address] [place], [place] [address] Dr. Sadia Toth Office Visit (Cardiology)on 05-20-2022 [...] Weight Tips; Status:Complete - Retrospective Authorization; Done: [id number] Some eating tips that can help you lose weight.; Status:Complete - Retrospective Authorization; Done: [id number] Essential hypertension, benign, Hyperlipidemia ALT - Alanine [...] we can help. You may also call 4-761-DYJATransPharma MedicalNOW for free resources and assistance.; Status:Complete - [...] consumption Surgical (more content not included)... Normal [facility] WOUND CULTUREon 04-28-2022 Antimicrobial Susceptibility Comment Normal [facility] Comment on above: Result Comment: S = [...] S Performed By: #### C XWND #### [facility] [address] [place] [address] Dr. Sadia Toth Bacteria identified Aer cx Nom (Unsp spec) Final report Abnormal [facility] Comment on above: Performed By: #### C XWND #### [facility] [address] [place] [address] Dr. Sadia Toth Result 1 Comment Abnormal [facility] Comment on above: Result Comment: Pseu domonas aeruginosa Heavy growth Performed By: #### C XWND #### [facility] [address] [place] [address] Dr. Sadia Toth Result 2 Staphylococcus aureus Abnormal [facility] Comment on above: Result Comment: Base d [...] growth Performed By: #### C XWND #### [facility] [address] [place] [address] Dr. Sadia Toth CBC AUTO DIFFon 04-22-2022 BASO # 0.0 103/ul Normal 0.0-0.1 [facility] Comment on above: Performed By: #### C BC #### [facility] [address] [place] [address] Dr. Sadia Toth Basophils/100 WBC (Bld) 0.5 % Normal 0.2-2.0 [facility] Comment on above: Performed By: #### C BC #### [facility] [address] [place] [address] Dr. Sadia Toth EO # 0.2 103/ul Normal 0.0-0.7 [facility] Comment on above: Performed By: #### C BC #### [facility] [address] [place] [address] Dr. Sadia Toth Eosinophils/100 WBC (Bld) 2.0 % Normal 0.9-7.0 [facility] Comment on above: Performed By: #### C BC #### [facility] [address] [place] [address] Dr. Sadia Toth Erythrocyte distribution width (RBC) [Ratio] 14.2 % Normal 11.0-15.0 [facility] Comment on above: Performed By: #### C BC #### [facility] [address] [place] [address] Dr. Sadia Toth Hematocrit (Bld) [Volume fraction] 44.2 % Normal 36.0-48.0 [facility] Comment on above: Performed By: #### C BC #### [facility] [address] [place] [address] Dr. Sadia Toth Hemoglobin (Bld) [Mass/Vol] 14.0 g/dL Normal 12.0-16.0 [facility] Comment on above: Performed By: #### C BC #### [facility] [address] [place] [address] Dr. Sadia Toth IG # 0.03 10e3/ul Normal 0.00-0.03 [facility] Comment on above: Performed By: #### C BC #### [facility] [address] [place] [address] Dr. Sadia Toth IG % 0.4 % Normal 0.0-0.5 [facility] Comment on above: Performed By: #### C BC #### [facility] [address] [place] [address] Dr. Sadia Toth LYMPH # 1.8 103/ul Normal 1.2-3.8 [facility] Comment on above: Performed By: #### C BC #### [facility] [address] [place] [address] Dr. Sadia Toth Lymphocytes/100 WBC (Bld) 21.5 % Normal 20.5-60.0 [facility] Comment on above: Performed By: #### C BC #### [facility] [address] [place] [address] Dr. Sadia Toth MANUAL DIFF REQ NO Normal [facility] Comment on above: Performed By: #### C BC #### [facility] [address] [place] [address] Dr. Sadia Toth MCH (RBC) [Entitic mass] 32.1 pg Normal 26.7-34.0 [facility] Comment on above: Performed By: #### C BC #### [facility] [address] [address] [address] Sadia Toth MCHC (RBC) [Mass/Vol] 31.7 g/dL Normal 29.9-35.2 [facility] Comment on above: Performed By: #### C BC #### [facility] [address] [address] [address] Sadia Toth MCV (RBC) [Entitic vol] 101.4 fL Critically high 81.0-99.0 [facility] Comment on above: Performed By: #### C BC #### [facility] [address] [address] [address] Sadia Toth MONO # 0.6 103/ul Normal 0.3-0.8 [facility] Comment on above: Performed By: #### C BC #### [facility] [address] [place] [address] Dr. Sadia Toth Monocytes/100 WBC (Bld) 6.9 % Normal 1.7-12.0 [facility] Comment on above: Performed By: #### C BC #### [facility] [address] [place] [address] Dr. Sadia Toth NEUT # 5.9 103/ul Normal 1.4-6.5 [facility] Comment on above: Performed By: #### C BC #### [facility] [address] [address] [address] Sadia Toth Neutrophils/100 WBC (Bld) 68.7 % Normal 43.0-75.0 [facility] Comment on above: Performed By: #### C BC #### [facility] [address] [address] [address] Sadia Toth Platelet mean volume (Bld) [Entitic vol] 11.3 fL Normal 9.5-13.5 [facility] Comment on above: Performed By: #### C BC #### [facility] [address] [address] [address] Sadia Toth PLT 187 103/ul Normal 150-450 [facility] Comment on above: Performed By: #### C BC #### [facility] [address] [place] [address] Dr. Sadia Toth RBC 4.36 106/ul Normal 4.20-5.40 [facility] Comment on above: Performed By: #### C BC #### [facility] [address] [place] [address] Dr. Sadia Toth WBC 8.6 103/ul Normal 4.0-11.0 [facility] Comment on above: Performed By: #### C BC #### [facility] [address] [place] [address] Dr. Sadia Toth GLYCOHEMOGLOBIN A1Con 2021 ADA RECOMMENDATION SEE BELOW Normal [facility] Comment on above: Result Comment: ADA RECOMMENDED LIMIT 4.0 - 6.0 ADA THERAPEUTIC TARGET < 7.0 ACTION SUGGESTED > 7.0 Performed By: #### A 1C #### [facility] [address] [place] [address] Dr. Sadia Toth Glucose [Mass/Vol] 252 mg/dL Normal [facility] Comment on above: Performed By: #### A 1C #### [facility] [address] [place] [address] Dr. Sadia Toth HbA1c (Bld) [Mass fraction] 10.4 % Critically high 4.5-6.2 [facility] Comment on above: Performed By: #### A 1C #### [facility] [address] [place] [address] Dr. Sadia Toth PROF CHEM 8 (BAS METB)on Anion gap [Moles/Vol] 12.2 mmol/L Normal [facility] Comment on above: Performed By: #### B MP #### [facility] [address] [place] [address] Dr. Sadia Toth Calcium [Mass/Vol] 9.0 mg/dL Normal 8.5-10.1 [facility] Comment on above: Performed By: #### B MP #### [facility] [address] [place] [address] Dr. Sadia Toth Chloride [Moles/Vol] 103 mmol/L Normal 98-107 [facility] Comment on above: Performed By: #### B MP #### [facility] [address] [address] [address] Sadia Toth CO2 [Moles/Vol] 27.3 mmol/L Normal 21.0-32.0 [facility] Comment on above: Performed By: #### B MP #### [facility] [address] [address] [address] Sadia Toth Creatinine [Mass/Vol] 1.16 mg/dL Critically high 0.55-1.02 [facility] Comment on above: Performed By: #### B MP #### [facility] [address] [place] [address] Dr. Sadia Toth EGFR-AF ARMENIAN 55 mL/min/1.73m2 Critically low >=60 [facility] Comment on above: Performed By: #### B MP #### [facility] [address] [place] [address] Dr. Sadia Toth EGFR-NON AF ARMENIAN 45 mL/min/1.73m2 Critically low >=60 [facility] Comment on above: Performed By: #### B MP #### [facility] [address] [place] [address] Dr. Sadia Toth Glucose [Mass/Vol] 356 mg/dL Critically high 74-106 [facility] Comment on above: Performed By: #### B MP #### [facility] [address] [address] [address] Sadia Toth Potassium [Moles/Vol] 4.5 mmol/L Normal 3.5-5.1 [facility] Comment on above: Performed By: #### B MP #### [facility] [address] [address] [address] Sadia Toth Sodium [Moles/Vol] 138 mmol/L Normal 136-145 [facility] Comment on above: Performed By: #### B MP #### [facility] [address] [address] [address] Sadia Toth Urea nitrogen [Mass/Vol] 23.0 mg/dL Critically high 7.0-18.0 [facility] Comment on above: Performed By: #### B MP #### [facility] [address] [address] [address] Sadia Toth Urea nitrogen/Creatinine [Mass ratio] 19.8 mg/mg Normal [facility] Comment on above: Performed By: #### B MP #### [facility] [address] [address] [address] Sadia Toth PROTIMEon 04-22-2022 INR Coag (PPP) [Relative time] 2.58 {INR} Normal [facility] Comment on above: Performed By: #### P T #### [facility] [address] [place] [address] Dr. Sadia Toth INR GUIDELINES SEE BELOW Normal [facility] Comment on above: Result Comment: GAMAL RED INR: 2.0 - 3.0 CONDITIONS NOT LISTED BELOW 2.5 - 3.5 FOR PROSTHETIC HEART VALVE REPLACEMENT 2.5 - 3.5 RECURRENT THROMBOSIS Performed By: #### P T #### [facility] [address] [address] [address] Sadia Toth PT Coag (PPP) [Time] 26.2 s Critically high 9.0-11.6 [facility] Comment on above: Performed By: #### P T #### [facility] [address] [place] [address] Dr. Sadia Toth [facility] CARDIAC STRESS/REST INJE CTIONon 11-26-2021 [facility] CARDIAC STRESS/REST INJECTION Patient Name: CHARLES COREAS STUDY: MYOCARDIAL PERFUSION STRESS TEST WITH LEXISCAN Performing facility: [facility], [address] [place] [address], [address], [place] [address] [facility] Provider: Rowan Yanez MD, FACC PCP: Dr. Alonso Mohr Supervising provider: Navneet Carrasquillo MD, FACC INDICATION: CAD; DM HTNM HISTORY: Gender: F; Age: 76 y/o ; Height: 0 cm; Weight: 0 kg. CAD; High Cholesterol; Abnormal EKG; Diabetes; HTN; COPD; Currently smoking. CABG on 20 years ago. COMPARISON: No comparison. ACCESSION NUMBER(S): [id number]; [id number]; [id number] ORDERING CLINICIAN: ROWAN YANEZ TECHNIQUE: ONE DAY [...] Electronically signed by: ROWAN YANEZ MD Normal [facility] No Panel Informationon 11-26 Normal [facility] Work Phone: Tobacco Screening.on 022 Adult depression screening assessment No [facility] 250 DO Work Phone: Fall risk assessment a) No falls within the last year [facility] 250 DO Work Phone: Tobacco use status CPHS a) Yes [facility] DO Work Phone: Tobacco Screening. Yes [facility] [place] [facility] 250 DO Work Phone: US carotid doppler BIon 08-2 US carotid doppler BI [facility] Main [place] [address] [place] [id number] Ultrasound Report Signed Patient: Charles Coreas MR#: [id number] 79 : 1945 Acct:[id number] Age/Sex: 76 / F ADM Date: 04/25/21 Loc: [facility] Room: Type: [facility] Attending Dr: Scar Blackburn MD Ordering Provider: [...] Scar Blackburn MD04/25/2021 1:14 PM Dictation Location: [place] [address] Tech: Estelle Ford Transcribed By: KINA 04/25/211313 Dictated By: Scar Blackburn MD 04/25/211311 Signed By: 04/25/211313 Normal [facility] Telephone Encounteron 2020 [facility] Authentication Interface Message Text Spoke with Dtr Anni who stated patient is now having INR/Coumadin monitored through [facility]. Discharging pt from INR monitoring clinic d/t patient having different provider outside monitoring INR/Coumadin. Added comment to anticoag track Standing INR order(s), warfarin rx (if pt stopping med) and anticoag episode resolved. If patient switched to DOAC by [facility] FYI sent to pcp Normal [facility] Telephone Encounteron 2020 [facility] Authentication Interface Message Text Patient enrolled in Anticoagulation Clinic for warfarin monitoring and according to our records is past due for repeat INR. Left message and advised of risks of INR not being monitored as recommended and to come for INR MISHA, also advised to please call back with phone number [phone], will also send letter (and my chart message if applicable?) . Patient further warned that if not in by 12 wks will address with on file. Normal [facility] US arterial duplex LE BIon 0 03-20-2021 US arterial duplex LE BI [facility] Main [place] [id number] Ultrasound Report Signed Patient: Charles Coreas MR#: [id number] 79 : 1945 Acct:[id number] Age/Sex: 76 / F ADM Date: 03/19/21 [...] Scar Blackburn MD03/20/2021 3:04 PM Dictation Location: [place] [address] Tech: Megan Smith Transcribed By: KINA 03/20/21 1504 Dictated By: Scar Blackburn MD 03/20/21 1502 Signed By: 03/20/21 1504 [facility] US ankle/arm indiceson 03-19 US ankle/arm indices [facility] [place] [address] Ultrasound Report Signed Patient: Charles Coreas MR#: [id number] 79 : 1945 Acct:[id number] Age/Sex: 76 / F ADM Date: 03/19/21 Loc: Room: Type: [facility] Attending Dr: Scar Blackburn MD Ordering [...] Scar Blackburn MD03/19/2021 3:50 PM Dictation Location: [place] [address] Tech: Megan Smith Transcribed By: KINA 03/19/21 5770 Dictated By: Scar Blackburn MD 03/19/21 1540 Signed By: 03/19/21 4119 Normal [facility] Telephone Encounteron 2020 [facility] Authentication Interface Message Text Patient enrolled in Anticoagulation Clinic for warfarin monitoring and according to our records is past due for repeat INR. Left message and advised of risks of INR not being monitored as recommended and to come for INR MISHA and advised to please call back with phone number [phone] 2nd attempt, will send letter (and my chart message if applicable?) . Normal [facility] [employer] [facility] Telephone Encounteron 2020 [facility] Authentication Interface Message Text Patient enrolled in Anticoagulation Clinic for warfarin monitoring and according to our records is past due for repeat INR. No answer and voicemail is full 1st attempt, will postpone 1 wk and try one more time. Normal [facility] [employer] [facility] Telephone Encounteron 2020 [facility] Authentication Interface Message Text INR (no units) Date Value 12/18/2020 2.38 (H) 12/10/2020 2.1 Patient enrolled in [facility] for warfarin monitoring and according to our records is past due for repeat INR. Left message for patient and reminded to come for INR MISHA. [facility] phone # [phone] provided for any questions/concerns. Left message for dtr to call back- Please verify with dtr if patient will be going to lab outside of [facility] or if [facility] will come to draw lab. Need to know where to send order- see track for more info. Normal [facility] [employer] [facility] Progress Noteson 12-25-2020 [facility] Interface Message Text Documentation: Mode: Telephone Patient Patient Work Phone: Patient Cell Phone: Preferred phone: [phone] Consent: I confirmed patient understanding of the risks and benefits of telehealth visits and obtained consent to proceed with the telehealth visit. Location of Patient: Home of patient No answer Left VM X 2 Normal [facility] [employer] [facility] Telephone Encounteron 2020 [facility] Authentication Interface Message Text Contacted daughter on [...] applicable, additional information addressed and updated from [employer] Track : Description HC Newer to warfarin -- Pt will go to outside lab in [facility], dtr will call back with fax number -- use HC or outside lab? Advised plan below: 4.5 mg every day Anticoagulation Episode Summary TTR: -- Next INR check: 01/01/2021 Message CC'd to admin to create telephone appt per protocol Normal [facility] [employer] Interface Message Text Received INR, see new encounter. Normal [facility] [employer] Interface Message Text Attempting to contact patient to discuss INR lab results of: INR Date Value Ref Range Status 12/18/2020 2.38 (H) 0.90 - 1.10 Final Left message with [facility]'s phone number [phone] and advised to please call back. Left message to call back since patient is new. Also need to make sure patient wants HC to draw next INR. Normal The [employer] Authentication Interface Message Text Will route to nurse pool, if we dont receive result by 3pm, will call [facility] services to get result. Normal [facility] [employer] [facility] [employer] [facility] PROTHROMBIN TIME AND INRon 0 12-18-2020 INR Coag (PPP) [Relative time] 2.38 {INR} High 0.90-1.10 [facility] [employer] Comment on above: Performed By: #### P T ####[facility] [id number] [place], [place], PT Coag (PPP) [Time] 26.7 s High 9.7-12.9 [facility] [employer] Comment on above: Performed By: #### P T ####[facility] [id number] [place], [place], Procedureson 12-18-2020 [facility] Authentication Interface Message Text Vascular Lower Extremities Arterial Duplex [address] [place], [place] [address] Status:Under Revision Rev.1 Demographics Patient name: LYUDMILA Espinosa Gender: Female Date of : 1945 Age: 75 year(s) Procedure Information Procedure date: 12/18/2020 1:00 PM Procedure type: Vascular Proc. sub type: Extremities Arteries, Lower Extremities Arterial Duplex, PERIPHERAL ARTERY SCAN LE Accession no: [id number] Patient status: Routine Study location: Vascular Lab Technical quality: Limited visualization Limitation reason: Poor acoustical window Procedure Staff Referring Physician: LIZETT Aceves MD Interpreting physician: ESTHER TAM MD Satellite D[employer] Technician: Bianka Marin T Indications Follow-up of surgical procedure. Risk Factors Hypertension, Prior [place] and PAD. 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/13/2020, Left superficial thrombectomy/bovine patch repair 11/13/2020, Left superficial artery thrombectomy, Left SFA angiogram and angioplasty 11/13/2020 Page 1/2 LYUDMILA Espinosa 1945 [id number] 12/18/2020 1:00 PM Vascular Lower Extremities Arterial [...] c/w stenosis Page 2/2 LYUDMILA Espinosa 1945 [id number] 12/18/2020 1:00 PM Normal [facility] [employer] [facility] Authentication Interface Message Text Vascular Lower Extremities Doppler Segmental Pressures [facility] [employer] [place] [address] Status:Under Revision Rev.1 Demographics Patient name: LYUDMILA Espinosa Gender: Female Date of : 1945 Age: 75 year(s) Procedure Information Procedure date: 12/18/2020 12:59 PM Procedure type: Vascular Proc. sub type: Extremities Arteries, Lower Arterial Plethysmography, DOPPLER SEGMENTAL PRESSURE Accession no: [id number] Patient status: Routine Study location: Vascular Lab Technical quality: Good visualization Procedure Staff Referring Physician: LENNY ANDRADE Satellite Dish Technician: Bianka Marin RVT Interpreting physician: ESTHER TAM MD Indications Claudication and follow up examination. Risk Factors Hypertension, CAD, Prior [place] and PAD. 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/13/2020, Left superficial thrombectomy/bovine patch repair 11/13/2020, Left superficial artery thrombectomy, Left SFA angiogram and angioplasty 11/13/2020 Page 1 LYUDMILA Espinosa 1945 [id number] 12/18/2020 12:59 PM Vascular Lower Extremities Doppler Segmental Pressures LE Pressures Right Location Pressure (mmHg) Indices Waveform description Brachial 118 Upper Thigh 137 0.74 Triphasic Lower Thigh 128 0.69 Triphasic Calf 106 0.57 Triphasic PUBLIC HE[employer] SOCIAL WORKER 106 0.57 Triphasic DPA 119 0.64 Triphasic Left Location Pressure (mmHg) Indices Waveform description Brachial 185 Upper Thigh 154 0.83 Biphasic Lower Thigh 146 0.79 Biphasic Calf 142 0.77 Triphasic PUBLIC HEALTH SOCIAL WORKER 169 0.91 Triphasic DPA 189 1.02 Triphasic [...] arterial insufficiency. Page 2 LYUDMILA Espinosa 1945 [id number] 12/18/2020 12:59 PM Normal [facility] [employer] [facility] Progress Noteson 12-18-2020 [facility] Interface Message Text Identification was verified by patient verbalizing her name and date of . Pt INR obtained Normal [facility] [employer] Telephone Encounteron 2020 [facility] Interface Message Text [facility] Nurse Pedro Pablo [phone] Normal [facility] [employer] [facility] Authentication Interface Message Text Spoke with patients daughter, she is taking the patient to [facility] today to have INR checked. Gave her our fax number to have results sent to us, Normal [facility] [employer] [facility] Interface Message Text Spoke to Lab at [facility]. They have no lab results on record for this patient since last years. LM for daughter to please call back to [phone]. Also left message for HC nurse, Pedro Pablo asking for call back. Will see if Pedro Pablo can draw INR for patient while in the home this week. Also send order to [facility] for INR test. Normal [facility] [employer] Telephone Encounteron 2020 [facility] Interface Message Text Spoke with daughter and received phone number for Dr office that patient sees in [facility] and they do have a lab there. Printed standing order for patient to go to lab at [facility]. Daughter also mentioned patient has HC. Per daughter it is with [facility] and nurses name is Pedro Pablo. Patient will only have 5 visits. Will hold off on sending order because daughter states that patient has a dr appointment on Thursday at [facility]. Patient will get INR done while at appointment and they will call us with result. Will postpone this note until 12/18 to make sure we get result. Then will print HC order for next INR. Normal [facility] [employer] Telephone Encounteron 2020 [facility] Interface Message Text Kamilla Phoenix MD You 17 minutes ago (10:14 AM) I agree with the coumadin clinic managing this patients' anticoagulation Normal [facility] [employer] [facility] Interface Message Text Patient lives in [facility] but will have [facility] monitor Warfarin for now since seeing vascular here. Daughter Anni will find out fax number for lab in their area and call us back with number so we can fax standing order for INR. Will postpone note for a couple days incase daughter doesn't call back with fax number. Normal [facility] [employer] [facility] Interface Message Text I spoke to patient and discussed the pharmacist consult agreement. Based on our conversation they agree with consult. Answered any questions and gave clinics phone number [phone] to call if any questions/concerns in future. Normal [facility] [employer] [facility] Interface Message Text Patient lives in [facility] but will have [facility] monitor Warfarin for now since seeing vascular here. Daughter Anni will find out fax number for lab in their area and call us back with number so we can fax standing order for INR. Will postpone note for a couple days incase daughter doesn't call back with fax number. Normal [facility] [employer] [facility] Telephone Encounteron 2020 [facility] Interface Message Text Nursing Facility would like to know when bailee should come off and can it be done in Nursing Facility ? Please call thank you Normal [facility] [employer] [facility] Telephone Encounteron 2020 [facility] Interface Message Text Spoke to nurse at SNF pt currently at, per nurse will be there ~2 months, pt on warfarin, they will monitor and call us when d/c Normal [facility] [employer] [facility] Care Plan Noteon 11-22-2020 [facility] Interface Message Text Problem: Routine Care: [...] met Outcome: Adequate for Discharge Normal [facility] [employer] [facility] Discharge Planning Noteon [facility] Interface Message Text Pt is set to discharge today at 2:00pm via [facility] transportation stretcher to [facility] PRIOR to discharge please ensure: ??? Medications are reconciled AND discharge summary is complete. ??? Paper prescriptions for any narcotics are included in transfer envelope. ??? Once medications are reconciled, [place] to print Summary of Care AND Melchor Don (staple to signature page). ??? RN call report to: [phone] Maia Silverman, ANIMAL CONTROL LICENSING WORKER Social Work,[phone] Normal [facility] GLUCOSE, FINGERSTICK-IN OFFI CEon 11-22-2020 Glucose [Mass/Vol] 227 mg/dL High 80-116 [facility] Comment on above: Performed By: #### C R BGA, CR ICA, LACT, CR COOX, CR GLU, CR LYTES #### S PATHOLOGY LABORATORY [address] [place] [address], Glucose [Mass/Vol] 233 mg/dL High 80-116 [facility] Comment on above: Performed By: #### C R BGA, CR ICA, LACT, CR COOX, CR GLU, CR LYTES #### S PATHOLOGY LABORATORY [address] [place] [address], Glucose [Mass/Vol] 239 mg/dL High 80-116 [facility] Comment on above: Performed By: #### C R BGA, CR ICA, LACT, CR COOX, CR GLU, CR LYTES #### S PATHOLOGY LABORATORY [address] [place] [address], NOVEL CORONAVIRUS (COVID-19) on 11-22-2020 SARS-CoV-2 (COVID-19) RNA SRINI+probe Ql (Unsp spec) Not detected Normal Not Detected [facility] Comment on above: Order Comment: This test is intended for use only under Emergency Use Authorization (EUA). This test was developed, and its performance characteristics determined by [employer] which is certified under CLIA as qualified to perform high complexity clinical laboratory testing. Result Comment: This assay was performed using [employer] RTPCR technology. Performed By: #### C OVID19 ####[facility] PATHOLOGY [id number] [place], [place], PROTHROMBIN TIME AND INRon 0 11-22-2020 INR Coag (PPP) [Relative time] 1.97 {INR} High 0.90-1.10 [facility] Comment on above: Performed By: #### C R BGA, CR ICA, LACT, CR COOX, CR GLU, CR LYTES #### S PATHOLOGY LABORATORY [address] [place], [place], PT Coag (PPP) [Time] 22.1 s High 9.7-12.9 [facility] Comment on above: Performed By: #### C R BGA, CR ICA, LACT, CR COOX, CR GLU, CR LYTES #### S PATHOLOGY LABORATORY [address] [place], [place], Procedureson 11-22-2020 [facility] Aut[facility] Interface Message Text Vascular Lower Extremities Venous Duplex [address] [place], [place] [address] Status:Open Demographics Patient name: LYUDMILA Espinosa Gender: Female Date of : 1945 Age: 75 year(s) Procedure Information Procedure date: 11/22/2020 9:42 AM Procedure type: Vascular Proc. sub type: Veins, Lower Extremities DVT Study, LIMITED DUPLEX VEIN SCAN LE Accession no: [id number] Patient status: Routine Study location: Portable Technical quality: Adequate visualization Procedure Staff Referring Physician: LIZETT Aceves MD [employer]ellite D[employer] Technician: Federico Sanchez RVT Interpreting physician: MARLENE MEJIA MD Indications Pain, edema, discoloration. Risk Factors Additional comments: Rt Ax-Bifem, Lt SFA endarterectomy/thrombect dixon and patch angiogram/angioplasty 11/13/2020 Page 1/2 LYUDMILA Espinosa 1945 [id number] 11/22/2020 9:42 AM Vascular Lower Extremities Venous [...] femoral vein. Page 2/ LYUDMILA Espinosa 1945 [id number] 11/22/2020 9:42 AM Normal [facility] [employer] [facility] Progress Noteson 11-22-2020 [facility]hentication Interface Message Text Preliminary Vascular Lab Report Duplex Left Lower Extremity Vein Scan No evidence deep vein thrombus left lower extremity, official report to follow. Marilyn Sanchez Pat Normal [facility] [employer] [facility] Interface Message Text SW received call from [facility] and was informed Pre-cert has been obtained. Admissions stated they will need a COVID test before pt can Admit. RABIA paged MD to place order. Once COVID results are in pt can transfer. RABIA awaiting call back from . GAVI Moralez [employer] Work,[phone] ADDENDUM 8:24am RABIA received call back from . aware and will place order. GAVI Moralez [employer],[phone] ADDENDUM 12:03pm RABIA faxed COVID results to admissions. SW to complete transport form for [facility]. Once transport is confirmed RABIA will inform pt and confirm report number with admissions. GAVI Moralez [employer],[phone] Normal [facility] [employer] Care Plan Noteon 11-21-2020 [facility] Interface Message Text Problem: Routine Care: [...] will be met Outcome: Progressing Normal [facility] GLUCOSE, FINGERSTICK-IN OFFI CEon 11-21-2020 Glucose [Mass/Vol] 312 mg/dL High 80-116 [facility] Comment on above: Performed By: #### C R BGA, CR ICA, LACT, CR COOX, CR GLU, CR LYTES #### S PATHOLOGY LABORATORY [address] [place] [address], Glucose [Mass/Vol] 262 mg/dL High 80-116 [facility] Comment on above: Performed By: #### 8 2948 ####NURSING GLUCOSE [id number] [place], [address] Glucose [Mass/Vol] 350 mg/dL High 80-116 [facility] Comment on above: Performed By: #### C R BGA, CR ICA, LACT, CR COOX, CR GLU, CR LYTES #### S PATHOLOGY LABORATORY [address] [place], [place], Glucose [Mass/Vol] 216 mg/dL High 80-116 [facility] Comment on above: Performed By: #### C R BGA, CR ICA, LACT, CR COOX, CR GLU, CR LYTES #### [facility] [address] [place] [address], Glucose [Mass/Vol] 216 mg/dL High 80-116 [facility] Comment on above: Performed By: #### 8 2948 #### NURSING GLUCOSE PROGRAM [address] [place], [address] PROTHROMBIN TIME AND INRon 0 11-21-2020 INR Coag (PPP) [Relative time] 2.97 {INR} High 0.90-1.10 [facility] Comment on above: Performed By: #### C R BGA, CR ICA, LACT, CR COOX, CR GLU, CR LYTES #### [facility] [address] [place], [place], PT Coag (PPP) [Time] 33.2 s High 9.7-12.9 [facility] Comment on above: Performed By: #### C R BGA, CR ICA, LACT, CR COOX, CR GLU, CR LYTES #### [facility] [address] [place], [place], Progress Noteson 11-21-2020 [facility] [employer] Interface Message Text SW following for DC to SNF. SW received VM from admissions at [facility] stating they are able to accept pt as long as pt is okay with the facility being a non smoking facility. RABIA met with pt at bedside and informed her of above. Pt stated she would like to see if [facility] is able to accept. If they are unable to then she is in agreement to [facility]. SW attempted to reach admissions at [facility]. Mine Captain stated admissions is not in as of yet and requested SW call back at a later time. SW to call back in an hour. RABIA will continue to follow. GAVI Moralez Social Work,[phone] ADDENDUM 10:10am SW received call from the [facility] admissions. Admissions stated they would like to initiate pre-cert. SW informed Admissions pt is wanting to see if [facility] is able to accept. Admissions questioned who pt's pcp was and if she would be able to contact pt's daughter. RABIA provided contact information. SW spoke with admissions at [facility] and was informed they are able to accept and will initiate pre-cert. SW informed pt. Pt thankful. SW will continue to follow. GAVI Moralez Social Work,[phone] ADDENDUM 11:13am Hens Submitted. Maia Silverman ANIMAL CONTROL LICENSING WORKER [employer] Work,[phone] ADDENDUM 1:20pm SW received call from [facility] admissions and was informed pt is out of network with [facility]. Admissions stated they tried to do a one time contact but was unable to. SW informed pt. Pt will to have [facility] start pre-cert. RABIA spoke with admissions. Pre-cert initiated. GAVI Moralez [employer] Work,[phone] Normal [facility] [employer] Care Plan Noteon 11-20-2020 [facility] [employer] Interface Message Text Problem: Routine Care: [...] Performed By: #### 8 2948 ####NURSING GLUCOSE [id number] [place], [address] Glucose [Mass/Vol] 87 mg/dL Normal 80-116 [facility] Comment on above: Performed By: #### 8 2948 ####NURSING GLUCOSE [id number] [place], [address] Glucose [Mass/Vol] 314 mg/dL High 80-116 [facility] Comment on above: Performed By: #### C R BGA, CR ICA, LACT, CR COOX, CR GLU, CR LYTES #### S PATHOLOGY LABORATORY [address] [place] [address], Glucose [Mass/Vol] 266 mg/dL High 80-116 [facility] Comment on above: Performed By: #### 8 2948 ####NURSING GLUCOSE [id number] [place], [address] Glucose [Mass/Vol] 268 mg/dL High 80-116 [facility] Comment on above: Performed By: #### T ROP I #### S PATHOLOGY LABORATORY [address] [place] [address], PROTHROMBIN TIME AND INRon 0 11-20-2020 INR Coag (PPP) [Relative time] 4.22 {INR} High 0.90-1.10 [facility] Comment on above: Performed By: #### C R BGA, CR ICA, LACT, CR COOX, CR GLU, CR LYTES #### S PATHOLOGY LABORATORY [address] [place] [address], PT Coag (PPP) [Time] 47.0 s High 9.7-12.9 [facility] Comment on above: Performed By: #### C R BGA, CR ICA, LACT, CR COOX, CR GLU, CR LYTES #### S PATHOLOGY LABORATORY [address] [place], [place], BASIC METABOLIC PANELon 10-30 Anion gap [Moles/Vol] 10 mmol/L Normal 5-13 [facility] Comment on above: Performed By: #### Tony H8, MG ####S PATHOLOGY [id number] [place], [place], Calcium [Mass/Vol] 7.8 mg/dL Low 8.4-10.4 [facility] Comment on above: Performed By: #### Tony H8, MG ####[facility] PATHOLOGY [id number] [place], [place], Chloride [Moles/Vol] 110 mmol/L Normal 97-111 [facility] Comment on above: Performed By: #### Tony H8, MG ####[facility] PATHOLOGY [id number] [place] [address], CO2 [Moles/Vol] 23 mmol/L Normal 21-30 [facility] Comment on above: Performed By: #### Tony H8, MG ####[facility] PATHOLOGY [id number] [place] [address], Creatinine [Mass/Vol] 0.62 mg/dL Normal 0.50-1.10 [facility] Comment on above: Performed By: #### Tony H8, MG ####S PATHOLOGY [id number] [place], [place], ESTIMATED GFR (CKD-EPI) 88 mL/min/1.73sqm Normal >=60 [facility] Comment on above: Performed By: #### C H8, MG ####S PATHOLOGY [id number] [place], [place], Glucose [Mass/Vol] 103 mg/dL Normal 80-116 [facility] Comment on above: Performed By: #### C H8, MG ####S PATHOLOGY [id number] [place] [address], Potassium [Moles/Vol] 4.0 mmol/L Normal 3.3-5.3 [facility] Comment on above: Result Comment: Hemo lysis present Performed By: #### C H8, MG ####[facility] [id number] [place], [place], Sodium [Moles/Vol] 139 mmol/L Normal 135-148 [facility] Comment on above: Performed By: #### Tony H8, MG ####[facility] PATHOLOGY [id number] [place], [place], Urea nitrogen [Mass/Vol] 8 mg/dL Normal 8-22 [facility] Comment on above: Performed By: #### Tony H8, MG ####[facility] PATH[facility] [id number] [place], [place], COMPLETE BLOOD COUNTon 11-19 Erythrocyte distribution width (RBC) [Ratio] 16.8 % High 11.5-14.5 The [facility] Comment on above: Performed By: #### T ROP I #### [facility] [address] [place] [address], Hematocrit (Bld) [Volume fraction] 25.2 % Low 36.0-46.0 [facility] Comment on above: Performed By: #### T ROP I #### [facility] [address] [place] [address], Hemoglobin (Bld) [Mass/Vol] 8.2 g/dL Low 12.0-15.0 [facility] Comment on above: Performed By: #### T ROP I #### [facility] [address] [place] [address], MCH (RBC) [Entitic mass] 31.6 pg Normal 26.0-34.0 [facility] Comment on above: Performed By: #### T ROP I #### [facility] [address] [place] [address], MCHC (RBC) [Mass/Vol] 32.4 g/dL Normal 32.0-35.9 [facility] Comment on above: Performed By: #### T ROP I #### [facility] [address] [place] [address], MCV (RBC) [Entitic vol] 98 fL Normal 80-100 [facility] Comment on above: Performed By: #### T ROP I #### S PATHOLOGY LABORATORY [address] [place], [place], Platelet mean volume (Bld) [Entitic vol] 8.9 fL Normal 7.5-11.2 [facility] Comment on above: Performed By: #### T ROP I #### [facility]OR[facility] [address] [place], [place], Platelets (Bld) [#/Vol] 209 10*3/uL Normal 150-400 [facility] Comment on above: Performed By: #### T ROP I #### [facility] [address] [place], [place], RBC (Bld) [#/Vol] 2.58 10*6/uL Low 4.00-5.20 [facility] Comment on above: Performed By: #### T ROP I #### S PATHOLOGY LABORATORY [address] [place], [place], WBC (Bld) [#/Vol] 7.8 10*3/uL Normal 4.5-11.5 [facility] Comment on above: Performed By: #### T ROP I #### S PATHOLOGY LABORATORY [address] [place], [place], Care Plan Noteon 11-19-2020 [facility] Authentication Interface Message Text Problem: Routine Care: [...] Performed By: #### 8 2948 ####NURSING GLUCOSE [id number] [place], [address] Glucose [Mass/Vol] 191 mg/dL High 80-116 [facility] Comment on above: Performed By: #### C R BGA, CR ICA, LACT, CR COOX, CR GLU, CR LYTES #### [facility] [address] [place], [place], Glucose [Mass/Vol] 88 mg/dL Normal 80-116 [facility] Comment on above: Performed By: #### 8 2948 ####NURSING GLUCOSE [id number] [place], [address] MAGNESIUMon 11-19-2020 Magnesium [Mass/Vol] 1.9 mg/dL Normal 1.6-2.8 [facility] Comment on above: Result Comment: Hemo lysis present Performed By: #### C H8, MG ####[facility] [id number] [place], PROTHROMBIN TIME AND INRon 0 11-19-2020 INR Coag (PPP) [Relative time] 2.82 {INR} High 0.90-1.10 [facility] Comment on above: Performed By: #### C R BGA, CR ICA, LACT, CR COOX, CR GLU, CR LYTES #### S PATHOLOGY LABORATORY [address] [place], [place], PT Coag (PPP) [Time] 31.5 s High 9.7-12.9 [facility] Comment on above: Performed By: #### C R BGA, CR ICA, LACT, CR COOX, CR GLU, CR LYTES #### S PATHOLOGY LABORATORY [address] [place], [place], Progress Noteson 11-19-2020 [facility] Authentication Interface Message Text Patient complaining of tightness and pain/swelling of LLE. She took off the compression stocking and leg is elevated. Great toe is purple and bilateral feet/hands are cold. BLE pulses dopplered. Patient's great toe color has faded to a pink. Patient in chair with legs elevated. Patient has not slept tonight. Normal [facility] BASIC METABOLIC PANELon - Anion gap [Moles/Vol] 12 mmol/L Normal 5-13 [facility] Comment on above: Performed By: #### Tony Pham8, MG ####[facility] PATHOLOGY [id number] [place], Calcium [Mass/Vol] 8.0 mg/dL Low 8.4-10.4 [facility] Comment on above: Performed By: #### Tony Craft, MG ####S PATHOLOGY [id number] [place], Chloride [Moles/Vol] 109 mmol/L Normal 97-111 [facility] Comment on above: Performed By: #### Tony Pham8, MG ####S PATHOLOGY [id number] [place], CO2 [Moles/Vol] 23 mmol/L Normal 21-30 [facility] Comment on above: Performed By: #### Tony H8, MG ####S PATHOLOGY [id number] [place], Creatinine [Mass/Vol] 0.48 mg/dL Low 0.50-1.10 [facility] Comment on above: Performed By: #### Tony Pham8, MG ####[facility] PATHOLOGY [id number] [place], ESTIMATED GFR (CKD-EPI) 96 mL/min/1.73sqm Normal >=60 The [facility] Comment on above: Performed By: #### Tony Pham8, MG ####[facility] PATHOLOGY [id number] [place] [address], Glucose [Mass/Vol] 216 mg/dL High 80-116 [facility] Comment on above: Performed By: #### Tony Craft, MG ####[facility] PATHOLOGY [id number] [place] [address], Potassium [Moles/Vol] 3.8 mmol/L Normal 3.3-5.3 [facility] Comment on above: Performed By: #### Tony Craft, MG ####[facility] PATHOLOGY [id number] [place] [address], Sodium [Moles/Vol] 140 mmol/L Normal 135-148 [facility] Comment on above: Performed By: #### Tony Craft, MG ####[facility] PATHOLOGY [id number] [place] [address], Urea nitrogen [Mass/Vol] 8 mg/dL Normal 8-22 [facility] Comment on above: Performed By: #### Tony Pham8, MG ####[facility] PATHOLOGY [id number] [place] [address], COMPLETE BLOOD COUNTon 11-18 Erythrocyte distribution width (RBC) [Ratio] 16.4 % High 11.5-14.5 [facility] Comment on above: Performed By: #### C R BGA, CR ICA, LACT, CR COOX, CR GLU, CR LYTES #### [facility] PATHOLOGY LABORATORY [address] [place] [address], Hematocrit (Bld) [Volume fraction] 28.7 % Low 36.0-46.0 The [facility] Comment on above: Performed By: #### C R BGA, CR ICA, LACT, CR COOX, CR GLU, CR LYTES #### [facility] PATHOLOGY LABORATORY [address] [place] [address], Hemoglobin (Bld) [Mass/Vol] 9.5 g/dL Low 12.0-15.0 [facility] Comment on above: Performed By: #### C R BGA, CR ICA, LACT, CR COOX, CR GLU, CR LYTES #### [facility] PATHOLOGY LABORATORY [address] [place] [address], MCH (RBC) [Entitic mass] 32.4 pg Normal 26.0-34.0 [facility] Comment on above: Performed By: #### C R BGA, CR ICA, LACT, CR COOX, CR GLU, CR LYTES #### [facility] PATHOLOGY LABORATORY [address] [place] [address], MCHC (RBC) [Mass/Vol] 33.3 g/dL Normal 32.0-35.9 [facility] Comment on above: Performed By: #### C R BGA, CR ICA, LACT, CR COOX, CR GLU, CR LYTES #### [facility] PATHOLOGY LABORATORY [address] [place] [address], MCV (RBC) [Entitic vol] 97 fL Normal 80-100 [facility] Comment on above: Performed By: #### C R BGA, CR ICA, LACT, CR COOX, CR GLU, CR LYTES #### [facility] PATHOLOGY LABORATORY [address] [place] [address], Platelet mean volume (Bld) [Entitic vol] 9.1 fL Normal 7.5-11.2 [facility] Comment on above: Performed By: #### C R BGA, CR ICA, LACT, CR COOX, CR GLU, CR LYTES #### [facility] PATHOLOGY LABORATORY [address] [place] [address], Platelets (Bld) [#/Vol] 200 10*3/uL Normal 150-400 [facility] Comment on above: Performed By: #### C R BGA, CR ICA, LACT, CR COOX, CR GLU, CR LYTES #### [facility] PATHOLOGY LABORATORY [address] [place] [address], RBC (Bld) [#/Vol] 2.95 10*6/uL Low 4.00-5.20 [facility] Comment on above: Performed By: #### C R BGA, CR ICA, LACT, CR COOX, CR GLU, CR LYTES #### [facility] [address] [place], WBC (Bld) [#/Vol] 8.5 10*3/uL Normal 4.5-11.5 [facility] Comment on above: Performed By: #### C R BGA, CR ICA, LACT, CR COOX, CR GLU, CR LYTES #### [facility] [address] [place], Care Plan Noteon 11-18-2020 [facility] Authentication Interface Message Text Problem: Routine Care: [...] Glucose [Mass/Vol] 195 mg/dL High 80-116 [facility] Comment on above: Performed By: #### 8 2948 ####NURSING GLUCOSE [id number] [place], [address] Glucose [Mass/Vol] 109 mg/dL Normal 80-116 [facility] Comment on above: Performed By: #### C R BGA, CR ICA, LACT, CR COOX, CR GLU, CR LYTES #### [facility] [address] [place] [address], Glucose [Mass/Vol] 187 mg/dL High 80-116 [facility] Comment on above: Result Comment: Shavon collins RN, APN, MD Performed By: #### 8 2948 ####NURSING GLUCOSE [id number] [place], [address] Glucose [Mass/Vol] 218 mg/dL High 80-116 [facility] Comment on above: Result Comment: Shavon collins RN, APN, MD Performed By: #### 8 2948 ####NURSING GLUCOSE [id number] [place], [address] MAGNESIUMon 11-18-2020 Magnesium [Mass/Vol] 2.1 mg/dL Normal 1.6-2.8 [facility] Comment on above: Performed By: #### C H8, MG ####[facility] [id number] [place], PARTIAL THROMBOPLASTIN TIMEo n 11-18-2020 aPTT Coag (Bld) [Time] 66 s High 25-37 [facility] Comment on above: Performed By: #### T ROP I #### [facility] [address] [place] [address], PROTHROMBIN TIME AND INRon 0 3-21-2021 INR Coag (PPP) [Relative time] 2.55 {INR} High 0.90-1.10 [facility] Comment on above: Performed By: #### P T ####[facility] [id number] [place], PT Coag (PPP) [Time] 28.6 s High 9.7-12.9 [facility] Comment on above: Performed By: #### P T ####[facility] [id number] [place], Progress Noteson 11-18-2020 [facility] Authentication Interface Message Text Harry Pena Normal [facility] Authentication Interface Message Text -------- Attestation signed [...] -------- Vascular Surgery Progress Note Charles Coreas [id number] S: Feels well, same as yesterday. Complaining [...] Connor MD General Surgery PGY-1 Vascular Surgery #[id number] [place] pager #[phone] (Weekdays 6pm-6am, and Weekends) Normal [facility] Authentication Interface Message Text Patient reporting some [...] take med in pill form. Normal [facility] BASIC METABOLIC PANELon 03-2 -2020 Anion gap [Moles/Vol] 13 mmol/L Normal 5-13 [facility] Comment on above: Performed By: #### C R BGA, CR ICA, LACT, CR COOX, CR GLU, CR LYTES #### [facility] [address] [place], [address] Calcium [Mass/Vol] 7.9 mg/dL Low 8.4-10.4 [facility] Comment on above: Performed By: #### C R BGA, CR ICA, LACT, CR COOX, CR GLU, CR LYTES #### [facility] [address] [place], [address] Chloride [Moles/Vol] 107 mmol/L Normal 97-111 [facility] Comment on above: Performed By: #### C R BGA, CR ICA, LACT, CR COOX, CR GLU, CR LYTES #### [facility] PATHOLOGY LABORATORY [address] [place] [address], CO2 [Moles/Vol] 25 mmol/L Normal 21-30 [facility] Comment on above: Performed By: #### C R BGA, CR ICA, LACT, CR COOX, CR GLU, CR LYTES #### [facility] PATHOLOGY LABORATORY [address] [place] [address], Creatinine [Mass/Vol] 0.73 mg/dL Normal 0.50-1.10 [facility] Comment on above: Performed By: #### C R BGA, CR ICA, LACT, CR COOX, CR GLU, CR LYTES #### [facility] PATHOLOGY LABORATORY [address] [place] [address], ESTIMATED GFR (CKD-EPI) 81 mL/min/1.73sqm Normal >=60 [facility] Comment on above: Performed By: #### C R BGA, CR ICA, LACT, CR COOX, CR GLU, CR LYTES #### [facility] PATHOLOGY LABORATORY [address] [place] [address], Glucose [Mass/Vol] 72 mg/dL Low 80-116 [facility] Comment on above: Performed By: #### C R BGA, CR ICA, LACT, CR COOX, CR GLU, CR LYTES #### [facility] PATHOLOGY LABORATORY [address] [place] [address], Potassium [Moles/Vol] 3.0 mmol/L Low 3.3-5.3 [facility] Comment on above: Performed By: #### C R BGA, CR ICA, LACT, CR COOX, CR GLU, CR LYTES #### [facility] PATH[facility]Y LABORATORY [address] [place] [address], Sodium [Moles/Vol] 142 mmol/L Normal 135-148 [facility] Comment on above: Performed By: #### C R BGA, CR ICA, LACT, CR COOX, CR GLU, CR LYTES #### [facility] PATHOLOGY LABORATORY [address] [place], Urea nitrogen [Mass/Vol] 9 mg/dL Normal 8-22 [facility] Comment on above: Performed By: #### C R BGA, CR ICA, LACT, CR COOX, CR GLU, CR LYTES #### [facility] PATHOLOGY LABORATORY [address] [place], COMPLETE BLOOD COUNTon 11-17 Erythrocyte distribution width (RBC) [Ratio] 16.5 % High 11.5-14.5 [facility] Comment on above: Performed By: #### C BC ####[facility] PATHOLOGY [id number] [place], Hematocrit (Bld) [Volume fraction] 24.3 % Low 36.0-46.0 [facility] Comment on above: Performed By: #### C BC ####[facility] PATHOLOGY [id number] [place], Hemoglobin (Bld) [Mass/Vol] 8.0 g/dL Low 12.0-15.0 [facility] Comment on above: Performed By: #### C BC ####[facility] PATHOLOGY [id number] [place], MCH (RBC) [Entitic mass] 31.8 pg Normal 26.0-34.0 [facility] Comment on above: Performed By: #### C BC ####[facility] PATHOLOGY [id number] [place], MCHC (RBC) [Mass/Vol] 32.8 g/dL Normal 32.0-35.9 [facility] Comment on above: Performed By: #### C BC ####[facility] PATHOLOGY [id number] [place], MCV (RBC) [Entitic vol] 97 fL Normal 80-100 [facility] Comment on above: Performed By: #### C BC ####[facility] PATHOLOGY [id number] [place], Platelet mean volume (Bld) [Entitic vol] 9.2 fL Normal 7.5-11.2 [facility] Comment on above: Performed By: #### C BC ####S PATHOLOGY [id number] [place], Platelets (Bld) [#/Vol] 175 10*3/uL Normal 150-400 [facility] Comment on above: Performed By: #### C BC ####S PATHOLOGY [id number] [place], RBC (Bld) [#/Vol] 2.50 10*6/uL Low 4.00-5.20 [facility] Comment on above: Performed By: #### C BC ####S PATHOLOGY [id number] [place], WBC (Bld) [#/Vol] 11.1 10*3/uL Normal 4.5-11.5 [facility] Comment on above: Performed By: #### C BC ####[facility] PATHOLOGY [id number] [place], Care Plan Noteon 11-17-2020 [facility] Authentication Interface Message Text Problem: Routine Care: [...] GLU, CR LYTES #### S PATHOLOGY LABORATORY [address] [place] [address], Glucose [Mass/Vol] 257 mg/dL High 80-116 [facility] Comment on above: Performed By: #### T ROP I #### S PATHOLOGY LABORATORY [address] [place] [address], Glucose [Mass/Vol] 110 mg/dL Normal 80-116 [facility] Comment on above: Performed By: #### 8 2948 ####NURSING GLUCOSE [id number] [place], [address] Glucose [Mass/Vol] 102 mg/dL Normal 80-116 [facility] Comment on above: Performed By: #### C R BGA, CR ICA, LACT, CR COOX, CR GLU, CR LYTES #### S PATHOLOGY LABORATORY [address] [place], MAGNESIUMon 11-17-2020 Magnesium [Mass/Vol] 1.9 mg/dL Normal 1.6-2.8 [facility] Comment on above: Performed By: #### C R BGA, CR ICA, LACT, CR COOX, CR GLU, CR LYTES #### S PATHOLOGY LABORATORY [address] [place] [address], PARTIAL THROMBOPLASTIN TIMEo n 11-17-2020 aPTT Coag (Bld) [Time] 50 s High 25-37 [facility] Comment on above: Performed By: #### C R BGA, CR ICA, LACT, CR COOX, CR GLU, CR LYTES #### [facility] PATHOLOGY LABORATORY [address] [place], aPTT Coag (Bld) [Time] 87 s High 25-37 [facility] Comment on above: Performed By: #### A PTT ####[facility] PATHOLOGY [id number] [place], PROTHROMBIN TIME AND INRon 0 11-17-2020 INR Coag (PPP) [Relative time] 2.04 {INR} High 0.90-1.10 [facility] Comment on above: Performed By: #### P T ####[facility] PATHOLOGY [id number] [place], PT Coag (PPP) [Time] 22.9 s High 9.7-12.9 [facility] Comment on above: Performed By: #### P T ####[facility] PATHOLOGY [id number] [place], Progress Noteson 11-17-2020 [facility] Authentication Interface Message Text -------- Attestation signed [...] -------- Vascular Surgery Progress Note Charles Coreas [id number] S: Feels well this morning, significantly better [...] [id number] Assessment/Plan: 75F who presented with [place] IIb limb ischemia POD#4 Axillary-bifemoral bypass graft [...] Connor MD General Surgery PGY-1 Vascular Surgery #[id number] [place] pager #[phone] (Weekdays 6pm-6am, and Weekends) Normal [facility] BASIC METABOLIC PANELon 10-29 Anion gap [Moles/Vol] 10 mmol/L Normal 5-13 [facility] Comment on above: Performed By: #### T ROP I #### [facility] [address] [place] [address], Calcium [Mass/Vol] 7.9 mg/dL Low 8.4-10.4 [facility] Comment on above: Performed By: #### T ROP I #### [facility] [address] [place], Chloride [Moles/Vol] 109 mmol/L Normal 97-111 [facility] Comment on above: Performed By: #### T ROP I #### [facility] [address] [place], CO2 [Moles/Vol] 22 mmol/L Normal 21-30 [facility] Comment on above: Performed By: #### T ROP I #### [facility] [address] [place] [address], Creatinine [Mass/Vol] 0.57 mg/dL Normal 0.50-1.10 [facility] Comment on above: Performed By: #### T ROP I #### S PATHOLOGY LABORATORY [address] [place] [address], ESTIMATED GFR (CKD-EPI) 91 mL/min/1.73sqm Normal >=60 [facility] Comment on above: Performed By: #### T ROP I #### S PATHOLOGY LABORATORY [address] [place] [address], Glucose [Mass/Vol] 106 mg/dL Normal 80-116 [facility] Comment on above: Performed By: #### T ROP I #### S PATHOLOGY LABORATORY [address] [place] [address], Potassium [Moles/Vol] 3.4 mmol/L Normal 3.3-5.3 [facility] Comment on above: Performed By: #### T ROP I #### S PATHOLOGY LABORATORY [address] [place] [address], Sodium [Moles/Vol] 138 mmol/L Normal 135-148 [facility] Comment on above: Performed By: #### T ROP I #### S PATHOLOGY LABORATORY [address] [place] [address], Urea nitrogen [Mass/Vol] 12 mg/dL Normal 8-22 The [facility] Comment on above: Performed By: #### T ROP I #### S PATHOLOGY LABORATORY [address] [place] [address], C-PEPTIDE, SERUMon CPEP 0.48 ng/mL Low 0.81-3.85 [facility] Comment on above: Performed By: #### C R BGA, CR ICA, LACT, CR COOX, CR GLU, CR LYTES #### S PATHOLOGY LABORATORY [address] [place] [address], COMPLETE BLOOD COUNTon 11-16 Erythrocyte distribution width (RBC) [Ratio] 16.5 % High 11.5-14.5 [facility] Comment on above: Performed By: #### C R BGA, CR ICA, LACT, CR COOX, CR GLU, CR LYTES #### [facility] PATHOLOGY LABORATORY [address] [place] [address], Hematocrit (Bld) [Volume fraction] 24.6 % Low 36.0-46.0 [facility] Comment on above: Performed By: #### C R BGA, CR ICA, LACT, CR COOX, CR GLU, CR LYTES #### [facility] PATHOLOGY LABORATORY [address] [place] [address], Hemoglobin (Bld) [Mass/Vol] 8.1 g/dL Low 12.0-15.0 [facility] Comment on above: Performed By: #### C R BGA, CR ICA, LACT, CR COOX, CR GLU, CR LYTES #### [facility] PATHOLOGY LABORATORY [address] [place] [address], MCH (RBC) [Entitic mass] 31.8 pg Normal 26.0-34.0 [facility] Comment on above: Performed By: #### C R BGA, CR ICA, LACT, CR COOX, CR GLU, CR LYTES #### [facility] PATHOLOGY LABORATORY [address] [place] [address], MCHC (RBC) [Mass/Vol] 32.9 g/dL Normal 32.0-35.9 [facility] Comment on above: Performed By: #### C R BGA, CR ICA, LACT, CR COOX, CR GLU, CR LYTES #### [facility] PATHOLOGY LABORATORY [address] [place] [address], MCV (RBC) [Entitic vol] 97 fL Normal 80-100 [facility] Comment on above: Performed By: #### C R BGA, CR ICA, LACT, CR COOX, CR GLU, CR LYTES #### [facility] PATHOLOGY LABORATORY [address] [place] [address], Platelet mean volume (Bld) [Entitic vol] 9.1 fL Normal 7.5-11.2 [facility] Comment on above: Performed By: #### C R BGA, CR ICA, LACT, CR COOX, CR GLU, CR LYTES #### [facility] PATHOLOGY LABORATORY [address] [place] [address], Platelets (Bld) [#/Vol] 148 10*3/uL Low 150-400 [facility] Comment on above: Performed By: #### C R BGA, CR ICA, LACT, CR COOX, CR GLU, CR LYTES #### [facility] PATHOLOGY LABORATORY [address] [place] [address], RBC (Bld) [#/Vol] 2.55 10*6/uL Low 4.00-5.20 [facility] Comment on above: Performed By: #### C R BGA, CR ICA, LACT, CR COOX, CR GLU, CR LYTES #### [facility] PATHOLOGY LABORATORY [address] [place], [place], WBC (Bld) [#/Vol] 14.8 10*3/uL High 4.5-11.5 [facility] Comment on above: Performed By: #### C R BGA, CR ICA, LACT, CR COOX, CR GLU, CR LYTES #### [facility] PATHOLOGY LABORATORY [address] [place] [address], Care Plan Noteon 11-16-2020 [facility] Authentication Interface Message Text Problem: Routine Care: [...] will be met Outcome: Progressing Normal [facility] Authentication Interface Message Text Problem: Alteration in [...] will be met Outcome: Progressing Normal [facility] Consultson 11-16-2020 [facility] Authentication Interface Message Text Diet Engineering Aide Nutrition Screening Reason for visit: LOS 5 [...] Decreased appetite - 0 points 5' 0 150.11303 lbs BODY MASS INDEX 11/12/2020 11/15/2020 Kg [...] at most meals. Willing to drink one [place] Boost Plus at lunchtime for added nutrition. Seen by wound care 11/14 - sacrum intact. Will monitor need for further interventions. Number of Points: 6 Nutritional Plan of Care: Less than or equal to 6 points: At this time, patient is at low nutrition risk. DTR to provide routine follow up. Will continue to follow, Ann Mohan, [employer] Aide Pager [phone] Normal [facility] GLUCOSE, FINGERSTICK-IN OFFI CEon 11-16-2020 Glucose [Mass/Vol] 250 mg/dL High 80-116 [facility] Comment on above: Performed By: #### C R BGA, CR ICA, LACT, CR COOX, CR GLU, CR LYTES #### [facility] [address] [place] [address], [id number] Glucose [Mass/Vol] 182 mg/dL High 80-116 [facility] Comment on above: Performed By: #### C R BGA, CR ICA, LACT, CR COOX, CR GLU, CR LYTES #### S PATHOLOGY LABORATORY [address] [place] [address], Glucose [Mass/Vol] 233 mg/dL High 80-116 [facility] Comment on above: Performed By: #### T ROP I #### [facility] PATHOLOGY LABORATORY [address] [place], [place], Glucose [Mass/Vol] 143 mg/dL High 80-116 [facility] Comment on above: Performed By: #### C R BGA, CR ICA, LACT, CR COOX, CR GLU, CR LYTES #### [facility] PATHOLOGY LABORATORY [address] [place] [address], MAGNESIUMon 11-16-2020 Magnesium [Mass/Vol] 1.8 mg/dL Normal 1.6-2.8 [facility] Comment on above: Performed By: #### T ROP I #### [facility] PATHOLOGY LABORATORY [address] [place], [place], PARTIAL THROMBOPLASTIN TIMEo n 11-16-2020 aPTT Coag (Bld) [Time] 84 s High 25-37 [facility] Comment on above: Performed By: #### C R BGA, CR ICA, LACT, CR COOX, CR GLU, CR LYTES #### [facility] [facility] [address] [place] [address], PROTHROMBIN TIME AND INRon 0 11-16-2020 INR Coag (PPP) [Relative time] 1.54 {INR} High 0.90-1.10 [facility] Comment on above: Performed By: #### P T ####[facility] PATHOLOGY [id number] [place], [place], PT Coag (PPP) [Time] 17.3 s High 9.7-12.9 [facility] Comment on above: Performed By: #### P T ####[facility] PATHOLOGY [id number] [place] [address], Progress Noteson 11-16-2020 [facility] Authentication Interface Message Text SW following for DC to SNF. Per PT note is confused. SW left message for pt's daughter Anni [phone] requesting a return call. SW will continue to follow. GAVI Moralez [facility] Work,[phone] ADDENDUM 2:19pm SW received call back from pt's daughter Anni and was informed she has the facility list at home and plans to review it later tonight. Anni requested SW reach back out Thursday morning for facility options. SW to put pt on the PT/OT list. Pt will need a pre-cert. GAVI Moralez [facility] Work,[phone] Normal [facility] Authentication Interface Message Text Lab called to report aptt lab levels from 42 at 1300 to 70 at 2130 physician updated no new orders Normal [facility] BASIC METABOLIC PANELon 10-29 Anion gap [Moles/Vol] 11 mmol/L Normal 5-13 [facility] Comment on above: Performed By: #### C R BGA, CR ICA, LACT, CR COOX, CR GLU, CR LYTES #### [facility]OR[facility] [address] [place] [address], Calcium [Mass/Vol] 7.8 mg/dL Low 8.4-10.4 [facility] Comment on above: Performed By: #### C R BGA, CR ICA, LACT, CR COOX, CR GLU, CR LYTES #### S PATHOLOGY LABORATORY [address] [place] [address], Chloride [Moles/Vol] 108 mmol/L Normal 97-111 [facility] Comment on above: Performed By: #### C R BGA, CR ICA, LACT, CR COOX, CR GLU, CR LYTES #### S PATHOLOGY LABORATORY [address] [place] [address], CO2 [Moles/Vol] 23 mmol/L Normal 21-30 [facility] Comment on above: Performed By: #### C R BGA, CR ICA, LACT, CR COOX, CR GLU, CR LYTES #### S PATHOLOGY LABORATORY [address] [place] [address], Creatinine [Mass/Vol] 0.73 mg/dL Normal 0.50-1.10 [facility] Comment on above: Performed By: #### C R BGA, CR ICA, LACT, CR COOX, CR GLU, CR LYTES #### [facility] [address] [place] [address], ESTIMATED GFR (CKD-EPI) 81 mL/min/1.73sqm Normal >=60 [facility] Comment on above: Performed By: #### C R BGA, CR ICA, LACT, CR COOX, CR GLU, CR LYTES #### [facility] [address] [place] [address], Glucose [Mass/Vol] 247 mg/dL High 80-116 [facility] Comment on above: Performed By: #### C R BGA, CR ICA, LACT, CR COOX, CR GLU, CR LYTES #### [facility] [address] [place] [address], Potassium [Moles/Vol] 3.4 mmol/L Normal 3.3-5.3 [facility] Comment on above: Performed By: #### C R BGA, CR ICA, LACT, CR COOX, CR GLU, CR LYTES #### [facility] [address] [place] [address], Sodium [Moles/Vol] 139 mmol/L Normal 135-148 [facility] Comment on above: Performed By: #### C R BGA, CR ICA, LACT, CR COOX, CR GLU, CR LYTES #### [facility] [address] [place] [address], Urea nitrogen [Mass/Vol] 13 mg/dL Normal 8-22 [facility] Comment on above: Performed By: #### C R BGA, CR ICA, LACT, CR COOX, CR GLU, CR LYTES #### [facility] [address] [place] [address], COMPLETE BLOOD COUNTon 11-15 Erythrocyte distribution width (RBC) [Ratio] 17.0 % High 11.5-14.5 [facility] Comment on above: Performed By: #### H B A1C ####[facility] PATH[facility] LABORATORY [address] [place], [place], #### CBC ####[facility] PATHOLOGY [id number] [place], [place], Hematocrit (Bld) [Volume fraction] 26.9 % Low 36.0-46.0 [facility] Comment on above: Performed By: #### H B A1C ####[facility] PATH[facility] LABORATORY [address] [place], [place], #### CBC ####[facility] PATHOLOGY [id number] [place] [address], Hemoglobin (Bld) [Mass/Vol] 8.8 g/dL Low 12.0-15.0 [facility] Comment on above: Performed By: #### H B A1C ####[facility] PATH[facility] LABORATORY [address] [place] [address], #### CBC ####[facility] PATHOLOGY [id number] [place] [address], MCH (RBC) [Entitic mass] 31.0 pg Normal 26.0-34.0 [facility] Comment on above: Performed By: #### H B A1C ####[facility] PATH[facility] LABORATORY [address] [place] [address], #### CBC ####[facility] PATHOLOGY [id number] [place] [address], MCHC (RBC) [Mass/Vol] 32.8 g/dL Normal 32.0-35.9 [facility] Comment on above: Performed By: #### H B A1C ####[facility] LABORATORY [address] [place], [place], #### CBC ####[facility] PATHOLOGY [id number] [place] [address], MCV (RBC) [Entitic vol] 95 fL Normal 80-100 [facility] Comment on above: Performed By: #### H B A1C ####[facility] PATH[facility] LABORATORY [address] [place] [address], #### CBC ####[facility] PATHOLOGY [id number] [place] [address], Platelet mean volume (Bld) [Entitic vol] 9.2 fL Normal 7.5-11.2 [facility] Comment on above: Performed By: #### H B A1C ####[facility] PATH[facility] LABORATORY [address] [place], [address]#### CBC ####[facility] PATHOLOGY [id number] [place], Platelets (Bld) [#/Vol] 147 10*3/uL Low 150-400 The [facility] Comment on above: Performed By: #### H B A1C ####[facility] PATH[facility] LABORATORY [address] [place], [place], #### CBC ####[facility] PATHOLOGY [id number] [place], RBC (Bld) [#/Vol] 2.85 10*6/uL Low 4.00-5.20 [facility] Comment on above: Performed By: #### H B A1C ####[facility] LABORATORY [address] [place], [place], #### CBC ####[facility] PATHOLOGY [id number] [place], WBC (Bld) [#/Vol] 13.7 10*3/uL High 4.5-11.5 [facility] Comment on above: Performed By: #### H B A1C ####[facility] PATH[facility] LABORATORY [address] [place], [address]#### CBC ####[facility] PATHOLOGY [id number] [place], [place], Care Plan Noteon 11-15-2020 [facility] Authentication Interface Message Text Problem: Routine Care: [...] Comment on above: Performed By: #### 8 1118 ####NURSING GLUCOSE [id number] [place], [address] Glucose [Mass/Vol] 245 mg/dL High 80-116 [facility] Comment on above: Performed By: #### 8 3408 ####NURSING GLUCOSE [id number] [place], [address] Glucose [Mass/Vol] 261 mg/dL High 80-116 [facility] Comment on above: Performed By: #### C R BGA, CR ICA, LACT, CR COOX, CR GLU, CR LYTES #### [facility] LABORATORY [address] [place], [place], Glucose [Mass/Vol] 292 mg/dL High 80-116 [facility] Comment on above: Performed By: #### 8 2948 #### NURSING GLUCOSE PROGRAM [address] [place], [address] Glucose [Mass/Vol] 233 mg/dL High 80-116 [facility] Comment on above: Performed By: #### C R BGA, CR ICA, LACT, CR COOX, CR GLU, CR LYTES #### [facility] PATH[facility] LABORATORY [address] [place], [place], [place] 11-15-2020 [facility] Authentication Interface Message Text Social Work/Case Management: Reason for placement: PT/OT Therapies Patient level of care required : Skilled Applicant's potential for returning to community: Convalescent stay:<30 days Prognosis: Good Rehab Potential: Improve Mental/Behavioral status:Alert, Oriented, Cooperative Affect: Calm Social Work Assessment Functional status prior to admission: ambulatory, lives with daughter Community agencies active with patient: n/a Support system: Daughter Capacity for independent living/retirement plan: return home with family support Other hospital admissions within the past 60 days: No Other pertinent problems: Lilo An [facility] P: [phone] Normal [facility] HEMOGLOBIN A1Con 11-15-2020 Glucose [Mass/Vol] 217 mg/dL Normal [facility] Comment on above: Order Comment: HbA1c of 5.7-6.4% have increased risk for diabetes and CV(Source :ADA 2014 Standard of Medical Care in Diabetes) Performed By: #### H B A1C ####[facility] PATH[facility] LABORAT[facility] [address] [place], [address]#### CBC ####[facility] [id number] [place], HbA1c (Bld) [Mass fraction] 9.2 % High 4.0-5.6 [facility] Comment on above: Order Comment: HbA1c of 5.7-6.4% have increased risk for diabetes and CV(Source :ADA 2014 Standard of Medical Care in Diabetes) Performed By: #### H B A1C ####[facility] PATH[facility] LABORATORY [address] [place], [address]#### CBC ####[facility] PATHOLOGY [id number] [place], MAGNESIUMon 11-15-2020 Magnesium [Mass/Vol] 1.9 mg/dL Normal 1.6-2.8 [facility] Comment on above: Performed By: #### C R BGA, CR ICA, LACT, CR COOX, CR GLU, CR LYTES #### [facility] PATH[facility] LABORATORY [address] [place], [place], PARTIAL THROMBOPLASTIN TIMEo n 11-15-2020 aPTT Coag (Bld) [Time] 70 s High 25-37 The [facility] Comment on above: Performed By: #### A PTT ####[facility] PATHOLOGY [id number] [place], aPTT Coag (Bld) [Time] 42 s High 25-37 The [facility] Comment on above: Performed By: #### A PTT ####[facility] PATHOLOGY [id number] [place], aPTT Coag (Bld) [Time] 48 s High 25-37 The [facility] Comment on above: Performed By: #### A PTT ####[facility] PATHOLOGY [id number] [place], aPTT Coag (Bld) [Time] 96 s High 25-37 The [facility] Comment on above: Performed By: #### A PTT ####[facility] PATHOLOGY [id number] [place], [place], Progress Noteson 11-15-2020 [facility] Authentication Interface Message Text Social Work Step Down Note Pt briefly discussed PT/OT reccs for SNF with pt, pt with eyes closed though nodded 'yes'. Pt agreeable for SW to speak with her daughter Anni regarding DC planning for SNF. SW discussed PT/OT SNF reccs with pt's daughter, Anni ([phone]). Pt normally home 23/03 with a family member, when Anni is working pt's [id number] is home. Anni confirms pt currently below baseline. Anni receptive to SNF planning at this time. RABIA left SNF list at pt's bedside. Pt/pt's family to review and select top choices. For SNF: -Pt will require a pre-cert. -RN to complete [employer]. -MD to sign signature pg/GR. -MD to reconcile meds. [id number] initiated. Signature pg and facesheet on pt's physical chart. Lilo Nolan [facility] P: [phone] Normal The [employer] Authentication Interface Message Text ------ GENERAL INFORMATION ----- SURGICAL ICU - STAFF NOTE Patient seen and examined on 11/15/2020 Patient Name: Charles Coreas Admission Date: 11/12/2020 ---- INTERVAL HISTORY/EVENTS -- Background: ???75 year old???female???PMHx of HTN, DM, COPD, CAD. Transferred to [facility]. Now???presenting to SICU POD #0???s/p axillo femoral, [...] a (more content not included)... Normal [facility] TROPONIN Ion 11-15-2020 TROP I 0.191 ng/mL Critically high <0.120 [facility] Comment on above: Result Comment: Rang [...] Performed By: #### T ROP I #### [facility] LABORATORY [address] [place], [place], TROP I 0.243 ng/mL Critically high <0.120 [facility] Comment on above: Result Comment: Rang [...] recommended. Performed By: #### T ROP I ####[facility] PATHOLOGY [id number] [place], [place], Transfer Noteon 11-15-2020 [facility] Authentication Interface Message Text SICU Transfer Note Background:?75 year old???female???PMHx of HTN, DM, COPD, CAD. PAD s/p failed vascular procedures presented to OSH with leg pain and found to have absent doppler signals. Transferred to [facility]. Admitted to SICU now POD #2???s/p axillo [...] on board Luis Martinez MD PGY1 P [phone] ??? Normal [facility] BASIC METABOLIC PANELon - Anion gap [Moles/Vol] 15 mmol/L High 5-13 [facility] Comment on above: Performed By: #### C R BGA, CR ICA, LACT, CR COOX, CR GLU, CR LYTES #### [facility] PATH[facility] LABORATORY [address] [place] [address], Calcium [Mass/Vol] 7.9 mg/dL Low 8.4-10.4 [facility] Comment on above: Performed By: #### C R BGA, CR ICA, LACT, CR COOX, CR GLU, CR LYTES #### [facility] PATH[facility] LABORATORY [address] [place] [address], Chloride [Moles/Vol] 106 mmol/L Normal 97-111 [facility] Comment on above: Performed By: #### C R BGA, CR ICA, LACT, CR COOX, CR GLU, CR LYTES #### [facility] PATH[facility] LABORATORY [address] [place] [address], CO2 [Moles/Vol] 20 mmol/L Low 21-30 The [facility] Comment on above: Performed By: #### C R BGA, CR ICA, LACT, CR COOX, CR GLU, CR LYTES #### [facility] PATH[facility] LABORATORY [address] [place] [address], Creatinine [Mass/Vol] 1.00 mg/dL Normal 0.50-1.10 [facility] Comment on above: Performed By: #### C R BGA, CR ICA, LACT, CR COOX, CR GLU, CR LYTES #### [facility] PATH[facility] LABORATORY [address] [place] [address], ESTIMATED GFR (CKD-EPI) 55 mL/min/1.73sqm Low >=60 [facility] Comment on above: Performed By: #### C R BGA, CR ICA, LACT, CR COOX, CR GLU, CR LYTES #### [facility] PATH[facility] LABORATORY [address] [place] [address], Glucose [Mass/Vol] 311 mg/dL High 80-116 [facility] Comment on above: Performed By: #### C R BGA, CR ICA, LACT, CR COOX, CR GLU, CR LYTES #### [facility] PATH[facility] LABORATORY [address] [place] [address], Potassium [Moles/Vol] 4.0 mmol/L Normal 3.3-5.3 [facility] Comment on above: Performed By: #### C R BGA, CR ICA, LACT, CR COOX, CR GLU, CR LYTES #### [facility] LABORATORY [address] [place] [address], Sodium [Moles/Vol] 137 mmol/L Normal 135-148 [facility] Comment on above: Performed By: #### C R BGA, CR ICA, LACT, CR COOX, CR GLU, CR LYTES #### [facility] PATH[facility] LABORATORY [address] [place] [address], Urea nitrogen [Mass/Vol] 13 mg/dL Normal 8-22 [facility] Comment on above: Performed By: #### C R BGA, CR ICA, LACT, CR COOX, CR GLU, CR LYTES #### [facility] LABORATORY [address] [place] [address], COMPLETE BLOOD COUNTon 11-14 Erythrocyte distribution width (RBC) [Ratio] 17.8 % High 11.5-14.5 [facility] Comment on above: Performed By: #### C R BGA, CR ICA, LACT, CR COOX, CR GLU, CR LYTES #### [facility] PATH[facility] LABORATORY [address] [place] [address], Hematocrit (Bld) [Volume fraction] 27.0 % Low 36.0-46.0 [facility] Comment on above: Performed By: #### C R BGA, CR ICA, LACT, CR COOX, CR GLU, CR LYTES #### [facility] LABORATORY [address] [place] [address], Hemoglobin (Bld) [Mass/Vol] 9.1 g/dL Low 12.0-15.0 [facility] Comment on above: Performed By: #### C R BGA, CR ICA, LACT, CR COOX, CR GLU, CR LYTES #### [facility] PATH[facility] LABORATORY [address] [place] [address], MCH (RBC) [Entitic mass] 31.5 pg Normal 26.0-34.0 [facility] Comment on above: Performed By: #### C R BGA, CR ICA, LACT, CR COOX, CR GLU, CR LYTES #### [facility] PATH[facility] LABORATORY [address] [place] [address], MCHC (RBC) [Mass/Vol] 33.7 g/dL Normal 32.0-35.9 [facility] Comment on above: Performed By: #### C R BGA, CR ICA, LACT, CR COOX, CR GLU, CR LYTES #### [facility] PATH[facility] LABORATORY [address] [place] [address], MCV (RBC) [Entitic vol] 93 fL Normal 80-100 [facility] Comment on above: Performed By: #### C R BGA, CR ICA, LACT, CR COOX, CR GLU, CR LYTES #### [facility] LABORATORY [address] [place] [address], Platelet mean volume (Bld) [Entitic vol] 9.1 fL Normal 7.5-11.2 [facility] Comment on above: Performed By: #### C R BGA, CR ICA, LACT, CR COOX, CR GLU, CR LYTES #### [facility] PATH[facility] LABORATORY [address] [place] [address], Platelets (Bld) [#/Vol] 146 10*3/uL Low 150-400 [facility] Comment on above: Performed By: #### C R BGA, CR ICA, LACT, CR COOX, CR GLU, CR LYTES #### [facility] [address] [place], [place], RBC (Bld) [#/Vol] 2.89 10*6/uL Low 4.00-5.20 [facility] Comment on above: Performed By: #### C R BGA, CR ICA, LACT, CR COOX, CR GLU, CR LYTES #### [facility] PATHOLOGY LABORATORY [address] [place], [place], WBC (Bld) [#/Vol] 15.6 10*3/uL High 4.5-11.5 [facility] Comment on above: Performed By: #### C R BGA, CR ICA, LACT, CR COOX, CR GLU, CR LYTES #### [facility] PATH[facility] LABORATORY [address] [place], [place], Erythrocyte distribution width (RBC) [Ratio] 13.9 % Normal 11.5-14.5 [facility] Comment on above: Performed By: #### C BC ####[facility] PATHOLOGY [id number] [place] [address], Hematocrit (Bld) [Volume fraction] 24.2 % Low 36.0-46.0 The [facility] Comment on above: Performed By: #### C BC ####[facility] PATHOLOGY [id number] [place], Hemoglobin (Bld) [Mass/Vol] 7.9 g/dL Low 12.0-15.0 [facility] Comment on above: Performed By: #### C BC ####[facility] PATHOLOGY [id number] [place], [place], MCH (RBC) [Entitic mass] 31.9 pg Normal 26.0-34.0 [facility] Comment on above: Performed By: #### C BC ####[facility] PATHOLOGY [id number] [place], MCHC (RBC) [Mass/Vol] 32.5 g/dL Normal 32.0-35.9 [facility] Comment on above: Performed By: #### C BC ####[facility] PATHOLOGY [id number] [place], MCV (RBC) [Entitic vol] 98 fL Normal 80-100 [facility] Comment on above: Performed By: #### C BC ####[facility] PATHOLOGY [id number] [place], Platelet mean volume (Bld) [Entitic vol] 9.3 fL Normal 7.5-11.2 [facility] Comment on above: Performed By: #### C BC ####[facility] PATHOLOGY [id number] [place], Platelets (Bld) [#/Vol] 147 10*3/uL Low 150-400 [facility] Comment on above: Performed By: #### C BC ####[facility] PATHOLOGY [id number] [place], RBC (Bld) [#/Vol] 2.47 10*6/uL Low 4.00-5.20 The [facility] Comment on above: Performed By: #### C BC ####[facility] PATHOLOGY [id number] [place], WBC (Bld) [#/Vol] 13.3 10*3/uL High 4.5-11.5 [facility] Comment on above: Performed By: #### C BC ####[facility] PATHOLOGY [id number] [place], Care Plan Noteon 11-14-2020 [facility] Authentication Interface Message Text Care plans updated Normal The [facility] Authentication Interface Message Text Care plans reviewed Normal The [facility] Consultson 11-14-2020 [facility] Authentication Interface Message Text Wound Ostomy Continence [...] in place and call adams in reach [facility] Nurse Recommendation: Sacrum: Offload area at all times, as able. Keep Mepilex Sacral Border in place for protective measures, change every 5 days or more often if soiled. Lift daily to assess skin underneath. Re-consult for skin changes. Additional Interventions for Skin Integrity: Shukri system glide sheet to prevent friction and shear ([facility] sheet #[id number]) Mepilex heel borders off load heels use pH-balanced cleanser for skin care moisture barrier turning wedges or pillows turn/reposition every 2 hours keep HOB lower than 30 degrees if not contraindicated Lilly CHENN, RN, CWON Normal The [facility] GLUCOSE, FINGERSTICK-IN OFFI CEon 11-14-2020 Glucose [Mass/Vol] 209 mg/dL High 80-116 [facility] Comment on above: Performed By: #### T ROP I #### [facility] PATHOLOGY LABORATORY [address] [place] [address], Glucose [Mass/Vol] 141 mg/dL High 80-116 [facility] Comment on above: Performed By: #### C R BGA, CR ICA, LACT, CR COOX, CR GLU, CR LYTES #### [facility] PATHOLOGY LABORATORY [address] [place] [address], Glucose [Mass/Vol] 251 mg/dL High 80-116 [facility] Comment on above: Performed By: #### C R BGA, CR ICA, LACT, CR COOX, CR GLU, CR LYTES #### [facility] PATHOLOGY LABORATORY [address] [place] [address], Glucose [Mass/Vol] 335 mg/dL High 80-116 [facility] Comment on above: Performed By: #### C R BGA, CR ICA, LACT, CR COOX, CR GLU, CR LYTES #### [facility] PATHOLOG[facility] LABORATORY [address] [place] [address], Performed By: #### 8 2948 ####NURSING GLUCOSE [id number] [place], [address] Glucose [Mass/Vol] 368 mg/dL High 80-116 [facility] Comment on above: Performed By: #### C R BGA, CR ICA, LACT, CR COOX, CR GLU, CR LYTES #### [facility] PATHOLOGY LABORATORY [address] [place] [address], HEMOGLOBIN ONLYon 11-14-2020 Hemoglobin (Bld) [Mass/Vol] 7.5 g/dL Low 12.0-15.0 [facility] Comment on above: Performed By: #### C R BGA, CR ICA, LACT, CR COOX, CR GLU, CR LYTES #### [facility] PATHOLOGY LABORATORY [address], [place], MAGNESIUMon 11-14-2020 Magnesium [Mass/Vol] 1.4 mg/dL Low 1.6-2.8 [facility] Comment on above: Performed By: #### C R BGA, CR ICA, LACT, CR COOX, CR GLU, CR LYTES #### [facility] PATHOLOGY LABORATORY [address] [place] [address], PARTIAL THROMBOPLASTIN TIMEo n 11-14-2020 aPTT Coag (Bld) [Time] 59 s High 25-37 [facility] Comment on above: Performed By: #### C R BGA, CR ICA, LACT, CR COOX, CR GLU, CR LYTES #### [facility] LABORATORY [address] [place] [address], aPTT Coag (Bld) [Time] 52 s High 25-37 [facility] Comment on above: Performed By: #### C R BGA, CR ICA, LACT, CR COOX, CR GLU, CR LYTES #### [facility] [address], [place], aPTT Coag (Bld) [Time] 67 s High 25-37 [facility] Comment on above: Performed By: #### C R BGA, CR ICA, LACT, CR COOX, CR GLU, CR LYTES #### [facility] [address] [place] [address], PHOSPHORUSon 11-14-2020 Phosphate [Mass/Vol] 2.9 mg/dL Normal 2.3-4.2 The [employer] [facility] Comment on above: Performed By: #### C R BGA, CR ICA, LACT, CR COOX, CR GLU, CR LYTES #### [facility] [address] [facility] [place], [address] Procedureson 11-14-2020 [facility] Authentication Interface Message Text Vascular Lower Extremities Doppler Segmental Pressures [address] [facility] [place], [place] [address] Status:Open Demographics Patient name: LYUDMILA Espinosa Gender: Female Date of : 1945 Age: 75 year(s) Procedure Information Procedure date: 11/14/2020 3:30 PM Procedure type: Vascular Proc. sub type: Extremities Arteries, Lower Arterial Plethysmography, DOPPLER SEGMENTAL PRESSURE Accession no: [id number] Patient status: Routine Study location: Portable Technical quality: Limited visualization Limitation reason: dressings Procedure Computer Operations Supervisor: Bianka Marin RVT Referring Physician: LIZETT Aceves MD Interpreting physician: ESTHER TAM MD Indications Follow-up of arterial bypass graft. Risk Factors PAD. Additional comments: RIGHT-Axillary bifemoral bypass graft 11/13/2020, Left SFA endarterectomy 11/13/2020, Left SFA thrombectomy, LEFT SFA patch angiogram and angioplasty 11/13/2020 Page 1/2 LYUDMILA Espinosa 1945 [id number] 11/14/2020 3:30 PM Vascular Lower Extremities Doppler Segmental Pressures LE Pressures Right Location Pressure (mmHg) Indices Waveform description Brachial 113 PUBLIC HEALTH SOCIAL WORKER 98 0.75 Biphasic DPA 106 0.82 Biphasic Left Location Pressure (mmHg) Indices Waveform description Brachial 130 PUBLIC HEALTH SOCIAL WORKER 86 0.66 Biphasic DPA 116 0.89 Biphasic [...] ischemia Page 2/2 LYUDMILA SOTO Jesús 1945 [id number] 11/14/2020 3:30 PM Normal The [employer] [facility] Progress Noteson 11-14-2020 [facility] Authentication Interface Message Text 1520: Received SBAR report from off going RN. 1515: Vascular lab at bedside. 1525: Heparin gtt and MAIL CLERK BILLS verified with off going RN. See MAR documentation. 1600: Full assessment completed. All gtts and monitor alarms verified for accuracy. Vital signs stable. Will continue to monitor. 1919: SBAR report given to oncoming RN. 1923: Heparin gtt and MAIL CLERK BILLS verified with on coming RN. See MAR documentation. Normal [facility] [employer] Interface Message Text Social Work Step Down Note Pt transfer from [facility]. SW aware of consult per industrial renderer screen for paper copy not with pt regarding Health Care ADs. SW also aware of PT reccs for SNF SW met with pt at bedside. Pt oriented to herself and the month/year, pt requires prompting to say correct day (), pt could not state correct hospital name. Pt reporting she was uncomfortable and RN was notified for assistance. SW called pt's daughter, Anni ([phone]), no answer, SW left VM asking for call-back. SW will follow-up as able. Lilo Nolan [facility], ANIMAL CONTROL LICENSING WORKER P: [phone] Normal The [employer] [facility] Authentication Interface Message Text Patient received the Sacrament of the ANOINTING OF THE SICK from Fr. Trevin Childress ([phone]). Normal [facility] [employer] Interface Message Text Given persistent hypotension despite IVF, repeat Hemoglobin, troponin and EKG were obtained. Hb 7.5 from 7.9. Troponin elevated at 0.13. EKG without ischemic changes. Concern for ongoing blood loss and demand ischemia. Will give 1 unit PRBC, trend troponin and repeat Hb this afternoon. Luis Martinez MD PGY1 P [phone] Normal The [employer] Authentication Interface Message Text Critical Troponin called in by lab, result 0.131, made TICU Resident Luis Martinez aware, awaiting orders, Pt's VSS. Ongoing monitoring. Normal The [employer] [facility] Authentication Interface Message Text ------ GENERAL INFORMATION ----- SURGICAL ICU - STAFF NOTE Patient seen and examined on 11/14/2020 Patient Name: Charles Coreas Admission Date: 11/12/2020 ---- INTERVAL HISTORY/EVENTS -- Background: 75 year old female PMHx of HTN, DM, COPD, CAD. Transferred to [facility]. Now presenting to SICU POD #0 s/p [...] CAD Plan: Neurological: postop pain(well controlled) - MAIL CLERK BILLS- diludid - Continue Scheduled tylenol - Q2h [...] Clarke (more content not included)... Normal [facility] [employer] [facility] [facility] Authentication Interface Message Text Assessment/Plan: Charles Coreas [...] graft. ??? Neuro/psych/pain: Post op pain - MAIL CLERK BILLS - Scheduled tylenol - 1Q2 Neurovascular checks [...] Disposition: Remain in step down Normal [facility] [employer] [facility] Authentication Interface Message Text VASCULAR SURGERY Post Operative Check Note Subjective: Pain controlled with MAIL CLERK BILLS. No nausea/vomiting. No new numbness or tingling. [...] bovine patch angioplasty, thombectomy, completion angiogram. Continue MAIL CLERK BILLS for pain control NPO for tonight Continue vascular checks Estefania Leong MD Vascular Surgery PGY1 Vascular Surgery Pager: [phone] Weekdays 6am-6pm [place] Pager: [phone] Weekdays 6pm-6am, Weekends Normal [facility] [employer] [facility] Authentication Interface Message Text 2257: Notified Dr. [...] new orders at this time. Normal [facility] [employer] [facility] RED BLOOD CELL COMPONENTon 0 11-14-2020 BB ORDER ITEM Product status info to follow Normal The [employer] [facility] Comment on above: Performed By: #### C R BGA, CR ICA, LACT, CR COOX, CR GLU, CR LYTES #### [facility] [address] [place] [address], RED BLOOD CELL UNIT STATUSon 11-14-2020 BLOOD PRODUCT CODE [id number] Normal The [employer] [facility] Comment on above: Performed By: #### C R BGA, CR ICA, LACT, CR COOX, CR GLU, CR LYTES #### [facility] [address] [place] [address], BLOOD PRODUCT DESCRIPTION Red Blood Cells Normal [facility] [employer] [facility] Comment on above: Performed By: #### C R BGA, CR ICA, LACT, CR COOX, CR GLU, CR LYTES #### S PATHOLOGY LABORATORY [address] [place] [address], BLOOD PRODUCT STATUS Transfused Normal [facility] Comment on above: Performed By: #### C R BGA, CR ICA, LACT, CR COOX, CR GLU, CR LYTES #### [facility] [address] [place] [address], BLOOD PRODUCT UNIT INFO [id number] Normal [facility] Comment on above: Performed By: #### C R BGA, CR ICA, LACT, CR COOX, CR GLU, CR LYTES #### [facility] [address] [place] [address], BLOOD PRODUCT UNIT TYPE 9500 Normal The [facility] Comment on above: Result Comment: O Ne g Performed By: #### C R BGA, CR ICA, LACT, CR COOX, CR GLU, CR LYTES #### [facility] [address] [place] [address], CROSSMATCH INTERPRETATION Compatible (E) Normal [facility] Comment on above: Performed By: #### C R BGA, CR ICA, LACT, CR COOX, CR GLU, CR LYTES #### [facility] [address] [place] [address], TROPONIN Ion 11-14-2020 TROP I 0.268 ng/mL Critically high <0.120 [facility] Comment on above: Result Comment: Rang [...] Performed By: #### T ROP I #### [facility] [address] [place] [address], TROP I 0.131 ng/mL Critically high <0.120 [facility] Comment on above: Result Comment: Rang [...] T ROP I #### [facility] [address] [place] [address], [phone] Anesthesia Arrivalon 021 [facility] Authentication Interface Message Text Patient taken to [...] Rubens White MD CAA: Emeli Márquez CAA HOOKER OPERATOR: Dasia Anderson APRN-HOOKER OPERATOR; Rikki Lee APRN-CRNA Liquor Grinding Mill Operator: Annika Galvez MD axillary-bifemoral bypass, SFA endarterectomy, [...] report was received. SALLY Keita Normal [facility] Anesthesia Attestationon [facility] Authentication Interface Message Text Anesthesia Attestation ATTESTATION OF INFORMED CONSENT FOR ANESTHESIA Anesthesia options were discussed with the patient and/or legal financial sales representative. The risks, benefits and alternatives were reviewed. Questions regarding anesthesia were answered. Patient and/or legal financial sales representative knows such anesthetics and procedures may be performed by Resident physicians, Certified Anesthesiologist Assistants, or Certified Nurse Anesthetists under the supervision of a physician. The patient /or the patient's legal financial sales representative agree with the plan for anesthesia. Normal The [employer] [facility] Anesthesia Postprocedure Dianelys luationon 11-13-2020 [facility] Authentication Interface Message Text Anesthesia Postoperative Assessment: [...] ANESTHESIA COMPLICATIONS: No complications documented. Normal [facility] [employer] [facility] Anesthesia Preprocedure Eval uationon 11-13-2020 [facility] Authentication Interface Message Text ASA: 4 PSE status: No PSE NPO status: >8 hours Review of Systems Pulmonary (+) COPD, a smoker Dental Endo (+) diabetes mellitus, wire mill rover - negative ROS (+) post-menopausal, Neuro/Psych Cardiovascular [...] to the ED as a transfer from [facility] with LLE pain and no pedal signals. [...] the history and physical examination. Normal [facility] BLOOD GAS, ARTERIALon 2020 CR ARSEN -5.7 mmol/L Low -2.0-2.0 [facility] Comment on above: Performed By: #### C R BGA, CR ICA, LACT, CR COOX, CR GLU, CR LYTES #### [facility] [address] [place] [address], CR PCO2 32.7 mm Hg Low 35.0-45.0 [facility] Comment on above: Performed By: #### C R BGA, CR ICA, LACT, CR COOX, CR GLU, CR LYTES #### [facility] [address] [place] [address], CR PHA 7.368 Normal 7.35-7.45 [facility] Comment on above: Performed By: #### C R BGA, CR ICA, LACT, CR COOX, CR GLU, CR LYTES #### [facility] [address] [place] [address], CR PO2 245 mm Hg High 80-100 mm Hg [facility] Comment on above: Performed By: #### C R BGA, CR ICA, LACT, CR COOX, CR GLU, CR LYTES #### [facility] [address] [place] [address], HCO3 (Bld) [Moles/Vol] 18 mmol/L Low 22-28 [facility] Comment on above: Performed By: #### C R BGA, CR ICA, LACT, CR COOX, CR GLU, CR LYTES #### [facility] [address] [place] [address], Oxygen saturation in Blood 99.3 % Normal >=95.1 [facility] Comment on above: Performed By: #### C R BGA, CR ICA, LACT, CR COOX, CR GLU, CR LYTES #### [facility] [address] [place] [address], CR ARSEN -1.8 mmol/L Normal -2.0-2.0 [facility] Comment on above: Performed By: #### C R BGA, CR ICA, LACT, CR COOX, CR GLU, CR LYTES #### [facility] [address] [place] [address], CR PCO2 42.5 mm Hg Normal 35.0-45.0 [facility] Comment on above: Performed By: #### C R BGA, CR ICA, LACT, CR COOX, CR GLU, CR LYTES #### [facility] [address] [place] [address], CR PHA 7.354 Normal 7.35-7.45 [facility] Comment on above: Performed By: #### C R BGA, CR ICA, LACT, CR COOX, CR GLU, CR LYTES #### [facility] [address] [place] [address], CR PO2 180 mm Hg High 80-100 mm Hg [facility] Comment on above: Performed By: #### C R BGA, CR ICA, LACT, CR COOX, CR GLU, CR LYTES #### [facility] [address] [place] [address], HCO3 (Bld) [Moles/Vol] 23 mmol/L Normal 22-28 [facility] Comment on above: Performed By: #### C R BGA, CR ICA, LACT, CR COOX, CR GLU, CR LYTES #### [facility] [address] [place] [address], Oxygen saturation in Blood 99.0 % Normal >=95.1 [facility] Comment on above: Performed By: #### C R BGA, CR ICA, LACT, CR COOX, CR GLU, CR LYTES #### [facility] [address] [place] [address], CR ARSEN -3.0 mmol/L Low -2.0-2.0 [facility] Comment on above: Performed By: #### C R LYTES, CR COOX, CR BGA, CR GLU, CR ICA, LACT ####[facility] [id number] [place] [address], CR PCO2 39.9 mm Hg Normal 35.0-45.0 [facility] Comment on above: Performed By: #### C R LYTES, CR COOX, CR BGA, CR GLU, CR ICA, LACT ####[facility] [id number] [place] [address], CR PHA 7.355 Normal 7.35-7.45 [facility] Comment on above: Performed By: #### C R LYTES, CR COOX, CR BGA, CR GLU, CR ICA, LACT ####[facility] [id number] [place] [address], CR PO2 177 mm Hg High 80-100 mm Hg The [facility] Comment on above: Performed By: #### C R LYTES, CR COOX, CR BGA, CR GLU, CR ICA, LACT ####[facility] [id number] [place] [address], HCO3 (Bld) [Moles/Vol] 22 mmol/L Normal 22-28 The [facility] Comment on above: Performed By: #### C R LYTES, CR COOX, CR BGA, CR GLU, CR ICA, LACT ####[facility] [id number] [place] [address], Oxygen saturation in Blood 99.2 % Normal >=95.1 [facility] Comment on above: Performed By: #### C R LYTES, CR COOX, CR BGA, CR GLU, CR ICA, LACT ####[facility] [id number] [place] [address], Blood Attestationon 11-14-19 21 [facility] Authentication Interface Message Text Blood Attestation ATTESTATION OF INFORMED CONSENT FOR BLOOD The transfusion of blood and/or blood components were discussed with the patient and/or legal financial sales representative. The risks, benefits and alternatives were reviewed. Questions regarding blood transfusions were answered. The patient /or the patient's legal financial sales representative agree with the plan for transfusion of blood and/or blood components. Normal The [employer] [facility] Brief Operative Noteon 11-13 [facility] Authentication Interface Message Text Brief Operative Note MAIN OR 08 Charles Coreas 75 year old female Surgical Contact Serial Number: [id number] Preoperative Diagnosis: Pain of left lower extremity due to ischemia [M79.605, I99.8] Postoperative Diagnosis: * Pain of left lower extremity due to ischemia [M79.605, I99.8] Procedures: (R) Axillary-bifemoral bypass graft (L) SFA thrombectomy (L) SFA endarterectomy/ bovine patch repair Angiogram (L) leg Surgeon(s): Surgeon(s): Kamilla Phoenix MD Staff: Scrub: Duane Mason RN; Jael Mckeon RN Construction Foreman Nurse: Shruthi Echols RN; Yvette Parr RN; Eri Camejo Renal Medicine Specialist: Viktoria Guerrero MD Anesthesia: General Anesthesiologist: Sukhjinder Mccurdy MD; Rubens White MD CAA: Emeli Márquez CAA HOOKER OPERATOR: Dasia Anderson APRN-HOOKER OPERATOR; Rikki Lee APRN-CRNA Liquor Grinding Mill Operator: Annika Galvez MD Specimen(s): * No specimens [...] CR COOX, CR GLU, CR LYTES #### [facility] [address] [place] [address], CR ICA 1.14 mmol/L Normal 1.10-1.40 [facility] Comment on above: Performed By: #### C R BGA, CR ICA, LACT, CR COOX, CR GLU, CR LYTES #### [facility] [address] [place] [address], CR ICA 1.14 mmol/L Normal 1.10-1.40 [facility] Comment on above: Performed By: #### C R BGA, CR ICA, LACT, CR COOX, CR GLU, CR LYTES #### [facility] [address] [place] [address], CR ICA 1.22 mmol/L Normal 1.10-1.40 [facility] Comment on above: Performed By: #### 8 [id number] #### NURSING GLUCOSE PROGRAM [address] [place] [address], CO-OXIMETERon 11-13-2020 CARBOXYHEMOGLOBIN 1.1 % Normal <3.0 [facility] Comment on above: Performed By: #### C R BGA, CR ICA, LACT, CR COOX, CR GLU, CR LYTES #### S PATHOLOGY LABORATORY [address] [place] [address], CR HBMET 1.2 % Normal <3.0 [facility] Comment on above: Performed By: #### C R BGA, CR ICA, LACT, CR COOX, CR GLU, CR LYTES #### [facility] [address] [place] [address], Hematocrit (Bld) [Volume fraction] 30.3 % Low 36.0-46.0 [facility] Comment on above: Performed By: #### C R BGA, CR ICA, LACT, CR COOX, CR GLU, CR LYTES #### [facility] [address] [place] [address], Hemoglobin (Bld) [Mass/Vol] 9.8 g/dL Low 12.0-16.0 [facility] Comment on above: Performed By: #### C R BGA, CR ICA, LACT, CR COOX, CR GLU, CR LYTES #### [facility] [address] [place] [address], OXYHEMOGLOBIN 97.0 % Normal 95.0-100.0 [facility] Comment on above: Performed By: #### C R BGA, CR ICA, LACT, CR COOX, CR GLU, CR LYTES #### [facility] [address] [place] [address], CARBOXYHEMOGLOBIN 1.2 % Normal <3.0 [facility] Comment on above: Performed By: #### C R BGA, CR ICA, LACT, CR COOX, CR GLU, CR LYTES #### [facility] [address] [place] [address], CR HBMET 1.2 % Normal <3.0 [facility] Comment on above: Performed By: #### C R BGA, CR ICA, LACT, CR COOX, CR GLU, CR LYTES #### [facility] [address] [place] [address], Hematocrit (Bld) [Volume fraction] 34.1 % Low 36.0-46.0 [facility] Comment on above: Performed By: #### C R BGA, CR ICA, LACT, CR COOX, CR GLU, CR LYTES #### [facility] [address] [place] [address], Hemoglobin (Bld) [Mass/Vol] 11.0 g/dL Low 12.0-16.0 [facility] Comment on above: Performed By: #### C R BGA, CR ICA, LACT, CR COOX, CR GLU, CR LYTES #### [facility] [address] [place] [address], OXYHEMOGLOBIN 96.6 % Normal 95.0-100.0 [facility] Comment on above: Performed By: #### C R BGA, CR ICA, LACT, CR COOX, CR GLU, CR LYTES #### [facility] [address] [place] [address], CARBOXYHEMOGLOBIN 1.0 % Normal <3.0 [facility] Comment on above: Performed By: #### C R LYTES, CR COOX, CR BGA, CR GLU, CR ICA, LACT ####[facility] [id number] [place] [address], CR HBMET 0.8 % Normal <3.0 [facility] Comment on above: Performed By: #### C R LYTES, CR COOX, CR BGA, CR GLU, CR ICA, LACT ####[facility] [id number] [place] [address], Hematocrit (Bld) [Volume fraction] 33.8 % Low 36.0-46.0 [facility] Comment on above: Performed By: #### C R LYTES, CR COOX, CR BGA, CR GLU, CR ICA, LACT ####[facility] [id number] [place] [address], Hemoglobin (Bld) [Mass/Vol] 11.0 g/dL Low 12.0-16.0 [facility] Comment on above: Performed By: #### C R LYTES, CR COOX, CR BGA, CR GLU, CR ICA, LACT ####[facility] [id number] [place] [address], OXYHEMOGLOBIN 97.4 % Normal 95.0-100.0 The [facility] Comment on above: Performed By: #### C R LYTES, CR COOX, CR BGA, CR GLU, CR ICA, LACT ####[facility] [id number] [place], [place], COMPLETE BLOOD COUNTon 11-13 Erythrocyte distribution width (RBC) [Ratio] 13.9 % Normal 11.5-14.5 [facility] Comment on above: Performed By: #### C BC ####[facility] [id number] [place], [place], Hematocrit (Bld) [Volume fraction] 27.7 % Low 36.0-46.0 [facility] Comment on above: Performed By: #### C BC ####[facility] [id number] [place], [place], Hemoglobin (Bld) [Mass/Vol] 9.0 g/dL Low 12.0-15.0 [facility] Comment on above: Performed By: #### C BC ####[facility] [id number] [place], [place], MCH (RBC) [Entitic mass] 32.2 pg Normal 26.0-34.0 [facility] Comment on above: Performed By: #### C BC ####[facility] [id number] [place], [place], MCHC (RBC) [Mass/Vol] 32.6 g/dL Normal 32.0-35.9 [facility] Comment on above: Performed By: #### C BC ####[facility] [id number] [place], [place], MCV (RBC) [Entitic vol] 99 fL Normal 80-100 [facility] Comment on above: Performed By: #### C BC ####[facility] [id number] [place], [place], Platelet mean volume (Bld) [Entitic vol] 9.3 fL Normal 7.5-11.2 [facility] Comment on above: Performed By: #### C BC ####[facility] [id number] [place], [place], Platelets (Bld) [#/Vol] 188 10*3/uL Normal 150-400 [facility] Comment on above: Performed By: #### C BC ####[facility] [id number] [place], [place], RBC (Bld) [#/Vol] 2.80 10*6/uL Low 4.00-5.20 [facility] Comment on above: Performed By: #### C BC ####[facility]OLOGY [id number] [place] [address], WBC (Bld) [#/Vol] 18.8 10*3/uL High 4.5-11.5 [facility] Comment on above: Performed By: #### C BC ####[facility] [id number] [place], [place], Erythrocyte distribution width (RBC) [Ratio] 14.2 % Normal 11.5-14.5 [facility] Comment on above: Performed By: #### C R BGA, CR ICA, LACT, CR COOX, CR GLU, CR LYTES #### [facility] LABORATORY [address] [place] [address], Hematocrit (Bld) [Volume fraction] 36.9 % Normal 36.0-46.0 [facility] Comment on above: Performed By: #### C R BGA, CR ICA, LACT, CR COOX, CR GLU, CR LYTES #### [facility]ORY [address] [place] [address], Hemoglobin (Bld) [Mass/Vol] 12.4 g/dL Normal 12.0-15.0 [facility] Comment on above: Performed By: #### C R BGA, CR ICA, LACT, CR COOX, CR GLU, CR LYTES #### [facility] PATHOLOGY LABORATORY [address] [place] [address], MCH (RBC) [Entitic mass] 32.8 pg Normal 26.0-34.0 [facility] Comment on above: Performed By: #### C R BGA, CR ICA, LACT, CR COOX, CR GLU, CR LYTES #### [facility] PATH[facility]ORY [address] [place] [address], MCHC (RBC) [Mass/Vol] 33.7 g/dL Normal 32.0-35.9 [facility] Comment on above: Performed By: #### C R BGA, CR ICA, LACT, CR COOX, CR GLU, CR LYTES #### [facility] PATH[facility] [address] [place] [address], MCV (RBC) [Entitic vol] 98 fL Normal 80-100 [facility] Comment on above: Performed By: #### C R BGA, CR ICA, LACT, CR COOX, CR GLU, CR LYTES #### [facility] PATH[facility] [address] [place] [address], Platelet mean volume (Bld) [Entitic vol] 9.5 fL Normal 7.5-11.2 [facility] Comment on above: Performed By: #### C R BGA, CR ICA, LACT, CR COOX, CR GLU, CR LYTES #### [facility] PATH[facility] [address] [place] [address], Platelets (Bld) [#/Vol] 182 10*3/uL Normal 150-400 [facility] Comment on above: Performed By: #### C R BGA, CR ICA, LACT, CR COOX, CR GLU, CR LYTES #### [facility] [address] [place] [address], RBC (Bld) [#/Vol] 3.79 10*6/uL Low 4.00-5.20 The [facility] Comment on above: Performed By: #### C R BGA, CR ICA, LACT, CR COOX, CR GLU, CR LYTES #### [facility] [address] [place] [address], WBC (Bld) [#/Vol] 10.7 10*3/uL Normal 4.5-11.5 The [facility] Comment on above: Performed By: #### C R BGA, CR ICA, LACT, CR COOX, CR GLU, CR LYTES #### [facility] [address] [place] [address], Care Plan Noteon 11-13-2020 [facility] Authentication Interface Message Text Problem: Routine Care: [...] will be met Outcome: Progressing Normal [facility] [employer] ELECTROLYTESon 11-13-2020 Chloride [Moles/Vol] 110 mmol/L Normal 97-111 [facility] Comment on above: Performed By: #### C R BGA, CR ICA, LACT, CR COOX, CR GLU, CR LYTES #### S PATHOLOGY LABORATORY [address] [place] [address], Potassium [Moles/Vol] 4.0 mmol/L Normal 3.3-5.3 [facility] Comment on above: Performed By: #### C R BGA, CR ICA, LACT, CR COOX, CR GLU, CR LYTES #### S PATHOLOGY LABORATORY [address] [place] [address], Sodium [Moles/Vol] 135 mmol/L Normal 135-148 [facility] Comment on above: Performed By: #### C R BGA, CR ICA, LACT, CR COOX, CR GLU, CR LYTES #### S PATHOLOGY LABORATORY [address] [place] [address], Chloride [Moles/Vol] 109 mmol/L Normal 97-111 [facility] Comment on above: Performed By: #### C R BGA, CR ICA, LACT, CR COOX, CR GLU, CR LYTES #### [facility] [address] [place] [address], Potassium [Moles/Vol] 3.1 mmol/L Low 3.3-5.3 [facility] Comment on above: Performed By: #### C R BGA, CR ICA, LACT, CR COOX, CR GLU, CR LYTES #### [facility] [address] [place] [address], Sodium [Moles/Vol] 134 mmol/L Low 135-148 [facility] Comment on above: Performed By: #### C R BGA, CR ICA, LACT, CR COOX, CR GLU, CR LYTES #### [facility] [address] [place] [address], Chloride [Moles/Vol] 107 mmol/L Normal 97-111 [facility] Comment on above: Performed By: #### C R LYTES, CR COOX, CR BGA, CR GLU, CR ICA, LACT ####[facility] PATHOLOGY [id number] [place] [address], Potassium [Moles/Vol] 2.8 mmol/L Low 3.3-5.3 [facility] Comment on above: Performed By: #### C R LYTES, CR COOX, CR BGA, CR GLU, CR ICA, LACT ####[facility] PATHOLOGY [id number] [place] [address], Sodium [Moles/Vol] 139 mmol/L Normal 135-148 [facility] Comment on above: Performed By: #### C R LYTES, CR COOX, CR BGA, CR GLU, CR ICA, LACT ####[facility] PATHOLOGY [id number] [place] [address], GLUCOSE, FINGERSTICK-IN OFFI CEon 11-13-2020 Glucose [Mass/Vol] 282 mg/dL High 80-116 [facility] Comment on above: Performed By: #### 8 2948 ####NURSING GLUCOSE [id number] [place] [address], [address] Glucose [Mass/Vol] 205 mg/dL High 80-116 [facility] Comment on above: Result Comment: Shavon collins RN, APN, MD Performed By: #### 8 2948 ####NURSING GLUCOSE [id number] [place], [address] Glucose [Mass/Vol] 287 mg/dL High 80-116 [facility] Comment on above: Performed By: #### 8 2948 #### NURSING GLUCOSE PROGRAM [address] [place], [address] Glucose [Mass/Vol] 339 mg/dL High 80-116 [facility] Comment on above: Performed By: #### 8 2948 #### NURSING GLUCOSE PROGRAM [address] [place], [address] Glucose [Mass/Vol] 295 mg/dL High 80-116 [facility] Comment on above: Result Comment: Shavon collins RN, APN, MD Performed By: #### C R BGA, CR ICA, LACT, CR COOX, CR GLU, CR LYTES #### S PATHOLOGY LABORATORY [address] [place] [address], GLUCOSE, WHOLE BLOODon 11-13 CR GLU 301 mg/dL High 68-98 [facility] Comment on above: Performed By: #### C R BGA, CR ICA, LACT, CR COOX, CR GLU, CR LYTES #### S PATHOLOGY LABORATORY [address] [place] [address], CR GLU 228 mg/dL High 68-98 [facility] Comment on above: Performed By: #### C R BGA, CR ICA, LACT, CR COOX, CR GLU, CR LYTES #### S PATHOLOGY LABORATORY [address] [place] [address], CR GLU 222 mg/dL High 68-98 [facility] Comment on above: Performed By: #### 8 2948 #### NURSING GLUCOSE PROGRAM [address] [place] [address], [address] LACTIC ACIDon 11-13-2020 CR LACT 1.3 mmol/L Normal 0.5-2.0 [facility] Comment on above: Performed By: #### C R BGA, CR ICA, LACT, CR COOX, CR GLU, CR LYTES #### [facility] [address] [place], [place], CR LACT 0.9 mmol/L Normal 0.5-2.0 The [facility] Comment on above: Performed By: #### C R BGA, CR ICA, LACT, CR COOX, CR GLU, CR LYTES #### [facility] [address] [place], [place], CR LACT 0.7 mmol/L Normal 0.5-2.0 The [facility] Comment on above: Performed By: #### 8 2948 #### NURSING GLUCOSE PROGRAM [address] [place], [place], OP Noteon 11-13-2020 [facility] Authentication Interface Message Text Name: CHARLES COREAS MR#: [id number] ENC#: [id number] Date of Procedure: 11/13/2020 [facility] [id number] [address]Mbzuxwdtr Number #: [id number]: 75Date of Surgery: 11/13/2020 Room Number: SAME [...] old, who [facility] with [facility] lower extremity ischemia, left [...] with a long tunneling instrument and the [place] ermicf-jag-kgn bypass graft was tunneled from the right [...] Dict: 11/13/2020 17:59:41 TRANS: 11/13/2020 19:37:03 JOB: [id number] DictJob#: [id number] Normal [facility] [employer] [facility] PARTIAL THROMBOPLASTIN TIMEo n 11-13-2020 aPTT Coag (Bld) [Time] 75 s High 25-37 [facility] [employer] [facility] Comment on above: Performed By: #### C R BGA, CR ICA, LACT, CR COOX, CR GLU, CR LYTES #### [facility] [address] [place] [address], [id number] Procedureson 11-13-2020 [facility] Authentication Interface Message Text Transthoracic Echocardiographic Report Name: LYUDMILA Espinosa Physician: : 1945 Referring PRITI LI MD Physician: Age: 75 Satellite Dish Technician: Beena Gtz RDCS Exam Date: 11/13/2020 Fellow: Rafael Fernando 09:31 AM CVT: PCP: Gender: Female Height 154.94 cm Weight 67.1328 kg Encounter #: BSA 1.66 m2 Study IP Non-Unit BMI 27.96 kg/m2 Location: Technical Fair-Poor Quality: Type of Study: TTE procedure: 2D echocardiogram, M-Mode, Doppler , Color Doppler. Indications for Study:Pre-operative evaluation. Tech. Comments Patient's preferred language is Botswanan . Patient identified by name and date [...] physician) on 11/13/2020 11:11 AM Normal [facility] [employer] [facility] Progress Noteson 11-13-2020 [facility] Authentication Interface Message Text 181- Pt arrived to PACU. Per Dr. Guerrero pt needs heparin gtt started. No baseline PTT and no extended PACU stay. Normal [facility] [employer] [facility] Brndstration Interface Message Text SW aware of industrial renderer screen consult for AD - Not with pt . Attempted to meet with pt, but pt current with MD and nursing at bedside. SW to f/u with pt as able. Eleanor Ferreira, CARPENTRY PROFESSIONAL, ANIMAL CONTROL LICENSING WORKER P: [phone] Normal The [employer] [facility] Brndstration Interface Message Text I have reviewed and agree with Ingrid Hooker's (Student Nurse) documentation for [id number] shift. Normal The [employer] Interface Message Text 11/13/20 0142 Vital Signs Heart Rate 111 Respiratory Rate 20 BP 161/90 MAP (mmHg) 91 mmHg MD notified of BP and HR. No new orders at this time. Will continue to monitor pt. Normal [facility] [employer] Interface Message Text 11/12/20 2239 Neurovascular LLE [...] the team with new findings. Normal [facility] [employer] [facility] US arterial duplex LE BIon 0 11-13-2020 US arterial duplex LE [facility] [place] [address] [place] [address] Ultrasound Report Signed Patient: Charles Coreas MR#: [id number] 79 : 1945 Acct:[id number] Age/Sex: 75 / F ADM Date: 11/12/20 Loc: ER Room: Type: [facility] ER Attending Dr: Ordering Provider: Miguel Saeed [...] Zacarias Chambers M.D.11/13/2020 4:24 PM Dictation Location: [place] [address] Tech: Megan Luis Transcribed By: KINA 11/13/20 162 Dictated By: Zacarias Chambers MD 11/13/201621 Signed By: 11/13/20 1624 [facility] XR ANGIO INTRAOPERATIVEon XR ANGIO INTRAOPERATIVE EXAMINATION: [...] for further details MACRO: None Normal [facility] [employer] [facility] ABO RH TYPEon 11-12-2020 ABO and Rh group Nom (Bld) Blood group O Rh(D) positive Normal [facility] Comment on above: Performed By: #### C R BGA, CR ICA, LACT, CR COOX, CR GLU, CR LYTES #### [facility] [address] [place] [address], B TYPE NATRIURETIC PEPTIDEon 11-12-2020 Natriuretic peptide B (Bld) [Mass/Vol] 111.0 pg/mL High <100.0 [facility] Comment on above: Performed By: #### C R BGA, CR ICA, LACT, CR COOX, CR GLU, CR LYTES #### [facility] [address] [place] [address], BASIC METABOLIC PANELon 10-29 Anion gap [Moles/Vol] 18 mmol/L High 5-13 [facility] Comment on above: Performed By: #### 8 2948 #### NURSING GLUCOSE PROGRAM [address] [place] [address], [address] Calcium [Mass/Vol] 9.2 mg/dL Normal 8.4-10.4 [facility] Comment on above: Performed By: #### 8 2948 #### NURSING GLUCOSE PROGRAM [address] [place] [address], [address] Chloride [Moles/Vol] 101 mmol/L Normal 97-111 [facility] Comment on above: Performed By: #### 8 2948 #### NURSING GLUCOSE PROGRAM [address] [place] [address], [address] CO2 [Moles/Vol] 22 mmol/L Normal 21-30 [facility] Comment on above: Performed By: #### 8 2948 #### NURSING GLUCOSE PROGRAM [address] [place] [address], [address] Creatinine [Mass/Vol] 0.68 mg/dL Normal 0.50-1.10 The [facility] Comment on above: Performed By: #### 8 2948 #### NURSING GLUCOSE PROGRAM [address] [place] [address], [address] ESTIMATED GFR (CKD-EPI) 86 mL/min/1.73sqm Normal >=60 [facility] Comment on above: Performed By: #### 8 2948 #### NURSING GLUCOSE PROGRAM [address] [place], [address] Glucose [Mass/Vol] 183 mg/dL High 80-116 [facility] Comment on above: Performed By: #### 8 2948 #### NURSING GLUCOSE PROGRAM [address] [place], [address] Potassium [Moles/Vol] 3.7 mmol/L Normal 3.3-5.3 [facility] Comment on above: Performed By: #### 8 2948 #### NURSING GLUCOSE PROGRAM [address] [place], [address] Sodium [Moles/Vol] 137 mmol/L Normal 135-148 [facility] Comment on above: Performed By: #### 8 2948 #### NURSING GLUCOSE PROGRAM [address] [place], [address] Urea nitrogen [Mass/Vol] 14 mg/dL Normal 8-22 [facility] Comment on above: Performed By: #### 8 2948 #### NURSING GLUCOSE PROGRAM [address] [place], [address] Basic Metabolic Panelon 10-29 Calcium [Mass/Vol] 10.0 mg/dL Normal 8.2-10.2 [facility] Comment on above: Performed By: #### M G, CBC, BMP, PTT, PT #### [facility] [address] [place] [id number] [place] Chloride [Moles/Vol] 94 mmol/L Low 95-114 [facility] Comment on above: Performed By: #### M G, CBC, BMP, PTT, PT #### [facility] [address] [place] [address] [place] CO2 [Moles/Vol] 22.9 mmol/L Normal 22.0-30.0 [facility] Comment on above: Performed By: #### M G, CBC, BMP, PTT, PT #### [facility] [address] [place] [address] [place] Creatinine [Mass/Vol] 0.92 mg/dL Normal 0.44-1.03 [facility] Comment on above: Performed By: #### M G, CBC, BMP, PTT, PT #### [facility] [address] [place] [address] [place] Creatinine Clr Calc Pharmacy 44.71 [facility] Comment on above: Performed By: #### M G, CBC, BMP, PTT, PT #### [facility] [address] [place] [address] [place] Estimated GFR ( Eliza > 60 [facility] Comment on above: Result Comment: GFR estimated reference range: According to KDOQI guidelines, <60 ml/min/1.73m2 is sufficient to diagnose a patient with chronic kidney disease. Performed By: #### M G, CBC, BMP, PTT, PT #### [facility] [address] [place] [address] [place] Estimated GFR (Non- Am 60 [facility] Comment on above: Performed By: #### M G, CBC, BMP, PTT, PT #### [address] Glucose [Mass/Vol] 197 mg/dL High 70-100 [facility] Comment on above: Result Comment: [place] om Glucose Reference Range is dependent on time and content of last meal. Glucose of more than 200 mg/dL in a nonstressed, ambulatory subject supports the diagnosis of Diabetes Mellitus. ADA recommended reference range Performed By: #### M G, CBC, BMP, PTT, PT #### [facility] [address] Potassium [Moles/Vol] 3.2 mmol/L Low 3.5-5.1 [facility] Comment on above: Performed By: #### M G, CBC, BMP, PTT, PT #### [facility] [address] [place] [address] [place] Sodium [Moles/Vol] 131 mmol/L Low 136-146 [facility] Comment on above: Performed By: #### M G, CBC, BMP, PTT, PT #### [facility] [address] Urea nitrogen [Mass/Vol] 19 mg/dL Normal 9-23 [facility] Comment on above: Performed By: #### M G, CBC, BMP, PTT, PT #### [facility] [address] CBC WITH DIFFERENTIALon 10-29 Basophils (Bld) [#/Vol] 0.08 10*3/uL Normal 0.00-0.20 [facility] Comment on above: Performed By: #### C BCDSAT ####S PATHOLOGY [id number] [place], [place], Basophils/100 WBC (Bld) 0.9 % Normal <=1.9 [facility] Comment on above: Performed By: #### C BCDSAT ####[facility] PATHOLOGY [id number] [place], [place], Eosinophils (Bld) [#/Vol] 0.09 10*3/uL Normal 0.00-0.70 [facility] Comment on above: Performed By: #### C BCDSAT ####[facility] PATHOLOGY [id number] [place], Eosinophils/100 WBC (Bld) 0.9 % Normal 0.1-4.0 [facility] Comment on above: Performed By: #### C BCDSAT ####[facility] PATHOLOGY [id number] [place], [place], Erythrocyte distribution width (RBC) [Ratio] 13.8 % Normal 11.5-14.5 [facility] Comment on above: Performed By: #### C BCDSAT ####[facility] PATHOLOGY [id number] [place], [place], Hematocrit (Bld) [Volume fraction] 36.9 % Normal 36.0-46.0 [facility] Comment on above: Performed By: #### C BCDSAT ####S PATHOLOGY [id number] [place], [place], Hemoglobin (Bld) [Mass/Vol] 12.1 g/dL Normal 12.0-15.0 [facility] Comment on above: Performed By: #### C BCDSAT ####[facility] PATHOLOGY [id number] [place], [place], Lymphocytes (Bld) [#/Vol] 2.25 10*3/uL Normal 1.00-4.80 [facility] Comment on above: Performed By: #### C BCDSAT ####[facility] PATHOLOGY [id number] [place], [place], Lymphocytes/100 WBC (Bld) 22.6 % Low 24.0-44.0 [facility] Comment on above: Performed By: #### C BCDSAT ####[facility] PATHOLOGY [id number] [place], [place], MCH (RBC) [Entitic mass] 31.9 pg Normal 26.0-34.0 [facility] Comment on above: Performed By: #### C BCDSAT ####[facility] PATHOLOGY [id number] [place] [address], MCHC (RBC) [Mass/Vol] 32.9 g/dL Normal 32.0-35.9 [facility] Comment on above: Performed By: #### C BCDSAT ####[facility] PATHOLOGY [id number] [place] [address], MCV (RBC) [Entitic vol] 97 fL Normal 80-100 [facility] Comment on above: Performed By: #### C BCDSAT ####[facility] PATHOLOGY [id number] [place] [address], MONOCYTE DISTRIBUTION WIDTH 20 Normal <=20 [facility] Comment on above: Performed By: #### C BCDSAT ####[facility] PATHOLOGY [id number] [place], Monocytes (Bld) [#/Vol] 0.58 10*3/uL Normal 0.20-1.00 [facility] Comment on above: Performed By: #### C BCDSAT ####[facility] PATHOLOGY [id number] [place] [address], Monocytes/100 WBC (Bld) 5.8 % Normal 2.0-11.0 [facility] Comment on above: Performed By: #### C BCDSAT ####[facility] PATHOLOGY [id number] [place] [address], Neutrophils (Bld) [#/Vol] 6.95 10*3/uL Normal 1.50-8.00 [facility] Comment on above: Performed By: #### Tony ARAUJOAT ####[facility] PATHOLOGY [id number] [place], Neutrophils/100 WBC (Bld) 69.8 % Normal 31.0-76.0 [facility] Comment on above: Performed By: #### Tony ARAUJOAT ####[facility] PATHOLOGY [id number] [place] [address], Platelet mean volume (Bld) [Entitic vol] 9.5 fL Normal 7.5-11.2 [facility] Comment on above: Performed By: #### Tony ARAUJOAT ####[facility] PATHOLOGY [id number] [place] [address], Platelets (Bld) [#/Vol] 190 10*3/uL Normal 150-400 [facility] Comment on above: Performed By: #### Tony ARAUJOAT ####[facility] PATHOLOGY [id number] [place] [address], RBC (Bld) [#/Vol] 3.80 10*6/uL Low 4.00-5.20 [facility] Comment on above: Performed By: #### Tony ARAUJOAT ####[facility] PATHOLOGY [id number] [place], WBC (Bld) [#/Vol] 10.0 10*3/uL Normal 4.5-11.5 [facility] Comment on above: Performed By: #### Tony ARAUJOAT ####[facility] PATHOLOGY [id number] [place] [address], COVID-19 Antigenon 1 COVID-19 Antigen Healthcare Worker?: [...] should not be used as the sole Katrina Disclaimer basis for treatment or patient management [...] its performance Katrina Disclaimer characteristic determined by [employer] and Katrina Disclaimer validated at [facility]. This Katrina Disclaimer test has not been [...] is terminated or revoked sooner. PERFORMED BY: [place] [address] PATHOLOGIST STONE FABRICATOR ATA CHEUNG M.D. [facility] Comment on above: Performed By: #### C OVID-19 KATRINA, SOFIANEG #### [address] CTA ABDOMINAL AORTA RUNOFF W / [...] per 1 lb. INTRA-PROCEDURE MEDS: Contrast Agent [id number] 100ml Bottle 100 milliliter 11/12/2020 INTRAVENOUS FINDINGS: [...] obstruct (more content not included)... Normal [facility] [employer] Complete Blood Count Auto Di ffon 11-12-2020 Basophils (Bld) [#/Vol] 0.1 10*3/uL Normal 0.0-0.2 [facility] Comment on above: Result Comment: PERF ORMED BY: [place] [address] PATHOLOGIST STONE FABRICATOR ATA CHEUNG M.D. Performed By: #### M G, CBC, BMP, PTT, PT #### [address] Basophils/100 WBC (Bld) 0.6 % Normal . [facility] Comment on above: Performed By: #### M G, CBC, BMP, PTT, PT #### [address] Eosinophils (Bld) [#/Vol] 0.1 10*3/uL Normal 0.0-0.45 [facility] Comment on above: Performed By: #### M G, CBC, BMP, PTT, PT #### [place] [address] [place] Eosinophils/100 WBC (Bld) 1.2 % Normal . [facility] Comment on above: Performed By: #### M G, CBC, BMP, PTT, PT #### [facility] [address] [place] [address] Erythrocyte distribution width (RBC) [Ratio] 14.1 % Normal 11.9-15.3 [facility] Comment on above: Performed By: #### M G, CBC, BMP, PTT, PT #### [address] Hematocrit (Bld) [Volume fraction] 37.7 % Normal 34.0-46.4 [facility] Comment on above: Performed By: #### M G, CBC, BMP, PTT, PT #### [address] Hemoglobin (Bld) [Mass/Vol] 12.8 g/dL Normal 11.8-15.4 [facility] Comment on above: Performed By: #### M G, CBC, BMP, PTT, PT #### [address] Lymphocytes (Bld) [#/Vol] 1.5 10*3/uL Normal 1.00-4.8 [facility] Comment on above: Performed By: #### M G, CBC, BMP, PTT, PT #### [address] Lymphocytes/100 WBC (Bld) 16.4 % Normal . [facility] Comment on above: Performed By: #### M G, CBC, BMP, PTT, PT #### [address] MCH (RBC) [Entitic mass] 33.0 pg Normal 24.7-34.3 [facility] Comment on above: Performed By: #### M G, CBC, BMP, PTT, PT #### [address] MCV (RBC) [Entitic vol] 97.4 fL Normal 80-100 [facility] Comment on above: Performed By: #### M G, CBC, BMP, PTT, PT #### [address] Mean Corpuscular HGB Conc 33.8 g/dL Normal 32.0-35.0 [facility] Comment on above: Performed By: #### M G, CBC, BMP, PTT, PT #### [address] Monocytes (Bld) [#/Vol] 0.7 10*3/uL Normal 0.0-0.8 [facility] Comment on above: Performed By: #### M G, CBC, BMP, PTT, PT #### [facility] [address] Monocytes/100 WBC (Bld) 7.5 % Normal . [facility] Comment on above: Performed By: #### M G, CBC, BMP, PTT, PT #### [facility] [address] Neutrophils (Bld) [#/Vol] 6.6 10*3/uL Normal 1.8-7.7 [facility] Comment on above: Performed By: #### M G, CBC, BMP, PTT, PT #### [address] Neutrophils/100 WBC (Bld) 74.3 % Normal . [facility] Comment on above: Performed By: #### M G, CBC, BMP, PTT, PT #### [facility] [address] [place] [address] [place] Nucleated RBC/100 WBC (Bld) [Ratio] 0.1 % Normal 0-0.5 [facility] Comment on above: Performed By: #### M G, CBC, BMP, PTT, PT #### [facility] [address] Platelet mean volume (Bld) [Entitic vol] 9.2 fL Normal 6.3-10.7 [facility] Comment on above: Performed By: #### M G, CBC, BMP, PTT, PT #### [facility] [address] [place] [address] [place] Platelets (Bld) [#/Vol] 196 10*3/uL Normal 150-450 [facility] Comment on above: Performed By: #### M G, CBC, BMP, PTT, PT #### [facility] [address] [place] [address] [place] RBC (Bld) [#/Vol] 3.87 10*6/uL Normal 3.60-5.00 [facility] Comment on above: Performed By: #### M G, CBC, BMP, PTT, PT #### [facility] [address] WBC (Bld) [#/Vol] 8.9 10*3/uL Normal 4.5-11.0 [facility] Comment on above: Performed By: #### M G, CBC, BMP, PTT, PT #### [facility] [address] ED Noteson 11-12-2020 [facility] Authentication Interface Message Text notified of critical PTT value of 110. Hard copy of results given to . Normal [facility] Authentication Interface Message Text Vascular aware of absent pulses - currently in room assessing pt Normal [facility] ED Provider Noteson 11-13-19 [facility] Brndstration Interface Message Text -------- Attestation signed by [...] Right leg, wound vac to left leg Narrow Gauge Brakeman: not needed - patient preferred language is Botswanan. The history is provided by the Patient. [...] groin wound vac. She was seen at [facility] ED who was concerned for ischemic leg. [...] (R (more content not included)... Normal [facility] MAGNESIUMon 11-12-2020 Magnesium [Mass/Vol] 1.8 mg/dL Normal 1.6-2.8 [facility] Comment on above: Performed By: #### 8 2948 #### NURSING GLUCOSE PROGRAM [address] [place] [address], [address] Magnesiumon 11-12-2020 Magnesium [Mass/Vol] 1.8 mg/dL Normal 1.6-2.6 [facility] Comment on above: Result Comment: PERF ORMED BY: [place] [address] PATHOLOGIST STONE FABRICATOR ATA CHEUNG M.D. Performed By: #### M G, CBC, BMP, PTT, PT #### [place] [address] [place] PARTIAL THROMBOPLASTIN TIMEo n 11-12-2020 aPTT Coag (Bld) [Time] 110 s Critically high 25-37 [facility] Comment on above: Performed By: #### C R BGA, CR ICA, LACT, CR COOX, CR GLU, CR LYTES #### [facility] [address] [place] [address], PROTHROMBIN TIME AND INRon 0 11-12-2020 INR Coag (PPP) [Relative time] 1.12 {INR} High 0.90-1.10 [facility] Comment on above: Performed By: #### C R BGA, CR ICA, LACT, CR COOX, CR GLU, CR LYTES #### [facility] [address] [place] [address], PT Coag (PPP) [Time] 12.6 s Normal 9.7-12.9 [facility] Comment on above: Performed By: #### C R BGA, CR ICA, LACT, CR COOX, CR GLU, CR LYTES #### [facility] [address] [place], [place], Partial Thromboplastin Timeo n 11-12-2020 aPTT Coag (Bld) [Time] 28.8 s Normal 25.1-36.5 [facility] Comment on above: Result Comment: PERF ORMED BY: [place] [address] PATHOLOGIST STONE FABRICATOR ATA CHEUNG M.D. Performed By: #### M G, CBC, BMP, PTT, PT #### [address] Prothrombin Time INRon 11-12 INR Coag (PPP) [Relative time] 1.1 {INR} Normal [facility] Comment on above: Result Comment: INR Therapeutic [...] M G, CBC, BMP, PTT, PT #### [facility] [address] [place] [address] PT Coag (PPP) [Time] 11.7 s Normal 9.0-12.9 [facility] Comment on above: Performed By: #### M G, CBC, BMP, PTT, PT #### [facility] [address] [place] [address] RED BLOOD CELL COMPONENTon 0 11-12-2020 BB ORDER ITEM Product status info to follow Normal [facility] Comment on above: Performed By: #### C R BGA, CR ICA, LACT, CR COOX, CR GLU, CR LYTES #### [facility] [address] [facility] [place], RED BLOOD CELL UNIT STATUSon 11-12-2020 BLOOD PRODUCT CODE [id number] Normal [facility] Comment on above: Performed By: #### 8 2948 #### NURSING GLUCOSE PROGRAM [address] [place] [address], Performed By: #### C R BGA, CR ICA, LACT, CR COOX, CR GLU, CR LYTES #### [facility] [address] [place] [address], BLOOD PRODUCT DESCRIPTION Red Blood Cells Normal [facility] Comment on above: Performed By: #### 8 2948 #### NURSING GLUCOSE PROGRAM [address] [place] [address], Performed By: #### C R BGA, CR ICA, LACT, CR COOX, CR GLU, CR LYTES #### [facility] [address] [place] [address], BLOOD PRODUCT STATUS Released to avail Normal [facility] Comment on above: Performed By: #### 8 2948 #### NURSING GLUCOSE PROGRAM [address] [place] [address], Performed By: #### C R BGA, CR ICA, LACT, CR COOX, CR GLU, CR LYTES #### [facility] [address] [place] [address], BLOOD PRODUCT UNIT INFO [id number] Normal [facility] Comment on above: Performed By: #### 8 2948 #### NURSING GLUCOSE PROGRAM [address] [place] [address], BLOOD PRODUCT UNIT INFO [id number] Normal [facility] Comment on above: Performed By: #### C R BGA, CR ICA, LACT, CR COOX, CR GLU, CR LYTES #### [facility] [address] [place] [address], BLOOD PRODUCT UNIT TYPE 5100 Normal [facility] Comment on above: Result Comment: O Po s Performed By: #### 8 2948 #### NURSING GLUCOSE PROGRAM [address] [place] [address], Performed By: #### C R BGA, CR ICA, LACT, CR COOX, CR GLU, CR LYTES #### [facility] [address] [place] [address], CROSSMATCH INTERPRETATION Compatible (E) Normal [facility] Comment on above: Performed By: #### 8 2948 #### NURSING GLUCOSE PROGRAM [address] [place] [address], Performed By: #### C R BGA, CR ICA, LACT, CR COOX, CR GLU, CR LYTES #### [facility] [address] [place] [address], Katrina Ag Negativeon 11-13-19 21 Katrina Ag Negative Negative Normal Negative [facility] Comment on above: Result Comment: This is a duplicate Katrina SARS Antigen (SHAYLA) result to be used for statistical tracking purpose only. PERFORMED BY: [place] [address] PATHOLOGIST STONE FABRICATOR ATA CHEUNG M.D. Performed By: #### C OVID-19 KATRINA, SOFIANEG #### [place] [address] [place] TROPONIN Ion 11-12-2020 TROP I < 0.030 Normal <0.120 [facility] Comment on above: Result Comment: Rang [...] #### 8 2948 #### NURSING GLUCOSE PROGRAM [address] [place] [address], TYPE AND SCREENon 11-12-2020 ABO and Rh group Nom (Bld) Blood group O Rh(D) positive Normal [facility] Comment on above: Performed By: #### C R BGA, CR ICA, LACT, CR COOX, CR GLU, CR LYTES #### [facility] [address] [place] [address], ABO and Rh group Nom (Bld) No Previous Results Normal [facility] Comment on above: Performed By: #### C R BGA, CR ICA, LACT, CR COOX, CR GLU, CR LYTES #### [facility] [address] [place], [place], ABSC INT Negative Normal [facility] Comment on above: Performed By: #### C R BGA, CR ICA, LACT, CR COOX, CR GLU, CR LYTES #### [facility] [address] [place], [place], Vital Signs Date Time Vital Sign Value Performing Clinician Facility 02-25-2023 10:12-0400 Body height 149.86 cm Mima Mohr Work Phone: [facility] 250 DO Work Phone: 02-25-2023 10:12-0400 Body mass index (BMI) [Ratio] 31.71 kg/m2 Mima LockEcoGroomermarlen Work Phone: [facility] 250 DO Work Phone: 02-25-2023 10:12-0400 Body surface area Derived from formula 1.66 m2 Mima LockEcoGroomermarlen Work Phone: [facility] [employer] 250 DO Work Phone: 02-25-2023 10:12-0400 Body weight 71.22 kg Mima Mohr Work Phone: [facility] [employer] 250 DO Work Phone: 02-25-2023 10:12-0400 Diastolic blood pressure 62 mm[Hg] Mima Mohr Work Phone: [facility] [employer] 250 DO Work Phone: 02-25-2023 10:12-0400 Heart rate 74 /min Mima LockEcoGroomermarlen Work Phone: [facility] [employer] 250 DO Work Phone: 02-25-2023 10:12-0400 Systolic blood pressure 130 mm[Hg] Mima Mohr Work Phone: [facility] 250 DO Work Phone: 02-25-2023 09:15-0400 Body height 152.4 cm Yulissa Goodmansujey Other [employer] Other 02-25-2023 09:15-0400 Body mass index (BMI) [Ratio] 30.27 kg/m2 Yulissa Goodmansujey Other [employer] Other 02-25-2023 09:15-0400 Body temperature 96.4 [degF] Yulissa Goodmansujey Other [employer] Other 02-25-2023 09:15-0400 Body weight 70.31 kg Yulissa Goodmanleenapuja Other [employer] Other 02-25-2023 09:15-0400 Diastolic blood pressure 60 mm[Hg] Yulissa Goodmansujey Other [employer] Other 02-25-2023 09:15-0400 SaO2% (BldA) [Mass fraction] 97 % Yulissa Goodmansujey Other [employer] Other 02-25-2023 09:15-0400 Systolic blood pressure 130 mm[Hg] Yulissa Goodmansujey Other [employer] Other 11-26-2021 11:47-0400 Body height 152.4 cm Mima Mohr Work Phone: [facility] 250 DO Work Phone: 03-29-2022 11:47-0400 Body mass index (BMI) [Ratio] 31.44 kg/m2 Mima Lira Aichholz Work Phone: [facility] 250 DO Work Phone: 11-26-2021 11:47-0400 Body surface area Derived from formula 1.7 m2 Mima Lira Aichholz Work Phone: [facility] 250 DO Work Phone: 11-26-2021 11:47-0400 Body weight 73.03 kg Mima Lira Aichholz Work Phone: [facility] 250 DO Work Phone: 11-26-2021 11:47-0400 Diastolic blood pressure 64 mm[Hg] Mima Lira Aichholz Work Phone: [facility] 250 DO Work Phone: 11-26-2021 11:47-0400 Heart rate 88 /min Mima Lira Aichholz Work Phone: [facility] 250 DO Work Phone: 11-26-2021 11:47-0400 Systolic blood pressure 118 mm[Hg] Mima Lira Aichholz Work Phone: [facility] 250 DO Work Phone: 11-26-2021 08:00-0400 59 1 Mima Lira Aichholz Work Phone: [facility] Work Phone: Comment on above: [id number] 11-01-2021 09:35-0500 Diastolic blood pressure 78 mm[Hg] Mima Lira Aichholz Work Phone: [facility] 250 DO Work Phone: 11-01-2021 09:35-0500 Systolic blood pressure 158 mm[Hg] Mima Soraya Juan Carloshholz Work Phone: [facility] 250 DO Work Phone: 11-01-2021 09:25-0500 Body height 152.4 cm Mima Lira Juan Carloshholz Work Phone: [facility] 250 DO Work Phone: 11-01-2021 09:25-0500 Body mass index (BMI) [Ratio] 31.25 kg/m2 Mima Lira Aichholz Work Phone: [facility] 250 DO Work Phone: 11-01-2021 09:25-0500 Body surface area Derived from formula 1.7 m2 Mima Soraya Rangelhholmarlen Work Phone: [facility] 250 DO Work Phone: 11-01-2021 09:25-0500 Body weight 72.58 kg Mima Lira Juan Carloshholz Work Phone: [facility] 250 DO Work Phone: 11-01-2021 09:25-0500 Diastolic blood pressure 84 mm[Hg] Mima Soraya Mohr Work Phone: [facility] 250 DO Work Phone: 11-01-2021 09:25-0500 Heart rate 76 /min Mima Lira Juan Carloshholz Work Phone: [facility] 250 DO Work Phone: 11-01-2021 09:25-0500 Systolic blood pressure 133 mm[Hg] Mima Lira Juan Carloshholz Work Phone: [facility] 250 DO Work Phone: Encounters Encounter Date Encounter Type Care Provider Facility Start: 10-19-2023 End: 10-19-2023 ambulatory MIMA AICHHOLZ Not Available Start: 08-03-2023 End: 08-03-2023 ambulatory MIMA AICHHOLZ Not Available Start: 05-28-2023 Rx Renewal Mima Lira Aichho lz Work Phone: [facility] 250 DO Work Phone: Start: 02-25-2023 Patient encounter procedure Yulissa Goodmansujey [facility] Start: 02-25-2023 Office outpatient vi sit 25 minutes Mima Lira Aichholz Work Phone: [facility] 250 DO Work Phone: Start: 02-25-2023 End: 02-25-2023 amb[address] Mrs. Mima Lira Aichholmarlen [facility] Other Start: 12-29-2022 End: 01-28-2023 ambulatory DRIER HELPER MIMA AICHHOLZ Facility:[facility]1 Start: 12-01-2022 End: 12-26-2022 ambulatory DRIER HELPER MIMA AICHHOLZ Facility:[facility]1 Start: 11-11-2022 End: 11-11-2022 ambulatory DRIER HELPER MIMA AICHHOLZ Facility:[facility]1 Start: 11-06-2022 End: 11-28-2022 ambulatory DRIER HELPER MIMA AICHHOLZ Facility:[facility]1 Start: 10-15-2022 Rx Renewal Mima Lira Aichho lz Work Phone: [facility] 250 DO Work Phone: Start: 08-11-2022 End: 08-12-2022 ambulatory DRIER HELPER MIMA AICHHOLZ Facility:[facility]1 Start: 06-26-2022 End: 06-27-2022 ambulatory DRIER HELPER MIMA AICHHOLZ Facility:[facility]1 Start: 06-02-2022 End: 06-02-[address] SELWYN WING . Facility:[facility]1 Start: 05-20-2022 ambulatory Mrs. Mima Lira Aichholz Facility: Start: 04-22-2022 End: 04-23-2022 ambulatory DRIER HELPER MIMA AICHHOLZ Facility:[facility]1 Start: 11-26-2021 Office outpatient vi sit 5 minutes Mima Lira Aichholz Work Phone: [facility] 250 DO Work Phone: Start: 11-26-2021 Patient encounter procedure Mima Lockgustabo Work Phone: [facility] Work Phone: Start: 11-01-2021 Office consultation new/estab patient 80 min Mima Soraya Rangelaugustogustabo Work Phone: [facility] 250 DO Work Phone: Start: 12-25-2020 ambulatory UNKNOWN PROVIDER Facili ty:[facility] Start: 12-18-2020 ambulatory UNKNOWN PROVIDER Facili ty:[facility] Start: 12-18-2020 End: 12-18-2020 ambulatory UNKNOWN PROVIDER Facility:[facility] Start: 11-22-2020 End: 11-22-2020 ambulatory UNKNOWN PROVIDER Facility:[facility] Start: 11-14-2020 End: 11-14-2020 ambulatory UNKNOWN PROVIDER Facility:[facility] Start: 11-13-2020 End: 11-14-2020 ambulatory UNKNOWN PROVIDER Facility:[facility] Start: 11-13-2020 End: 11-22-2020 Evaluation and management of inpatient KAMILLA PHOENIX Facility:[facility] Start: 11-12-2020 ambulatory UNKNOWN PROVIDER [...] Rowan Yanez, Status: Pen, Time: 9:10 AM [facility] 250 DO Work Phone: Start: 11-26-2022 FUV, Provider: Rowan Yanez, Status: Pen, Time: 9:50 AM FUV, Provider: Rowan Yanez, Status: Pen, Time: 9:50 AM [facility] 250 DO Work Phone: Start: 05-20-2022 FUV, Provider: Rowan Yanez, Status: Pen, Time: 9:10 AM FUV, Provider: Rowan Yanez, Status: Pen, Time: 9:10 AM [facility] 250 DO Work Phone: Start: 11-26-2021 NURSEVST, Provider: AARON SEXTON [employer]INU[employer]PROVEMENT BLACK BELT 1,[id number], Status: Pen, Time: 9:00 AM NURSEVST, Provider: AARON SEXTON CONTINUOUS IMPROVEMENT BLACK BELT 1,[id number], Status: Pen, Time: 9:00 AM [facility] 250 DO Work Phone: Start: 11-26-2021 STRESS NUC, Provider : ALVARO HHVI NUCLEAR 01,[id number], Status: Pen, Time: 8:00 AM STRESS NUC, Provider: ALVARO HHVI NUCLEAR 01,[id number], Status: Pen, Time: 8:00 AM [facility] 250 DO Work Phone: Immunizations Immunization Date Immunization Notes Care Provider Fa cilirobert 11-08-2018 pneumococcal polysaccharide vaccine, 23 valent Mima RangelThe [employer] Work Phone: [facility] 250 DO Work Phone: 05-14-2017 influenza, high dose seasonal, preservative-free Mima RangelAmphivena Therapeuticsmarlen Work Phone: [place] [address] DO Work Phone: 01-15-2015 pneumococcal conjuga te vaccine, 13 valent Mima Rangelhholz Work Phone: [place] [address] DO Work Phone: 06-12-2013 influenza virus vacc ine, whole virus Mima Rangelhholz Work Phone: [place] [address] DO Work Phone: 09-11-2011 tetanus toxoid, redu fide diphtheria toxoid, and acellular pertussis vaccine, adsorbed Mima Rangelhholz Work Phone: [place] [address] DO Work Phone: Payers Date Payer Category Payer Private Health Insurance [id number] 1945 Unknown [id number] 2.0.1.204824.3.579.2 1945 Unknown [id number] 2.0.1.301214.3.579.2 1945 Unknown [id number] 2.0.1.630145.3.579.2 1945 Unknown [id number] 2.0.1.903334.3.579.2 1945 Unknown [id number] 2.0.1.859271.3.579.2 1945 Unknown [id number] 2.840.1.445881.3.579.2 1945 Unknown [id number] 2.840.1.757930.3.579.2 1945 Unknown [id number] 2.840.1.073893.3.579.2 1945 Unknown [id number] 2.840.1.331192.3.579.2 1945 Unknown [id number] 2.16.840.1.812890.3.579.2.732 1945 Unknown [id number] 2.16.840.1.476629.3.579.2.732 1945 Unknown [id number] 2.16.840.1.209454.3.579.2.593 1945 Unknown [id number] 2.16.840.1.124920.3.579.2.593 1945 Unknown [id number] 2.16.840.1.946793.3.579.2.593 1945 Unknown [id number] 2.16.840.1.841084.3.579.2.593 1945 Unknown [id number] 2.16.840.1.336508.3.579.2.593 1945 Unknown [id number] 2.16.840.1.119721.3.579.2.593 1945 Unknown [id number] 2.16.840.1.259450.3.579.2.593 1945 Unknown [id number] 2.16.840.1.493663.3.579.2.593 1945 Unknown [id number] 2.16.840.1.717680.3.579.2.356 1945 Unknown [id number] 2.16.840.1.627249.3.579.2.356 1945 Unknown [id number] 2.16.840.1.028181.3.579.2.1259 1945 Unknown [id number] 2.16.840.1.302610.3.579.2.1259 Unknown [employer] Social History Date Type Detail Facility No alcohol use No alcohol use [facility] 250 DO Work Phone: Comment on above: 1 cup of coffee danielle y; 1 pack to 1/2 pack d aily; Sex Assigned At Sex Assigned At Bir th [employer] Other Clinical Notes 11-01-2001 to 02-25-2023 Note [...] would rather not talk about it anymore. [employer] Other 08-05-2021 NoteNoted, thank you. [facility] Clinic [phone] - Warfarin monitoring past due 12 wks Pt identified as past due for INR test. Please review and address as appropriate. Description HC Newer to warfarin -- Pt will go to outside lab in [facility], dtr will call back with fax number [...] 12 wks will address with on fileThe [facility] [id number] Note Medication Management Clinic [phone] - Warfarin monitoring past due 8 wks Pt identified as past due for INR test. Please review and address as appropriate. Description HC Newer to warfarin -- Pt will go to outside lab in [facility], dtr will call back with fax number [...] ??? 6 wk past due letter sentThe [facility] [id number] [facility] [phone] - Warfarin monitoring past due 4 wks Pt identified as past due for INR test. Msg routed to nurse to address. See info below from last encounter. Description HC Newer to warfarin -- Pt will go to outside lab in [facility], dtr will call back with fax number [...] 3 wk past due DANNY message sentThe [employer] [facility] [id number] Note Medication Management Clinic [phone] - Warfarin monitoring past due 2 wks Pt identified as past due for INR test. Msg routed to admin to address. See info below from last encounter. Description HC Newer to warfarin -- Pt will go to outside lab in [facility], dtr will call back with fax number -- use HC or outside lab?will let us know where to send order, isn't sure right now Anticoagulation Episode Summary TTR: -- Next INR check: 01/01/2021 Of note as part of the past due protocol this patient has already been contacted approximately as follows (see [facility] notes for exact dates and notes for details)... ??? 1 wk past due DANNY message sentThe [employer] [id number] Note Medication Management Clinic [phone] - Warfarin monitoring Reviewed records and warfarin plan created. Staff to call with plan. If applicable, additional information from [facility] [facility] : Description HC Newer to warfarin -- Pt will go to outside lab in [facility], dtr will call back with fax number.The [facility]04-15-2021 NoteMedication Management Clinic [phone] - Anticoagulation clinic consult agreement Charles Coreas [phone] Dr [place], Please review below consult agreement regarding our Anticoagulation Clinic managing this patient's anticoagulation therapy. If you agree to the terms (physicians, mailing machine helper, and PAs can sign per [facility]), please state so and route message back to sender. As laid out in [facility] policy, patients requiring anticoagulation therapy may be referred to the Anticoagulation Clinic for management of this drug therapy. This agreement states that as part of the [facility] physician group this physician agrees to this patient's anticoagulation being managed by any and all qualified pharmacist staff for the prevention of thromboembolism. This agreement includes the pharmacist staff managing all anticoagulants used in an outpatient setting as well as oral phytonadione (Vitamin K) as deemed appropriate by the pharmacist staff and as included in [facility] policy. The procedure for managing these medications is included in [facility] policy but is driven by the most current guidelines and ever-changing new literature. In order to manage these medications the pharmacist staff will order labs as appropriate based on [facility] policy. Communication will be relayed via EMR or other appropriate modality to referring doctor as necessary based on the judgment of the pharmacist. Pursuant to existing law the referring physician can override a decision made by the pharmacist when appropriate. A quality assurance supervisor chassis measure is in place which can be found in [facility] policy. The qualifications required of the pharmacist meet the standards laid out in [facility] and can be found in the [facility] policy. This agreement will be renewed approximately every 2 years from its issue date. [facility]04-[facility]-2021 NoteMedication Management Clinic [phone] - Warfarin monitoring new referral Closest facility(ies): All facilities are an hour away or more Standing INR order placed, Appropriate DANNY education ordered, Consult sent to physician (if not already agreed to at referral) Per brief chart review: Patient was in the hospital 11/12-11/22 for [place] IIb LLE ischemia. The patient underwent Right [...] unclear of dose [facility] NoteMed[facility] Management Clinic [phone] - New enrollment discussion Contacted daughter regarding warfarin management and enrollment into the Anticoagulation Clinic. Discussed Anticoagulation services and confirm pt wants to go to lab in [facility] (will fax order) for INR testing. [...] the INR due date to follow upThe [employer] [id number] NoteVascular Surgery Progress Note Charles Coreas [phone] S: No issues overnight. Pain controlled. Getting [...] MD General Surgery PGY-1 Vascular Surgery #[id number] [place] pager #[phone] (Weekdays 6pm-6am, and Weekends)[facility] [employer] [facility] 11-21-2020 NotePHYSICAL THERAPY PROGRESS SUMMARY Patient seen from 824 to 08 on 7C unit for 23 minute treatment. SUBJECTIVE: Patient Subjective/Goals: This leg doesn't want to move today. I'm just weak. OBJECTIVE: Appearance: Pt seated in bedside chair upon entering room. LLE w/ domigna wrap from foot to thigh. +edema LLE Behavior: alert, painful, cooperative Pain: Site/Location: LLE/L hip; Pain Scale: 9/10 Pain Relief Interventions Implemented: Positioning, Notified Nurse and Relaxation Training therex-Toe wiggles,AP and QS x 1 minute each Mobility NA Dep Max Mod Min CG CS DS [place] I Comment Sit to/from stand x From [...] per Initial Evaluation Marni Schultzves [place] Beeper #[phone] NA = Not Assessed, I = Independent, [place] = Modified Independent, Sup = Supervised, Set up = Physical Assistance for Set-up Only, Min = Minimal Assistance, Mod = Moderate Assistance, Max = Maximal assistance; Dep = Dependent; AROM = Active Range of Motion; PROM = Passive Range of Motion; MMT = Manual Muscle TestThe [facility] [id number] NoteENDOCRINOLOGY INPATIENT CONSULTATION Charles Coreas 75 year [...] Alex Contreras DO IM PGY-2 Endo Pager [phone] Teaching Physician Note: I saw and evaluated [...] 2 AM Rebecca Garzon M.D. [facility]-2021 NotePHYSICAL THERAPY PROGRESS SUMMARY Patient seen from [...] Dep Max Mod Min CG CS DS [place] I Comment Supine to sit x HOB [...] per Initial Evaluation Marni Rodney [place]ST[place] Beeper #[phone] NA = Not Assessed, I = Independent, [place] = Modified Independent, Sup = Supervised, Set up = Physical Assistance for Set-up Only, Min = Minimal Assistance, Mod = Moderate Assistance, Max = Maximal assistance; Dep = Dependent; AROM = Active Range of Motion; PROM = Passive Range of Motion; MMT = Manual Muscle TestThe [facility]03-23-2021 NoteOCCUPATIONAL THERAPY PROGRESS SUMMARY Patient seen from [...] Dep Max Mod Min CG CS DS [place] I Set-Up Cues Comment Feeding x Grooming/ [...] With Patients permission ordered no equipment via [employer] Order. If any questions contact [facility] Provider at [phone]. 6 Clicks Daily Activity OT 11/20/2020 Help [...] Guard Assist/Supervision 4 - Non = Modified [place]/Independent ASSESSMENT: Recommend therapy Mcfp when medically clear. ??? Revised LTG: Patient [...] NA = Not Assessed, I = Independent, [place] = Modified Independent, Sup = Supervised, Set up = Physical Assistance for Set-up Only, Min = Minimal Assistance, Mod = Moderate Assistance, Max = Max assistance; Dep = Dependent; AROM = Active Range of Motion;PROM=Passive Range of Motion; MMT = Manual Muscle Test; Shld= Shoulder; Add = Adduction; Abd = AbductionThe [facility] [id number] NoteSW spoke with pt's daughter Anni over the phone. Anni informed SW she would like a referral placed to [facility] in [place]. SW placed referral. Anni stated she works nights and normally gets up around 4pm if anything else is needed. SW will reach out around that time if [facility] is unable to accept. SW will continue to follow. GAVI Moralez [employer] Work,[phone] ADDENDUM 12:26pm SW left message with admissions at [facility] requesting a return call. SW informed by pt had concerns regarding transport. SW to meet with pt at bedside once able. GAVI Moralez Social Work,[phone] ADDENDUM 2:17pm SW received call from admissions ar [facility] ([place] Admissions stated they did not receive the referral. The fax number is [phone]. Admissions informed SW they are out of [...] daughter Anni for additional choices. GAVI Moralez [employer] Work,[phone] ADDENDUM 3:25pm SW met with pt at bedside. Pt informed transport would be covered by her insurance. Pt questioned if there is an issue if her daughter would be able to transport her. SW explained that would be a liability and the safest plan would be medical transport. SW informed pt a referral was placed to [facility]. Pt stated she is not familiar with that one but she [facility]. SW placed referrals. Pt requesting updates once known if a facility is able to accept. SW received call from [facility] and was informed they are unable to do a 1 time agreement. SW will follow up with [facility]. GAVI Moralez [employer] Work,[phone]03-23-2021 NoteDISCHARGE SUMMARY [address] [address] LyudmilaCharles Date of : 1945 75 year old female Attending Kamilla Phoenix MD Date of Admission 11/12/2020 Date of Discharge 11/22/2020 [Principal Hospital Problem (Final Diagnosis)] Pain of left lower extremity due to ischemia No discharge procedures on file. Future Appointments Date Time Provider Department Center 12/18/2020 1:00 PM MAIN VASC LAB 1 [facility] 12/18/2020 2:00 PM MAIN VASC LAB 2 [facility] Condition at Discharge Improved Activity No strenuous activity Diet No restrictions Disposition residential facility Functional Status Ambulatory with assistance Reason [...] groin wound and vac placement, presented to [facility] ED with LLE pain, no pedal signals appreciated 10/11. Transferred to [facility] with [place] IIb LLE ischemia. The patient underwent Right [...] therapy recommendations, she was discharged to a intermediate facility. Her INR was subtherapeutic at discharge, so she was discharged with a plan to follow up withanticoagulation clinic for control of her new warfarin regimen.[employer] [id number] NoteVascular Surgery Progress Note Charles Coreas [phone] S: NAEON. Feels good. Back pain improving, [...] 1721 [id number] Assessment/Plan: 75F who presented with [place] IIb limb ischemia POD#7 Axillary-bifemoral bypass graft [...] Connor MD General Surgery PGY-1 Vascular Surgery #[id number] [place] pager #[phone] (Weekdays 6pm-6am, and Weekends)[facility] [employer] [facility] 11-19-2020 NoteENDOCRINOLOGY INPATIENT CONSULTATION Charles Coreas [...] Alex Contreras, DO IM PGY-2 Endo Pager [phone] Teaching Physician Note: I saw and evaluated the patient. I personally obtained the youngblood and critical portions of the history and physical exam. I reviewed Dr. Contreras's documentation, discussed the patient with him, and edited the note above. Rebecca Garzon M.D. Division of [facility]ocr[facility]ologyS[facility]03-22-2021 NoteVascular Surgery Progress Note Charles Coreas [id number] S: NAEON. Feels good. Back pain improving, [...] Connor MD General Surgery PGY-1 Vascular Surgery #[id number] [place] pager #[phone] (Weekdays 6pm-6am, and Weekends)[facility] [employer] [facility] 11-18-2020 NotePHYSICAL THERAPY PROGRESS SUMMARY Patient [...] Dep Max Mod Min CG CS DS [place] I Comment Supine to sit x2 For [...] With Patients permission ordered no equipment via [employer] Order. If any questions contact [facility] Provider at [phone]. 6 Clicks Basic [...] with plan per Initial Evaluation Lucius Ambriz, [facility] #[phone] NA = Not Assessed, I = Independent, [place] = Modified Independent, Sup = Supervised, Set up = Physical Assistance for Set-up Only, Min = Minimal Assistance, Mod = Moderate Assistance, Max = Maximal assistance; Dep = Dependent; AROM = Active Range of Motion; PROM = Passive Range of Motion; MMT = Manual Muscle TestThe [facility] [id number] NoteOCCUPATIONAL THERAPY PROGRESS SUMMARY Patient seen from [...] Dep Max Mod Min CG CS DS [place] I Set-Up Cues Comment Feeding x x [...] Guard Assist/Supervision 4 - Non = Modified [place]/Independent ASSESSMENT: Recommend further therapy services in a [...] Plan as per Initial Evaluation. Abena MEDINA/Ra #[phone] NA = Not Assessed, I = Independent, [place] = Modified Independent, Sup = Supervised, Set up = Physical Assistance for Set-up Only, Min = Minimal Assistance, Mod = Moderate Assistance, Max = Max assistance; Dep = Dependent; AROM = Active Range of Motion;PROM=Passive Range of Motion; MMT = Manual Muscle Test; Shld= Shoulder; Add = Adduction; Abd = AbductionThe [facility] [id number] Note OCCUPATIONAL THERAPY PROGRESS SUMMARY Patient seen [...] Dep Max Mod Min CG CS DS [place] I Set-Up Cues Comment Feeding x Grooming/ [...] With Patients permission ordered no equipment via [employer] Order. If any questions contact [facility] DME Provider at [phone]. 6 Clicks Daily Activity OT 11/16/2020 Help [...] Guard Assist/Supervision 4 - Non = Modified [place]/Independent ??? ASSESSMENT: Recommend further therapy services in [...] NA = Not Assessed, I = Independent, [place] = Modified Independent, Sup = Supervised, Set up = Physical Assistance for Set-up Only, Min = Minimal Assistance, Mod = Moderate Assistance, Max = Max assistance; Dep = Dependent; AROM = Active Range of Motion;PROM=Passive Range of Motion; MMT = Manual Muscle Test; Shld= Shoulder; Add = Adduction; Abd = AbductionThe [facility] [id number] NotePHYSICAL THERAPY PROGRESS SUMMARY Patient seen from [...] Dep Max Mod Min CG CS DS [place] I Comment Supine to sit X2 Max [...] weakness. Recommend further therapy services in a Mcfp Setting once medically cleared. Will continue to [...] Student documentation. Triny Jackson, PT, MPT ([phone]) [phone] NA = Not Assessed, I = Independent, [place] = Modified Independent, Sup = Supervised, Set up = Physical Assistance for Set-up Only, Min = Minimal Assistance, Mod = Moderate Assistance, Max = Maximal assistance; Dep = Dependent; AROM = Active Range of Motion; PROM = Passive Range of Motion; MMT = Manual Muscle TestThe [facility] [id number] NoteENDOCRINOLOGY INPATIENT CONSULTATION Charles Coreas 75 year [...] SICU Post-op, course complicated by type II [place] and low Hb requiring 1 U PRBCs. [...] Friends and Family: (more content not included)...[facility] [employer] [id number] NoteNew OT orders addressed. Pt currently on OT caseload, please see Evaluation from 11/14. [facility] [employer]03-19-2021 NoteVascular Surgery Progress Note Charles Espinosa Lyudmila [phone] S: Transferred to floor yesterday. Feeling better [...] Connor MD General Surgery PGY-1 Vascular Surgery #[id number] [place] pager #[phone] (Weekdays 6pm-6am, and Weekends)[employer] [facility] 11-15-2020 NoteSurgery Progress Note Charles Coreas [id number] S: Received 1u pRBC yesterday. Troponin downtrending [...] 205 Comment: Notified JUANJOSE DOMINGUEZ MD 11/13/20 [id number] Assessment/Plan: 75F who presented with [place] IIb limb ischemia POD#2 Axillary-bifemoral bypass graft [...] Connor MD General Surgery PGY-1 Vascular Surgery #[id number] [place] pager #[phone] (Weekdays 6pm-6am, and Weekends)[facility] [employer] [facility] 11-14-2020 NoteSurgery Progress Note Charles Coreas [id number] S: Complaining only of lower back pain [...] with Dr. 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 0 steps to bedroom/bathroom rails. Assistance available: lives with daughter whom works nights. 24 hr assist available if ndded Equipment available: rolling walker, wheelchair, bedside commode and shower chair OBJECTIVE: Appearance: Impaired, Obese, process safety specialist, Pulse Oximeter, 2L Oxygen, IV, Cohen, [...] independent. Recommend further therapy services in a Mcfp Setting once medically cleared. Will continue to [...] discussed with the (more content not included)...[employer] [id number] NoteOCCUPATIONAL THERAPY INITIAL EVALUATION Patient seen from [...] Dep Max Mod Min CG CS DS [place] I Set-Up Comment Feeding NPO Grooming/Hygiene x Mouth swabs Bathing:UB x Anticipated Bathing:LB x Anticipated Dressing:UB x Don gown Dressing: LB x Don socks Toileting x Cohen/ bed oquendo Transfers/Bed Mobility: Assistance Level Dep Max Mod Min CG CS DS [place] I Set-Up Comment Toilet Transfers x2 Anticipated [...] Guard Assist/Supervision 4 - Non = Modified [place]/Independent ASSESSMENT: Recommend further therapy services in a [...] and treatment poli (more content not included)...[employer] [id number] NoteVascular surgery plan of care note: POD#0 [...] with Dr. Lizett Guerrero PGY4 Vascular Surgery [phone] [id number] NoteSICU History and Physical Charles Coeras [phone] LOS: Length of stay: 1 day(s) POD: [...] groin wound and vac placement, presented to [facility] ED with LLE pain, no pedal signals appreciated 10/11. Transferred to [facility]. 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 (more content not included)...[facility] [employer] [facility] 11-13-2020 NoteI have reviewed the patient's History and Physical Examination. I have personally seen and evaluated the patient, repeating youngblood portions. There is no significant interval change. Surgery is still indicated. Yes Consent reviewed and signed by patient/family: Yes Operative site verified and marked: Yes Lam Connor MD General Surgery PGY-1[facility] [employer] [id number] NoteVASCULAR SURGERY CONSULT Reason for Consultation LLE ischemia History (HPI) Charles Coreas is a 75 year old year old female with h/o HTN, DM, COPD, and PAD s/p fem-fem bypass (09/26) who presents to the ED as a transfer from [facility] with LLE pain and no pedal signals. [...] 11/12/20 LE arterial duplex: Occluded fem-fem R TOP TRIMMER patent, PT/DP VIANCA 0.2 L monophasic SFA, pop. Undetectable pedal signals 11/12/20 CTA: Recommendations Impression Charles Coreas is a 75 year old year old female with h/o HTN, DM, COPD, and PAD s/p fem-fem bypass (09/26) who presents to the ED as a transfer from [facility] with LLE pain and no pedal signals. Plan - continue high intensity heparin gtt - further plan pending CTA Patient discussed with attending Dr. Lizett Connor MD General Surgery PGY-1 Vascular Surgery #[id number] [place] pager #[phone] (Weekdays 6pm-6am, and Weekends) Addendum: CTA reviewed; Plan for ax-bifem tomorrow. Should patient experience loss of motor/sensation, please notify vascular surgery immediately Continue Heparin drip NPO after midnight ECHO first thing tomorrow T AND C 2u pRBC Trop/BNP EKG Pain control Patient seen and discussed with Dr. Lizett Guerrero [id number] [facility] [id number] Chief complaint Narrative - Reported* CHARLES COREAS is being seen for a consultation for [facility]- ABN/ECHO. * 76-year-old white female who was [...] several months ago in May 2021 at [facility] ejection fraction 45% withno valvular disease of significance. * Assessment/recommendations: * 1 history of coronary bypass surgery 20 years ago in [place]. Details are lacking. There has been nocardiac [...] patient to cut back on calorie consumption X5 [facility] [employer] DO Work Phone: History general Narrative - [...] incision 07/21 Hospitalization History see surgical history [place] [facility] Other Summary Purpose Family History No Family [...] coronary bypass surgery 20 years ago in [place]. Nuclear stress test 2021 was normal, address [...] and content) DATE CREATED AUTHOR 10/05/2021 [facility] [employer] [facility] DATE CREATED AUTHOR AUTHOR'S ORGANIZ ATION 10/24/2021 [facility] DATE CREATED AUTHOR AUTHOR'S ORGANIZ ATION 11/30/2021 [facility] DATE CREATED AUTHOR AUTHOR'S ORGANIZ ATION 02/06/2023 [facility] DATE CREATED AUTHOR AUTHOR'S ORGANIZ ATION 02/26/2023 [facility] DATE CREATED AUTHOR AUTHOR'S ORGANIZ ATION 02/26/2023 [employer] DATE CREATED AUTHOR AUTHOR'S ORGANIZ ATION 10/20/2023 [facility] dical Specialists EPIC REASON FOR VISIT (unrecogniz [...] BE BASED ON THE PRIMARY CLINICAL RECORDS. [facility] [employer] [facility]. provides no warranty or guarantee of the accuracy or completeness of information in this document.
--- NOTE | 2023-11-16 18:39 | CT_ITS ---
[address] [address] Patient Name: CHARLES COREAS MRN: [id number] date: 1945 Sex: F Assigned Patient Location: ER Current Patient Location: Accession/Order Number: [id number] Exam Date: 11/16/2023 19:00 Report Date: 11/16/2023 21:46 At the request of: ZORAIDA LOYA Procedure: CT angio abd aorta runoff EXAM: CT angio abd aorta runoff HISTORY: bilateral leg pain COMPARISON: None. TECHNIQUE: IV contrast enhanced CTA imaging of the abdomen and pelvis with bilateral lower extremity runoff. Multiplanar 3-D MIPS reformatted images are provided from the acquired data set. This CT exam was performed using one or more of the following dose reduction techniques: Automated exposure control, adjustment of the mA and/or KV according to patient size, or use of iterative reconstruction technique. Unless otherwise stated, incidental findings do not require dedicated follow-up imaging. FINDINGS: There is bibasilar atelectasis. The heart size is normal. The liver, spleen, pancreas, adrenal glands, and kidneys all enhance normally. There are gallstones in the gallbladder. The bowel is unobstructed. The bladder is distended and within normal limits. There is a small fat-containing umbilical hernia. There is degenerative disc disease of the lumbar spine. The suprarenal abdominal aorta is patent and normal in caliber. The celiac trunk is patent without stenosis. The superior mesenteric artery is patent without stenosis. The bilateral main renal arteries are patent. There is approximately 50% origin stenosis on the left. There is 40% stenosis of the proximal right main renal artery. There is heavy calcified and noncalcified atheromatous plaque throughout the infrarenal abdominal aorta. There is mild aneurysmal dilatation of the infrarenal aorta measuring 2.3 cm in diameter. The left common iliac, internal iliac, and external iliac arteries are all completely excluded. There is heavy plaque throughout the right common iliac artery. The right external iliac artery is completely occluded. The right internal iliac artery is patent but severely stenosed due to atherosclerotic plaque. There is an occluded right axillary femoral bypass graft. The femorofemoral bypass graft is also occluded x2. The right common femoral artery is patent but severely atretic. The right profunda femoris artery is patent. The right false pass superficial femoral artery is heavily diseased with multifocal severe stenoses measuring at least 90-99% stenosis throughout the course of the right SFA. The right popliteal artery is patent but atretic. There is poor visualization of the tibial arteries due to the suboptimal timing of the contrast bolus. The anterior tibial and peroneal arteries appear to be patent. The posterior tibial artery appears to be occluded. On the left, the common femoral artery is patent. The profunda femoris artery is patent. The left superficial femoral artery is completely occluded throughout its course. The left popliteal artery is severely atretic but appears faintly patent. The visualization of the tibial arteries is poorly noted secondary to timing of the contrast bolus. There appears to be at least two-vessel and likely 3 vessel runoff to the left foot. However, this appears to be severely diseased to the prominent atherosclerotic plaque, particularly throughout the posterior tibial artery as well as at the proximal segments of the anterior tibial and peroneal arteries. CT/CT angio abd aorta runoff IMPRESSION: 1. Occluded false pass iliac arteries as described above. 2. Occluded right axillary femoral bypass graft and occluded femorofemoral bypass graft x2. 3. 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 The popliteal artery is patent but severely atretic and reconstituted above the knee. There appears to be two-vessel runoff to the right foot supplied by the anterior tibial and peroneal arteries. 4. Occluded left SFA with reconstitution of the popliteal artery izjga-qip-upae. There is diseased 3 vessel runoff to the left foot. 5. 50% stenosis of the left and 40% stenosis of the right main renal artery origins. Electronically authenticated by: FABIEN MONDRAGON Date: 11/16/2023 21:46
--- NOTE | 2023-11-16 18:39 | ECG_ITS ---
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
--- NOTE | 2023-11-16 18:46 | ED.GENADUL1 ---
Documented by User: PURNIMA Garcia 11/16/23 22:31 Review of Systems ROS Narrative CONST: Denies fever, chills EYES: Denies eye redness, visual disturbance RESP: Denies cough, shortness of breath CV: Denies chest pain, palpitations GI: Denies abd pain, nausea MS: + bilat leg pain. Denies back pain SKIN: + color change NEURO: + numbness HEME: patient is on eliquis and plavix PSYCHIATRIC: Denies confusion, agitation Exam Narrative Exam Narrative: Vital signs reviewed Nurses notes noted CONST: Nontoxic, well appearing, well nourished, in no distress.? No diaphoresis.?? HENT: normocephalic, atraumatic, moist mucous membrane NECK: normal appearance CV: normal rate, regular rhythm, no murmur. Unable to dopple DP, PT, popliteal, femoral pulses. Scarring noted near the bilat inguinal region from prior bypass RESP: normal effort, speaking in complete sentences. Lung sounds are diminshed. No wheezes, rales, rhonchi GI: soft, no distension, nontender : no CVA tenderness MS: no edema, tenderness SKIN: both legs are cold to touch. The left leg is mottled. The right leg demonstrates pallor throughout. NEURO: A&Ox 3, no focal findings. Though decreased, she states she can feel sensation to the bottoms of her feet. Does have some numbness and tingling in her left leg. Feeling pain in her right leg PSYCH: normal mood, affect Constitutional Vital Signs, click to edit/add: Last Vital Signs Temp 97.6 F 11/16/23 18:29 Pulse 82 11/16/23 23:40 BP 159/77 H 11/16/23 23:15 Pulse Ox 91 L 11/16/23 23:20 O2 Del Method Room Air 11/16/23 18:29 Course Consultations Consultation #1: Patient discussed with Dr. Chambers, vascular at [facility]. Plan: heparin, CTA, transfer Time: 19:10 Consultation #2: Patient discussed with hospitalist at [facility]. Call back with CTA result Time: 19:34 Consultation #3: Patient discussed with Dr. Melgoza who accepted the patient at [facility] Time: 22:26 Vital Signs Vital signs: Vital Signs Temperature 97.6 F 11/16/23 18:29 Pulse Rate 91 H 11/16/23 18:29 Blood Pressure 192/100 H 11/16/23 18:29 Pulse Oximetry 100 11/16/23 18:29 Oxygen Delivery Method Room Air 11/16/23 18:29 Temperature 97.6 F 11/16/23 18:29 Pulse Rate 82 11/16/23 23:40 Blood Pressure 159/77 H 11/16/23 23:15 Pulse Oximetry 91 L 11/16/23 23:20 Oxygen Delivery Method Room Air 11/16/23 18:29 Medical Decision Making MDM Narrative Medical decision making narrative: This is a 78-year-old female patient who presented to the emergency department with leg pain, numbness, tingling, discoloration. History of right axillary femoral bypass surgery 4 years ago, somewhere in [place]. States right leg is painful, left leg is tingling. +smoker. Denies any chest pain, shortness of breath. On arrival afebrile, vital signs are stable. On exam, patient in mild distress. Both lower extremities are cool to touch. The left lower extremity appears mottled. Unable to palpate or Doppler pulses DP, PT, popliteal, femoral. Orders placed, vascular surgery contacted at [facility], Dr. Chambers. Advised to continue with CTA chest, abdomen, pelvis with runoffs. Start heparin (high dose ordered after consultation with pharmacy). Patient was discussed with hospitalist at [facility] who wanted to wait for the reading before accepted. Labs reveal elevated glucose level of 565. No leukocytosis, anemia, thrombocytopenia. Sodium 128 likely reflexive of the glucose. No other remarkable findings on electrolytes. Bicarb 24.9. Gap 14.6. BUN 25, creatinine 1.24. Urinalysis reveals glucose, no other acute findings. IV Fluids, insulin given with improvement of the glucose. Pain controlled with Fentyl. There was extensive delay in receiving CT angio abdomen aorta runoff despite multiple calls made to radiology department. After 2.5 hours. CTA report resulted: 1. Occluded [place] tribe iliac arteries as described above. 2. Occluded right axillary femoral bypass graft and occluded femorofemoral bypass graft x2. 3. 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 The popliteal artery is patent but severely atretic and reconstituted above the knee. There appears to be two-vessel runoff to the right foot supplied by the anterior tibial and peroneal arteries. 4. Occluded left SFA with reconstitution of the popliteal artery [id number]. There is diseased 3 vessel runoff to the left foot. 5. 50% stenosis of the left and 40% stenosis of the right main renal artery origins. Disposition ? The patient was transferred to [facility]. Dr. Melgoza accepting. Dr. Chambers on consult Condition at time of disposition: guarded PLEASE NOTE: Portions of the medical record may have been produced using electronic spring salvage worker and may contain errors with respect to translation of words which may not have been identified prior to finalization of the chart. Lab Data Lab results reviewed: Yes I reviewed the patient's lab results Labs: Lab Results 11/16/23 11/16/23 11/16/23 Range/Units 19:03 19:40 20:24 WBC 8.0 (4.0-11.0) 10^3/uL RBC 4.78 (4.20-5.40) 10^6/uL Hgb 15.1 (12.0-16.0) g/dL Hct 47.1 (36.0-48.0) % MCV 98.5 (81.0-99.0) fL MCH 31.6 (26.7-34.0) pg MCHC 32.1 (29.9-35.2) g/dL RDW 12.6 (11.0-15.0) % Plt Count 141 L (150-450) 10^3/uL MPV 12.1 (9.5-13.5) fL Neut % (Auto) 76.9 H (43.0-75.0) % Lymph % (Auto) 16.0 L (20.5-60.0) % Dubois % (Auto) 5.6 (1.7-12.0) % Eos % (Auto) 0.6 L (0.9-7.0) % Baso % (Auto) 0.6 (0.2-2.0) % Neut # (Auto) 6.1 (1.4-6.5) 10^3/uL Lymph # (Auto) 1.3 (1.2-3.8) 10^3/uL Dubois # (Auto) 0.5 (0.3-0.8) 10^3/uL Eos # (Auto) 0.1 (0.0-0.7) 10^3/uL Baso # (Auto) 0.1 (0.0-0.1) 10^3/uL Abs Immat Gran (auto) 0.02 (0.00-0.03) 10^3/uL Imm/Tot Granulo (auto) 0.3 (0.0-0.5) % PT 10.5 (9.0-11.6) sec INR 0.99 APTT 21.5 L (22.3-36.2) sec Sodium 128 L (136-145) mmol/L Potassium 4.5 (3.5-5.1) mmol/L Chloride 93 L (98-107) mmol/L Carbon Dioxide 24.9 (21.0-32.0) mmol/L Anion Gap 14.6 BUN 25.0 H (7.0-18.0) mg/dL Creatinine 1.24 H (0.55-1.02) mg/dL Est GFR ( Amer) 51 L (>=60) Est GFR (Non-Af Amer) 42 L (>=60) BUN/Creatinine Ratio 20.2 Glucose 565 H* (74-106) mg/dL Calcium 9.1 (8.5-10.1) mg/dL Total Bilirubin 0.5 (0.2-1.0) mg/dL AST 26 (15-37) U/L ALT 26 (14-59) U/L Alkaline Phosphatase 155 H (46-116) U/L Troponin I High Sens 17.9 (4.0-51.3) pg/mL Total Protein 6.9 (6.4-8.2) g/dL Albumin 2.8 L (3.4-5.0) g/dL Globulin 4.1 g/dL Albumin/Globulin Ratio 0.7 Urine Color Lt. yellow (YELLOW) Urine Clarity Clear (CLEAR) Urine pH 6.0 (5.0-9.0) Ur Specific [place] <=1.005 A (1.005-1.025) Urine Protein 100 A (NEG/TRACE) mg/dL Urine Glucose (UA) >=1000 A (NEGATIVE) mg/dL Urine Ketones Trace A (NEGATIVE) mg/dL Urine Occult Blood Trace-i (NEGATIVE) Urine Nitrite Negative (NEGATIVE) Urine Bilirubin Negative (NEGATIVE) Urine Urobilinogen 0.2 (0.2-1.0) EU/dL Ur Leukocyte Esterase Negative (NEGATIVE) Urine RBC 0-2 (0-2) #/HPF Urine WBC 0-2 A (NONE SEEN) #/HPF Ur Squamous Epith Cells Few A (NONE/RARE) #/LPF Urine Crystals None seen (None Seen) #/HPF Urine Bacteria Trace A (NONE SEEN) #/HPF Urine Casts None seen (NONE SEEN) #/LPF Urine Mucus Small A (NONE SEEN) Ur Culture Indicated? No POC Glucose (74-106) mg/dL 11/16/23 Range/Units 22:11 WBC (4.0-11.0) 10^3/uL RBC (4.20-5.40) 10^6/uL Hgb (12.0-16.0) g/dL Hct (36.0-48.0) % MCV (81.0-99.0) fL MCH (26.7-34.0) pg MCHC (29.9-35.2) g/dL RDW (11.0-15.0) % Plt Count (150-450) 10^3/uL MPV (9.5-13.5) fL Neut % (Auto) (43.0-75.0) % Lymph % (Auto) (20.5-60.0) % Dubois % (Auto) (1.7-12.0) % Eos % (Auto) (0.9-7.0) % Baso % (Auto) (0.2-2.0) % Neut # (Auto) (1.4-6.5) 10^3/uL Lymph # (Auto) (1.2-3.8) 10^3/uL Dubois # (Auto) (0.3-0.8) 10^3/uL Eos # (Auto) (0.0-0.7) 10^3/uL Baso # (Auto) (0.0-0.1) 10^3/uL Abs Immat Gran (auto) (0.00-0.03) 10^3/uL Imm/Tot Granulo (auto) (0.0-0.5) % PT (9.0-11.6) sec INR APTT (22.3-36.2) sec Sodium (136-145) mmol/L Potassium (3.5-5.1) mmol/L Chloride (98-107) mmol/L Carbon Dioxide (21.0-32.0) mmol/L Anion Gap BUN (7.0-18.0) mg/dL Creatinine (0.55-1.02) mg/dL Est GFR ( Amer) (>=60) Est GFR (Non-Af Amer) (>=60) BUN/Creatinine Ratio Glucose (74-106) mg/dL Calcium (8.5-10.1) mg/dL Total Bilirubin (0.2-1.0) mg/dL AST (15-37) U/L ALT (14-59) U/L Alkaline Phosphatase (46-116) U/L Troponin I High Sens (4.0-51.3) pg/mL Total Protein (6.4-8.2) g/dL Albumin (3.4-5.0) g/dL Globulin g/dL Albumin/Globulin Ratio Urine Color (YELLOW) Urine Clarity (CLEAR) Urine pH (5.0-9.0) Ur Specific [place] (1.005-1.025) Urine Protein (NEG/TRACE) mg/dL Urine Glucose (UA) (NEGATIVE) mg/dL Urine Ketones (NEGATIVE) mg/dL Urine Occult Blood (NEGATIVE) Urine Nitrite (NEGATIVE) Urine Bilirubin (NEGATIVE) Urine Urobilinogen (0.2-1.0) EU/dL Ur Leukocyte Esterase (NEGATIVE) Urine RBC (0-2) #/HPF Urine WBC (NONE SEEN) #/HPF Ur Squamous Epith Cells (NONE/RARE) #/LPF Urine Crystals (None Seen) #/HPF Urine Bacteria (NONE SEEN) #/HPF Urine Casts (NONE SEEN) #/LPF Urine Mucus (NONE SEEN) Ur Culture Indicated? POC Glucose 356 H (74-106) mg/dL Imaging Data CT scan - abdomen: Attestation: I have reviewed the pertinent imaging results. Radiologist's impression: ITS Impressions Chest CT 11/16/23 00:00 IMPRESSION: 1. 9 mm right upper lobe pulmonary nodule. Recommend correlation with PET/CT imaging. 2. Cholelithiasis. Electronically authenticated by: FABIEN MONDRAGON Date: 11/16/2023 20:28 Aorta w/Runoff CTA 11/16/23 18:39 IMPRESSION: 1. Occluded [place] tribe iliac arteries as described above. 2. Occluded right axillary femoral bypass graft and occluded femorofemoral bypass graft x2. 3. 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 The popliteal artery is patent but severely atretic and reconstituted above the knee. There appears to be two-vessel runoff to the right foot supplied by the anterior tibial and peroneal arteries. 4. Occluded left SFA with reconstitution of the popliteal artery [id number]. There is diseased 3 vessel runoff to the left foot. 5. 50% stenosis of the left and 40% stenosis of the right main renal artery origins. Electronically authenticated by: FABIEN MONDRAGON Date: 11/16/2023 21:46 Discharge Plan Discharge Chief Complaint: Extremity Problem, Nontraumatic Clinical Impression: Ischemia of right lower extremity, Ischemia of left lower extremity Acute leg pain Qualifiers: Laterality: unspecified laterality Qualified Code(s): M79.606 - Pain in leg, unspecified Patient Disposition: [facility] Time of Disposition Decision: 22:26 Discharge Location: [facility] Mode of Transportation: EMS Discharge Date/Time: 11/17/23 00:44 Documented by User: Zacarias Valente MD 12/04/23 08:28 Exam Constitutional Vital Signs, click to edit/add: Last Vital Signs Temp 97.6 F 11/16/23 18:29 Pulse 82 11/16/23 23:40 BP 159/77 H 11/16/23 23:15 Pulse Ox 91 L 11/16/23 23:20 O2 Del Method Room Air 11/16/23 18:29 Course Vital Signs Vital signs: Vital Signs Temperature 97.6 F 11/16/23 18:29 Pulse Rate 91 H 11/16/23 18:29 Blood Pressure 192/100 H 11/16/23 18:29 Pulse Oximetry 100 11/16/23 18:29 Oxygen Delivery Method Room Air 11/16/23 18:29 Temperature 97.6 F 11/16/23 18:29 Pulse Rate 82 11/16/23 23:40 Blood Pressure 159/77 H 11/16/23 23:15 Pulse Oximetry 91 L 11/16/23 23:20 Oxygen Delivery Method Room Air 11/16/23 18:29 Medical Decision Making MDM Narrative Medical decision making narrative: This is a 78-year-old female patient who presented to the emergency department with leg pain, numbness, tingling, discoloration. History of right axillary femoral bypass surgery 4 years ago, somewhere in [place]. States right leg is painful, left leg is tingling. +smoker. Denies any chest pain, shortness of breath. On arrival afebrile, vital signs are stable. On exam, patient in mild distress. Both lower extremities are cool to touch. The left lower extremity appears mottled. Unable to palpate or Doppler pulses DP, PT, popliteal, femoral. Orders placed, vascular surgery contacted at [facility], Dr. Chambers. Advised to continue with CTA chest, abdomen, pelvis with runoffs. Start heparin (high dose ordered after consultation with pharmacy). Patient was discussed with hospitalist at [facility] who wanted to wait for the reading before accepted. Labs reveal elevated glucose level of 565. No leukocytosis, anemia, thrombocytopenia. Sodium 128 likely reflexive of the glucose. No other remarkable findings on electrolytes. Bicarb 24.9. Gap 14.6. BUN 25, creatinine 1.24. Urinalysis reveals glucose, no other acute findings. IV Fluids, insulin given with improvement of the glucose. Pain controlled with Fentyl. There was extensive delay in receiving CT angio abdomen aorta runoff despite multiple calls made to radiology department. After 2.5 hours. CTA report resulted: 1. Occluded [place] iliac arteries as described above. 2. Occluded right axillary femoral bypass graft and occluded femorofemoral bypass graft x2. 3. 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 The popliteal artery is patent but severely atretic and reconstituted above the knee. There appears to be two-vessel runoff to the right foot supplied by the anterior tibial and peroneal arteries. 4. Occluded left SFA with reconstitution of the popliteal artery [id number]. There is diseased 3 vessel runoff to the left foot. 5. 50% stenosis of the left and 40% stenosis of the right main renal artery origins. Disposition ? The patient was transferred to [facility]. Dr. Melgoza accepting. Dr. Chambers on consult Condition at time of disposition: guarded PLEASE NOTE: Portions of the medical record may have been produced using electronic spring salvage worker and may contain errors with respect to translation of words which may not have been identified prior to finalization of the chart. Critical care time 45 minutes exclusive from separate billable procedures that were performed. The following was considered in the determination of critical care but not limited to the level of medical decision making, intensive cardiac and/or respiratory monitoring, frequent vital sign monitoring, evaluation of laboratory studies, evaluation of radiographic studies, oxygen monitoring, and constant monitoring and speaking to family at bedside Lab Data Labs: Lab Results 11/16/23 11/16/23 11/16/23 Range/Units 19:03 19:40 20:24 WBC 8.0 (4.0-11.0) 10^3/uL RBC 4.78 (4.20-5.40) 10^6/uL Hgb 15.1 (12.0-16.0) g/dL Hct 47.1 (36.0-48.0) % MCV 98.5 (81.0-99.0) fL MCH 31.6 (26.7-34.0) pg MCHC 32.1 (29.9-35.2) g/dL RDW 12.6 (11.0-15.0) % Plt Count 141 L (150-450) 10^3/uL MPV 12.1 (9.5-13.5) fL Neut % (Auto) 76.9 H (43.0-75.0) % Lymph % (Auto) 16.0 L (20.5-60.0) % Dubois % (Auto) 5.6 (1.7-12.0) % Eos % (Auto) 0.6 L (0.9-7.0) % Baso % (Auto) 0.6 (0.2-2.0) % Neut # (Auto) 6.1 (1.4-6.5) 10^3/uL Lymph # (Auto) 1.3 (1.2-3.8) 10^3/uL Dubois # (Auto) 0.5 (0.3-0.8) 10^3/uL Eos # (Auto) 0.1 (0.0-0.7) 10^3/uL Baso # (Auto) 0.1 (0.0-0.1) 10^3/uL Abs Immat Gran (auto) 0.02 (0.00-0.03) 10^3/uL Imm/Tot Granulo (auto) 0.3 (0.0-0.5) % PT 10.5 (9.0-11.6) sec INR 0.99 APTT 21.5 L (22.3-36.2) sec Sodium 128 L (136-145) mmol/L Potassium 4.5 (3.5-5.1) mmol/L Chloride 93 L (98-107) mmol/L Carbon Dioxide 24.9 (21.0-32.0) mmol/L Anion Gap 14.6 BUN 25.0 H (7.0-18.0) mg/dL Creatinine 1.24 H (0.55-1.02) mg/dL Est GFR ( Amer) 51 L (>=60) Est GFR (Non-Af Amer) 42 L (>=60) BUN/Creatinine Ratio 20.2 Glucose 565 H* (74-106) mg/dL Calcium 9.1 (8.5-10.1) mg/dL Total Bilirubin 0.5 (0.2-1.0) mg/dL AST 26 (15-37) U/L ALT 26 (14-59) U/L Alkaline Phosphatase 155 H (46-116) U/L Troponin I High Sens 17.9 (4.0-51.3) pg/mL Total Protein 6.9 (6.4-8.2) g/dL Albumin 2.8 L (3.4-5.0) g/dL Globulin 4.1 g/dL Albumin/Globulin Ratio 0.7 Urine Color Lt. yellow (YELLOW) Urine Clarity Clear (CLEAR) Urine pH 6.0 (5.0-9.0) Ur Specific [place] <=1.005 A (1.005-1.025) Urine Protein 100 A (NEG/TRACE) mg/dL Urine Glucose (UA) >=1000 A (NEGATIVE) mg/dL Urine Ketones Trace A (NEGATIVE) mg/dL Urine Occult Blood Trace-i (NEGATIVE) Urine Nitrite Negative (NEGATIVE) Urine Bilirubin Negative (NEGATIVE) Urine Urobilinogen 0.2 (0.2-1.0) EU/dL Ur Leukocyte Esterase Negative (NEGATIVE) Urine RBC 0-2 (0-2) #/HPF Urine WBC 0-2 A (NONE SEEN) #/HPF Ur Squamous Epith Cells Few A (NONE/RARE) #/LPF Urine Crystals None seen (None Seen) #/HPF Urine Bacteria Trace A (NONE SEEN) #/HPF Urine Casts None seen (NONE SEEN) #/LPF Urine Mucus Small A (NONE SEEN) Ur Culture Indicated? No POC Glucose (74-106) mg/dL 11/16/23 Range/Units 22:11 WBC (4.0-11.0) 10^3/uL RBC (4.20-5.40) 10^6/uL Hgb (12.0-16.0) g/dL Hct (36.0-48.0) % MCV (81.0-99.0) fL MCH (26.7-34.0) pg MCHC (29.9-35.2) g/dL RDW (11.0-15.0) % Plt Count (150-450) 10^3/uL MPV (9.5-13.5) fL Neut % (Auto) (43.0-75.0) % Lymph % (Auto) (20.5-60.0) % Dubois % (Auto) (1.7-12.0) % Eos % (Auto) (0.9-7.0) % Baso % (Auto) (0.2-2.0) % Neut # (Auto) (1.4-6.5) 10^3/uL Lymph # (Auto) (1.2-3.8) 10^3/uL Dubois # (Auto) (0.3-0.8) 10^3/uL Eos # (Auto) (0.0-0.7) 10^3/uL Baso # (Auto) (0.0-0.1) 10^3/uL Abs Immat Gran (auto) (0.00-0.03) 10^3/uL Imm/Tot Granulo (auto) (0.0-0.5) % PT (9.0-11.6) sec INR APTT (22.3-36.2) sec Sodium (136-145) mmol/L Potassium (3.5-5.1) mmol/L Chloride (98-107) mmol/L Carbon Dioxide (21.0-32.0) mmol/L Anion Gap BUN (7.0-18.0) mg/dL Creatinine (0.55-1.02) mg/dL Est GFR ( Amer) (>=60) Est GFR (Non-Af Amer) (>=60) BUN/Creatinine Ratio Glucose (74-106) mg/dL Calcium (8.5-10.1) mg/dL Total Bilirubin (0.2-1.0) mg/dL AST (15-37) U/L ALT (14-59) U/L Alkaline Phosphatase (46-116) U/L Troponin I High Sens (4.0-51.3) pg/mL Total Protein (6.4-8.2) g/dL Albumin (3.4-5.0) g/dL Globulin g/dL Albumin/Globulin Ratio Urine Color (YELLOW) Urine Clarity (CLEAR) Urine pH (5.0-9.0) Ur Specific [place] (1.005-1.025) Urine Protein (NEG/TRACE) mg/dL Urine Glucose (UA) (NEGATIVE) mg/dL Urine Ketones (NEGATIVE) mg/dL Urine Occult Blood (NEGATIVE) Urine Nitrite (NEGATIVE) Urine Bilirubin (NEGATIVE) Urine Urobilinogen (0.2-1.0) EU/dL Ur Leukocyte Esterase (NEGATIVE) Urine RBC (0-2) #/HPF Urine WBC (NONE SEEN) #/HPF Ur Squamous Epith Cells (NONE/RARE) #/LPF Urine Crystals (None Seen) #/HPF Urine Bacteria (NONE SEEN) #/HPF Urine Casts (NONE SEEN) #/LPF Urine Mucus (NONE SEEN) Ur Culture Indicated? POC Glucose 356 H (74-106) mg/dL Imaging Data CT scan - abdomen: Radiologist's impression: ITS Impressions Chest CT 11/16/23 00:00 IMPRESSION: 1. 9 mm right upper lobe pulmonary nodule. Recommend correlation with PET/CT imaging. 2. Cholelithiasis. Electronically authenticated by: FABIEN MONDRAGON Date: 11/16/2023 20:28 Aorta w/Runoff CTA 11/16/23 18:39 IMPRESSION: 1. Occluded [place] iliac arteries as described above. 2. Occluded right axillary femoral bypass graft and occluded femorofemoral bypass graft x2. 3. 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 The popliteal artery is patent but severely atretic and reconstituted above the knee. There appears to be two-vessel runoff to the right foot supplied by the anterior tibial and peroneal arteries. 4. Occluded left SFA with reconstitution of the popliteal artery [id number]. There is diseased 3 vessel runoff to the left foot. 5. 50% stenosis of the left and 40% stenosis of the right main renal artery origins. Electronically authenticated by: FABIEN MONDRAGON Date: 11/16/2023 21:46 Discharge Plan Discharge Chief Complaint: Extremity Problem, Nontraumatic Clinical Impression: Ischemia of right lower extremity, Ischemia of left lower extremity Acute leg pain Qualifiers: Laterality: unspecified laterality Qualified Code(s): M79.606 - Pain in leg, unspecified Patient Disposition: [facility] Time of Disposition Decision: 22:26 Discharge Location: [facility] Mode of Transportation: EMS Discharge Date/Time: 11/17/23 00:44
[2023-11-16 19:13] LABS: Basophils Absolute Auto 0.1 10^3/uL (0.0-0.1); Basophils Percent Auto 0.6 % (0.2-2.0); Eosinophils Absolute Auto 0.1 10^3/uL (0.0-0.7); Eosinophils Percent Auto 0.6 % (0.9-7.0); Hematocrit 47.1 % (36.0-48.0); Hemoglobin 15.1 g/dL (12.0-16.0); Immature Granulocytes Abs Auto 0.02 10^3/uL (0.00-0.03); Immature Granulocytes Pct Auto 0.3 % (0.0-0.5); Lymphocytes Absolute Auto 1.3 10^3/uL (1.2-3.8); Mean Corpuscular HGB Conc 32.1 g/dL (29.9-35.2); Mean Corpuscular Hemoglobin 31.6 pg (26.7-34.0); Mean Corpuscular Volume 98.5 fL (81.0-99.0); Mean Platelet Volume 12.1 fL (9.5-13.5); Monocytes Absolute Auto 0.5 10^3/uL (0.3-0.8); Monocytes Percent Auto 5.6 % (1.7-12.0); Neutrophils Absolute Auto 6.1 10^3/uL (1.4-6.5); Neutrophils Percent Auto 76.9 % (43.0-75.0); Platelet Count 141 10^3/uL (150-450); Red Blood Count 4.78 10^6/uL (4.20-5.40); Red Cell Distribution Width 12.6 % (11.0-15.0)
[2023-11-16 19:26] LABS: INR 0.99; Partial Thromboplastin Time 21.5 sec (22.3-36.2); Prothrombin Time 10.5 sec (9.0-11.6)
[2023-11-16] MEDS: HEPARIN SODIUM (PORCINE) 5,000 UNIT/ML VIAL 2900 UNIT IV (19:40)
[2023-11-16] MEDS: HEPARIN SODIUM,PORCINE/D5W 25,000 UNIT/500 ML IV.SOLN 20 UNIT IV (19:41)
[2023-11-16] MEDS: ASPIRIN 81 MG TAB.CHEW 162 MG PO (19:41)
[2023-11-16 20:06] LABS: Alanine Aminotransferase 26 U/L (14-59); Albumin Globulin Ratio 0.7; Albumin Level 2.8 g/dL (3.4-5.0); Alkaline Phosphatase 155 U/L (46-116); Anion Gap 14.6; Aspartate Amino Transferase 26 U/L (15-37); BUN Creatinine Ratio 20.2; Bilirubin Total 0.5 mg/dL (0.2-1.0); Calcium 9.1 mg/dL (8.5-10.1); Carbon Dioxide 24.9 mmol/L (21.0-32.0); Chloride 93 mmol/L (98-107); Estimated GFR (African America 51 (>=60); Estimated GFR (Non-African Ame 42 (>=60); Globulin 4.1 g/dL; Potassium 4.5 mmol/L (3.5-5.1); Sodium 128 mmol/L (136-145); Total Protein 6.9 g/dL (6.4-8.2); Troponin I High Sensitivity 17.9 pg/mL (4.0-51.3)
[2023-11-16 20:08] LABS: Glucose 565 mg/dL (74-106)
[2023-11-16] MEDS: 0.9 % SODIUM CHLORIDE 500 ML IV (20:31)
[2023-11-16] MEDS: FENTANYL CITRATE/PF 100 MCG/2 ML VIAL 50 MCG IV (20:32)
[2023-11-16] MEDS: INSULIN REGULAR IN 0.9 % NACL 100 UNIT/100 ML PLAST..BAG 6.80400000000000027 UNIT IV (20:42)
[2023-11-16 20:58] LABS: Bilirubin Urine NEGATIVE (NEGATIVE); Blood Urine TRACE-I (NEGATIVE); Clarity Urine CLEAR (CLEAR); Color Urine LT. YELLOW (YELLOW); Glucose Urine UA >=1000 mg/dL (NEGATIVE); Ketones Urine TRACE mg/dL (NEGATIVE); Leukocyte Esterase Urine NEGATIVE (NEGATIVE); Nitrite Urine NEGATIVE (NEGATIVE); Protein Urine 100 mg/dL (NEG/TRACE); Specific Gravity Urine <=1.005 (1.005-1.025); Urobilinogen Urine 0.2 EU/dL (0.2-1.0)
[2023-11-16 21:00] LABS: Urine Microscopic Indicated YES
[2023-11-16 21:10] LABS: Bacteria Urine TRACE #/HPF (NONE SEEN); Cast Seen? NONE SEEN #/LPF (NONE SEEN); Crystals Seen? None Seen #/HPF (None Seen); Mucus Urine SMALL (NONE SEEN); RBC Urine 0-2 #/HPF (0-2); Squamous Epithelial Cell Urine FEW #/LPF (NONE/RARE); Urine Culture Indicated NO; WBC Urine 0-2 #/HPF (NONE SEEN)
[2023-11-16 22:12] LABS: Glucometer 356 mg/dL (74-106)
== END 2023-11-17 00:44 | disposition short-term general hospital (02) ==
PROVIDERS: Physician Assistant; Emergency Provider Emergency Medicine; PCP Nurse Practitioner
DX: I70.321 Atherosclerosis of unspecified type of bypass graft(s) of the extremities with rest pain, right leg (principal); I70.222 Atherosclerosis of native arteries of extremities with rest pain, left leg; I99.8 Other disorder of circulatory system; F17.210 Nicotine dependence, cigarettes, uncomplicated; Z79.01 Long term (current) use of anticoagulants; Z79.899 Other long term (current) drug therapy; Z79.4 Long term (current) use of insulin; Z79.02 Long term (current) use of antithrombotics/antiplatelets; Z95.828 Presence of other vascular implants and grafts
CPT/HCPCS: 36415; 71250; 75635; 80053; 81001; 84484; 85025; 85610; 85730; 93005; 96374; 96375; 99285; Q9967

== ENCOUNTER 2023-11-30 03:24 | Outpatient (RCR) | payer MEDICARE, SELFPAY | END 2023-12-29 18:15 | disposition home or self-care (01) | LOC: MM 03:24 | PROVIDERS: PCP Nurse Practitioner; Visit Provider Internal Medicine | DX: Z51.81 Encounter for therapeutic drug level monitoring (principal); Z79.01 Long term (current) use of anticoagulants ==

== ENCOUNTER 2023-12-30 04:43 | Outpatient (RCR) | payer MEDICARE, SELFPAY | END 2024-01-29 12:06 | disposition home or self-care (01) | LOC: MM 04:43 | PROVIDERS: PCP Nurse Practitioner; Visit Provider Internal Medicine | DX: Z51.81 Encounter for therapeutic drug level monitoring (principal); Z79.01 Long term (current) use of anticoagulants ==

== ENCOUNTER 2024-02-01 03:36 | Outpatient (RCR) | payer MEDICARE, SELFPAY | END 2024-02-26 11:12 | disposition home or self-care (01) | LOC: MM 03:36 | PROVIDERS: PCP Nurse Practitioner; Visit Provider Internal Medicine | DX: Z51.81 Encounter for therapeutic drug level monitoring (principal); Z79.01 Long term (current) use of anticoagulants ==

== ENCOUNTER 2024-02-29 00:27 | Outpatient (RCR) | payer MEDICARE, SELFPAY | END 2024-03-30 23:59 | disposition home or self-care (01) | LOC: MM 00:27 | PROVIDERS: PCP Nurse Practitioner; Visit Provider Internal Medicine | DX: Z51.81 Encounter for therapeutic drug level monitoring (principal); Z79.01 Long term (current) use of anticoagulants ==